=== PATIENT | female | born 1945 | race Native Hawaiian/Other Pacific Islander ===

== ENCOUNTER 2024-05-16 12:18 | Outpatient (OUT) | payer MEDICARE, BC, SELFPAY ==
--- NOTE | 2024-05-16 13:51 | P.CN_ITS ---
Consult Note: HPI Data of Consult Patient: new to practice Consult date: 05/16/24 Requesting Physician: Nikkie Romero MD Primary Care Provider: VICKIE STILES Consult Narrative Reason for consult: low back pain, left leg and knee pain Narrative: 79yof who presents for evaluation. longstanding low back and leg pain. 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 has been to outside pain clinics in the past, where she received some benefit with interventional modalities. she is engaged in physical therapy and continues in provider directed home exercises >6 weeks, without significant benefit. uses otc pain meds, as she is very sensitive to pain meds. cc:: CC: Nikkie Romero MD Review of Systems ROS Status of ROS 10 or more systems reviewed and unremark able except as noted in history and below Exam Narrative Exam Narrative: Psych-alert and oriented x 3. Attentive and appropriate, constitutionally normal, displays normal mood and affect per situation. There are no obvious deficits in memory, reasoning, or intellect.? Skin-no obvious rashes, bruising, erythema noted to the patient's area of pain.? Extremities- extremities are warm with minimal edema and palpable pulses. Lumbar-tenderness to palpation noted in the lumbar spine and paraspinal musculature. Pain is elicited with flexion, extension, and lateral rotation of the lumbar spine. Range of motion is diminished with these motions. Facet loading maneuvers are positive.? Strength-noted to be unremarkable with the exception of decreased strength rated at 4 out of 5 in bilateral quadriceps femoris, anterior tibialis Sensory-no notable sensory deficits in the bilateral lower extremities to touch or pinprick in all dermatomal distributions with the exception to decreased sensation to the bilateral L4, 5 dermatomal distribution Coordination remains intact.? Gait remains non-antalgic. Assessment and Plan Assessment and Plan (1) Lumbar stenosis with neurogenic claudication: (2) Lumbar spondylosis: Plan 79yof who presents for evaluation. she has failed physical and medical modalities, as noted. imaging consistent with multilevel degenerative changes, but no recent advanced imaging available for review. given symptoms and exam findings, prudent to obtain lumbar ct without contrast for further info. she has non-compatible pacemaker, so mri is not an option. she is in agreement. meds reviewed, no changes. follow up after imaging.
== END 2024-05-16 12:19 | disposition home or self-care (01) ==
LOC: PM 12:19
PROVIDERS: PCP Family Medicine; Visit Provider Anesthesiology
DX: M48.062 Spinal stenosis, lumbar region with neurogenic claudication (principal); M47.816 Spondylosis without myelopathy or radiculopathy, lumbar region
CPT/HCPCS: G0463

== ENCOUNTER 2024-05-18 14:09 | Outpatient (OUT) | payer MEDICARE, BC, SELFPAY ==
--- NOTE | 2024-05-18 14:11 | CT_ITS ---
The [address] [address] Patient Name: MAGI HOPPER MRN: [facility]:[id number] date: 1945 Sex: F Assigned Patient Location: CT Current Patient Location: CT Accession/Order Number: [id number] Exam Date: 05/18/2024 14:22 Report Date: 05/18/2024 17:15 At the request of: MELO BUTT Procedure: CT lumbar spine wo con EXAMINATION: CT lumbar spine wo con HISTORY: Lumbar stenosis with neuroclaudication chronic low back pain, pain getting worse. COMPARISON: 03/27/2016. TECHNIQUE: CT lumbar spine without intravenous contrast. FINDINGS: Levoconvex scoliosis with apex at L1-L2, unchanged. Exaggeration of the lumbar lordosis. No subluxation. Progression of severe disc space narrowing at the right side of the L1-L2 and L2-L3 levels with new endplate sclerosis. Mild to moderate disc space narrowing in the remaining lumbar spine. L5-S1: Disc bulge and moderate bilateral facet, arthropathy, similar to the prior exam. There remain no spinal canal stenosis. L4-L5: Disc bulge, moderate bilateral facet arthropathy. There is mild spinal canal stenosis. No foraminal stenosis. This is unchanged. L3-L4: Disc bulge and moderate bilateral facet arthropathy slightly progressed. There remain no spinal canal stenosis. Stable mild right foraminal stenosis. L2-L3: Disc bulge, moderate facet arthropathy and small foraminal osteophytes. There remain no spinal canal stenosis. Stable moderate right and mild left foraminal stenosis. L1-L2: Disc bulge and mild facet arthropathy. No spinal canal stenosis. Asymmetric severe right foraminal stenosis, unchanged. T12-L1: Disc bulge and mild facet arthropathy without spinal canal stenosis. Mild left foraminal stenosis, unchanged. CT/CT lumbar spine wo con IMPRESSION: 1. Stable moderate levoconvex scoliosis of the lumbar spine with apex at L1-L2. Slight progression of severe degenerative disc disease at L1-L2 and L2-L3 and similar moderate degenerative disc disease and facet arthropathy in the remaining lumbar spine. 2. There remain no levels of high-grade spinal canal stenosis. Similar foraminal stenosis as described. Electronically authenticated by: FLAKO BRAUN Date: 05/18/2024 17:15
== END 2024-05-18 14:10 | disposition home or self-care (01) ==
LOC: CT 14:09
PROVIDERS: PCP Family Medicine; Visit Provider Anesthesiology
DX: M48.062 Spinal stenosis, lumbar region with neurogenic claudication (principal); M51.36 Other intervertebral disc degeneration, lumbar region
CPT/HCPCS: 72131

== ENCOUNTER 2024-05-30 12:25 | Outpatient (OUT) | payer MEDICARE, BC, SELFPAY ==
--- NOTE | 2024-05-30 12:57 | P.CN_ITS ---
Consult Note: HPI Data of Consult Patient: known to practice within the last 3 years Consult date: 05/30/24 Requesting Physician: Nikkie Romero MD Primary Care Provider: VICKIE STILES Consult Narrative Reason for consult: low back pain Narrative: 79yof who presents for assessment. continues to have significant low back pain that is worsened with ambulation. completed 6w of PT in past 3 months, without lasting benefit. continues in a series of provider directed home exercises >6w, without benefit. uses tylenol as needed. lumbar imaging reviewed, significant for multilevel moderate facet arthropathy through lumbar spine. denies adverse med side effects. cc:: CC: Nikkie Romero MD Review of Systems ROS Status of ROS 10 or more systems reviewed and unremark able except as noted in history and below Exam Narrative Exam Narrative: Psych-alert and oriented x 3. Attentive and appropriate, constitutionally normal, displays normal mood and affect per situation.? There are no obvious deficits in memory, reasoning, or intellect.? Skin-no obvious rashes, bruising, erythema noted to the patient's area of pain. Extremities- extremities are warm with minimal edema and palpable pulses. Lumbar-no significant tenderness to palpation noted in the lumbar spine and paraspinal musculature.? Pain is elicited with extension, and lateral rotation of the lumbar spine. Range of motion is slightly diminished with these motions due to pain. Facet loading maneuvers are positive bilaterally and do appear to be concordant with the patient's normal complaints of pain.? Coordination remains intact.? Gait remains non-antalgic. Assessment and Plan Assessment and Plan (1) Lumbar spondylosis: (2) Lumbar stenosis with neurogenic claudication: Plan 79yof who presents for assessment. failed conservative measures, as noted. imaging reviewed, as noted. given symptoms and imaging, prudent to attempt diagnostic bilateral l4-5, l5-s1 medial branch block under fluoroscopic guidance with intention of proceeding to radiofrequency ablation. she is in agreement. meds reviewed, no changes. follow up after procedure.
== END 2024-05-30 12:26 | disposition home or self-care (01) ==
LOC: PM 12:26
PROVIDERS: PCP Family Medicine; Visit Provider Anesthesiology
DX: M47.816 Spondylosis without myelopathy or radiculopathy, lumbar region (principal); M48.062 Spinal stenosis, lumbar region with neurogenic claudication
CPT/HCPCS: G0463

== ENCOUNTER 2024-06-06 09:19 | Day surgery (SDC) | payer MEDICARE, BC, SELFPAY ==
--- OUTSIDE RECORDS SUMMARY | 2024-06-06 09:36 | XMS_ITS | CCD ---
Author Organization [facility] Care Team Providers Care Fabrication And [employer] Supervisor Name Role Phone Yajaira Gonzalez Primary Care Provider Ceferino Morales Attending Provider Yajaira Gonzalez MD Primary Care Provider Mackenzie Kurtz(Historical) Unavailable Un available Ramirez Jang Unavailable Vilma Sandoval MD Unavailable YAJAIRA POST Primary Care Physician Yajaira Gonzalez MD Primary Care Provider Ramirez Jang Unavailable Vilma Sandoval MD Unavailable Yajaira Gonzalez MD Primary Care Provider Yajaira Gonzalez MD Primary Care Provider Mackenzie Kurtz(Historical) Unavailable Un available Ramirez Jang Unavailable Vilma Sandoval MD Unavailable MARLEE SALAZAR Admitting Unavailable MARLEE SALAZAR Attending Unavailable YAJAIRA GONZALEZ Primary Care Unavailable FENG LEY Consulting Unavailable Ramirez Jang Unavailable Vilma Napoles MD Unavailable [phone] SuhailRamirez mondragon DO Unavailable LISAYAJAIRA Primary Care Unavailable MARLEE SALAZAR Referring Unavailable SELL II, REDDY W Referring Unavailable LISAYAJAIRA Primary Care Unavailable GABRIEL SUBRAMANIAN Attending Unavailable LISAYAJAIRA Primary Care Unavailable GABRIEL COPPOLA JR Referring Unavailable Lisa THOMAS Yajaira Pearce Primary Care Provider Lisa THOMAS, Yajaira F Unavailable Lisa THOMAS, Yajaira F Primary Care Provider [phone] Lisa THOMAS, Yajaira F Primary Care Provider VILMA NAPOLES Attending Unavailable LISA, YAJARIA F Referring Unavailable LISA, YAJAIRA F Primary Care Unavailable VILMA NAPOLES Attending Unavailable LISA, YAJAIRA F Referring Unavailable LISA, YAJAIRA F Primary Care Unavailable MARLEE SALAZAR Attending Unavailable DEREN, MARLEE Referring Unavailable LISA, YAJAIRA F Primary Care Unavailable LISA, YAJAIRA F Primary Care Unavailable ABHYANKAR, VAIBHAV Referring Unavailable LISA, YAJAIRA F Primary Care Unavailable ABHYANKAR, VAIBHAV Attending Unavailable LISA, YAJAIRA F Primary Care Unavailable GABRIEL COPPOLA JR Attending Unavailable MARLEE SALAZAR Referring Unavailable LISA, YAJAIRA F Primary Care Unavailable DAISYNMARLEE Attending Unavailable LISA, YAJAIRA F Primary Care Unavailable LISA, YAJAIRA F Primary Care Unavailable GABRIEL COPPOLA JR Attending Unavailable GABRIEL COPPOLA JR Referring Unavailable LISA, YAJAIRA F Primary Care Unavailable ABHYANKAR, VAIBHAV Referring Unavailable LISA, YAJAIRA Ramses Primary Care Unavailable ABHYANKAR, VAIBHAV Attending Unavailable ABHYANKAR, VAIBHAV Referring Unavailable LISA, YAJAIRA F Primary Care Unavailable GABRIEL COPPOLA JR Attending Unavailable LISA, YAJAIRA F Primary Care Unavailable ABHYANKAR, VAIBHAV Attending Unavailable ABHYANKAR, VAIBHAV Referring Unavailable ABHYANKAR, VAIBHAV Attending Unavailable LISA, YAJAIRA F Primary Care Unavailable LISA, YAJAIRA F Primary Care Unavailable PROMISE SOLIMAN Attending Unavailable GABRIEL COPPOLA JR Referring Unavailable MARLEE SALAZAR Referring Unavailable LISA, YAJAIRA Pearce Primary Care Unavailable POST, YAJAIRA Primary Care Unavailable Yee Rivero Attending Unavailable Vilma Napoles MD Unavailable [phone] TIA MARIE Attending Unavailable LISA, YAJAIRA F Referring Unavailable LISA, YAJAIRA F Primary Care Unavailable TIA MARIE Attending Unavailable LISA, YAJAIRA F Referring Unavailable LISA, YAJAIRA F Primary Care Unavailable WINSTON GARCIA Attending Unavailable LISA, YAJAIRA F Referring Unavailable LISA, YAJAIRA F Primary Care Unavailable TIA MARIE Attending Unavailable LISA, YAJAIRA F Referring Unavailable LISA, YAJAIRA F Primary Care Unavailable LISA, YAJAIRA F Referring Unavailable LISA, YAJAIRA F Primary Care Unavailable LEATHA REDDY Attending Unavailable LISA, YAJAIRA F Referring Unavailable LISA, YAJAIRA F Primary Care Unavailable TIA MARIE Attending Unavailable LISA, YAJAIRA F Referring Unavailable LISA, YAJAIRA F Primary Care Unavailable JEZAWINSTON Gonzalez Attending Unavailable LISA, YAJAIRA F Referring Unavailable LISA, YAJAIRA F Primary Care Unavailable WINSTON GARCIA Referring Unavailable LISA, YAJAIRA F Primary Care Unavailable MARIE, TIA Attending Unavailable LISA, YAJAIRA F Referring Unavailable LISA, YAJAIRA F Primary Care Unavailable VAIBHAV OVALLE Referring Unavailable LISA, YAJAIRA F Primary Care Unavailable MARIE, TIA Attending Unavailable LISA, YAJAIRA F Referring Unavailable LISA, YAJAIRA F Primary Care Unavailable WINSTON GARCIA Attending Unavailable LISA, YAJAIRA F Referring Unavailable LISA, YAJAIRA F Primary Care Unavailable MARIE, TIA Attending Unavailable LISA, YAJAIRA F Referring Unavailable LISA, YAJAIRA F Primary Care Unavailable TIA MARIE Attending Unavailable LISA, YAJAIRA F Referring Unavailable LISA, YAJAIRA F Primary Care Unavailable WINSTON GARCIA Attending Unavailable LISA, YAJAIRA F Referring Unavailable LISA, YAJAIRA F Primary Care Unavailable TIA MARIE Attending Unavailable LISA, YAJAIRA F Referring Unavailable LISA, YAJAIRA F Primary Care Unavailable FRANK, TIA Attending Unavailable LISA, YAJAIRA F Referring Unavailable LISA, YAJAIRA F Primary Care Unavailable TIA MARIE Attending Unavailable LSIA, YAJAIRA F Referring Unavailable LISA, YAJAIRA F Primary Care Unavailable WINSTON GARCIA Attending Unavailable LISA, YAJAIRA F Referring Unavailable LISA, YAJAIRA F Primary Care Unavailable LISA, YAJAIRA F Attending Unavailable AMADA BRUCE Attending Unavailable GILLMORESME Referring Unavailable ROSEANNEMYRANDA Attending Unavailable LISA, YAJAIRA F Referring Unavailable BRETT CANTU Attending Unavailable AMADA BRUCE Attending Unavailable AMADA BRUCE Attending Unavailable GILLMOR, ESME Referring Unavailable JANISAMADA Attending Unavailable GILLMOR, ESME Referring Unavailable LISA, YAJAIRA F Attending Unavailable FELTERYELENA Attending Unavailable LISA, YAJAIRA F Referring Unavailable JANISAMADA Attending Unavailable GILLMORESME Referring Unavailable LISA, YAJAIRA F Attending Unavailable BEATRICE MARTELL Attending Unavailable GILLMOR, ESME Referring Unavailable FELTERYELENA Attending Unavailable AMADA BRUCE Attending Unavailable GILLMOR, ESME Referring Unavailable JANIS, AMADA Claire Attending Unavailable GILLMOR, ESME Referring Unavailable GUZIK, BEATRICE Attending Unavailable GILLMOR, ESME Referring Unavailable PETITTI, MIGUEL ANGEL Mondragon Attending Unavailable KAITLYNN, JARON Attending Unavailable PETITTI, MIGUEL ANGEL Mondragon Attending Unavailable GUZIK, BEATRICE Attending Unavailable GILLMOR, ESME Referring Unavailable KAITLYNN, JARON Attending Unavailable FELTER, YELENA Mondragon Attending Unavailable GUZIK, BEATRICE Attending Unavailable GILLMOR, ESME Referring Unavailable KAITLYNN, JARON Attending Unavailable KAMPFER, DAO Attending Unavailable LISA, YAJAIRA F Attending Unavailable JANIS, AMADA Claire Attending Unavailable LISA, YAJAIRA F Referring Unavailable JANIS, AMADA Claire Attending Unavailable GILLMOR, ESME Referring Unavailable LISA, YAJAIRA F Attending Unavailable GOLD, CRISTIAN Claire Attending Unavailable LISA, YAJAIRA F Referring Unavailable GOLD, CRISTIAN Claire Attending Unavailable LISA, YAJAIRA F Referring Unavailable GOLD, CRISTIAN Claire Attending Unavailable LISA, YAJAIRA F Referring Unavailable GOLD, CRISTIAN Claire Attending Unavailable LISA, YAJAIRA F Referring Unavailable Heather THOMAS, Nikkie Arriaga Attending Unavailable Heather THOMAS, Nikkie Arriaga Attending Unavailable Allergies Allergy Classification Reported Allergen(s) Allergy Type Date of Onset Reaction(s) Facility Acetaminophen / HYDROcodone (1 source) Acetaminophen / HYDROcodone Drug Allergy 01-27-20 23 Mental Status Change, Shortness of Breath [facility] Anti-Epileptic Agents (4 sources) gabapentin Drug Allergy 10-16-19 [address] [facility] Aspirin (1 source) Aspirin Drug Allergy 10-17-19 23 Anaphylaxis [facility] cloNIDine (4 sources) cloNIDine Drug Allergy 04-13-20 12 Mental Status Change, Rash [facility] Doxycycline (4 sources) Doxycycline Drug Allergy 01-25-20 14 Intolerance, GI Upset, Unknown [facility] DULoxetine (4 sources) DULoxetine Drug Allergy 02-18-20 11 Other: See Comments, Rash, Swelling, Unknown [facility] Opioid Agonists (9 sources) Codeine Drug Allergy 01-27-20 08 Unknown, Mental Status Change, Shortness of Breath, Other: See Comments [facility] pregabalin (1 source) pregabalin Drug Allergy 01-28-20 23 Other: See Comments [facility] Quinolones (antibiotic) (13 sources) Ciprofloxacin Drug Allergy 02-18-20 11 Other: See Comments, Rash, Unknown [facility] Theophylline (4 sources) Theophylline Drug Allergy 02-23-20 12 Other: See Comments [facility] (20 sources) Ciprofloxacin; Translations: [ciprofloxacin] Drug Allergy 02-18-20 11 Other: See Comments, Unknown (qualifier value), Rash, Unknown [facility] (20 sources) cloNIDine; Translations: [clonidine] Drug Allergy 04-13-20 12 Mental Status Change, Headache (finding), Rash, Hallucinations [facility] Work Phone: (20 sources) Codeine; Translations: [codeine] Drug Allergy 01-27-20 08 Dizziness (finding), Unknown [facility] (20 sources) Doxycycline; Translations: [doxycycline] Drug Allergy 01-25-20 14 Intolerance, GI Upset, Unknown, GI intolerance [facility] (20 sources) DULoxetine; Translations: [duloxetine] Drug Allergy 02-18-20 11 Other: See Comments, Unknown (qualifier value), Rash, Swelling, Unknown [facility] (20 sources) gabapentin; Translations: [gabapentin] Drug Allergy 10-16-19 15 Intolerance, Oral lesion (finding), Headache (finding) [facility] (20 sources) levoFLOXacin; Translations: [levofloxacin] Drug Allergy 02-18-20 11 Other: See Comments, Unknown (qualifier value), Rash, Other [facility] (20 sources) moxifloxacin; Translations: [MOXIFLOXACIN HCL] Drug Allergy 02-18-20 11 Other: See Comments [facility] (20 sources) oxyCODONE; Translations: [OXYCODONE] Drug Allergy 03-19-20 21 Mental Status Change, Shortness of Breath [facility] Work Phone: (20 sources) Theophylline; Translations: [theophylline] Drug Allergy 02-23-20 12 Other: See Comments, Headache (finding), hypertension [facility] (20 sources) moxifloxacin; Translations: [moxifloxacin] Drug Allergy 02-18-20 11 Unknown (qualifier value), Rash, Unknown [facility] (20 sources) traMADol; Translations: [tramadol] Drug Allergy 10-14-19 17 Unknown (qualifier value), Other: See Comments [facility] (20 sources) Aspirin; Translations: [ASPIRIN] Drug Allergy 10-17-19 23 Anaphylaxis, Shortness Of Breath [facility] (20 sources) Acetaminophen / HYDROcodone; Translations: [HYDROCODONE-EMMY TAMINOPHEN] Drug Allergy 01-27-20 23 Mental Status Change, Shortness of Breath, Unknown [facility] (19 sources) pregabalin; Translations: [PREGABALIN] Drug Allergy 01-28-20 Other: See Comments [facility] (4 sources) Simvastatin; Translations: [SIMVASTATIN] Drug Allergy 10-14-19 17 [facility] (4 sources) Thiuram Analogues; Translations: [THIURAM ANALOGUES] Propensity to adverse reactions to drug 12-29-19 21 [facility] (2 sources) Aluminum aspirin Drug Allergy 10-17-19 23 Anaphylaxis [facility] (2 sources) Ciprofloxacin Drug Allergy 09-25-19 22 Rash [facility] (2 sources) DULoxetine Drug Allergy 09-25-19 Swelling, Rash, Other [facility] (2 sources) Pregabalin Allergy to substance 01-28-20 23 [facility] (2 sources) Simvastatin Propensity to adverse reactions 10-14-19 [facility] Medications Current Medications Medication Drug Class(es) Dates Sig (Normalized) Sig (Original) acetaminophen 500 mg oral tablet (20 sources) Start: 04-24-2021 take 2 tablets by mouth every eight hours acetaminophen (TYLENOL EXTRA STRENGTH) 500 mg tablet Take 2 tablets by mouth every 8 hours. 04/24/2021 Active Start: 11-15-2019 take 2 tablets by mo uth three times daily Acetaminophen (Tylenol Extra Strength) 500 mg Tablet Active 1000 MG PO Three times daily November 15, 2019 8:24am Start: 11-15-2019 take 2 tablets by mo uth every six hours Acetaminophen (Tylenol Extra Strength) 500 mg Tablet Active 1000 MG PO Every 6 hours November 15, 2019 8:24am Comment on above: Take 2 tablets by mo uth every 8 hours. [id number] 200 actuat albuterol 0.09 mg/actuat metered dose inhaler (20 sources) beta2-Adrenergic Agonist Start: 06-10-2022 take 2 puff(s) by mouth every six hours as needed for wheezing albuterol (PROVENTIL HFA;VENTOLIN HFA) 90 mcg/actuation inhaler Indications: Asthma, unspecified asthma severity, unspecified whether complicated, unspecified whether persistent INHALE TWO PUFFS BY MOUTH EVERY 6 HOURS NEEDED FOR WHEEZING OR FOR SHORTNESS OF BREATH 18 g 10 06/10/2022 Active Start: 11-15-2019 take 1 puff(s) by in halation every four to six hours Albuterol Sulfate (Ventolin Hfa) 90 mcg/actuation Hfa Aerosol Inhaler Active 2 PUFF INHALATION EVERY 4-6 HOURS November 15, 2019 8:24am albuterol sulfat e (VENTOLIN HFA INHALATION) Inhale as instructed. Active albuterol sulfat e (VENTOLIN HFA INHALATION) Inhale as instructed. 0 Active Comment on above: Inhale as instructed . ALPRAZolam 0.5 mg oral tablet (20 sources) Benzodiazepine Start: 12-06-2021 End: 01-03-2024 ALPRAZolam (XANAX) 0.5 mg tablet 03/13/2023 Active Start: 11-15-2019 take 2 tablets by mo [facility] twice daily Alprazolam (Xanax) 0.25 mg Tablet Active 0.5 MG PO Twice daily November 15, 2019 8:24am Start: 11-15-2019 [facility] Alprazolam (Xanax) 0.25 mg Tablet Active 0.25 MG PO Twice daily November 15, 2019 8:24am End: 03-27-2023 take 2 tablets by mouth every eight hours as needed ALPRAZolam (XANAX) 0.25 mg tablet Take 0.5 mg by mouth three times daily as needed. 03/27/2023 Discontinued (Course of therapy completed) Comment on above: Take 0.5 mg by mouth three times daily as needed. atogepant (QULIPTA) 30 mg tablet (8 sources) take 1 tablet by mouth once daily atogepant (QULIPTA) 30 mg tablet Take 30 mg by mouth once daily. 0 Active Atogepant (Qulipta) 60 MG tablet (2 sources) Atogepant (Qulip ta) 60 MG tablet Take by mouth 0 Active azelastine (20 sources) Histamine-1 Receptor Antagonist Start: 2 azelastine hydrochloride 137 mcg spray = 2 spray(s), Nasal, BID Start Date: 12/06/21 Status: Ordered Start: 11-15-2019 Azelastine Act luis 2 SPRAY INTRANASAL Twice daily November 15, 2019 8:24am Start: 01-10-2019 End: 01-06-2023 azelastine (ASTELIN,ASTEPRO) 0.1% nasal spray Use 2 Sprays in the nose as needed. 0 01/10/2019 01/06/2023 Discontinued (Course of therapy completed) Comment on above: Use 2 Sprays in the nose as needed. bisacodyl 5 mg delayed release oral tablet (2 sources) Stimulant Laxative Start: 2022 End: 2022 take 2 tablets by mouth once daily for constipation bisacodyl EC (DULCOLAX) 5 mg EC tablet Take 2 tablets by mouth once daily for 14 days. Take regularly when on narcotics, Take as needed for constipation when narcotics completed 28 tablet 0 01/28/2023 02/11/2023 Active Comment on above: Take 2 tablets by mo ut once daily for 14 days. Take regularly when on narcotics, Take as needed for constipation when narcotics completed botox injections every 3 months (1 source) Start: 2021 botox injections every 3 months botox injections every 3 months Start Date: 12/06/21 Status: Ordered Botulinum Toxin Type A (20 sources) Acetylcholine Release Inhibitor ONABOTULINUMTOXINA (BOTOX INJECTION) by INJECTION(UNSPECIFIED PARENTERAL ROUTES) route. every 9 weeks for migraines Active onabotulinumtoxi nA (BOTOX) 100 unit recon soln every 3 (three) months. For migraines 0 Active ONABOTULINUMTOXI NA (BOTOX INJECTION) by INJECTION(UNSPECIFIED PARENTERAL ROUTES) route. every 9 weeks for migraines 0 Active Comment on above: by INJECTION(UNSPECI FIED PARENTERAL ROUTES) route. every 9 weeks for migraines camphor 40 mg/ml / menthol 100 mg/ml / methyl salicylate 300 mg/ml topical cream (1 source) Start: 2020 Camphor-Methyl Salicyl-Menthol (Pain Relief Cream) 4-30-10 % Cream Active 1 APPLIC TOPICAL Twice daily February 01, 2021 7:37am clobetasol propionate 0.5 mg/ml medicated shampoo (5 sources) Corticosteroid Start: 2023 Clobetasol Propionate 0.05 % sham Apply to scalp, leave on 5 min, rinse. 2-3 x week, 30 day supply 0 02/15/2024 Active 24 hr desvenlafaxine succinate 50 mg extended release oral tablet (20 sources) Serotonin and Norepinephrine Reuptake Inhibitor Start: 2023 take 1 tablet by mouth once daily, then take 1 tablet by mouth every twenty-four hours desvenlafaxine ER (PRISTIQ) 50 mg 24 hr tablet Take 50 mg by mouth once daily. 0 12/01/2023 Active Start: 12-01-2023 take 1 tablet by nila th once daily, then take 1 tablet by mouth every twenty-four hours desvenlafaxine ER (PRISTIQ) 25 mg 24 hr tablet Take 25 mg by mouth once daily. 0 12/01/2023 Active Start: 11-02-2023 take 1 tablet by nila th every twenty-four hours in the morning desvenlafaxine (PRISTIQ) 25 mg 24 hr tablet Indications: Major depressive disorder, recurrent episode, mild (CMS-HCC) , Generalized anxiety disorder Take 1 tablet (25 mg total) by mouth in the morning. 30 tablet 3 11/02/2023 Active Start: 07-03-2022 End: 01-06-2023 desvenlafaxine ER (PRISTIQ) 25 mg 24 hr tablet Take 25 mg by mouth. 0 07/03/2022 01/06/2023 Discontinued (Course of therapy completed) Start: 07-03-2022 desvenlafaxine ER (PRISTIQ) 25 mg 24 hr tablet Take 50 mg by mouth. 0 07/03/2022 Active Comment on above: Take 25 mg by mouth. Take 50 mg by mouth. dicyclomine hydrochloride 20 mg oral tablet (8 sources) Anticholinergic Start: 08-15-20 End: 11-14-19 23 take 1 tablet by mouth twice daily dicyclomine (BENTYL) 20 mg tablet Indications: Diarrhea, unspecified type Take 1 tablet by mouth twice daily. 60 tablet 2 08/15/2022 11/13/2022 Active Comment on above: Take 1 tablet by nila th twice daily. docusate sodium 50 mg / sennosides, longterm 8.6 mg oral tablet (11 sources) Start: 02-29-20 take 2 tablets by mouth once daily at bedtime SENEXON-S 8.6-50 mg per tablet TAKE TWO TABLETS BY MOUTH EVERY NIGHT AT BEDTIME 60 tablet 2 02/29/2024 Active Start: 09-17-2023 End: 12-16-2023 take 2 tablets by mouth in the morning sennosides-docusate sodium (SENOKOT-S) 8.6-50 mg Take 2 tablets by mouth in the morning. 0 09/17/2023 12/16/2023 Active Start: 09-17-2023 End: 12-16-2023 take 2 tablets by mouth once daily at bedtime senna-docusate (SENOKOT-S) 8.6-50 mg per tablet Take 2 tablets by mouth daily at bedtime. 60 tablet 2 09/17/2023 12/16/2023 Active Comment on above: Take 2 tablets by mo [facility] daily at bedtime. famotidine 20 mg oral tablet (5 sources) Histamine-2 Receptor Antagonist Start: 4 End: 4 take 1 tablet by mouth twice daily famotidine (PEPCID) 20 mg tablet Take 1 tablet by mouth two times a day. 60 tablet 2 10/27/2023 01/25/2024 Active Comment on above: Take 1 tablet by nila two times a day. fexofenadine (20 sources) Histamine-1 Receptor Antagonist Start: 2 Usha Oral Start Date: 12/06/21 Status: Ordered Start: 11-15-2019 End: 02-09-2024 take 1 tablet by mouth once daily Fexofenadine (Usha Allergy) 180 mg Tablet Active 180 MG PO Daily November 15, 2019 8:24am Start: 11-15-2019 Fexofenadine ( Usha Allergy) 180 mg Tablet Active 100 MG PO Daily November 15, 2019 8:24am take 100 mg by mouth once daily as needed fexofenadine HCl (FEXOFENADINE ORAL) Take 100 mg by mouth daily as needed. 0 Active Comment on above: Take 180 mg by mouth once daily. fluocinonide 0.5 mg/ml topical solution (5 sources) Corticosteroid Start: 2023 fluocinonide (LIDEX) 0.05 % external solution Apply to affected area once daily. 0 02/15/2024 Active folic acid 1 mg oral tablet (2 sources) folic acid (Folv ite) 1 MG tablet Take by mouth Daily. 0 Active ipratropium bromide 0.2 mg/ml inhalation solution (3 sources) Anticholinergic Start: 2019 Ipratropium [place] Active 1.25 ML INHALATION every 6 to 8 hours November 15, 2019 8:24am iv contrast (will be provided with radiology test) (1 source) Start: 2022 End: 2022 inject 1 dose intravenously once iv contrast (will be provided with radiology test) MRI Brain Inject, intravenously, once for 1 dose.No IV access, insert saline lock prior to beginning of sedation, infusion, injection of imaging exam.Discontinue saline lock post exam. If Pt. has a central line or IVAD, may access for administration according to line specific nursing protocol.Once exam is complete flush line and de-access according to line specific nursing protocol in the MR contrast administration guidelines link 1 Each 0 05/29/2023 05/30/2023 Active Comment on above: MRI Brain Inject, in travenously, once for 1 dose.No IV access, insert saline lock prior to beginning of sedation, infusion, injection of imaging exam.Discontinue saline lock post exam. If Pt. has a central line or IVAD, may access for administration according to line specific nursing protocol.Once exam is complete flush line and de-access according to line specific nursing protocol in the MR contrast administration guidelines link lansoprazole 30 mg delayed release oral capsule (8 sources) Proton Pump Inhibitor Start: 2023 take 1 capsule by mouth once daily lansoprazole (PREVACID) 30 mg capsule Take 1 capsule by mouth once daily. 30 capsule 3 01/29/2024 Active levothyroxine sodium 0.088 mg oral tablet (20 sources) l-Thyroxine Start: 2009 End: 2023 take 1 tablet by mouth once daily LEVOTHYROXINE 88 MCG TAB Take one(1) tablet daily BY MOUTH 0 12/04/2009 Active Comment on above: Take one(1) tablet d aily BY MOUTH Lidocaine Hcl-Benzyl Alcohol (Salonpas Lidocaine Plus) 4-10 % Cream (1 source) Start: 2020 Lidocaine Hcl-Benzyl Alcohol (Salonpas Lidocaine Plus) 4-10 % Cream Active 1 APPLIC TOPICAL Twice daily February 01, 2021 7:37am lisinopril 5 mg oral tablet (20 sources) Angiotensin Converting Enzyme Inhibitor Start: 2020 lisinopriL (PRINIVIL,ZESTRIL) 5 mg tablet Indications: Benign essential hypertension Take 1 tablet (5 mg total) by mouth as needed (As needed for high bp readings. SBP > [address] (pt states she takes only if >150)). As needed for high bp readings. SBP > [address] (pt states she takes only if >150) 90 tablet 3 12/31/2022 Active Start: 01-30-2021 Lisinopril Act luis 5 MG PO Daily January 30, 2021 10:26am take when BP is >130/140 Comment on above: Take 5 mg by mouth a s needed. as needed for BP above 140 marijuana (1 source) Start: 12-07-19 marijuana marijuana Start Date: 12/06/21 Status: Ordered metroNIDAZOLE 500 mg oral tablet (2 sources) Nitroimidazole Antimicrobial Start: 08-15-20 End: 08-22-20 take 1 tablet by mouth twice daily metroNIDAZOLE (FLAGYL) 500 mg tablet Indications: Diarrhea, unspecified type Take 1 tablet by mouth twice daily for 7 days. 14 tablet 0 08/15/2022 08/22/2022 Active Comment on above: Take 1 tablet by nila twice daily for 7 days. miconazole nitrate 20 mg/ml topical cream (20 sources) Azole Antifungal Start: 02-07-20 miconazole 2 % cream Apply to affected area. 02/06/2023 Active Comment on above: Apply to affected ar ea. montelukast 5 mg chewable tablet (20 sources) Leukotriene Receptor Antagonist Start: 12-07-19 Singulair 5 mg Tab-Chew 5 mg = 1 tab(s), Chewed, Daily Start Date: 12/06/21 Status: Ordered Start: 09-17-2017 End: 01-06-2023 take 1 tablet by mouth every twelve hours as needed montelukast chewable (SINGULAIR) 5 mg chewable tablet Take 5 mg by mouth twice daily as needed. 0 09/17/2017 01/06/2023 Discontinued (Course of therapy completed) Comment on above: Take 5 mg by mouth t wice daily as needed. Multivitamin preparation (3 sources) Start: 0 take 2 tablets by mouth once daily Multivitamin Active 2 TAB PO Daily June 15, 2020 8:39am Start: 06-15-2020 take 1 tablet by nila once daily Multivitamin Active 1 TAB PO Daily June 15, 2020 8:39am omeprazole 40 mg delayed release oral capsule (20 sources) Proton Pump Inhibitor Start: 12-06-2021 take 40 mg by mouth once daily Prilosec 40 mg, Oral, Daily Start Date: 12/06/21 Status: Ordered Start: 11-15-2019 Omeprazole Mag nesium (Prilosec Otc) 20 mg Tablet,Delayed Release (Dr/Ec) Active 40 MG PO Daily November 15, 2019 8:24am Start: 09-14-2016 take 1 capsule by mo [facility] once daily before breakfast omeprazole (PriLOSEC) 40 mg capsule Take 1 capsule (40 mg total) by mouth every morning before breakfast. 0 09/14/2016 Active Start: 11-12-2013 End: 10-27-2023 take 1 capsule by mouth twice daily OMEPRAZOLE 40 mg capsule Take 40 mg by mouth twice daily. 11/12/2013 10/27/2023 Discontinued Comment on above: Take 40 mg by mouth twice daily. Omeprazole Magnesium (Prilosec Otc) 20 mg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 [Scoliosis, unspecified] Onset: 3 Resolved: 3 09-05-2023 Chronic Other aftercare (20 sources) Radiotherapy follow-up; Translations: [Encounter for follow-up examination after completed treatment for conditions other than malignant neoplasm] Onset: 5 Resolved: 3 11-20-2014 Episodic Other circulatory disease (20 sources) Orthostatic hypotension; Translations: [Orthostatic hypotension] Onset: 1 04-24-2021 Episodic Other connective tissue disease (2 sources) History of left total knee replacement; Translations: [Presence of left artificial knee joint] Onset: 3 Resolved: 3 09-05-2023 Chronic Other connective tissue disease (20 sources) Tear of right rotator cuff; Translations: [Unspecified rotator cuff tear or rupture of right shoulder, not specified as traumatic] Onset: 5 Resolved: 3 12-28-2014 Episodic Other connective tissue disease (4 sources) Bilateral cramp of muscle of lower limbs; Translations: [Cramp and spasm] Onset: 7 02-23-2017 Episodic Other connective tissue disease (4 sources) Bilateral trochanteric bursitis; Translations: [Trochanteric bursitis, right hip] Onset: 7 07-08-2017 Episodic Other connective tissue disease (2 sources) Pain of right lower leg; Translations: [Pain in right lower leg] Onset: 7 Resolved: 7 08-17-2017 Episodic Other connective tissue disease (2 sources) Muscle pain; Translations: [Myalgia, unspecified site] Onset: 6 02-06-2023 Episodic Other diseases of veins and lymphatics (2 sources) Venous hypertension of lower limb; Translations: [Chronic venous hypertension (idiopathic) without complications of right lower extremity] Onset: 7 Resolved: 7 06-11-2017 Chronic Other ear and sense organ disorders (2 sources) Bilateral tinnitus; Translations: [Tinnitus, bilateral] Onset: 0 02-06-2023 Episodic Other ear and sense organ disorders (2 sources) Otalgia, right ear; Translations: [Otalgia, unspecified] Onset: 3 Resolved: 3 09-05-2023 Episodic Other gastrointestinal disorders (2 sources) Slow transit constipation; Translations: [Slow transit constipation] Onset: 9 02-06-2023 Episodic Other gastrointestinal disorders (2 sources) Esophageal dysphagia; Translations: [Other dysphagia] Onset: 0 Resolved: 3 09-05-2023 Episodic Other infections; including parasitic (20 sources) H/O: infectious disease; Translations: [Personal history of other infectious and parasitic diseases] Onset: 1 Resolved: 3 04-19-2021 Episodic Other nervous system disorders (2 sources) Impairment of balance; Translations: [Other abnormalities of gait and mobility] Onset: 3 Resolved: 3 09-05-2023 Episodic Other non-traumatic joint disorders (20 sources) Shoulder pain; Translations: [Pain in right shoulder] Onset: 5 11-20-2014 Episodic Other non-traumatic joint disorders (20 sources) Pain in right shoulder; Translations: [Pain in joint, shoulder region] Onset: 5 11-20-2014 Episodic Other non-traumatic joint disorders (1 source) Pain in right knee; Translations: [Chronic pain of right knee] Onset: 4 Episodic Other nutritional; endocrine; and metabolic disorders (2 sources) Obesity caused by energy imbalance; Translations: [Other obesity due to excess calories] Onset: 3 Resolved: 3 09-05-2023 Chronic Other nutritional; endocrine; and metabolic disorders (2 sources) Loss of appetite; Translations: [Anorexia] Onset: 0 02-06-2023 Episodic Other screening for suspected conditions (not mental disorders or infectious disease) (5 sources) Patient encounter status; Translations: [Encounter for screening for malignant neoplasm of colon] Onset: 4 01-29-2024 Episodic Other skin disorders (4 sources) Bilateral localized swelling of lower legs; Translations: [Localized swelling, mass and lump, lower limb, bilateral] Onset: 7 Resolved: 3 02-23-2017 Episodic Other skin disorders (2 sources) Seborrheic keratosis; Translations: [Other seborrheic keratosis] Onset: 6 Resolved: 3 09-05-2023 Episodic Other skin disorders (1 source) Localized swelling, mass and lump, trunk; Translations: [Localized swelling, mass and lump, trunk] Onset: 4 Episodic Phlebitis; thrombophlebitis and thromboembolism (2 sources) Phlebitis; Translations: [Phlebitis and thrombophlebitis of unspecified site] Onset: 7 Resolved: 7 06-11-2017 Episodic Residual codes; unclassified (1 source) Other specified postprocedural states; Translations: [History of lung surgery] Onset: 3 Episodic Residual codes; unclassified (2 sources) Family history of breast cancer; Translations: [Family history of malignant neoplasm of breast] Onset: 1 Resolved: 3 09-05-2023 Episodic Residual codes; unclassified (1 source) Acquired absence of left breast and nipple; Translations: [Acquired absence of left breast and nipple] Onset: 4 Episodic Screening and history of mental health and substance abuse codes (20 sources) Ex-smoker; Translations: [Personal history of nicotine dependence] Onset: 3 Episodic Spondylosis; intervertebral disc disorders; other back problems (20 sources) Stenosis of intervertebral foramina; Translations: [Spinal stenosis, cervical region] Onset: 5 Resolved: 3 12-28-2014 Episodic Syncope (6 sources) Syncope and collapse; Translations: [Syncope and collapse] Onset: 6 01-11-2018 Episodic Varicose veins of lower extremity (4 sources) Bilateral spider veins of lower limbs; Translations: [Asymptomatic varicose veins of bilateral lower extremities] Onset: 7 Resolved: 3 02-23-2017 Episodic Results Test Name Value Interpretation Reference Range Facility Ambulatory Visit Summaryon 0 05-24-2024 Ambulatory Visit Summary Ambulatory Visit Summary MAGI DAO :1945 Visit Date:05/24/2024 Ambulatory Visit Instructions Your Diagnosis Dysuria Unspecified urethral stricture, female OAB (overactive bladder) Mixed incontinence Your Care Team Attending Physician - EZEQUIEL Rivero APRN, Yee Flores Primary Care Physician - YAJAIRA BISHOP This Is Your Medications List Contact prescribing physician if questions or concerns Non-Formulary Medication (botox injections every 3 months) Non-Formulary Medication (marijuana) albuterol (Ventolin HFA 90 mcg/inh Aerosol) alprazolam (Xanax 0.5 mg Tab) azelastine nasal (azelastine hydrochloride 137 mcg spray) fexofenadine (Usha) levothyroxine (Synthroid 88 mcg (0.088 mg) Tab) lisinopril (lisinopril 5 mg Tab) montelukast (Singulair 5 mg Tab-Chew) omeprazole (Prilosec) verapamil (verapamil 180 mg Cap-ER) Procedures Performed Mastectomy (04/12/2021), Arthroscopy (08/10/2015), Anterior cervical (01/24/2015), section (1979), Cardiac pacemaker, Cataract, Cholecystectomy, Colonoscopy, Hernia repair, Hysterectomy, Knee replacement, Procedure on hand, Procedure on hand, Tonsillectomy. Discharge Vitals Heart Rate (Peripheral) 70 Blood Pressure 122/80 Height 162 cm Height 64 in Weight 69.8 kg Weight 153.56 lb BMI 26.6 What to do next You Need to Schedule the Following Appointments Follow Up with WILBERT THOMAS, León Rosenthal, URL When: Comments: cysto/poss UD Where: [facility] [place] [address]- Medications What How Much When Instructions Unchanged albuterol (Ventolin HFA 90 mcg/ inh Aerosol) 2 Puffs Inhalation Every 6 hours Contact prescribing physician if questions or concerns Unchanged alprazolam (Xanax 0.5 mg Tab) 1 Tablets By Mouth 3 times a day as needed for for anxiety Contact prescribing physician if questions or concerns Unchanged azelastine nasal (azelastine hydrochloride 137 mcg spray) 2 Sprays Nasal Inhalation 2 times a day Contact prescribing physician if questions or concerns Unchanged fexofenadine (Usha) By Mouth Contact prescribing physician if questions or concerns Unchanged levothyroxine (Synthroid 88 mcg (0.088 mg) Tab) 1 Tablets By Mouth Every day Contact prescribing physician if questions or concerns Unchanged lisinopril (lisinopril 5 mg Tab) 1 Tablets By Mouth Every day Contact prescribing physician if questions or concerns Unchanged montelukast (Singulair 5 mg Tab-Chew) 1 Tablets Chewed Every day Contact prescribing physician if questions or concerns Unchanged Non-Formulary Medication (botox injections every 3 months) Contact prescribing physician if questions or concerns Unchanged Non-Formulary Medication (marijuana) Contact prescribing physician if questions or concerns Unchanged omeprazole (Prilosec) 40 Milligram By Mouth Every day Contact prescribing physician if questions or concerns Unchanged verapamil (verapamil 180 mg Cap-ER) 1 Capsules By Mouth 2 times a day Contact prescribing physician if questions or concerns Allergies Avelox (Unknown) DULoxetine (Unknown) ciprofloxacin (Unknown) cloNIDine (Severe headache) codeine (Dizziness) doxycycline (Nausea) gabapentin (Mouth sores, Severe headache) levoFLOXacin (Unknown) theophylline (Severe headache) traMADol (Unknown) Problems Ongoing - Any problem that you are currently receiving treatment for. Anemia Arthritis Asthma At risk for falls Breast cancer Depression Dysuria Gall stone Headache Heart disease Heart murmur Hyperlipidemia Hypertension Mixed incontinence OAB (overactive bladder) Unspecified urethral stricture, female Vitamin D deficiency Patient Survey You may receive a survey via text or e-mail asking about your office visit. Please share your experience with us by completing your survey. We appreciate your feedback and thank you for choosing us for your care. Education Materials Dysuria Dysuria is pain or discomfort during urination. The pain or discomfort may be felt in the part of the body that drains urine from the bladder (urethra) or in the surrounding tissue of the genitals. The pain may also be felt in the groin area, lower abdomen, or lower back. You may have to urinate frequently or have the sudden feeling that you have to urinate (urgency). Dysuria can affect anyone, but it is more common in females. Dysuria can be caused by many different things, including: ? Urinary tract infection. ? Kidney stones or bladder stones. ? Certain STIs (sexually transmitted infections), such as chlamydia. ? Dehydration. ? Inflammation of the tissues of the vagina. ? Use of certain medicines. ? Use of certain soaps or scented products that cause irritation. Follow these instructions at home: Medicines ? Take [id number] and prescription medicines only as told by your health care provider. ? If you were prescribed an antibiotic (more content not included)... Normal [facility] Urology Office/Clinic Noteon 05-24-2024 Urology Office/Clinic Note Urology Office/Clinic Note Chief Complaint recurrent UTI HPI Staff 79 year old female patient presents today for recurrent UTI, frequent urination. Last saw PRW 12/06/2021. Previous Dx: urethral stricture, stress incontinence, frequency of urination, urgency incontinence, proteinuria. S/P cysto/UD 01/07/2022. No current urine cx, UAs using clinic sync. last UTI sxs were 05/04/24. she was on Abx for 3 days, then results showed no UTI so she stopped taking abx. pt does urinate very often, she did have UD and was doing it every 6 mths, last time this was done was 2021. pt would like to discuss. Dysuria: no Incomplete bladder emptying: no Hematuria: no Frequency: 1x per hour Urgency: often Nocturia: 2x Stream: normal Leaking: yes Post void dripping: yes Wearing pads/ Depends: yes Urge incontinence: at times Stress incontinence: yes Incontinence without Sensory Awareness: no Abdominal pain: no Flank pain: no Sexual complaints: _ History of Present Illness I have reviewed and verified the staff HPI to be accurate for this encounter. Portions of this record may have been created with voice recognition artificial intelligence software, specifically [employer], [employer] and or [employer]. Substitutions may have occurred due to the inherent limitations of voice recognition and artificial intelligence software. Review of Systems PHQ Score Initial Depression Screen Score: 0 SCORE Physical Exam Vitals & Measurements HR: 70(Peripheral) BP: 122/80 HT: 64 in HT: 162 cm WT: 69.8 kg WT: 153.56 lb BMI: 26.6 General: Well developed, well nourished, in no acute distress. Genitourinary: Flank Pain: none. Bladder: nonpalpable. mild discomfort Assessment/Plan PRW pt PVR today 0 1. Dysuria (R30.0: Dysuria) Patient had an episode of dysuria on 05/04/2024, associated with urgency. Patient was started on Keflex at that time, but urine culture was negative through PCP. Continues to have mild dysuria. Not a candidate for estrogen cream due to history of breast cancer UA today without signs of blood or infection Increase fluid intake, avoid bladder irritants. See #2 2. Unspecified urethral stricture, female (N35.92: Unspecified urethral stricture, female) s/p cysto/UD 01/07/22, 08/05/2016 Patient reports that prior to previous urethral dilations, she was experiencing frequency, mild urgency, frequent UTIs which improved with dilation. Patient denies any weak stream or difficulty emptying at this time. PVR today is 0. Will schedule Cysto with UD. The procedure risks, benefits, details, and treatment alternatives have been discussed with the patient. These include bleeding, infection, recurrent scar in over 50%, need for repeat dilation or other procedures, no symptom relief with dilation, among others. Will order Local anesthesia. -Schedule cystoscopy with possible dilation Ordered: [id number] Measure Post Void residual urine and/or bladder capacity by US- non-imaging Urnls Dip Stick Auto w/o Microscopy POC 03991 3. OAB (overactive bladder) (N32.81: Overactive bladder) BBS 20 Frequency every hour, mild urgency. Nocturia 1-2 times per night. Patient feels that the symptoms have worsened in the last year to 1.5 years. We discussed overactivity of bladder, briefly discussed OAB treatment. Patient states that she would prefer not to start OAB med at this time if she does not have to. Will proceed with cystoscopy/dilation, reevaluate OAB symptoms at follow-up and we discussed treatment at that time. 4. Mixed incontinence (N39.46: Mixed incontinence) Mild stress and urge incontinence. Going through 1-2 pads daily. Not particularly bothersome to patient. See #3 Ordered: [id number] Measure Post Void residual urine and/or bladder capacity by US- non-imaging Urnls Dip Stick Auto w/o Microscopy POC [id number] Follow-up With When Contact Information WILBERT THOMAS, León Rosenthal, URL [address] [place] [address]- Additional Instructions: cysto/poss UD Patient Education Dysuria Urinary Incontinence Overactive Bladder, Adult Kegel Exercises Problem List/Past Medical History Ongoing Anemia Arthritis Asthma At risk for falls Breast cancer Depression Dysuria Gall stone Headache Heart disease Heart murmur Hyperlipidemia Hypertension Mixed incontinence OAB (overactive bladder) Unspecified urethral stricture, female Vitamin D deficiency Historical No qualifying data Procedure/Surgical History Mastectomy (04/12/2021), Arthroscopy (08/10/2015), Anterior cervical (01/24/2015), section (1979), Cardiac pacemaker, Cataract, Cholecystectomy, Colonoscopy, Hernia repair, Hysterectomy, Knee replacement, Procedure on hand, Procedure on hand, Tonsillectomy. Medications Usha, Oral azelastine hydrochloride 137 mcg spray, 2 spray(s), Nasal, BID botox injections every 3 months lisinopril 5 mg Tab, 5 mg= 1 tab(s), Oral, Daily mariju (more content not included)... Normal [facility] Comment on above: Result Comment: Elec tronically Signed By: EZEQUIEL Rivero APRN, [facility]br\Date and Time Signed: 05/24/24 11:03 EDT Gabe 04-14-2024 CNOV Office Visit (ORTHMN ) -- MAGI DAO ([id number]) 1945 F Date Time Provider Department 04/14/24 1:00 PM MARLEE SALAZAR During your visit today, we recorded the following information about you: Marlee Salazar MD 04/14/2024 1:25 PM Signed Ortho Knee Follow Up Note Narrative Referring Provider: MARLEE SALAZAR [id number] [facility] [address] PCP: Yajaira Gonzalez MD == IMPRESSION/PLAN: == 79 year old s/p revision Left Total Knee Replacement completed on 01/26/2023. Recent Surgeries this specialty 01/26/2023 (1yr, 2mo) REVISION JOINT TOTAL KNEE ONE COMPONENT (Left) Marlee Salazar MD; Michel Jansen MD - Posted PAIN EVALUATION 04/07/2024 1030 Pain Level: 7 Pain Location: Leg-Left Description: Aching;Burning;Cramping;[place];Sore;Spasm;Stiffness;T ightness Duration Amount of Time: 7 Duration Units: Weeks Frequency: Continuous Intervention/Comfort measure: Reposition;Relaxation;Exer cise;Massage IMPRESSION: At normal post-operative stage of recovery. PLAN: Continue current conservative treatment. Patient Reassurance: Normal post-operative course discussed with patient. Progress appears to be with the normal speed of recovery. Patient reassured and supported. All questions answered. Follow up 6 months X-Rays Needed Magi Dao presents today for a an intermediate post-op visit ACTIVE PROBLEM LIST Malignant Neoplasm of Right Breast in Female, Estrogen Receptor Positive ([facility]) Breast Ca ([facility]) Paroxysmal Svt (Supraventricular Tachycardia) ([facility]) Cardiac Pacemaker in Situ Headache(784.0) Obstructive Sleep Apnea Pulmonary Aspergillosis ([facility]) Migraine Without Aura 4.8 New daily-persistent headache ([facility]) [339.42] Anxiety History of Breast Cancer Shoulder Pain, Right Radiotherapy Follow-Up Examination Mixed Hyperlipidemia Unspecified Hypothyroidism Polyneuropathy in Other Diseases Classified Elsewhere ([facility]) Osteoarthrosis, Unspecified Whether Generalized Or Localized, Other Specified Sites Esophageal Reflux Tear of Medial Cartilage Or Meniscus of Knee, Current Predominant Disturbance of Emotions Coronary Artery Disease Chronic Obstructive Pulmonary Disease (Copd) ([facility]) Breast Cancer ([facility]) Sick Sinus Syndrome ([facility]) Asthma Pneumonia Primary Hypertension Thyroid Disease Foraminal Stenosis of Cervical Region Right Rotator Cuff Tear Personal History of Infectious Disease Postoperative Hypotension Orthostatic Hypotension Former Smoker History of Lung Surgery Failed Total Knee Arthroplasty, Initial Encounter ([facility]) ([facility]) Status Post Total Left Knee Replacement Cancer of Breast, Intraductal, Left Iron Deficiency Anemia Due to Chronic Blood Loss Major Depressive Disorder, Recurrent Episode, Mild ([facility]) Iron Deficiency Anemia Sacroiliitis, Not Elsewhere Classified ([facility]) Status post op: BMI: There is no height or weight on file to calculate BMI. Post-operative recovery was complicated by uneventful/none. Readmission(s) since surgery (90 days post)? No ED Visits AND Hospitalizations - Last 180 days None Patient rates their condition as unchanged. Does the patient still experience pain? No Post Op discharge patient location: in home. Functional Assessment is as follows: completed home PT. Functional difficulties: Prolonged standing, Stair climbing, and Walking. Pain Medication: Non-narcotic Currently Ambulating with: no ambulation aides ======= EXAM: POST OP KNEE ======= Left Post-Operative Knee Ambulates with a: limp favoring the left. SKIN: Incision well healed. Range of motion is 0 degrees in extension and 130 degrees of flexion. Extension La degrees Pain with ROM:Yes There is None effusion. Mal-alignment: No Tender to the palpation of Pes anserine bursa, Patellar tendon, Posterior Knee, Medial femoral condyle, Lateral femoral condyle, Medial joint line, and Lateral joint line Neurovascular Status: Sensation Intact, Moves foot and ankle up AND down, and 2+ dorsalis pedis Stability:Anterior/Posteri or- Yes, stable and Varus/Valgus- Yes, stable Quad strength: normal Imagin. Implants are well aligned. Implants are well fixed. There is no evidence of loosening. Patella is well positioned. Provider: MARLEE SALAZAR MD Completed by: Stephanie Blank RN Referring Provider: MARLEE SALAZAR [[id number]] Allergies As of Date: 04/14/2024 Noted Allergy Reaction ASPIRIN 10/17/2022 10 - Anaphylaxis MOXIFLOXACIN 02/17/2011 2 - Rash 16 - Unknown Comments: Other reaction(s): Intolerance-unknown Other reaction(s): Other: See Comments increases neuropathy, light headed, chest tightness increases neuropathy, light headed, chest tightness AVELOX (MOXIFLOXACIN HCL) 02/17/2011 14 - Other: See Comme (more content not included)... Normal [facility] XR KNEE 4V AP/PA BOTH+LAT/ME R LTon 04-14-2024 XR KNEE 4V AP/PA BOTH+LAT/ALEXA LT * * *Final Report* * * DATE OF EXAM: Apr 14 2024 12:49PM AOX 5202 - XR KNEE 4V AP/PA BOTH+LAT/ALEXA LT / PROCEDURE REASON: Pain * * * * Physician Interpretation * * * * EXAMINATION / TECHNIQUE: XR KNEE 4V AP/PA BOTH+LAT/ALEXA LT PATIENT/TECHNOLOGIST PROVIDED HISTORY: CLINICAL INFORMATION ( PROVIDED BY ORDERING CLINICIAN) : Pain COMPARISON: 09/17/2023 RESULT: Status post left total knee arthroplasty. Prosthetic alignment is unchanged. No periprosthetic lucency or fracture. Small knee joint effusion. Comparison images of the right knee demonstrate osteoarthritis, severe in the patellofemoral compartment and mildly progressed compared to prior. IMPRESSION: Left total knee arthroplasty without complication. Sleeve Tailor: Wundrbar Transcribe Date/Time: Apr 14 2024 1:43P Dictated by : REDDY HANEY MD This examination was interpreted and the report reviewed and electronically signed by: REDDY HANEY MD on Apr 14 2024 1:44PM EST [id number] Normal [facility] XR Knee - left 4 Viewson IMPRESSION: Left total knee arthroplasty without complication. Sleeve Tailor: Wundrbar Transcribe Date/Time: Apr 14 2024 1:43P Dictated by : REDDY HANEY MD This examination was interpreted and the report reviewed and electronically signed by: REDDY HANEY MD on Apr 14 2024 1:44PM EST DIVISION OF RADIOLOGY * * *Final Report* * * DATE OF EXAM: Apr 14 2024 12:49PM AOX 5202 - XR KNEE 4V AP/PA BOTH+LAT/ALEXA LT / PROCEDURE REASON: Pain * * * * Physician Interpretation * * * * EXAMINATION / TECHNIQUE: XR KNEE 4V AP/PA BOTH+LAT/ALEXA LT PATIENT/TECHNOLOGIST PROVIDED HISTORY: CLINICAL INFORMATION ( PROVIDED BY ORDERING CLINICIAN) : Pain COMPARISON: 09/17/2023 RESULT: Status post left total knee arthroplasty. Prosthetic alignment is unchanged. No periprosthetic lucency or fracture. Small knee joint effusion. Comparison images of the right knee demonstrate osteoarthritis, severe in the patellofemoral compartment and mildly progressed compared to prior. DIVISION OF RADIOLOGY Provider, [facility] - 04/14/2024 * * *Final Report* * * DATE OF EXAM: Apr 14 2024 12:49PM AOX 5202 - XR KNEE 4V AP/PA BOTH+LAT/ALEXA LT / PROCEDURE REASON: Pain * * * * Physician Interpretation * * * * EXAMINATION / TECHNIQUE: XR KNEE 4V AP/PA BOTH+LAT/ALEXA LT PATIENT/TECHNOLOGIST PROVIDED HISTORY: CLINICAL INFORMATION ( PROVIDED BY ORDERING CLINICIAN) : Pain COMPARISON: 09/17/2023 RESULT: Status post left total knee arthroplasty. Prosthetic alignment is unchanged. No periprosthetic lucency or fracture. Small knee joint effusion. Comparison images of the right knee demonstrate osteoarthritis, severe in the patellofemoral compartment and mildly progressed compared to prior. IMPRESSION IMPRESSION: Left total knee arthroplasty without complication. Sleeve Tailor: PSCB Transcribe Date/Time: Apr 14 2024 1:43P Dictated by : REDDY HANEY MD This examination was interpreted and the report reviewed and electronically signed by: REDDY HANEY MD on Apr 14 2024 1:44PM EST [facility] Radiology Study observation (narrative) [facility] XR Knee - left 4 ViewsOrdere d By: Ccf Provider on 04-14-2024 [facility] [id number] 03-31-2024 [id number] HNO ID: [id number] Author: CORRY DE LOS SANTOS RN Service: ? Author Type: Registered Nurse Type: [id number] Filed: 03/31/2024 12:50 Note Text: The patient received a copy of Colonoscopy discharge instructions that contain information for how to contact the physician who performed the procedure and when to seek medical care. [facility] ANES POSTPROC EVALon 024 ANES POSTPROC EVAL HNO ID: [id number] Author: NATALIE MEJIAS MD Service: Anesthesiology Author Type: Anesthesiologist Type: Anesthesia Postprocedure Evaluation Filed: 03/31/2024 15:13 Note Text: POST ANESTHESIA EVALUATION NOTE : 1945 Procedure Summary Date: 03/31/24 Room / Location: Ambulatory Surgery Anesthesia Start: 1216 Anesthesia Stop: 1244 Procedure: COLONOSCOPY SCREENING Diagnosis: Screening for colorectal cancer (Screening for colorectal malignant neoplasm) Scheduled Providers: Gabriel Coppola Jr., DO; Osiris Hendricks RN; Promise Soliman APRN.SUPERINTENDENT TRACK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 Signed NAME: Magi Dao NO.: [id number] DATE OF SERVICE: March 07, 2024 (Carlene) Some elements in this clinic note that are critical to medical decision making have been carefully reviewed and included from a prior clinic note dated: February 09, 2024 (Carlene) Referring Provider: Additional Clinicians involved in Magi Dao's care: Dr. Marina Retana,Dr. Yajaira Gonzalez DIAGNOSIS: Breast cancer. ASSESSMENT: 1. 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 LUIS. Initial diagnosis 2006 and subsequent recurrence in the scar in 2012. 2. 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 04/22/2021 status post right mastectomy for multifocal lobular carcinoma of 2 small lesions 6 and 2 mm respectively approximately 10 mm apart. Previously poor tolerance to endocrine therapy and patient is reluctant to consider. She is also reluctant to consider adjuvant therapy and therefore we will forego risk evaluation with Oncotype DX. Cancer Staging Malignant neoplasm of female breast (HCC) Staging form: BREAST CANCER - Clinical stage from 05/06/2021: Stage I (T1b(m), N0, M0) - Signed by Vaibhav Ovalle MD on 05/07/2021 Right breast US noted to have nodules consistent with fat necrosis. 3. 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 4. Mild anemia - iron deficient, will replace oral iron. 5. Diarrhea - resolved but now having issues with constipation and is following with Dr. Coppola PLAN: RTC in 6 months Labs and exam same day. _- HPI: CASE HISTORY: Reverse Chronological Order 02/23/2024 - US Breast LT: Unremarkable exam. No suspicious findings. BIRADS 2: Benign 11/10/2023 - Diagnosed with BCC on back 09/16/2023 - EGD: Mild esophageal spasm. Dilated. Z-line, 39 cm from the incisors. A partially slipped Yulia fundoplication was found. Normal examined duodenum. No specimens collected. 06/24/2024 - CTA: Head: No large vessel arterial occlusion, significant stenosis, sizable aneursym, or malformation. CTA carotid findings dictated separately. Neck: Atherosclerotic changes with mild to moderate narrowing of the internal carotids proximally as described above. 06/24/2024 - CXR: COPD 06/24/2023 - CT Brain: No acute intracranial abnormality. Senescent changes including cerebral volume loss and sequelae of chronic microangiopathy. If there is sufficient clinical concern for acute ischemia or an occult abnormality, further evaluation with brain MRI is recommended. 06/24/2023 - ER for dizziness 02/22/2023 - Monoferric - couldn't tolerate oral iron 03/27/2022 - Rt Breast US - Oil cyst 04/22/2021 - Right mastectomy, multifocal lobular carcinoma -6 AND 2 mm -10mm apart. declined endocrine therapy 02/28/2021 - Rt breast bx. - inv. Lobular, ER/SC+, HER@ FISH (-) 01/17/2021 - Mammogram right upper breast 4mm new 02/2018 - stops tamoxifen as she feels it is aggravating dyspnea 02/2016 - switches to tamoxifen starts adjuvant anastrazole, then switches to letrozole 11/2013 - completes adjuvant radiation 08/2013 - She had repeat excision by Dr. Whitmore and this was negative for residual disease. 06/10/13 - Completes excisional biopsy which noted metastatic ducta carcinoma. Tumor was ER/SC positive, HER2 was negative. 05/2013 - she noticed a lump in her left chest along her incision. A 1 x 1 X 0.8 cn lesion was noted in the subcutaneous soft tissue. 09/2012 - she had a right upper and middle lobe resection for what would be discovered to be aspergillosis. 12/2011 - She completed 5 years of adjuvant anastrazole 06/2011 - She had an exam by her credit and collections analyst which noted a tender lump on examination of her right breast. Ultrasound evaluation was negative and she continued in surveillance. she was seen by Dr. Ness and recommendation was to pursue adjuvant therapy with anastrazole for a stage 1, ER/SC (+), breast cancer. 12/2006 - Completes left mastectomy,sentinel node biopsy, axillary lymph node dissection. Path notes DCIS, intermediate grade and no evidence of axillary lymph node involvement 11/26/2006 - Stereotactic biopsy noted DCIS, path report notes that early microinvasion could not be excluded. 11/17/2006 - Core biopsy which noted (more content not included)... Normal [facility] US BREAST LT LIMITEDon 02-22 US BREAST LT LIMITED US BREAST LT LIMITE D EXAM: US BREAST LT LIMITED, 02/23/2024 10:07 AM CLINICAL INDICATIONS: History of left-sided breast cancer status post mastectomy, left axillary lump, chest wall lump COMPARISON: Ultrasound 07/30/2021 FINDINGS: Scanning performed left chest wall and left axillary region at site of patient's lumps. There is a normal axillary lymph node measuring 5 mm in short axis. No abnormality seen along the chest wall. IMPRESSION: Unremarkable exam. No suspicious findings. BI-RADS: BI-RADS 2 - Benign Recommendation: Follow up with referring physician Patient was given the results before leaving the department. Finalized by Kristofer Martinez MD on 02/23/2024 11:10 AM 2 F/U REFER DR Gama Nam [facility] 02-11-2024 [facility] Telephone ([facility]) -- MAGI DAO ([id number]) 1945 F Date Time Provider Department 02/11/24 VAIBHAV OVALLE [facility] During your visit today, we recorded the following information about you: Halie Sanchez 02/11/2024 11:45 AM Signed Faxed order to [facility]. Will call and check up on order received and get a date and time. Halie Caballero 02/11/2024 4:05 PM Signed Patient has been scheduled for US at [place] on 02/22 and follow up with [facility] on 03/07. Patient notified of all appts. Halie Sanchez Allergies As of Date: 02/11/2024 Noted Allergy Reaction ASPIRIN 10/17/2022 10 - Anaphylaxis MOXIFLOXACIN 02/17/2011 2 - Rash 16 - Unknown Comments: Other reaction(s): Intolerance-unknown Other reaction(s): Other: See Comments increases neuropathy, light headed, chest tightness increases neuropathy, light headed, chest tightness AVELOX (MOXIFLOXACIN HCL) 02/17/2011 14 - Other: See Comments Comments: increases neuropathy, light headed, chest tightness DOXYCYCLINE 01/24/2014 5 - Intolerance 8 - GI Upset 16 - Unknown Comments: Dizziness Became very ill. Other Reaction(s): Swelling, GI Upset Other reaction(s): Intolerance Dizziness Became very ill. Dizziness Became very ill. GABAPENTIN 10/16/2014 5 - Intolerance Comments: heartburn Other Reaction(s): Unknown HYDROCODONE-ACETAMINOPHEN 01/26/2023 1 - Mental Status Change 12 - Shortness of Breath OXYCODONE 03/19/2021 1 - Mental Status Change 12 - Shortness of Breath Comments: Pt. reports she was very out of it and SOB . Requesting no oxycodone preparations. Reports was a reaction with Verapamil Other Reaction(s): heart rate bottomed out PREGABALIN 01/27/2023 14 - Other: See Comments Comments: Other Reaction(s): stumble, difficulty thinking THEOPHYLLINE 02/23/2012 14 - Other: See Comments Comments: Theophyllin caused HTN, rpaid heartbeat and headache. Other Reaction(s): Headache, Flushing TRAMADOL 01/27/2023 14 - Other: See Comments Comments: Other Reaction(s): Almost passed out CIPROFLOXACIN 02/17/2011 14 - Other: See Comments 2 - Rash 16 - Unknown Comments: increases neuropathy, lightheadedness, chest tightness Other reaction(s): Unknown Reaction Other Reaction(s): Swelling / Rash Other reaction(s): Intolerance-unknown increases neuropathy, lightheadedness, chest tightness Other reaction(s): Unknown Reaction CLONIDINE 04/13/2012 1 - Mental Status Change 2 - Rash Comments: Nervous Other Reaction(s): Headache, Flushing Other reaction(s): Clonidine ?- anxious/shakey Nervous CODEINE 01/27/2008 16 - Unknown Comments: Light-headedness, cold sweat Other Reaction(s): Adams in her head Other reaction(s): Intolerance-unknown Light-headedness, cold sweat DULOXETINE 02/17/2011 14 - Other: See Comments 2 - Rash 7 - Swelling 16 - Unknown Comments: increases neuropathy, lightheadedness, chest tightness Other Reaction(s): Unknown Other reaction(s): Intolerance-unknown increases neuropathy, lightheadedness, chest tightness LEVOFLOXACIN 02/17/2011 14 - Other: See Comments 2 - Rash Comments: increases neuropathy, lightheadedness, chest tightness Other reaction(s): Intolerance-unknown increases neuropathy, lightheadedness, chest tightness Date Reviewed: 01/29/2024 Reviewed by: George Mcdonald MA - Fully Assessed Reason for Visit: Appointment [186] Prescriptions as of 02/11/2024 - desvenlafaxine ER (PRISTIQ) 25 mg 24 hr tablet Take 25 mg by mouth once daily. - lansoprazole (PREVACID) 30 mg capsule Take 1 capsule by mouth once daily. - atogepant (QULIPTA) 30 mg tablet Take 30 mg by mouth once daily. - miconazole 2 % cream Apply to affected area. - ALPRAZolam (XANAX) 0.5 mg tablet - acetaminophen (TYLENOL EXTRA STRENGTH) 500 mg tablet Take 2 tablets by mouth every 8 hours. - lisinopril (ZESTRIL, PRINIVIL) 5 mg tablet Take 5 mg by mouth as needed. as needed for BP above 140 - verapamil ER 180 mg 24 hr capsule Take 180 mg by mouth twice daily. - albuterol sulfate (VENTOLIN HFA INHALATION) Inhale as instructed. - ONABOTULINUMTOXINA (BOTOX INJECTION) by INJECTION(UNSPECIFIED PARENTERAL ROUTES) route. every 9 weeks for migraines - LEVOTHYROXINE 88 MCG TAB Take one(1) tablet daily BY MOUTH Problem List As Of Date 02/11/2024 Noted Resolved Malignant 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, e*12/08/2006 Breast CA (HCC) [C50.919] 09/10/2009 Paroxysmal SVT (supraventricular tachycardia) [* Cardiac pacemaker in situ [Z95.0] 11/28/2013 Headache(784.0) [R51] 04/24/2014 Obstructive sleep apnea [G47.33] 04/24/2014 Pulmonary aspergillosis (HCC) [B44.1] 04/24/2014 Migraine without aura [G43.009] 04/25/2014 4.8 New daily-persistent headache (NDPH) [339.4*04/25/2014 Anxiety [F41.9] 04/25/2014 History of breast cancer [Z85.3] 11/14/2014 Shoulder pain, right [M25.511] 11/20/2014 Radioth (more content not included)... Normal [facility] CNOVon 01-29-2024 CNOV Office Visit ([facility] ) -- MAGI DAO ([id number]) 1945 F Date Time Provider Department 01/29/24 10:40 AM GABRIEL COPPOLA JR [facility] During your visit today, we recorded the following information about you: Temperature Pulse Blood pressure Weight 97.6 degrees 65/minute 126/71 68.1 kg Height 1.6 m Gabriel Coppola Jr., DO 01/29/2024 10:55 AM Signed CC: followup HPI: Magi Dao, 79 year old female, followup for IBS-C and GERD. Senokot S helps her constipation but she has only been taking it intermittently. Still has feeling of incomplete emptying. Last colonoscopy was 7 yrs ago. GERD is poorly controlled. Side effects with omeprazole and famotidine (headaches). Previously tolerated ranitidine well before removed from market. Dysphagia improved after dilatation for esophageal spasm. History of hiatal hernia repair in 1985. Negative family history. History of breast cancer with resection and radiation, did not require chemotherapy. Cholecystectomy and hiatal hernia repair done years ago. Labs unremarkable. Some issues with dizziness which is in workup with neurology. History of depression, stable at this time. Past GI workup 09/16/23 Upper GI endoscopy was done for Dysphagia, Esophageal reflux, per Gabriel Coppola Jr, Mild esophageal spasm. Dilated. Z-line, 39 cm from the incisors. A partially slipped Yulia fundoplication was found. Normal examined duodenum. No specimens collected 07/17/23 Last OV notes per Dr. Coppola as follows: Magi Dao, 78 year old female, with dysphagia and alternating constipation and diarrhea, currently having more constipation. The constipation seems to be improving with weaning Cymbalta. Dysphagia persists with history of esophageal spasm which responded to dilatation previously. Last EGD and colonoscopy were September 2021. Negative family history. History of breast cancer with resection and radiation, did not require chemotherapy. Cholecystectomy done years ago. Labs unremarkable. Some issues with dizziness which is in workup with neurology. History of depression, stable at this time. setup for EGD with dilatation, maintain pantoprazole. IBS overall stable, continue to monitor after Cymbalta is weaned. Maintain followup with neurology for dizziness. 05/13/22 CT of the abdomen and pelvis without contrast was done for diarrhea 1. Moderate sigmoid diverticulosis, no significant inflammation. 05-05-2022 XR Abdomen Single View (KUB) Distal transverse colon stool, no mass effect or obstruction. If detection of small calcifications would affect clinical management, CT scanning may be of assistance 03/13/17 colonoscopy was done per Dr. Retana for personal h/o colon polyps and family h/o colon CA (The patient is a 72-year-old female with a family history of colon cancer in to cousins. She had a colonoscopy performed in 2013 and a tubular adenoma was removed at that time. She denies any change in her bowel habits or any rectal bleeding) Diverticulosis and normal colon otherwise No biopsies were taken Past GI workup 10/27/23 Last OV notes per Dr. Coppola as follows: 78 y/o female with IBS-C, GERD, history of hiatal hernia repair. IBS-C improving with Senokot S, would have her take it daily or every other day rather than as needed. Omeprazole causes headaches, change to famotidine for GERD and monitor. May consider Prevacid or Aciphex if PPI therapy is necessary. Previous hiatal hernia repair in 1985 with some slippage noted on EGD. 09/16/23 Upper GI endoscopy was done for Dysphagia, Esophageal reflux, per Gabriel Coppola Jr, DO Mild esophageal spasm. Dilated. Z-line, 39 cm from the incisors. A partially slipped Yulia fundoplication was found. Normal examined duodenum. No specimens collected 05/13/22 CT of the abdomen and pelvis without contrast was done for diarrhea 1. Moderate sigmoid diverticulosis, no significant inflammation. 05-05-2022 XR Abdomen Single View (KUB) Distal transverse colon stool, no mass effect or obstruction. If detection of small calcifications would affect clinical management, CT scanning may be of assistance 03/13/17 colonoscopy was done per Dr. Retana for personal h/o colon polyps and family h/o colon CA (The patient is a 72-year-old female with a family history of colon cancer in to cousins. She had a colonoscopy performed in 2013 and a tubular adenoma was removed at that time. She denies any change in her bowel habits or any rectal bleeding) Diverticulosis and normal colon otherwise No biopsies were taken Latest Ref Rng 12/21/2023 Breast CA 15-3 <26.0 U/mL 24.4 CA27.29 <38.6 U/mL 23.1 Latest Ref Rng 05/29/2023 12/21/2023 WBC 3.70 - 11.00 k/uL 6.51 6.31 RBC 3.90 - 5.20 m/uL 3.88 (L) 4.41 Hemoglobin 11.5 - 15.5 g/dL 12.9 13.9 Hematocrit 36.0 - 46.0 % 39.8 42.5 MCV 80.0 - 100.0 fL 102.6 (H) 96.4 MCH 26.0 - 34.0 pg 33. (more content not included)... Normal [facility] MAGNESIUMon 01-14-2024 Magnesium [Mass/Vol] 1.8 mg/dL Normal 1.8-2.6 [facility] Comment on above: Performed By: #### 1 9123-9 #### [facility] ([id number]) [address] [place] [address] CBC W Auto Differential pane l (Bld)on 12-21-2023 Basophils (Bld) [#/Vol] 0.04 10*3/uL Normal <0.11 [facility] Comment on above: Order Comment: Speci men Type: BLOOD SPECIMEN Ordering Facility: [facility] Address: [address] [place] [address] Performed By: #### 5 0190-8, 6875-9, 2276-4 #### [facility] CLIA [id number] [address] [place] [address] [place] Basophils/100 WBC (Bld) 0.6 % Normal [facility] Comment on above: Order Comment: Speci men Type: BLOOD SPECIMEN Ordering Facility: [facility] Address: [address] [place] [address] Performed By: #### 5 0190-8, 6875-9, 6-4 #### [facility] CLIA [id number] [address] [place] [address] [place] Differential cell count method Nom (Bld) Auto Normal [facility] Comment on above: Order Comment: Speci men Type: BLOOD SPECIMEN Ordering Facility: [facility] Address: [address] [place] [address] Performed By: #### 5 0190-8, 6875-9, 6-4 #### [facility] CLIA [id number] [address] [place] [address] [place] Eosinophils (Bld) [#/Vol] 0.10 10*3/uL Normal <0.46 [facility] Comment on above: Order Comment: Speci men Type: BLOOD SPECIMEN Ordering Facility: [facility] Address: [address] [place] [address] Performed By: #### 5 0190-8, 6875-9, 6-4 #### [facility] CLIA [id number] [address] [place] [address] [place] Eosinophils/100 WBC (Bld) 1.6 % Normal [facility] Comment on above: Order Comment: Speci men Type: BLOOD SPECIMEN Ordering Facility: [facility] Address: [address] [place] [address] Performed By: #### 5 0190-8, 6875-9, 6-4 #### [facility] CLIA [id number] [address] [place] [address] [place] Erythrocyte distribution width (RBC) [Ratio] 12.3 % Normal 11.5-15.0 [facility] Comment on above: Order Comment: Speci men Type: BLOOD SPECIMEN Ordering Facility: [facility] Address: [address] [place] [address] Performed By: #### 5 0190-8, 6875-9, 2275-4 #### [facility] CLIA [id number] [address] [place] [address] [place] Hematocrit (Bld) [Volume fraction] 42.5 % Normal 36.0-46.0 [facility] Comment on above: Order Comment: Speci men Type: BLOOD SPECIMEN Ordering Facility: [facility] Address: [address] [place] [address] Performed By: #### 5 0190-8, 6875-9, 4 #### [facility] CLIA [id number] [address] [place] [address] [place] Hemoglobin (Bld) [Mass/Vol] 13.9 g/dL Normal 11.5-15.5 [facility] Comment on above: Order Comment: Speci men Type: BLOOD SPECIMEN Ordering Facility: [facility] Address: [address] [place] [address] Performed By: #### 5 0190-8, 6875-9, 4 #### [facility] CLIA [id number] [address] [place] [address] [place] Immature granulocytes (Bld) [#/Vol] 10*3/uL Normal <0.10 [facility] Comment on above: Order Comment: Speci men Type: BLOOD SPECIMEN Ordering Facility: [facility] Address: [address] [place] [address] Performed By: #### 5 0190-8, 6875-9, 4 #### [facility] CLIA [id number] [address] [place] [address] [place] Immature granulocytes/100 WBC (Bld) 0.2 % Normal [facility] Comment on above: Order Comment: Speci men Type: BLOOD SPECIMEN Ordering Facility: [facility] Address: [address] [place] [address] Performed By: #### 5 0190-8, 6875-9, 6-4 #### [facility] CLIA [id number] [address] [place] [address] [place] Lymphocytes (Bld) [#/Vol] 1.63 10*3/uL Normal 1.00-4.00 [facility] Comment on above: Order Comment: Speci men Type: BLOOD SPECIMEN Ordering Facility: [facility] Address: [address] [place] [address] Performed By: #### 5 0190-8, 6875-9, 4 #### [facility] CLIA [id number] [address] [place] [address] [place] Lymphocytes/100 WBC (Bld) 25.8 % Normal [facility] Comment on above: Order Comment: Speci men Type: BLOOD SPECIMEN Ordering Facility: [facility] Address: [address] [place] [address] Performed By: #### 5 0190-8, 6875-9, 2275-12 #### [facility] CLIA [id number] [address] [place] [address] [place] MCH (RBC) [Entitic mass] 31.5 pg Normal 26.0-34.0 [facility] Comment on above: Order Comment: Speci men Type: BLOOD SPECIMEN Ordering Facility: [facility] Address: [address] [place] [address] Performed By: #### 5 0190-8, 6875-9, 2275-4 #### [facility] CLIA [id number] [address] [place] [address] [place] MCHC (RBC) [Mass/Vol] 32.7 g/dL Normal 30.5-36.0 [facility] Comment on above: Order Comment: Speci men Type: BLOOD SPECIMEN Ordering Facility: [facility] Address: [address] [place] [address] Performed By: #### 5 0190-8, 6875-9, 6-4 #### [facility] CLIA [id number] [address] [place] [address] [place] MCV (RBC) [Entitic vol] 96.4 fL Normal 80.0-100.0 [facility] Comment on above: Order Comment: Speci men Type: BLOOD SPECIMEN Ordering Facility: [facility] Address: [address] [place] [address] Performed By: #### 5 0190-8, 6875-9, 2275-4 #### [facility] CLIA [id number] [address] [place] [address] [place] Monocytes (Bld) [#/Vol] 0.49 10*3/uL Normal <0.87 [facility] Comment on above: Order Comment: Speci men Type: BLOOD SPECIMEN Ordering Facility: [facility] Address: [address] [place] [address] Performed By: #### 5 0190-8, 6875-9, 2275-4 #### [facility] CLIA [id number] [address] [place] [address] [place] Monocytes/100 WBC (Bld) 7.8 % Normal [facility] Comment on above: Order Comment: Speci men Type: BLOOD SPECIMEN Ordering Facility: [facility] Address: [address] [place] [address] Performed By: #### 5 0190-8, 6875-9, 2275-4 #### [facility] CLIA [id number] [address] [place] [address] [place] Neutrophils (Bld) [#/Vol] 4.04 10*3/uL Normal 1.45-7.50 [facility] Comment on above: Order Comment: Speci men Type: BLOOD SPECIMEN Ordering Facility: [facility] Address: [address] [place] [address] Performed By: #### 5 0190-8, 6875-9, 6-4 #### [facility] CLIA [id number] [address] [place] [address] [place] Neutrophils/100 WBC (Bld) 64.0 % Normal [facility] Comment on above: Order Comment: Speci men Type: BLOOD SPECIMEN Ordering Facility: [facility] Address: [address] [place] [address] Performed By: #### 5 0190-8, 6875-9, 6-4 #### [facility] CLIA [id number] [address] [place] [address] [place] Nucleated RBC (Bld) [#/Vol] 10*3/uL Normal <0.01 [facility] Comment on above: Order Comment: Speci men Type: BLOOD SPECIMEN Ordering Facility: [facility] Address: [address] [place] [address] Performed By: #### 5 0190-8, 6875-9, 6-4 #### [facility] CLIA [id number] [address] [place] [address] [place] Nucleated RBC/100 WBC (Bld) [Ratio] 0.0 /100 WBC Normal [facility] Comment on above: Order Comment: Speci men Type: BLOOD SPECIMEN Ordering Facility: [facility] Address: [address] [place] [address] Performed By: #### 5 0190-8, 6875-9, 6-4 #### [facility] CLIA [id number] [address] [place] [address] [place] Platelet mean volume (Bld) [Entitic vol] 8.5 fL Low 9.0-12.7 [facility] Comment on above: Order Comment: Speci men Type: BLOOD SPECIMEN Ordering Facility: [facility] Address: [address] [place] [address] Performed By: #### 5 0190-8, 6875-9, 2276-4 #### [facility] CLIA [id number] [address] [place] [address] [place] Platelets (Bld) [#/Vol] 235 10*3/uL Normal 150-400 [facility] Comment on above: Order Comment: Speci men Type: BLOOD SPECIMEN Ordering Facility: [facility] Address: [address] [place] [address] Performed By: #### 5 0190-8, 6875-9, 2276-4 #### [facility] CLIA [id number] [address] [place] [address] [place] RBC (Bld) [#/Vol] 4.41 10*6/uL Normal 3.90-5.20 [facility] Comment on above: Order Comment: Speci men Type: BLOOD SPECIMEN Ordering Facility: [facility] Address: [address] [place] [address] Performed By: #### 5 0190-8, 6875-9, 2276-4 #### [facility] CLIA [id number] [address] [place] [address] [place] WBC (Bld) [#/Vol] 6.31 10*3/uL Normal 3.70-11.00 [facility] Comment on above: Order Comment: Speci men Type: BLOOD SPECIMEN Ordering Facility: [facility] Address: [address] [place] [address] Performed By: #### 5 0190-8, 6875-9, 2276-4 #### [facility] CLIA [id number] [address] [place] [address] [place] CNOVSPon 12-21-2023 CNOVSP Visit (SP) Office ( [facility]) -- MAGI DAO ([id number]) 1945 F Date Time Provider Department 12/21/23 10:45 AM VAIBHAV OVALLE During your visit today, we recorded the following information about you: Temperature Pulse Respiration Blood pressure 97.9 degrees 79/minute 16/minute 143/72 Weight Height 67.3 kg 1.6 m Vaibhav Ovalle MD 12/22/2023 1:51 PM Signed NAME: Magi Dao CLINIC NO.: [id number] DATE OF SERVICE: December 21, 2023 (Carlene) Some elements in this clinic note that are critical to medical decision making have been carefully reviewed and included from a prior clinic note dated: May 29, 2023 (Carlene) Referring Provider: Additional Clinicians involved in Magi Dao's care: Dr. Marina Retana,Dr. Yajaira Gonzalez DIAGNOSIS: ASSESSMENT: 1. 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 LUIS. Initial diagnosis 2006 and subsequent recurrence in the scar in 2012. 2. 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 04/22/2021 status post right mastectomy for multifocal lobular carcinoma of 2 small lesions 6 and 2 mm respectively approximately 10 mm apart. Previously poor tolerance to endocrine therapy and patient is reluctant to consider. She is also reluctant to consider adjuvant therapy and therefore we will forego risk evaluation with Oncotype DX. Cancer Staging Malignant neoplasm of female breast (HCC) Staging form: BREAST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 following information about you: Analisa An RN 06/25/2023 11:15 AM Signed Magi was seen at the [facility] ED yesterday and discharged with instruction to follow up with her PCP and Neurologist. She would like to know if she still needs to keep the appt with you 07/02? EDMUNDO Le Vivek, MD 06/25/2023 4:18 PM Signed Need results and notes from [facility] - I don't see anything in care everywhere. She can reschedule her appointment with me 6 months Repeat labs prior to visit Analisa An RN 06/25/2023 4:44 PM Signed Please call patient and schedule per prior note Mary can you get her records from [facility] EDMUNDO Le Jennifer L 06/26/2023 8:27 AM Signed Records scanned. Carlee Gonzalez 06/26/2023 8:49 AM Signed Spoke to patient AND rescheduled her appointment on 12/21/2023@10:30 am for labs, VANDANA@10:45 am. Carlee Paige Rumer Allergies As of Date: 06/25/2023 Noted Allergy Reaction ASPIRIN 10/17/2022 10 - Anaphylaxis MOXIFLOXACIN 02/17/2011 2 - Rash 16 - Unknown Comments: Other reaction(s): Intolerance-unknown Other reaction(s): Other: See Comments increases neuropathy, light headed, chest tightness increases neuropathy, light headed, chest tightness AVELOX (MOXIFLOXACIN HCL) 02/17/2011 14 - Other: See Comments Comments: increases neuropathy, light headed, chest tightness DOXYCYCLINE 01/24/2014 5 - Intolerance 8 - GI Upset 16 - Unknown Comments: Dizziness Became very ill. Other Reaction(s): Swelling, GI Upset Other reaction(s): Intolerance Dizziness Became very ill. Dizziness Became very ill. GABAPENTIN 10/16/2014 5 - Intolerance Comments: heartburn Other Reaction(s): Unknown HYDROCODONE-ACETAMINOPHEN 01/26/2023 1 - Mental Status Change 12 - Shortness of Breath OXYCODONE 03/19/2021 1 - Mental Status Change 12 - Shortness of Breath Comments: Pt. reports she was very out of it and SOB . Requesting no oxycodone preparations. Reports was a reaction with Verapamil Other Reaction(s): heart rate bottomed out PREGABALIN 01/27/2023 14 - Other: See Comments Comments: Other Reaction(s): stumble, difficulty thinking THEOPHYLLINE 02/23/2012 14 - Other: See Comments Comments: Theophyllin caused HTN, rpaid heartbeat and headache. Other Reaction(s): Headache, Flushing TRAMADOL 01/27/2023 14 - Other: See Comments Comments: Other Reaction(s): Almost passed out CIPROFLOXACIN 02/17/2011 14 - Other: See Comments 2 - Rash 16 - Unknown Comments: increases neuropathy, lightheadedness, chest tightness Other reaction(s): Unknown Reaction Other Reaction(s): Swelling / Rash Other reaction(s): Intolerance-unknown increases neuropathy, lightheadedness, chest tightness Other reaction(s): Unknown Reaction CLONIDINE 04/13/2012 1 - Mental Status Change 2 - Rash Comments: Nervous Other Reaction(s): Headache, Flushing Other reaction(s): Clonidine ?- anxious/shakey Nervous CODEINE 01/27/2008 16 - Unknown Comments: Light-headedness, cold sweat Other Reaction(s): Adams in her head Other reaction(s): Intolerance-unknown Light-headedness, cold sweat DULOXETINE 02/17/2011 14 - Other: See Comments 2 - Rash 7 - Swelling 16 - Unknown Comments: increases neuropathy, lightheadedness, chest tightness Other Reaction(s): Unknown Other reaction(s): Intolerance-unknown increases neuropathy, lightheadedness, chest tightness LEVOFLOXACIN 02/17/2011 14 - Other: See Comments 2 - Rash Comments: increases neuropathy, lightheadedness, chest tightness Other reaction(s): Intolerance-unknown increases neuropathy, lightheadedness, chest tightness Date Reviewed: 05/29/2023 Reviewed by: Mackenzie Kapoor Ma - Fully Assessed Reason for Visit: Patient Question [1477] Primary Visit Diagnosis:Iron deficiency anemia secondary to inadequate dietary iron intake [D50.8] Other Visit Diagnosis:History of breast cancer [Z85.3] Order(s):CBC + DIFF [SQCBCDIF] Order #: [id number] FUTURE COMP METABOLIC PANEL [SQCMP] Order #: [id number] FUTURE IRON + TIBC [SQIRON] Order #: [id number] FUTURE FERRITIN BLD [SQFERR] Order #: [id number] FUTURE VITAMIN B12 BLOOD [SQB12] Order #: [id number] FUTURE FOLATE SERUM [SQSERFOL] Order #: [id number] FUTURE CA 15-3 BLD [EEMA506] Order #: [id number] FUTURE CA 27.29 BLOOD [AZDM2452] Order #: [id number] FUTURE Prescriptions as of 06/26/2023 - DULoxetine (CYMBALTA) 20 mg capsule - miconazole 2 % cream Apply to affected area. - ALPRAZolam (XANAX) 0.5 mg tablet - DULCOLAX, BISACODYL, ORAL Take by mouth. - acetaminophen (TYLENOL EXTRA STRENGTH) 500 mg tablet Take 2 tablets by mouth every 8 hours. - CPAP daily at bedtime. - lisinopril (ZESTR (more content not included)... Normal [facility] Rand 06-24-2023 CNPN Telephone ([facility]) -- MAGI DAO ([id number]) 1945 F Date Time Provider Department 06/24/23 ANALISA AN During your visit today, we recorded the following information about you: Analisa An RN 06/24/2023 1:30 PM Signed Patient calls to report her dizziness and vertigo are not getting any better the MRI she had scheduled tomorrow was cancelled due to her having a pace maker. PT is not helping, she would like an urgent CT done edgardo. Discussed with Dr Ovalle and recommendations were for patient to go to ED. She has verbalized understanding and will go to [place] ED Analisa An RN Allergies As of Date: 06/24/2023 Noted Allergy Reaction ASPIRIN 10/17/2022 10 - Anaphylaxis MOXIFLOXACIN 02/17/2011 2 - Rash 16 - Unknown Comments: Other reaction(s): Intolerance-unknown Other reaction(s): Other: See Comments increases neuropathy, light headed, chest tightness increases neuropathy, light headed, chest tightness AVELOX (MOXIFLOXACIN HCL) 02/17/2011 14 - Other: See Comments Comments: increases neuropathy, light headed, chest tightness DOXYCYCLINE 01/24/2014 5 - Intolerance 8 - GI Upset 16 - Unknown Comments: Dizziness Became very ill. Other Reaction(s): Swelling, GI Upset Other reaction(s): Intolerance Dizziness Became very ill. Dizziness Became very ill. GABAPENTIN 10/16/2014 5 - Intolerance Comments: heartburn Other Reaction(s): Unknown HYDROCODONE-ACETAMINOPHEN 01/26/2023 1 - Mental Status Change 12 - Shortness of Breath OXYCODONE 03/19/2021 1 - Mental Status Change 12 - Shortness of Breath Comments: Pt. reports she was very out of it and SOB . Requesting no oxycodone preparations. Reports was a reaction with Verapamil Other Reaction(s): heart rate bottomed out PREGABALIN 01/27/2023 14 - Other: See Comments Comments: Other Reaction(s): stumble, difficulty thinking THEOPHYLLINE 02/23/2012 14 - Other: See Comments Comments: Theophyllin caused HTN, rpaid heartbeat and headache. Other Reaction(s): Headache, Flushing TRAMADOL 01/27/2023 14 - Other: See Comments Comments: Other Reaction(s): Almost passed out CIPROFLOXACIN 02/17/2011 14 - Other: See Comments 2 - Rash 16 - Unknown Comments: increases neuropathy, lightheadedness, chest tightness Other reaction(s): Unknown Reaction Other Reaction(s): Swelling / Rash Other reaction(s): Intolerance-unknown increases neuropathy, lightheadedness, chest tightness Other reaction(s): Unknown Reaction CLONIDINE 04/13/2012 1 - Mental Status Change 2 - Rash Comments: Nervous Other Reaction(s): Headache, Flushing Other reaction(s): Clonidine ?- anxious/shakey Nervous CODEINE 01/27/2008 16 - Unknown Comments: Light-headedness, cold sweat Other Reaction(s): Adams in her head Other reaction(s): Intolerance-unknown Light-headedness, cold sweat DULOXETINE 02/17/2011 14 - Other: See Comments 2 - Rash 7 - Swelling 16 - Unknown Comments: increases neuropathy, lightheadedness, chest tightness Other Reaction(s): Unknown Other reaction(s): Intolerance-unknown increases neuropathy, lightheadedness, chest tightness LEVOFLOXACIN 02/17/2011 14 - Other: See Comments 2 - Rash Comments: increases neuropathy, lightheadedness, chest tightness Other reaction(s): Intolerance-unknown increases neuropathy, lightheadedness, chest tightness Date Reviewed: 05/29/2023 Reviewed by: Mackenzie Kapoor Ma - Fully Assessed Prescriptions as of 06/24/2023 - DULoxetine (CYMBALTA) 20 mg capsule - miconazole 2 % cream Apply to affected area. - ALPRAZolam (XANAX) 0.5 mg tablet - DULCOLAX, BISACODYL, ORAL Take by mouth. - acetaminophen (TYLENOL EXTRA STRENGTH) 500 mg tablet Take 2 tablets by mouth every 8 hours. - CPAP daily at bedtime. - lisinopril (ZESTRIL, PRINIVIL) 5 mg tablet Take 5 mg by mouth as needed. as needed for BP above 140 - verapamil ER 180 mg 24 hr capsule Take 180 mg by mouth twice daily. - fexofenadine (USHA) 180 mg tablet Take 180 mg by mouth once daily. - albuterol sulfate (VENTOLIN HFA INHALATION) Inhale as instructed. - OMEPRAZOLE 40 mg capsule Take 40 mg by mouth twice daily. - ONABOTULINUMTOXINA (BOTOX INJECTION) by INJECTION(UNSPECIFIED PARENTERAL ROUTES) route. every 9 weeks for migraines - LEVOTHYROXINE 88 MCG TAB Take one(1) tablet daily BY MOUTH Problem List As Of Date 06/24/2023 Noted Resolved Malignant 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, e*12/08/2006 Breast CA (HCC) [C50.919] 09/10/2009 Paroxysmal SVT (supraventricular tachycardia) [* Cardiac pacemaker in situ [Z95.0] 11/28/2013 Headache(784.0) [R51] 04/24/2014 Obstructive sleep apnea [G47.33] 04/24/2014 Pulmonary aspergillosis (HCC) [B44.1] 04/24/2014 Migraine without aura [G43.009] 04/25/2014 4.8 New daily-persistent headache (NDPH) [339.4*04/25/2014 Anxiety [F41.9] 04/25/2014 History of valentine (more content not included)... Normal [facility] CBC W Auto Differential pane l (Bld)on 05-29-2023 Basophils (Bld) [#/Vol] 0.06 10*3/uL Normal <0.11 [facility] Comment on above: Order Comment: Speci jamie Type: BLOOD SPECIMEN Ordering Facility: [facility] Address: [address] [place] [address] Performed By: #### 5 0190-8, 6875-9, 2276-4 #### [facility] CLIA [id number] [address] [place], [place] [address] [place] [address] [place] Basophils/100 WBC (Bld) 0.9 % Normal [facility] Comment on above: Order Comment: Speci men Type: BLOOD SPECIMEN Ordering Facility: [facility] Address: [address] [place] [address] Performed By: #### 5 0190-8, 6875-9, 2275-12 #### [facility] CLIA [id number] [address] [place] [address] [place] Differential cell count method Nom (Bld) Auto Normal [facility] Comment on above: Order Comment: Speci men Type: BLOOD SPECIMEN Ordering Facility: [facility] Address: [address] [place] [address] Performed By: #### 5 0190-8, 6875-9, 2275-12 #### [facility] CLIA [id number] [address] [place] [address] [place] Eosinophils (Bld) [#/Vol] 0.14 10*3/uL Normal <0.46 [facility] Comment on above: Order Comment: Speci men Type: BLOOD SPECIMEN Ordering Facility: [facility] Address: [address] [place] [address] Performed By: #### 5 0190-8, 6875-9, 2275-12 #### [facility] CLIA [id number] [address] [place] [address] [place] Eosinophils/100 WBC (Bld) 2.2 % Normal [facility] Comment on above: Order Comment: Speci men Type: BLOOD SPECIMEN Ordering Facility: [facility] Address: [address] [place] [address] Performed By: #### 5 0190-8, 6875-9, 2275-12 #### [facility] CLIA [id number] [address] [place] [address] [place] Erythrocyte distribution width (RBC) [Ratio] 12.9 % Normal 11.5-15.0 [facility] Comment on above: Order Comment: Speci men Type: BLOOD SPECIMEN Ordering Facility: [facility] Address: [address] [place] [address] Performed By: #### 5 0190-8, 6875-9, 2275-12 #### [facility] CLIA [id number] [address] [place] [address] [place] Hematocrit (Bld) [Volume fraction] 39.8 % Normal 36.0-46.0 [facility] Comment on above: Order Comment: Speci men Type: BLOOD SPECIMEN Ordering Facility: [facility] Address: [address] [place] [address] Performed By: #### 5 0190-8, 6875-9, 6-4 #### [facility] CLIA [id number] [address] [place] [address] [place] Hemoglobin (Bld) [Mass/Vol] 12.9 g/dL Normal 11.5-15.5 [facility] Comment on above: Order Comment: Speci men Type: BLOOD SPECIMEN Ordering Facility: [facility] Address: [address] [place] [address] Performed By: #### 5 0190-8, 6875-9, 2275-12 #### [facility] CLIA [id number] [address] [place] [address] [place] Immature granulocytes (Bld) [#/Vol] 10*3/uL Normal <0.10 [facility] Comment on above: Order Comment: Speci men Type: BLOOD SPECIMEN Ordering Facility: [facility] Address: [address] [place] [address] Performed By: #### 5 0190-8, 6875-9, 2275-12 #### [facility] CLIA [id number] [address] [place] [address] [place] Immature granulocytes/100 WBC (Bld) 0.2 % Normal [facility] Comment on above: Order Comment: Speci men Type: BLOOD SPECIMEN Ordering Facility: [facility] Address: [address] [place] [address] Performed By: #### 5 0190-8, 6875-9, 2275-4 #### [facility] CLIA [id number] [address] [place] [address] [place] Lymphocytes (Bld) [#/Vol] 2.46 10*3/uL Normal 1.00-4.00 [facility] Comment on above: Order Comment: Speci men Type: BLOOD SPECIMEN Ordering Facility: [facility] Address: [address] [place] [address] Performed By: #### 5 0190-8, 6875-9, 6-4 #### [facility] CLIA [id number] [address] [place] [address] [place] Lymphocytes/100 WBC (Bld) 37.8 % Normal [facility] Comment on above: Order Comment: Speci men Type: BLOOD SPECIMEN Ordering Facility: [facility] Address: [address] [place] [address] Performed By: #### 5 0190-8, 6875-9, 6-4 #### [facility] CLIA [id number] [address] [place] [address] [place] MCH (RBC) [Entitic mass] 33.2 pg Normal 26.0-34.0 [facility] Comment on above: Order Comment: Speci men Type: BLOOD SPECIMEN Ordering Facility: [facility] Address: [address] [place] [address] Performed By: #### 5 0190-8, 6875-9, 6-4 #### [facility] CLIA [id number] [address] [place] [address] [place] MCHC (RBC) [Mass/Vol] 32.4 g/dL Normal 30.5-36.0 [facility] Comment on above: Order Comment: Speci men Type: BLOOD SPECIMEN Ordering Facility: [facility] Address: [address] [place] [address] Performed By: #### 5 0190-8, 6875-9, 6-4 #### [facility] CLIA [id number] [address] [place] [address] [place] MCV (RBC) [Entitic vol] 102.6 fL High 80.0-100.0 [facility] Comment on above: Order Comment: Speci men Type: BLOOD SPECIMEN Ordering Facility: [facility] Address: [address] [place] [address] Performed By: #### 5 0190-8, 6875-9, 6-4 #### [facility] CLIA [id number] [address] [place] [address] [place] Monocytes (Bld) [#/Vol] 0.62 10*3/uL Normal <0.87 [facility] Comment on above: Order Comment: Speci men Type: BLOOD SPECIMEN Ordering Facility: [facility] Address: [address] [place] [address] Performed By: #### 5 0190-8, 6875-9, 2275-4 #### [facility] CLIA [id number] [address] [place] [address] [place] Monocytes/100 WBC (Bld) 9.5 % Normal [facility] Comment on above: Order Comment: Speci men Type: BLOOD SPECIMEN Ordering Facility: [facility] Address: [address] [place] [address] Performed By: #### 5 0190-8, 6875-9, 2275-4 #### [facility] CLIA [id number] [address] [place] [address] [place] Neutrophils (Bld) [#/Vol] 3.22 10*3/uL Normal 1.45-7.50 [facility] Comment on above: Order Comment: Speci men Type: BLOOD SPECIMEN Ordering Facility: [facility] Address: [address] [place] [address] Performed By: #### 5 0190-8, 6875-9, 2275-4 #### [facility] CLIA [id number] [address] [place] [address] [place] Neutrophils/100 WBC (Bld) 49.4 % Normal [facility] Comment on above: Order Comment: Speci men Type: BLOOD SPECIMEN Ordering Facility: [facility] Address: [address] [place] [address] Performed By: #### 5 0190-8, 6875-9, 2275-4 #### [facility] CLIA [id number] [address] [place] [address] [place] Nucleated RBC (Bld) [#/Vol] 10*3/uL Normal <0.01 [facility] Comment on above: Order Comment: Speci men Type: BLOOD SPECIMEN Ordering Facility: [facility] Address: [address] [place] [address] Performed By: #### 5 0190-8, 6875-9, 2275-12 #### [facility] CLIA [id number] [address] [place] [address] [place] Nucleated RBC/100 WBC (Bld) [Ratio] 0.0 /100 WBC Normal [facility] Comment on above: Order Comment: Speci men Type: BLOOD SPECIMEN Ordering Facility: [facility] Address: [address] [place] [address] Performed By: #### 5 0190-8, 6875-9, 2275-12 #### [facility] CLIA [id number] [address] [place] [address] [place] Platelet mean volume (Bld) [Entitic vol] 8.4 fL Low 9.0-12.7 [facility] Comment on above: Order Comment: Speci men Type: BLOOD SPECIMEN Ordering Facility: [facility] Address: [address] [place] [address] Performed By: #### 5 0190-8, 6875-9, 4 #### [facility] CLIA [id number] [address] [place] [address] [place] Platelets (Bld) [#/Vol] 243 10*3/uL Normal 150-400 [facility] Comment on above: Order Comment: Speci men Type: BLOOD SPECIMEN Ordering Facility: [facility] Address: [address] [place] [address] Performed By: #### 5 0190-8, 6875-9, 2276-4 #### [facility] CLIA [id number] [address] [place] [address] [place] RBC (Bld) [#/Vol] 3.88 10*6/uL Low 3.90-5.20 [facility] Comment on above: Order Comment: Speci men Type: BLOOD SPECIMEN Ordering Facility: [facility] Address: [address] [place] [address] Performed By: #### 5 0190-8, 6875-9, 2276-4 #### [facility] CLIA [id number] [address] [place] [address] [place] WBC (Bld) [#/Vol] 6.51 10*3/uL Normal 3.70-11.00 [facility] Comment on above: Order Comment: Speci men Type: BLOOD SPECIMEN Ordering Facility: [facility] Address: [address] [place] [address] Performed By: #### 5 0190-8, 6875-9, 2276-4 #### [facility] CLIA [id number] [address] [place] [address] [place] CNOVSPon 05-29-2023 CNOVSP Visit (SP) Office ( [facility]) -- MAGI DAO ([id number]) 1945 F Date Time Provider Department 9/22/23 2:15 PM VAIBHAV OVALLE During your visit today, we recorded the following information about you: Temperature Pulse Respiration Blood pressure 97.6 degrees 77/minute 16/minute 161/68 Weight Height 66 kg 1.6 m Vaibhav Ovalle MD 05/30/2023 9:53 AM Signed NAME: Magi Dao CLINIC NO.: [id number] DATE OF SERVICE: May 29, 2023 ([email or web address]) Some elements in this clinic note that are critical to medical decision making have been carefully reviewed and included from a prior clinic note dated: February 19, 2023 (Carlene) Referring Provider: Additional Clinicians involved in Magi Dao's care: Dr. Marina Retana,Dr. Yajaira Gonzalez DIAGNOSIS: ASSESSMENT: 1. 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 LUIS. Initial diagnosis 2006 and subsequent recurrence in the scar in 2012. 2. 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 04/22/2021 status post right mastectomy for multifocal lobular carcinoma of 2 small lesions 6 and 2 mm respectively approximately 10 mm apart. Previously poor tolerance to endocrine therapy and patient is reluctant to consider. She is also reluctant to consider adjuvant therapy and therefore we will forego risk evaluation with Oncotype DX. Cancer Staging Malignant neoplasm of female breast (HCC) Staging form: BREAST CANCER - Clinical stage from 05/06/2021: Stage I (T1b(m), N0, M0) - Signed by Vaibhav Ovalle MD on 05/07/2021 Right breast US noted to have nodules consistent with fat necrosis. 3. 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 4. Mild anemia - iron deficient, will replace oral iron. 5. Diarrhea - referral to GI, trial of Lomotil PLAN: MRI Brain - needs cardiology to coordinate her pacer. Triage please call results of today's labs. RTC after MRI to review. _- HPI: CASE HISTORY: 11/2006 :diagnosed with left breast cancer in November of 2006 after discovering a lump on self examination. :on November 17, 2006 she had core biopsy which noted a small focus of infiltrating carcinoma, favor ductal type, nuclear grade 2. :Stereotactic biopsy dated 11/26/06 noted DCIS, path report notes that early microinvasion could not be excluded. 12/2006 :Completes left mastectomy,sentinel node biopsy, axillary lymph node dissection. Path notes DCIS, intermediate grade and no evidence of axillary lymph node involvement :she was seen by Dr. Ness and recommendation was to pursue adjuvant therapy with anastrazole for a stage 1, ER/SC (+), breast cancer. 06/2011 :she had an exam by her credit and collections analyst which noted a tender lump on examination of her right breast. Ultrasound evaluation was negative and she continued in surveillance. 12/2011 :She completed 5 years of adjuvant anastrazole 09/2012 :she had a right upper and middle lobe resection for what would be discovered to be aspergillosis. 05/2013 :she noticed a lump in her left chest along her incision. A 1 x 1 X 0.8 cn lesion was noted in the subcutaneous soft tissue. 06/10/13 :Completes excisional biopsy which noted metastatic ducta carcinoma. Tumor was ER/SC positive, HER2 was negative. 08/2013 :She had repeat excision by Dr. Whitmore and this was negative for residual disease. 11/2013 :completes adjuvant radiation :starts adjuvant anastrazole, then switches to leterozole 02/2016 :switches to tamoxifen 02/2018 : stops tamoxifen as she feels it is aggravating dyspnea 01/17/2021 :Mammogram right upper breast 4mm new 02/28/2021 :Rt breast bx. - inv. Lobular, ER/SC+, HER@ FISH (-) 04/22/2021 :Right mastectomy, multifocal lobular carcinoma -6 AND 2 mm -10mm apart. declined endocrine therapy 03/27/2022 :Rt Breast US - Oil cyst 02/22/2023 : Monoferric - couldn't tolerate oral iron Updated Visit, May 29, 2023: Vertigo started 2-3 weeks ago after a shopping trip. Also has a lot of pressure in her head. Amoxicillin didn't help Now on Ceftin Having double vision noted as well. Updated Visit, February 19, 2023: Left knee revision but right knee is causing pain Iron studies from January 2023 indicate iron deficiency. Very nervous of pain in right hip being caused by cancer. Reviewed imaging and there is no finding of osseous mets. Updated Visit, October 17, 2022: Saw Dr. Coppola and was diagnosed with endocrine pancreatic insufficiency. Diarrhea is resolved with Creon. CBC reflects mild anemia that is macrocytic and may be associated with malabsorption that I suspect she has given her recent dx of EPI. Knee is still troubling her b (more content not included)... Normal [facility] CNPNon 05-29-2023 CNPN Telephone (NCCAP) -- MAGI DAO ([id number]) 1945 F Date Time Provider Department 05/29/23 VAIBHAV OVALLE NCCDENA During your visit today, we recorded the following information about you: Allen Sanchezy 05/29/2023 3:07 PM Signed Yelena Britt RN 06/01/2023 8:36 AM Signed Vandana: Please review labs and verify, no need for IV iron at this time. EDMUNDO Zamora Vivek, MD 06/01/2023 12:41 PM Signed Agree - no need for iron - although I think she should take OTC folic acid and B12. B12 should be SL please - both OTC. Yelena Britt RN 06/01/2023 1:24 PM Signed Pt aware of Vandana's message and recommendations. She will obtain and begin Folic Acid/B12 SL as discussed. She denies any additional questions or concerns at this time. Yelena Britt RN Allergies As of Date: 05/29/2023 Noted Allergy Reaction ASPIRIN 10/17/2022 10 - Anaphylaxis MOXIFLOXACIN 02/17/2011 2 - Rash 16 - Unknown Comments: Other reaction(s): Intolerance-unknown Other reaction(s): Other: See Comments increases neuropathy, light headed, chest tightness increases neuropathy, light headed, chest tightness AVELOX (MOXIFLOXACIN HCL) 02/17/2011 14 - Other: See Comments Comments: increases neuropathy, light headed, chest tightness DOXYCYCLINE 01/24/2014 5 - Intolerance 8 - GI Upset 16 - Unknown Comments: Dizziness Became very ill. Other Reaction(s): Swelling, GI Upset Other reaction(s): Intolerance Dizziness Became very ill. Dizziness Became very ill. GABAPENTIN 10/16/2014 5 - Intolerance Comments: heartburn Other Reaction(s): Unknown HYDROCODONE-ACETAMINOPHEN 01/26/2023 1 - Mental Status Change 12 - Shortness of Breath OXYCODONE 03/19/2021 1 - Mental Status Change 12 - Shortness of Breath Comments: Pt. reports she was very out of it and SOB . Requesting no oxycodone preparations. Reports was a reaction with Verapamil Other Reaction(s): heart rate bottomed out PREGABALIN 01/27/2023 14 - Other: See Comments Comments: Other Reaction(s): stumble, difficulty thinking THEOPHYLLINE 02/23/2012 14 - Other: See Comments Comments: Theophyllin caused HTN, rpaid heartbeat and headache. Other Reaction(s): Headache, Flushing TRAMADOL 01/27/2023 14 - Other: See Comments Comments: Other Reaction(s): Almost passed out CIPROFLOXACIN 02/17/2011 14 - Other: See Comments 2 - Rash 16 - Unknown Comments: increases neuropathy, lightheadedness, chest tightness Other reaction(s): Unknown Reaction Other Reaction(s): Swelling / Rash Other reaction(s): Intolerance-unknown increases neuropathy, lightheadedness, chest tightness Other reaction(s): Unknown Reaction CLONIDINE 04/13/2012 1 - Mental Status Change 2 - Rash Comments: Nervous Other Reaction(s): Headache, Flushing Other reaction(s): Clonidine ?- anxious/shakey Nervous CODEINE 01/27/2008 16 - Unknown Comments: Light-headedness, cold sweat Other Reaction(s): Adams in her head Other reaction(s): Intolerance-unknown Light-headedness, cold sweat DULOXETINE 02/17/2011 14 - Other: See Comments 2 - Rash 7 - Swelling 16 - Unknown Comments: increases neuropathy, lightheadedness, chest tightness Other Reaction(s): Unknown Other reaction(s): Intolerance-unknown increases neuropathy, lightheadedness, chest tightness LEVOFLOXACIN 02/17/2011 14 - Other: See Comments 2 - Rash Comments: increases neuropathy, lightheadedness, chest tightness Other reaction(s): Intolerance-unknown increases neuropathy, lightheadedness, chest tightness Date Reviewed: 05/29/2023 Reviewed by: Mackenzie Kapoor Ma - Fully Assessed Reason for Visit: Results [95] Prescriptions as of 06/01/2023 - DULoxetine (CYMBALTA) 20 mg capsule - miconazole 2 % cream Apply to affected area. - ALPRAZolam (XANAX) 0.5 mg tablet - DULCOLAX, BISACODYL, ORAL Take by mouth. - acetaminophen (TYLENOL EXTRA STRENGTH) 500 mg tablet Take 2 tablets by mouth every 8 hours. - CPAP daily at bedtime. - lisinopril (ZESTRIL, PRINIVIL) 5 mg tablet Take 5 mg by mouth as needed. as needed for BP above 140 - verapamil ER 180 mg 24 hr capsule Take 180 mg by mouth twice daily. - fexofenadine (USHA) 180 mg tablet Take 180 mg by mouth once daily. - albuterol sulfate (VENTOLIN HFA INHALATION) Inhale as instructed. - OMEPRAZOLE 40 mg capsule Take 40 mg by mouth twice daily. - ONABOTULINUMTOXINA (BOTOX INJECTION) by INJECTION(UNSPECIFIED PARENTERAL ROUTES) route. every 9 weeks for migraines - LEVOTHYROXINE 88 MCG TAB Take one(1) tablet daily BY MOUTH Problem List As Of Date 05/29/2023 Noted Resolved Malignant 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, e*12/08/2006 Breast CA (HCC) [C50.919] 09/10/2009 Paroxysmal SVT (supraventricular tachycardia) [* Cardiac pacemaker in situ [Z95.0] 11/28/2013 Headache(784.0) [R51] 04/24/2014 Obstructive sleep apnea [G47.33] 04/24/2014 Pulmonary (more content not included)... Normal [facility] metabolic 2000 panelon 05-29-2023 Albumin [Mass/Vol] 4.4 g/dL Normal 3.9-4.9 [facility] Comment on above: Order Comment: Speci men Type: BLOOD SPECIMEN Ordering Facility: [facility] Address: [address] [place] [address] Performed By: #### 2 132-9, 2283-8 #### [facility] CLIA [id number] [address] [place] [address] [place] ALP [Catalytic activity/Vol] 84 U/L Normal 34-123 [facility] Comment on above: Order Comment: Speci men Type: BLOOD SPECIMEN Ordering Facility: [facility] Address: [address] [place] [address] Performed By: #### 2 132-9, 2283-8 #### [facility] CLIA [id number] [address] [place] [address] [place] ALT [Catalytic activity/Vol] 17 U/L Normal 7-38 [facility] Comment on above: Order Comment: Speci men Type: BLOOD SPECIMEN Ordering Facility: [facility] Address: [address] [place] [address] Performed By: #### 2 132-9, 2283-8 #### [facility] CLIA [id number] [address] [place] [address] [place] Anion gap [Moles/Vol] 7 mmol/L Low 9-18 [facility] Comment on above: Order Comment: Speci men Type: BLOOD SPECIMEN Ordering Facility: [facility] Address: [address] [place] [address] Performed By: #### 2 132-9, 2283-8 #### [facility] CLIA [id number] [address] [place] [address] [place] AST [Catalytic activity/Vol] 19 U/L Normal 13-35 [facility] Comment on above: Order Comment: Speci men Type: BLOOD SPECIMEN Ordering Facility: [facility] Address: [address] [place], [place] [address] Performed By: #### 2 132-9, 8 #### [facility] CLIA [id number] [address] [place] [address] [place] Bilirubin [Mass/Vol] 0.3 mg/dL Normal 0.2-1.3 [facility] Comment on above: Order Comment: Speci men Type: BLOOD SPECIMEN Ordering Facility: [facility] Address: [address] [place] [address] Performed By: #### 2 132-9, 8 #### [facility] CLIA [id number] [address] [place] [address] [place] Calcium [Mass/Vol] 9.7 mg/dL Normal 8.5-10.2 [facility] Comment on above: Order Comment: Speci men Type: BLOOD SPECIMEN Ordering Facility: [facility] Address: [address] [place] [address] Performed By: #### 2 132-9, 8 #### [facility] CLIA [id number] [address] [place] [address] [place] Chloride [Moles/Vol] 105 mmol/L Normal 97-105 [facility] Comment on above: Order Comment: Speci men Type: BLOOD SPECIMEN Ordering Facility: [facility] Address: [address] [place] [address] Performed By: #### 2 132-9, 8 #### [facility] CLIA [id number] [address] [place] [address] [place] CO2 [Moles/Vol] 29 mmol/L Normal 22-30 [facility] Comment on above: Order Comment: Speci men Type: BLOOD SPECIMEN Ordering Facility: [facility] Address: [address] [place], [place] [id number] Performed By: #### 2 132-9, 2283-8 #### [facility] CLIA [id number] [facility] [place] [id number] [place] Creatinine [Mass/Vol] 0.92 mg/dL Normal 0.58-0.96 [facility] Comment on above: Order Comment: Donny ayala Type: BLOOD SPECIMEN Ordering Facility: [facility] Address: [address] [place] [address] Performed By: #### 2 132-9, 2283-8 #### [facility] CLIA [id number] [address] [place] [address] [place] Creatinine and Glomerular filtration rate.predicted panel (S/P/Bld) 65 mL/min/1.73m??? Normal >=60 [facility] Comment on above: Order Comment: Donny ayala Type: BLOOD SPECIMEN Ordering Facility: [facility] Address: [address] [place] [address] Result Comment: Sabiha mated Glomerular Filtration Rate (eGFR) is calculated using the 2020 CKD-EPI creatinine equation. This equation utilizes serum creatinine, sex, and age as parameters. The creatinine assay has traceable calibration to isotope dilution-mass spectrometry. Refer to KDIGO guidelines for clinical interpretation. In patients with unstable renal function, e.g. those with acute kidney injury, the eGFR may not accurately reflect actual GFR. Performed By: #### 2 132-9, 4-8 #### [facility] CLIA [id number] [address] [place] [address] [place] Glucose [Mass/Vol] 75 mg/dL Normal 74-99 [facility] Comment on above: Order Comment: Donny ayala Type: BLOOD SPECIMEN Ordering Facility: [facility] Address: [address] [place] [address] Result Comment: The [place] Diabetes [employer] (ADA) provides guidance for cutoff values for fasting glucose and random glucose. The ADA defines fasting as no caloric intake for at least 8 hours. Fasting plasma glucose results between 100 to 125 mg/dL indicate increased risk for diabetes (prediabetes). Fasting plasma glucose results greater than or equal to 126 mg/dL meet the criteria for diagnosis of diabetes. In the absence of unequivocal hyperglycemia, results should be confirmed by repeat testing. In a patient with classic symptoms of hyperglycemia or hyperglycemic crisis, random plasma glucose results greater than or equal to 200 mg/dL meet the criteria for diagnosis of diabetes. Reference: Standards of Medical Care in Diabetes 2016, [place] [employer] Association. Diabetes Care. 2016.39(Suppl 1). Performed By: #### 2 132-9, 2283-8 #### [facility] CLIA [id number] [address] [place] [address] [place] Potassium [Moles/Vol] 4.5 mmol/L Normal 3.7-5.1 [facility] Comment on above: Order Comment: Donny ayala Type: BLOOD SPECIMEN Ordering Facility: [facility] Address: [address] [place] [address] Performed By: #### 2 132-9, 8 #### [facility] CLIA [id number] [address] [place] [address] [place] Protein [Mass/Vol] 6.4 g/dL Normal 6.3-8.0 [facility] Comment on above: Order Comment: Donny ayala Type: BLOOD SPECIMEN Ordering Facility: [facility] Address: [address] [place] [address] Performed By: #### 2 132-9, 8 #### [facility] CLIA [id number] [address] [place] [address] [place] Sodium [Moles/Vol] 141 mmol/L Normal 136-144 [facility] Comment on above: Order Comment: Thomasi jamie Type: BLOOD SPECIMEN Ordering Facility: [facility] Address: [address] [place] [address] Performed By: #### 2 132-9, 8 #### [facility] CLIA [id number] [address] [place] [address] [place] Urea nitrogen [Mass/Vol] 13 mg/dL Normal 7-21 [facility] Comment on above: Order Comment: Speci men Type: BLOOD SPECIMEN Ordering Facility: [facility] Address: [address] [place] [address] Performed By: #### 2 132-9, 4-8 #### [facility] CLIA [id number] [address] [place] [address] [place] Ferritin SerPl-ncon 2022 Ferritin [Mass/Vol] 181.0 ng/mL Normal 14.7-205.1 [facility] Comment on above: Order Comment: Speci men Type: BLOOD SPECIMEN Ordering Facility: [facility] Address: [address] [place] [address] Performed By: #### 2 132-9, 2283-8 #### [facility] CLIA [id number] [address] [place] [address] [place] Folate SerPl-mCncon 05-29-20 Folate [Mass/Vol] 8.8 ng/mL Normal >4.7 [facility] Comment on above: Order Comment: Speci men Type: BLOOD SPECIMEN Ordering Facility: [facility] Address: [address] [place] [address] Performed By: #### 2 132-9, 2283-8 #### [facility] CLIA [id number] [address] [place] [address] [place] Iron and Iron binding capaci ty panelon 05-29-2023 Iron [Mass/Vol] 81 ug/dL Normal 41-186 [facility] Comment on above: Order Comment: Speci men Type: BLOOD SPECIMEN Ordering Facility: [facility] Address: [address] [place] [address] Performed By: #### 2 132-9, 2283-8 #### [facility] CLIA [id number] [address] [place] [address] [place] Iron binding capacity [Mass/Vol] 257 ug/dL Normal 232-386 [facility] Comment on above: Order Comment: Speci men Type: BLOOD SPECIMEN Ordering Facility: [facility] Address: [address] [place] [address] Performed By: #### 2 132-9, 2284-8 #### [facility] CLIA [id number] [address] [place] [address] [place] Iron/TIBC [Molar ratio] 31.5 % Normal 15.0-57.0 [facility] Comment on above: Order Comment: Speci men Type: BLOOD SPECIMEN Ordering Facility: [facility] Address: [address] [place] [address] Performed By: #### 2 132-9, 2284-8 #### [facility] CLIA [id number] [address] [place] [address] [place] Vit B12 [facility] 22-2 023 Cobalamin (Vitamin B12) [Mass/Vol] 486 pg/mL Normal 232-1245 [facility] Comment on above: Order Comment: Speci men Type: BLOOD SPECIMEN Ordering Facility: [facility] Address: [address] [place] [address] Performed By: #### 2 132-9, 2284-8 #### [facility] CLIA [id number] [address] [place] [address] [place] XR Knee AP and Lateral and M erchantson 04-02-2023 IMPRESSION: Status post left total knee arthroplasty without evidence of complication. Sleeve Tailor: PSCB Transcribe Date/Time: Apr 02 2023 2:40P Dictated by : CHARO DONOHUE MD This examination was interpreted and the report reviewed and electronically signed by: CHARO DONOHUE MD on Apr 02 2023 2:40PM [facility] DIVISION OF RADIOLOGY * * *Final Report* * * DATE OF EXAM: Apr 02 2023 1:00PM EOX 5208 - XR KNEE 3V AP/LAT/MERCHANT LT / PROCEDURE REASON: multiple diagnoses * * * * Physician Interpretation * * * * EXAMINATION / TECHNIQUE: XR KNEE 3V AP/LAT/MERCHANT LT HISTORY: FOLLOW UP IMAGING FOR LEFT TKR ON 01/26/2023 Status post total left knee replacement Chronic pain of left knee Chronic pain of left knee Anemia, unspecified type COMPARISON: 02/16/2023. FINDINGS: Status post left total knee arthroplasty with orthopedic hardware in standard position and alignment. There is no periprosthetic lucency or fracture. DIVISION OF RADIOLOGY Provider, Neo diallo [place] - 04/02/2023 * * *Final Report* * * DATE OF EXAM: Apr 02 2023 1:00PM EOX 5208 - XR KNEE 3V AP/LAT/MERCHANT LT / PROCEDURE REASON: multiple diagnoses * * * * Physician Interpretation * * * * EXAMINATION / TECHNIQUE: XR KNEE 3V AP/LAT/MERCHANT LT HISTORY: FOLLOW UP IMAGING FOR LEFT TKR ON 01/26/2023 Status post total left knee replacement Chronic pain of left knee Chronic pain of left knee Anemia, unspecified type COMPARISON: 02/16/2023. FINDINGS: Status post left total knee arthroplasty with orthopedic hardware in standard position and alignment. There is no periprosthetic lucency or fracture. IMPRESSION IMPRESSION: Status post left total knee arthroplasty without evidence of complication. Sleeve Tailor: JENELLEB Transcribe Date/Time: Apr 02 2023 2:40P Dictated by : CHARO DONOHUE MD This examination was interpreted and the report reviewed and electronically signed by: CHARO DONOHUE MD on Apr 02 2023 2:40PM EST [facility] Radiology Study observation (narrative) [facility] XR Knee AP and Lateral and M erchantsOrdered By: [facility] No Panel InformationOrdered By: f Provider on 02-16-2023 [facility] No Panel Informationon 02-16 Radiology Study observation (narrative) [facility] XR Knee AP and Lateral and M erchantson 02-16-2023 IMPRESSION: EXPECTED POSTOPERATIVE APPEARANCE Sleeve Tailor: PSCB Transcribe Date/Time: Feb 16 2023 1:54P Dictated by : DARNELL DEL VALLE MD This examination was interpreted and the report reviewed and electronically signed by: DARNELL DEL VALLE MD on Feb 16 2023 1:54PM EST DIVISION OF RADIOLOGY * * *Final Report* * * DATE OF EXAM: Feb 16 2023 1:08PM EOX 5208 - XR KNEE 3V AP/LAT/MERCHANT LT / PROCEDURE REASON: multiple diagnoses * * * * Physician Interpretation * * * * HISTORY (as given from clinical provider): Status post total left knee replacement Chronic pain of left knee Chronic pain of left knee Anemia, unspecified type. Additional history provided by the performing technologist (if any): left knee post op follow up TECHNIQUE: XR KNEE 3V AP/LAT/MERCHANT LT COMPARISON: 03/26/2022 RESULT: Status post total knee arthroplasty. No evidence of implant failure. No other significant abnormality. DIVISION OF RADIOLOGY Provider, [facility] - 02/16/2023 * * *Final Report* * * DATE OF EXAM: Feb 16 2023 1:08PM EOX 5208 - XR KNEE 3V AP/LAT/MERCHANT LT / PROCEDURE REASON: multiple diagnoses * * * * Physician Interpretation * * * * HISTORY (as given from clinical provider): Status post total left knee replacement Chronic pain of left knee Chronic pain of left knee Anemia, unspecified type. Additional history provided by the performing technologist (if any): left knee post op follow up TECHNIQUE: XR KNEE 3V AP/LAT/MERCHANT LT COMPARISON: 03/26/2022 RESULT: Status post total knee arthroplasty. No evidence of implant failure. No other significant abnormality. IMPRESSION IMPRESSION: EXPECTED POSTOPERATIVE APPEARANCE Sleeve Tailor: KAY Transcribe Date/Time: Feb 16 2023 1:54P Dictated by : DARNELL DEL VALLE MD This examination was interpreted and the report reviewed and electronically signed by: DARNELL DEL VALLE MD on Feb 16 2023 1:54PM [facility] XR Pelvis and Hip - right AP and Lateral frogon 02-16-2023 IMPRESSION: NO ACUTE OSSEOUS ABNORMALITY OTHER FINDINGS DESCRIBED Sleeve Tailor: KAY Transcribe Date/Time: Feb 16 2023 1:53P Dictated by : DARNELL DEL VALLE MD This examination was interpreted and the report reviewed and electronically signed by: DARNELL DEL VALLE MD on Feb 16 2023 1:54PM [facility] DIVISION OF RADIOLOGY * * *Final Report* * * DATE OF EXAM: Feb 16 2023 1:09PM EOX 5352 - XR HIP 3V PELV+ AP/LAT RT / PROCEDURE REASON: Right hip pain * * * * Physician Interpretation * * * * HISTORY (as given from clinical provider): Right hip pain . Additional history provided by the performing technologist (if any): right hip pain goes down leg into knee TECHNIQUE: XR HIP 3V PELV+ AP/LAT RT COMPARISON: None RESULT: The hip joints and the SI joints are normal. Mature enthesophyte on the tip of the right greater trochanter. Incidental noted degenerative disc disease in the lumbar spine. No other significant abnormality. DIVISION OF RADIOLOGY Provider, [facility] - 02/16/2023 * * *Final Report* * * DATE OF EXAM: Feb 16 2023 1:09PM EOX 5352 - XR HIP 3V PELV+ AP/LAT RT / PROCEDURE REASON: Right hip pain * * * * Physician Interpretation * * * * HISTORY (as given from clinical provider): Right hip pain . Additional history provided by the performing technologist (if any): right hip pain goes down leg into knee TECHNIQUE: XR HIP 3V PELV+ AP/LAT RT COMPARISON: None RESULT: The hip joints and the SI joints are normal. Mature enthesophyte on the tip of the right greater trochanter. Incidental noted degenerative disc disease in the lumbar spine. No other significant abnormality. IMPRESSION IMPRESSION: NO ACUTE OSSEOUS ABNORMALITY OTHER FINDINGS DESCRIBED Sleeve Tailor: KAY Transcribe Date/Time: Feb 16 2023 1:53P Dictated by : DARNELL DEL VALLE MD This examination was interpreted and the report reviewed and electronically signed by: DARNELL DEL VALLE MD on Feb 16 2023 1:54PM EST [facility] Basic metabolic 2000 panelon 01-27-2023 Anion gap [Moles/Vol] 10 mmol/L Normal 9-18 [facility] Comment on above: Order Comment: Speci men Type: BLOOD SPECIMEN Ordering Facility: [facility] Address: [address] [address] Performed By: #### 2 4321-2 #### [facility] CLIA [id number] [place] [address] [place] Calcium [Mass/Vol] 8.9 mg/dL Normal 8.5-10.2 [facility] Comment on above: Order Comment: Speci men Type: BLOOD SPECIMEN Ordering Facility: [facility] Address: [address] [address] Performed By: #### 2 4321-2 #### [facility] CLIA [id number] [place] [address] [place] Chloride [Moles/Vol] 104 mmol/L Normal 97-105 [facility] Comment on above: Order Comment: Speci men Type: BLOOD SPECIMEN Ordering Facility: [facility] Address: [address] [address] Performed By: #### 2 4321-2 #### [facility] CLIA [id number] [place] [address] [place] CO2 [Moles/Vol] 23 mmol/L Normal 22-30 [facility] Comment on above: Order Comment: Speci men Type: BLOOD SPECIMEN Ordering Facility: [facility] Address: [address] [address] Performed By: #### 2 4321-2 #### [facility] CLIA [id number] [place] [address] [place] Creatinine [Mass/Vol] 0.74 mg/dL Normal 0.58-0.96 [facility] Comment on above: Order Comment: Donny ayala Type: BLOOD SPECIMEN Ordering Facility: [facility] Address: [address] [address] Performed By: #### 2 4321-2 #### [facility] CLIA [id number] [place] [address] [place] ESTIMATED GLOMERULAR FILTRATION RATE 84 mL/min/1.73m??? Normal >=60 [facility] Comment on above: Order Comment: Donny ayala Type: BLOOD SPECIMEN Ordering Facility: [facility] Address: [address] [address] Result Comment: Sabiha mated Glomerular Filtration Rate (eGFR) is calculated using the 2020 CKD-EPI creatinine equation. This equation utilizes serum creatinine, sex, and age as parameters. The creatinine assay has traceable calibration to isotope dilution-mass spectrometry. Refer to KDIGO guidelines for clinical interpretation. In patients with unstable renal function, e.g. those with acute kidney injury, the eGFR may not accurately reflect actual GFR. Performed By: #### 2 4321-2 #### [facility] CLIA [id number] [place] [address] [place] Glucose [Mass/Vol] 108 mg/dL High 74-99 [facility] Comment on above: Order Comment: Donny ayala Type: BLOOD SPECIMEN Ordering Facility: [facility] Address: [address] [address] Result Comment: The [place] Diabetes Association (ADA) provides guidance for cutoff values for fasting glucose and random glucose. The ADA defines fasting as no caloric intake for at least 8 hours. Fasting plasma glucose results between 100 to 125 mg/dL indicate increased risk for diabetes (prediabetes). Fasting plasma glucose results greater than or equal to 126 mg/dL meet the criteria for diagnosis of diabetes. In the absence of unequivocal hyperglycemia, results should be confirmed by repeat testing. In a patient with classic symptoms of hyperglycemia or hyperglycemic crisis, random plasma glucose results greater than or equal to 200 mg/dL meet the criteria for diagnosis of diabetes. Reference: Standards of Medical Care in Diabetes 2016, [place] Diabetes Association. Diabetes Care. 2016.39(Suppl 1). Performed By: #### 2 4321-2 #### [facility] CLIA [id number] [place] Potassium [Moles/Vol] 4.1 mmol/L Normal 3.7-5.1 [facility] Comment on above: Order Comment: Speci men Type: BLOOD SPECIMEN Ordering Facility: [facility] Address: [address] [place] [address] Performed By: #### 2 4321-2 #### [facility] CLIA [id number] [place] [address] [place] Sodium [Moles/Vol] 137 mmol/L Normal 136-144 [facility] Comment on above: Order Comment: Speci men Type: BLOOD SPECIMEN Ordering Facility: [facility] Address: [address] [place] [address] Performed By: #### 2 4321-2 #### [facility] CLIA [id number] [place] Urea nitrogen [Mass/Vol] 12 mg/dL Normal 7-21 [facility] Comment on above: Order Comment: Speci men Type: BLOOD SPECIMEN Ordering Facility: [facility] Address: [address] [place] [address] Performed By: #### 2 4321-2 #### [facility] CLIA [id number] [place] CASE MANAGEMon 01-27-2023 CASE MANAGEM HNO ID: [id number] Author: Dalia Laguna RN Service: ? Author Type: Registered Nurse Type: Care Mgt Progress Note Filed: 01/27/2023 11:54 AM Note Text: CARE MANAGEMENT DISCHARGE NOTE SERVICE DATE: January 27, 2023 SERVICE TIME: 1152 Admission Date: 01/26/2023 LOS: 1 day Discharge Arrangement Discharge Arrangement: Home with Home Health Services Arranged Medical Services: Skilled Home Health Care Type: Physical Therapy Provider Name: [facility] Caregiver Assessment Caregiver is ready, willing and able to meet the patient's needs as recommended by the inter-professional team: No Caregiver needed Transportation Arrangements Transportation Arrangements: Car Date of Trip: 01/27/23 Destination: home Handoff Communication: Additional Information: Discharge Information Row Name Admission (Current) from 01/26/2023 in [facility] Initial assessment completed by care management during preop telephone encounter on 01/26/23. FOC documented in assessment. Pt to d/c home with [facility]. SIGNATURE: Dalia Laguna RN PATIENT NAME: Magi Dao DATE: January 27, 2023 TIME: 11:52 AM CONTACT #: Normal [facility] CBC panel Auto (Bld)on 01-27 Erythrocyte distribution width (RBC) [Ratio] 12.9 % Normal 11.5-15.0 [facility] Comment on above: Order Comment: Speci men Type: BLOOD SPECIMEN Ordering Facility: [facility] Address: [address] [place] [address] Performed By: #### 5 8410-2 #### [facility] CLIA [id number] [place] [address] [place] Hematocrit (Bld) [Volume fraction] 34.9 % Low 36.0-46.0 [facility] Comment on above: Order Comment: Speci men Type: BLOOD SPECIMEN Ordering Facility: [facility] Address: [address] [place] [address] Performed By: #### 5 8410-2 #### [facility] CLIA [id number] [place] [address] [place] Hemoglobin (Bld) [Mass/Vol] 11.0 g/dL Low 11.5-15.5 [facility] Comment on above: Order Comment: Speci men Type: BLOOD SPECIMEN Ordering Facility: [facility] Address: [address] [place] [address] Performed By: #### 5 8410-2 #### [facility] CLIA [id number] [place] [address] [place] MCH (RBC) [Entitic mass] 31.7 pg Normal 26.0-34.0 [facility] Comment on above: Order Comment: Speci men Type: BLOOD SPECIMEN Ordering Facility: [facility] Address: [address] [address] Performed By: #### 5 8410-2 #### [facility] CLIA [id number] [place] [address] [place] MCHC (RBC) [Mass/Vol] 31.5 g/dL Normal 30.5-36.0 [facility] Comment on above: Order Comment: Speci men Type: BLOOD SPECIMEN Ordering Facility: [facility] Address: [address] [address] Performed By: #### 5 8410-2 #### [facility] CLIA [id number] [place] [address] [place] MCV (RBC) [Entitic vol] 100.6 fL High 80.0-100.0 [facility] Comment on above: Order Comment: Speci men Type: BLOOD SPECIMEN Ordering Facility: [facility] Address: [address] [address] Performed By: #### 5 8410-2 #### [facility] CLIA [id number] [address] [place] [address] [place] Nucleated RBC (Bld) [#/Vol] 10*3/uL Normal <0.01 [facility] Comment on above: Order Comment: Speci men Type: BLOOD SPECIMEN Ordering Facility: [facility] Address: [address] [address] Performed By: #### 5 8410-2 #### [facility] CLIA [id number] [place] [address] [place] Platelet mean volume (Bld) [Entitic vol] 8.8 fL Low 9.0-12.7 [facility] Comment on above: Order Comment: Speci men Type: BLOOD SPECIMEN Ordering Facility: [facility] Address: [address] [address] Performed By: #### 5 8410-2 #### [facility] CLIA [id number] [place] [address] [facility] [place] Platelets (Bld) [#/Vol] 277 10*3/uL Normal 150-400 [facility] Comment on above: Order Comment: Speci men Type: BLOOD SPECIMEN Ordering Facility: [facility] Address: [address] [place] [address] Performed By: #### 5 8410-2 #### [facility] CLIA [id number] [place] [address] [facility] [place] RBC (Bld) [#/Vol] 3.47 10*6/uL Low 3.90-5.20 [facility] Comment on above: Order Comment: Speci men Type: BLOOD SPECIMEN Ordering Facility: [facility] Address: [address] [place] [address] Performed By: #### 5 8410-2 #### [facility] CLIA [id number] [place] [address] [place] WBC (Bld) [#/Vol] 14.04 10*3/uL High 3.70-11.00 [facility] Comment on above: Order Comment: Speci men Type: BLOOD SPECIMEN Ordering Facility: [facility] Address: [address] [place] [address] Performed By: #### 5 8410-2 #### [facility] CLIA [id number] [place] NURSING PROGon 01-27-2023 NURSING PROG HNO ID: [id number] Author: Iraida Anglin RN Service: ? Author Type: Registered Nurse Type: Nursing Progress Note Filed: 01/27/2023 4:21 PM Note Text: 0730 Assumed care of patient after receiving report. 0836 AM Lisinopril held @ this time. 0900 PT @ bedside. 1040 Brittany CHEF SAUCIER updated. 1042 New orders obtained. 1054 Medicated with Xanax as ordered per patient request. 1110 OT @ bedside. 1217 Medicated with Routine XS Tylenol as ordered. 1231 Discharge orders obtained once cleared by therapies. 1310 Attending PT. 1600 Home-going instructions reviewed with Patient and Family. 1619 Patient discharged as ordered in stable condition. Transportation provided by Family. [facility] THERAPY NTon 01-27-2023 THERAPY NT HNO ID: [id number] Author: Neda Harry, PT Service: ? Author Type: Physical Therapist Type: Therapy (PT/OT/Speech/Resp) Filed: 01/27/2023 2:08 PM Note Text: Physical Therapy Treatment SERVICE DATE: 01/27/2023 SERVICE TIME: 1310 to 1351 ROOM: [address] [address] Recommended Discharge Disposition: Home PT Recommended Discharge Disposition Comments: for follow up and progression of TKA rehab program. Anticipated Discharge Needs: Physical Assist at Home Physical Assist at Home for: Cleaning, Laundry, Meals, Shopping, Transportation Recommended Discharge Equipment: No equipment needs anticipated PT 6 Clicks Score: 24 Precautions/Activity Restrictions: Fall Risk, Lines/Tubes/Drains, Total Knee Replacement, Weight Bearing Restrictions Extremity With Weight Bearing Restricted: Left Lower Extremity Left Lower Extremity Weight Bearing Status: WBAT Current Hospital Course: Pt is a 78 year old female admitted on 01/26/23 for revision of LTKA, polyethylene insert. Surgery done by Dr Salazar. 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 Continued Skilled Needs Due to: Functional Mobility/Skill Impairments Physical Therapy Problem List: Education Deficit, Pain, Safety Deficits, Decreased Activity Tolerance, Decreased Range Of Motion, Decreased Strength, Functional Mobility Impairment, Balance Impaired Treatment Interventions: Education, Joint Mobility, Strengthening, Functional Mobility Training, Balance Training, Neuromuscular Re-education Plan for Next Visit: Bed Mobility, Chair Transfer Training, Gait Training, Exercise Instruction/Handout, Sit to Stand Transfers, Walker Training, Curb Step Training, Stair Training Home Environment Patient Lives With: Spouse (in a 1 story house) Assistance Available: 24-Hour Entry To Home: Stairs, With Rail Number Of Stairs Into Home: 2 (landing type steps) Number Of Stairs To Bed/Bath: 0 Tub/Shower Type: walk in shower with corner seat, HHS,4 inch threshold, chair height toilet Laundry: on main floor-- can complete Equipment Owned: Cane, Hand Held Shower, Walker- Wheeled Prior Functional Level: Within Functional Limits Prior Functional Level Comments: Pt reports indep with ADLs, ambualting w/o AD, drives. Baseline Cognition: Oriented to self, Oriented to place, Oriented to situation, Oriented to time Patient Report: I feel pretty good. I've been up in the chair since OT finished up with me this morning. CURRENT FUNCTIONAL STATUS: Most recent performance Current Functional Mobility Assist Level Additional Information Rolling Supine to Sit Verbal Cues Only Sit to Supine Verbal Cues Only verbal and tactile cues for hand placements, safe technique. Pt did not need to use leg broomcorn seeder. Scooting Verbal Cues Only, Additional Information Sit to Stand Verbal Cues Only prn cues for hand placemetns, safe technique Stand to Sit Verbal Cues Only prn verbal cues for hand placements, controlled descent Bed to Chair Verbal Cues Only Bed To Chair Transfer Type: Stepping Bed To Chair Transfer Equipment: Wheeled Walker prn verbal cues for safe walker mgmt, clearing feet during turn, backing up against seat Toilet/Commode Independent, Additional Information pt supervised into bathroom using NSRW. She was able to manage clothing, hygiene indep. Gait Supervision Gait Device: Wheeled Walker Gait Distance (feet): 250 ft verbal cues for safe walker navigation, progression to step through gait pattern with heel-toe form with normal step length and increased foot clearance Stairs Stand By Assistance, Additional Information Stairs Device: Rail (bilat) Number of Stairs: 4 cues for correct LE sequencing when ascending and descending Curb Step Contact Guard Assistance Device: Wheeled Walker up/down 8 inch curb step with verbal and tactile cues for safe walker mgmt, cues for correct walker/LE sequencing. Car Transfer Verbal Cues Only, Additional Information Blank graves indicate activity not attempted Gait Deviations Left Lower Extremity: Foot clearance decreased, Heel strike during initial stance decreased, Push off during terminal stance decreased, Step length decreased, Stance time decreased General Deviations/Observations: Leonarda decreased, Step length decreased, Visual scanning/environmental awareness decreased Balance: Static Sitting, Static Standing Static Sitting Balance: Fair Patient able to maintain balance with handhold support, may require occasional minimal (more content not included)... Normal [facility] THERAPY NT HNO ID: [id number] Author: Zee Wolff, OT/L Service: Occupational Therapy Author Type: Occupational Therapist Type: Therapy (PT/OT/Speech/Resp) Filed: 01/27/2023 1:29 PM Note Text: Occupational Therapy Evaluation SERVICE DATE: 01/27/2023 SERVICE TIME: 1110 to 1205 ROOM: [address] [address] Recommended Discharge Disposition: Home Recommended Discharge Disposition Comments: Anticipate no further skilled OT needs at d/c. Anticipated Discharge Needs: Physical Assist at Home Physical Assist at Home for: Cleaning, Laundry, Meals, Shopping, Transportation Recommended Discharge Equipment: No equipment needs anticipated OT 6 Clicks Score: 19 Precautions/Activity Restrictions: Fall Risk, Lines/Tubes/Drains, Total Knee Replacement, Weight Bearing Restrictions Extremity With Weight Bearing Restricted: Left Lower Extremity Left Lower Extremity Weight Bearing Status: WBAT Current Hospital Course: Pt is a 78 year old female admitted on 01/26/23 for revision of LTKA, polyethylene insert. Surgery done by Dr Salazar. Reason for Hospital Admission: left TKA revision--poly insert Relevant Past Medical History: CAD, sick sinus syndrome, pacemaker, HTN, h/o recurrent breast ca with bilat mastectomy, asthma, COPD, GERD, right upper and middle lobe resection due to aspergillus infection, idiopathic neuropathy bilat feet and lower legs Response to Therapy Interventions: Good Participation in Activities Continued Skilled Needs Due to: (n/a) Occupational Therapy Problem List: Pain, Impaired Self Care, Decreased Activity Tolerance, Functional Mobility Impairment Cognition/Communication Deficits Orientation Deficits: (AANDOx4) Responsiveness: Alert Treatment Interventions: Education, Self Care/Home Management, Functional Mobility Training Plan for Next Visit: (n/a - ready for d/c home) Home Environment Patient Lives With: Spouse (in a 1 story house) Assistance Available: 24-Hour Entry To Home: Stairs, With Rail Number Of Stairs Into Home: 2 (landing type steps) Number Of Stairs To Bed/Bath: 0 Tub/Shower Type: walk in shower with corner seat, HHS,4 inch threshold, chair height toilet Laundry: on main floor-- can complete Equipment Owned: Cane, Hand Held Shower, Walker- Wheeled Prior Functional Level: Within Functional Limits Prior Functional Level Comments: Pt reports indep with ADLs, ambualting w/o AD, drives. 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 CURRENT FUNCTIONAL STATUS: Most recent performance Current Activities of Daily Living Assist Level Additional Information Feeding Independent Grooming Supervision, Additional Information no cues or assist seated in chair for oral care. VCs for safety with body position and walker placement on approach to sink to complete hand hygiene. Bathing Upper Body Set Up, Additional Information no cues or assist required Bathing Lower Body Minimal Assistance, Additional Information VCs for safe technique to reach distal B LEs, assist for B feet only Dressing Upper Body Set Up, Additional Information no cues or assist required Dressing Lower Body Minimal Assistance, Additional Information VCs for technique to thread surgical LE first in clothing and dress seated vs standing for safety with balance. Assist required for socks only. Toileting Supervision, Additional Information for safety Instrumental Activities of Daily Living Assist Level Additional Information Meal/Beverage Prep Cleaning Laundry Medication Management with Strategies Functional Mobility Assist Level Additional Information Rolling Supine to Sit Supervision, Additional Information VCs for safe technique Sit to Supine Scooting Sit to Stand Stand By Assistance, Additional Information VCs for safety with hand placement Stand to Sit Stand By Assistance, Additional Information VCs for safety with body position and hand placement for slow controlled descent Bed to Chair Toilet/Commode Stand By Assistance, Additional Information VCs for safety to align to toilet and use of B grab bars Shower Functional Mobility Stand By Assistance, Additional Information Wheeled Walker VCs for step sequence and safety with walker management Blank graves shaun (more content not included)... [facility] [place] HNO ID: [id number] Author: Neda Harry, PT Service: ? Author Type: Physical Therapist Type: Therapy (PT/OT/Speech/Resp) Filed: 01/27/2023 11:10 AM Note Text: Physical Therapy Treatment SERVICE DATE: 01/27/2023 SERVICE TIME: 09 to 09 ROOM: [place] [address] Recommended Discharge Disposition: Home PT Recommended Discharge Disposition Comments: for follow up and progression of TKA rehab program. Anticipated Discharge Needs: Physical Assist at Home Physical Assist at Home for: Cleaning, Laundry, Meals, Shopping, Transportation Recommended Discharge Equipment: No equipment needs anticipated PT 6 Clicks Score: 23 Precautions/Activity Restrictions: Fall Risk, Lines/Tubes/Drains, Total Knee Replacement, Weight Bearing Restrictions Extremity With Weight Bearing Restricted: Left Lower Extremity Left Lower Extremity Weight Bearing Status: WBAT Current Hospital Course: Pt is a 78 year old female admitted on 01/26/23 for revision of LTKA, polyethylene insert. Surgery done by Dr Salazar. 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 Nursing notified. Continued Skilled Needs Due to: Functional Mobility/Skill Impairments Physical Therapy Problem List: Education Deficit, Pain, Safety Deficits, Decreased Activity Tolerance, Decreased Range Of Motion, Decreased Strength, Functional Mobility Impairment, Balance Impaired Treatment Interventions: Education, Joint Mobility, Strengthening, Functional Mobility Training, Balance Training, Neuromuscular Re-education Plan for Next Visit: Bed Mobility, Chair Transfer Training, Gait Training, Exercise Instruction/Handout, Sit to Stand Transfers, Walker Training, Curb Step Training Home Environment Patient Lives With: Spouse (in a 1 story house) Assistance Available: 24-Hour Entry To Home: Stairs, With Rail Number Of Stairs Into Home: 2 (landing type steps) Number Of Stairs To Bed/Bath: 0 Tub/Shower Type: walk in shower with corner seat, HHS,4 inch threshold, chair height toilet Laundry: on main floor-- can complete Equipment Owned: Cane, Hand Held Shower, Walker- Wheeled Prior Functional Level: Within Functional Limits Prior Functional Level Comments: Pt reports indep with ADLs, ambualting w/o AD, drives. Patient Report: I had a pretty rough night. I still have a headache, but it's better than yesterday. CURRENT FUNCTIONAL STATUS: Most recent performance Current Functional Mobility Assist Level Additional Information Rolling Supine to Sit Verbal Cues Only verbal cues for hand placements, sequencing, safe technique. Sit to Supine Verbal Cues Only verbal and tactile cues for hand placements, CGA to lift LEs onto bed. Pt feeling slightly light headed at end of PT session and requested to return to bed. Scooting Verbal Cues Only, Additional Information Sit to Stand Stand By Assistance cues for hand placements, anterior weight shift, establishing balance and self assessing for any syncopal symptoms. Stand to Sit Stand By Assistance verbal cues for hand placemetns, controlled descent Bed to Chair Stand By Assistance Bed To Chair Transfer Type: Stepping Bed To Chair Transfer Equipment: Wheeled Walker verbal and tactile cues for safe walker mgmt, clearing feet during turn, backing up against seat Toilet/Commode Gait Stand By Assistance, Additional Information Gait Device: Wheeled Walker Gait Distance (feet): 100 ft x 2 verbal cues for safe walker navigation, progression to step through gait pattern with heel-toe form with normal step length and increased foot clearance Stairs Curb Step Contact Guard Assistance, Additional Information Device: Wheeled Walker up/dpwn 8 inch curb step with verbal and tactile cues for safe walekr mgmt on/off step, cues for correct walekr/LE sequencing. Car Transfer Verbal Cues Only, Additional Information simulated SUV trasnfer completed with verbal cues for sequencing, hand placements, safe technique Blank graves indicate activity not attempted Gait Deviations Left Lower Extremity: Foot clearance decreased, Heel strike during initial stance decreased, Push off during terminal stance decreased, Step length decreased, Stance time decreased General Deviations/Observations: Leonarda decreased, Step length decreased, Visual scanning/environmental awareness decreased Balance: Static Sitting, Static Standing Static Sitting Balance: Fair Patient able to maintain balance with handhold suppo (more content not included)... [facility] ALLIED HEALTHon 01-26-2023 ALLIED HEALTH HNO ID: [id number] Author: Leatha Rice RT(R) Service: Radiology Author Type: Shift Supervisor Rn Type: Allied Health Filed: 01/26/2023 12:36 PM Note Text: Radiology Service Progress Note PATIENT NAME: Magi Dao DATE OF SERVICE: January 26, 2023 TIME: 12:35 PM PATIENT IDENTITY VERIFICATION COMPLETED USING TWO (2) IDENTIFIERS: Name and Date of confirmed by patient verbally and Name and Date of confirmed by identification band. FALL SCREENING: Has the patient had 2 falls in the last year or 1 fall with injury or currently using an Ambulatory Assistive Device (Walker, Cane, Wheelchair, Crutches, etc.)? No PATIENT GENDER DATA: Female. status: : No status: NO. PATIENT RELEVANT IMPLANT DATA REVIEWED: Not Applicable RADIOLOGY DEPARTMENT: General X-ray: Exam(s) Completed: Lower Extremity X-Ray(s): Knee, AP / LAT Left PERIPHERAL IV DATA: Not applicable SIGNED BY: RT Mely(R) January 26, 2023 12:35 PM [facility] ANES POSTPROC EVALon 023 ANES POSTPROC EVAL HNO ID: [id number] Author: Cuba Ortiz MD Service: Anesthesiology Author Type: Anesthesiologist Type: Anesthesia Postprocedure Evaluation Filed: 01/26/2023 1:57 PM Note Text: POST ANESTHESIA EVALUATION NOTE : 1945 Procedure Summary Date: 01/26/23 Room / Location: [place] [address] / OR Anesthesia Start: 1019 Anesthesia Stop: 1142 Procedure: REVISION JOINT TOTAL KNEE ONE COMPONENT (Left: Knee) Diagnosis: Status post total left knee replacement Chronic pain of left knee (Status post total left knee replacement [Z96.652]) (Chronic pain of left knee [M25.562, G89.29]) Surgeons: Marlee Salazar MD Responsible Provider: Cuba Ortiz MD Anesthesia Type: spinal ASA Status: 3 Anesthesia Type: spinal Last Vitals Vitals Value Taken Time BP 143/76 01/26/23 1350 Temp 36.4 ?C (97.5 ?F) 01/26/23 1350 Pulse 77 01/26/23 1350 Resp 16 01/26/23 1350 SpO2 97 % 01/26/23 1350 Post Anesthesia Patient Status Patient Evaluation: bedside. Anticipated Disposition: inpatient floor planned admission. Neurological Status: aware and responsive. Pulmonary Status: breathing comfortably on room air Airway Control: returned to baseline unsupported. Cardiovascular Status: stable. Pain Management: clinically adequate Postoperative Hydration: acceptable. Intraoperative Events: no significant anesthesia events Post Operative Nausea/Vomiting Status: no significant post operative nausea or vomiting Recommendation: continue current plan of care. Anesthesia Observations No Documentation SIGNATURE: Cuba Ortiz MD PATIENT NAME: Magi Dao DATE: January 26, 2023 TIME: 1:56 PM CSN: [id number] [facility] ANES PRE-OPon 01-26-2023 ANES PRE-OP HNO ID: [id number] Author: Cuba Ortiz MD Service: Anesthesiology Author Type: Anesthesiologist Type: Anesthesia Preprocedure Evaluation Filed: 01/26/2023 9:21 AM Note Text: ANESTHESIOLOGY DAY OF SURGERY NOTE : 1945 Procedure Information Date/Time: 01/26/23 1000 Procedure: REVISION JOINT TOTAL KNEE ONE COMPONENT (Left: Knee) - Poly exchange, possible TS/ cones/ augments Location: [facility] OR04 / [facility] Surgeons: Marlee Salazar MD Estimated body mass index is 25.51 kg/m? as calculated from the following: Height as of 01/06/23: 160 cm (5' 3 ). Weight as of 01/06/23: 65.3 kg (144 lb). Most recent hematocrit and potassium results: Hematocrit 41.4 01/06/2023 Potassium 4.6 01/06/2023 Relevant Problems ANESTHESIA (+) Obstructive sleep apnea CARDIO (+) Cardiac pacemaker in situ (+) Coronary artery disease (+) Migraine without aura (+) Paroxysmal SVT (supraventricular tachycardia) (HCC) (+) Primary hypertension (+) Sick sinus syndrome (HCC) ENDO (+) Unspecified hypothyroidism GI (+) Esophageal reflux NEURO-PSYCH (+) 4.8 New daily-persistent headache (NDPH) [339.42] (+) History of breast cancer (+) Migraine without aura (+) Personal history of infectious disease PULMONARY (+) Asthma (+) Chronic obstructive pulmonary disease (COPD) (HCC) (+) Obstructive sleep apnea (+) Personal history of infectious disease (+) Pneumonia I - PHYSICAL EVALUATION AIRWAY Patient intubated: No. Tracheostomy tube not present Mallampati: II. TM distance: >3 FB. Neck ROM: full ROM without neurological symptoms. Mouth opening: adequate. Short neck: no. Thick neck: no DENTAL Dental findings: teeth intact. Dentures, lower: partial. Additional exam findings: yes. CARDIOVASCULAR Rhythm: regular Rate: normal PULMONARY Decreased breath sound: decreased breath sounds present. Additional comments: right. ABDOMINAL Obese: obesity present. Other findings: COPD Right lung lobectomy from Aspergillus Sick sinus (Pacer) EF = 55%. II - ANESTHESIA PLAN ASA Score: 3 Anesthetic Plan: spinal The patient is not a current smoker. NPO Status: adequate Beta Yoan Administration of chronic beta yoan medication not planned. Monitoring Plan Monitoring plan: standard ASA. Post Procedure Analgesic Plan Postoperative analgesic plan: parenteral or oral opioids. Informed Consent Anesthetic risks, benefits, alternatives, personnel and consent discussed: yes. Patient / Responsible Democrat agrees to proceed: yes Patient / Surrogate agrees to blood products: Yes Potential Anesthesia issues that may suggest increased risk of complications or contraindication to planned procedure: none. Vitals Value Taken Time BP 162/71 01/26/23 0846 Pulse 72 01/26/23 0846 Resp 16 01/26/23 0846 Temp 36.2 ?C (97.2 ?F) 01/26/23 0745 SpO2 99 % 01/26/23 0846 Facility-Administered Medications as of 01/26/2023 Medication Dose Route Frequency - lidocaine (PF) 10 mg/mL (1 %) 1-2 mg injection (XYLOCAINE) 0.1-0.2 mL INTRADERMAL PRN - lactated ringers iv infusion 5-30 mL/hr INTRAVENOUS CONTINUOUS - NaCl 0.9% iv flush bag 20 mL INTRAVENOUS PRN - ceFAZolin iv piggyback 2 g in D5W (iso-osmotic) 100 mL (ANCEF) 2 g INTRAVENOUS Pre-Op Once Outpatient Medications as of 01/26/2023 Medication Sig - acetaminophen (TYLENOL EXTRA STRENGTH) 500 mg tablet Take 2 tablets by mouth every 8 hours. - lisinopril (ZESTRIL, PRINIVIL) 5 mg tablet Take 5 mg by mouth as needed. as needed for BP above 140 - ALPRAZolam (XANAX) 0.25 mg tablet Take 0.5 mg by mouth three times daily as needed. - OMEPRAZOLE 40 mg capsule Take 40 mg by mouth twice daily. - LEVOTHYROXINE 88 MCG TAB Take one(1) tablet daily BY MOUTH - triamcinolone acetonide (KENALOG) 0.1 % cream 1 application. - CPAP daily at bedtime. - verapamil ER 180 mg 24 hr capsule Take 180 mg by mouth twice daily. - fexofenadine (USHA) 180 mg tablet Take 180 mg by mouth once daily. - albuterol sulfate (VENTOLIN HFA INHALATION) Inhale as instructed. - ONABOTULINUMTOXINA (BOTOX INJECTION) by INJECTION(UNSPECIFIED PARENTERAL ROUTES) route. every 9 weeks for migraines I have interviewed and examined the patient. I have reviewed the medical record and/or the pre-anesthesia evaluation, pertinent labs, and test results. This contains updated information obtained within 48 hours of Surgery/Procedure. SIGNATURE: Cuba Ortiz MD PATIENT NAME: Magi Dao DATE: January 26, 2023 TIME: 9:20 AM CSN: [id number] [facility] Bacteria Fld Culton 01-27-20 23 Bacteria identified Cx Nom (Body fld) CULTURE, BODY FLD: No growth GRAM STAIN: No organisms seen No Polymorphonuclear Leukocytes Gram stain from primary specimen [facility] Comment on above: Performed By: #### 1 1475-1, 611-4, 415-3 ####[facility] [id number] [place] [address] [place] Bacteria Spec Anaerobe Culto n 01-26-2023 Bacteria identified Anaer cx Nom (Unsp spec) CULTURE, ANAEROBE: Negative for anaerobes. No Cutibacterium acnes isolated. [facility] Comment on above: Performed By: #### 1 1475-1, 611-4, 635-3 ####[facility] [id number] [place] [address] [place] Bacteria identified Anaer cx Nom (Unsp spec) CULTURE, ANAEROBE: Negative for anaerobes. No Cutibacterium acnes isolated. [facility] Comment on above: Performed By: #### 4 3408-4, 81638-1, 635-3 ####[facility] [id number] [address] [address] [place] Bacteria identified Anaer cx Nom (Unsp spec) CULTURE, ANAEROBE: Negative for anaerobes. No Cutibacterium acnes isolated.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 larger focus of carcinoma, is a smaller 2 mm focus of invasive lobular carcinoma. Immunohistochemical stains for AE1/3 are performed on blocks A1 and B1 (with lymph node tissue) showed no evidence of metastatic carcinoma. Laboratory Developed Test (LDT) Disclaimer: Positive and negative controls stain appropriately. Performance characteristics of immunohistochemical, immunofluorescent and chromogenic in-situ hybridization tests have been determined by [facility] Pathology and Laboratory Medicine [place] ([facility]) in a manner consistent with CLIA requirements. One or more of these tests have not been cleared or approved by the FDA. [facility] is regulated under CLIA as qualified to perform high-complexity testing. These tests are used for clinical purposes. They should not be regarded as investigational or for research. Fatou Nobles M.D. (Electronic Signature) SPECIMEN SUBMITTED A: SENTINEL LYMPH NODE #1 B: SENTINEL LYMPH NODE #2 C: RIGHT BREAST TISSUE ADDENDUM Date Ordered: 05/15/2021 Date Reported: 05/15/2021 Part A-B: Gross examination for both Parts A and B were performed at [facility], [address] [place] [address] /kw/05/15/2021 Addendum Pathologist: Fatou Nobles M.D. 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 Tati Nash). FSB1: Lymph node, negative for metastatic carcinoma (Dr. Tati Nash). Intraoperative diagnosis performed at [facility], [address] [facility], [place] [address] GROSS DESCRIPTION A. Received fresh for frozen section is a single segment of f (more content not included)... Normal [facility] Comment on above: Performed By: #### S #### See report for performing lab information. CT lumbar spine w conon 01-06 CT lumbar spine w con [facility] [place] [address] [place] [address] Fluoroscopy Report Signed Patient: Magi Dao MR#: [id number] 0 : 1945 Acct:[id number] Age/Sex: 76 / F ADM Date: 02/01/21 Loc: XD Room: Type: [facility] Attending Dr: Ceferino Morales MD Ordering Provider: Ceferino Morales MD Date of Service: 02/01/21 [place] myelogram spine lumbosacral: Chronic pain;Lumbar degenerative disc disease ([id number]) CT/CT lumbar spine w con: Chronic pain;Lumbar degenerative disc disease Copies to: Ceferino Morales MD Lumbar myelogram and CT lumbar myelogram 02/01/2021. CLINICAL DATA: Chronic low back pain with radiation to the lower extremities. Lumbar degenerative disc disease. TECHNIQUE: The procedure was discussed with the patient and informed consent was obtained. With the patient in the prone position and following surface preparation and local anesthesia, a 22-gauge spinal needle was inserted percutaneously into the thecal sac using an interlaminar approach at the level of L3 posteriorly on the left with fluoroscopic guidance. A return of clear, colorless CSF from the needle was noted at this time. Subsequently, 10 mL of Isovue M 200 contrast were administered into the subarachnoid space via the needle using sterile technique and with intermittent fluoroscopic observation. The needle was removed. A fluoroscopic spot image and multiple overhead radiographs of the lumbar spine were then obtained. The patient tolerated the procedure well. No immediate complication was evident. Fluoroscopy time was 48 seconds. A single fluoroscopic spot image was stored. A crosstable lateral radiograph of the lumbar spine was obtained. CT of the lumbar spine was subsequently performed and axial, sagittal, coronal, and 3- dimensional reconstructions were created and reviewed. This CT exam was performed using one or more of the following dose reduction techniques: Automated exposure control, adjustment of the mA and/or kV according to patient size, or use of iterative reconstruction technique. COMPARISON: 04/06/2017. LUMBAR MYELOGRAM FINDINGS: Osteopenia is noted. There is lumbar spinal curvature with the apex to the left. There is also mild posterior malalignment of T12 on L1 and of L1 on L2. Small anterior epidural defects related to mild posterior disc bulging are identified. CT LUMBAR MYELOGRAM FINDINGS: There is lumbar spinal curvature with the apex to the left at L1-L2. There is also mild posterior malalignment of T12 on L1 and of L1 on L2. Vertebral alignment is othe rwise normal. Disc space narrowing, discovertebral degenerative changes, and posterior disc bulging are identified. Hypertrophic ligamentous and facet joint changes are also seen. These findings result in mild to moderate central spinal canal stenosis at the thoracolumbar junction. There is mild canal stenosis at L1-L2 through L4-L5. No canal stenosis is visualized at the lumbosacral junction. There is significant neural foraminal narrowing at L1-L2 on the right. Relatively mild foraminal narrowing is noted at L2-L3 and L3-L4 on the right and at L4-L5 on the left. The paraspinal soft tissues appear unremarkable. FL/FL myelogram spine lumbosacral IMPRESSION: 1. Osteopenia. 2. Lumbar spinal curvature and mild vertebral malalignment. 3. Disc space narrowing, discovertebral degenerative changes, and posterior disc bulging along with hypertrophic ligamentous and facet joint changes resulting in mild to moderate central spinal canal stenosis at T12-L1 and mild canal stenosis at L1-L2 through L4-L5. 4. Multilevel neural foraminal narrowing as described. Impression dictated by: Natalie Rice Jr., M.D.02/01/2021 12:05 PM Dictation Location: [place] [address] Transcribed By: [facility] 02/01/21 [id number] Dictated By: Natalie Rice Jr, MD 02/01/21 1146 Signed By: 02/01/21 1204 [facility] XR knee LT 4V*on 01-16-2021 XR knee LT 4V* [facility] Main [place] [address] [place] [address] XRay Report Signed Patient: Magi Dao MR#: [id number] 0 : 1945 Acct:[id number] Age/Sex: 76 / F ADM Date: 01/16/21 Loc: XD Room: Type: [facility] Attending Dr: Ceferino Morales MD Ordering Provider: Ceferino Morales MD Date of Service: 01/16/21 XR/XR knee LT 4V*: Left knee pain Copies to: Ceferino Morales MD Left knee 01/16/2021. CLINICAL DATA: Left knee pain. Status post left knee replacement. FINDINGS: 4 views of the left knee were obtained. There are postsurgical changes related to total knee arthroplasty. The femoral and tibial implants appear to be intact and in satisfactory position. No acute fracture or dislocation is identified. No other bony abnormality is seen. No suprapatellar effusion is visualized. XR/XR knee LT 4V* IMPRESSION: Status post total left knee arthroplasty. No acute bony abnormality or effusion. Impression dictated by: Natalie Rice Jr., M.D.01/16/2021 9:25 PM Dictation Location: [place] [address] Transcribed By: [facility] 01/16/212124 Dictated By: Natalie Rice Jr, MD 01/16/212121 Signed By: 01/16/212124 Normal [facility] CBC NO DIFFon 10-01-2018 Erythrocyte distribution width Ratio (RBC) 11.7 % Normal 10.8-14.8 [facility] Comment on above: Performed By: #### 4 500, 9920, 4192, 8900, 99900 #### [facility] Unless Otherwise Noted [address] [facility] [address] [place] [address] / COLA #4724/CLIA # [id number] Hematocrit Volume Fraction (Bld) 38.9 % Normal 36.0-48.0 [facility] Comment on above: Performed By: #### 4 500, 4510, 4520, 5010, 58490 #### [facility] Unless Otherwise Noted [address] [address] / COLA #4724/CLIA # [id number] Hemoglobin mass conc (Bld) 13.3 g/dL Normal 12.0-16.0 [facility] Comment on above: Performed By: #### 4 500, 4510, 4520, 5010, 65673 #### [facility] Unless Otherwise Noted [address] [address] / COLA #0424/CLIA # [id number] MCH Entitic mass (RBC) 31.0 pg Normal 27.0-34.0 [facility] Comment on above: Performed By: #### 4 500, 4510, 4520, 5010, 32819 #### [facility] Unless Otherwise Noted [address] [address] / COLA #4724/CLIA # [id number] MCHC mass conc (RBC) 34.2 g/dL Normal 31.0-36.0 [facility] Comment on above: Performed By: #### 4 500, 4510, 4520, 5010, 35528 #### [facility] Unless Otherwise Noted [address] [address] / COLA #4724/CLIA # [id number] MCV Entitic volume (RBC) 90.7 fL Normal 80.-100. [facility] Comment on above: Performed By: #### 4 500, 4510, 4520, 5010, 76698 #### [facility] Unless Otherwise Noted [address] [address] / COLA #4724/CLIA # [id number] Platelets #/vol (Bld) 272 10*3/uL Normal 150.-450. En [facility] Comment on above: Performed By: #### 4 500, 4510, 4520, 5010, 87255 #### [facility] Unless Otherwise Noted [address] [place] [address] / COLA #4724/CLIA # [id number] RBC #/vol (Bld) 4.29 10*6/uL Normal 4.00-5.50 [facility] Comment on above: Performed By: #### 4 500, 4510, 4520, 5010, 58104 #### [facility] Unless Otherwise Noted [address] [place] [address] / COLA #4724/CLIA # [id number] WBC #/vol (Bld) 6.4 10*3/uL Normal 3.7-10.8 [facility] Comment on above: Performed By: #### 4 500, 4510, 4520, 5010, 13010 #### [facility] Unless Otherwise Noted [address] [place] [address] / COLA #4724/CLIA # [id number] IRON BINDING CAPACITY (IBC), IRON AND % SATURATIONon 10-01-2018 CALCULATED % IRON SAT 18 % Low 20-50 [facility] Comment on above: Result Comment: [facility] [address] [place] [address] CLIA No. [id number] CAP Accreditation No. [id number] [employer]pper: Justin Erickson M.D. Performed By: #### 4 500, 4510, 4520, 5010, 67384 #### [facility] Unless Otherwise Noted [address] [address] / COLA #4724/CLIA # [id number] CALCULATED TIBC 296 MCG/DL Normal 250-450 [facility] Comment on above: Performed By: #### 4 500, 4510, 4520, 5010, 06591 #### [facility] Unless Otherwise Noted [address] [address] / COLA #4724/CLIA # [id number] IRON, SERUM 52 ug/dL Normal 37-145 [facility] Comment on above: Performed By: #### 4 500, 4510, 4520, 5010, 01736 #### [facility] Unless Otherwise Noted [address] [address] / COLA #4724/CLIA # [id number] UNSATURATED IBC 243.5 ug/dL Normal 112-347 [facility] Comment on above: Performed By: #### 4 500, 4510, 4520, 5010, 52140 #### [facility] Unless Otherwise Noted [address] [address] / COLA #4724/CLIA # [id number] FT309-30-2018 FT3 2.91 pg/mL Normal 2.45-5.93 [facility] Comment on above: Performed By: #### 4 500, 4510, 4520, 5010, 08090 #### [facility] Unless Otherwise Noted [address] [address] / COLA #4724/CLIA # [id number] FT409-30-2018 T4 free mass conc 1.66 ng/dL Normal 0.78-2.44 [facility] Comment on above: Performed By: #### 4 500, 4510, 4520, 5010, 78583 #### [facility] Unless Otherwise Noted [address] [facility] [address] [place] [address] / COLA #4724/CLIA # [id number] TSHon 09-30-2018 Thyrotropin Qn 0.90 uIU/ml Normal 0.47-4.68 [facility] Comment on above: Performed By: #### 4 500, 4510, 4520, 5010, 88367 #### [facility] Unless Otherwise Noted [address] [facility] [address] [place] [address] / COLA #4724/CLIA # [id number] Vital Signs Date Time Vital Sign Value Performing Clinician Facility 03-31-2024 13:05-0400 Diastolic blood pressure 72 mm[Hg] Gabriel Coppola Jr., DO Work Phone: [facility] 03-31-2024 13:05-0400 Heart rate 72 /min Gabriel Coppola Jr., DO Work Phone: [facility] 03-31-2024 13:05-0400 Respiratory rate 16 /min Gabriel Coppola Jr., DO Work Phone: [facility] 03-31-2024 13:05-0400 SaO2% (BldA) [Mass fraction] 99 % Gabriel Coppola Jr., DO Work Phone: [facility] 03-31-2024 13:05-0400 Systolic blood pressure 147 mm[Hg] Gabriel Coppola Jr., DO Work Phone: [facility] 03-31-2024 12:45-0400 Body temperature 97.11 [degF] Gabriel Coppola Jr., DO Work Phone: [facility] 03-07-2024 15:34-0400 Body height 160 cm Vaibhav Ovalle MD Work Phone: [facility] 03-07-2024 15:34-0400 Body mass index (BMI) [Ratio] 26.95 kg/m2 Vaibhav Ovalle MD Work Phone: [facility] 03-07-2024 15:34-0400 Body temperature 97.39 [degF] Vaibhav Ovalle MD Work Phone: [facility] 03-07-2024 15:34-0400 Body weight 69 kg Vaibhav Ovalle MD Work Phone: [facility] 03-07-2024 15:34-0400 Diastolic blood pressure 87 mm[Hg] Vaibhav Ovalle MD Work Phone: [facility] 03-07-2024 15:34-0400 Heart rate 86 /min Vaibhav Ovalle MD Work Phone: [facility] 03-07-2024 15:34-0400 Respiratory rate 16 /min Vaibhav Ovalle MD Work Phone: [facility] 03-07-2024 15:34-0400 SaO2% (BldA) [Mass fraction] 98 % Vaibhav Ovalle MD Work Phone: [facility] 03-07-2024 15:34-0400 Systolic blood pressure 156 mm[Hg] Vaibhav Ovalle MD Work Phone: [facility] 01-29-2024 10:17-0400 Body height 160 cm Gabriel Coppola Jr., DO Work Phone: [facility] 01-29-2024 10:17-0400 Body mass index (BMI) [Ratio] 26.59 kg/m2 Gabriel Coppola Jr., DO Work Phone: [facility] 01-29-2024 10:17-0400 Body temperature 97.59 [degF] Gabriel Coppola Jr., DO Work Phone: [facility] 01-29-2024 10:17-0400 Body weight 68.1 kg Gabriel Coppola Jr., DO Work Phone: [facility] 01-29-2024 10:17-0400 Diastolic blood pressure 71 mm[Hg] Gabriel Dustindennys Villafana, DO Work Phone: [facility] 01-29-2024 10:17-0400 Heart rate 65 /min Gabriel Dustindennys Villafana, DO Work Phone: [facility] 01-29-2024 10:17-0400 SaO2% (BldA) [Mass fraction] 99 % Gabriel Dustindennys Villafana, DO Work Phone: [facility] 01-29-2024 10:17-0400 Systolic blood pressure 126 mm[Hg] Gabriel Coppola Jr., DO Work Phone: [facility] 12-21-2023 10:53-0400 Body height 160 cm Vaibhav Ovalle MD Work Phone: [facility] 12-21-2023 10:53-0400 Body temperature 97.9 [degF] Vaibhav Ovalle MD Work Phone: [facility] 12-21-2023 10:53-0400 Body weight 67.3 kg Vaibhav Ovalle MD Work Phone: [facility] 12-21-2023 10:53-0400 Diastolic blood pressure 72 mm[Hg] Vaibhav Ovalle MD Work Phone: [facility] 12-21-2023 10:53-0400 Heart rate 79 /min Vaibhav Ovalle MD Work Phone: [facility] 12-21-2023 10:53-0400 Respiratory rate 16 /min Vaibhav Ovalle MD Work Phone: [facility] 12-21-2023 10:53-0400 SaO2% (BldA) [Mass fraction] 98 % Vaibhav Ovalle MD Work Phone: [facility] 12-21-2023 10:53-0400 Systolic blood pressure 143 mm[Hg] Vaibhav Ovalle MD Work Phone: [facility] 10-27-2023 10:35-0500 Diastolic blood pressure 68 mm[Hg] Gabriel Coppola Jr., DO Work Phone: [facility] 10-27-2023 10:35-0500 Systolic blood pressure 161 mm[Hg] Gabriel Coppola Jr., DO Work Phone: [facility] 10-27-2023 10:21-0500 Body height 160 cm Gabriel Coppola Jr., DO Work Phone: [facility] 10-27-2023 10:21-0500 Body temperature 97.59 [degF] Gabriel Coppola Jr., DO Work Phone: [facility] 10-27-2023 10:21-0500 Body weight 68.1 kg Gabriel Coppola Jr., DO Work Phone: [facility] 10-27-2023 10:21-0500 Heart rate 88 /min Gabriel Coppola Jr., DO Work Phone: [facility] 10-27-2023 10:21-0500 SaO2% (BldA) [Mass fraction] 99 % Gabriel Coppola Jr., DO Work Phone: [facility] 10-05-2023 10:32-0500 Body height 160 cm Vilma Napoles MD Work Phone: [facility] 10-05-2023 10:32-0500 Body mass index (BMI) [Ratio] 26.89 kg/m2 Vilma Napoles MD Work Phone: [facility] 10-05-2023 10:32-0500 Body weight 68.86 kg Vilma Napoles MD Work Phone: [facility] 10-05-2023 10:32-0500 Diastolic blood pressure 67 mm[Hg] Vilma Napoles MD Work Phone: [facility] 10-05-2023 10:32-0500 Heart rate 63 /min Vilma Napoles MD Work Phone: [facility] 10-05-2023 10:32-0500 SaO2% (BldA) [Mass fraction] 100 % Vilma Napoles MD Work Phone: [facility] 10-05-2023 10:32-0500 Systolic blood pressure 145 mm[Hg] Vilma Napoles MD Work Phone: [facility] 05-29-2023 14:16-0400 Body height 160 cm Vaibhav Ovalle MD Work Phone: [facility] 05-29-2023 14:16-0400 Body temperature 97.59 [degF] Vaibhav Ovalle MD Work Phone: [facility] 05-29-2023 14:16-0400 Body weight 66.04 kg Vaibhav Ovalle MD Work Phone: [facility] 05-29-2023 14:16-0400 Diastolic blood pressure 68 mm[Hg] Vaibhav Ovalle MD Work Phone: [facility] 05-29-2023 14:16-0400 Heart rate 77 /min Vaibhav Ovalle MD Work Phone: [facility] 05-29-2023 14:16-0400 Respiratory rate 16 /min Vaibhav Ovalle MD Work Phone: [facility] 05-29-2023 14:16-0400 SaO2% (BldA) [Mass fraction] 98 % Vaibhav Ovalle MD Work Phone: [facility] 05-29-2023 14:16-0400 Systolic blood pressure 161 mm[Hg] Vaibhav Ovalle MD Work Phone: [facility] 03-04-2023 13:42-0400 Body temperature 97.5 [degF] Chair Ramírez Work Phone: [facility] 03-04-2023 13:42-0400 Diastolic blood pressure 81 mm[Hg] Chair Pocahontas Work Phone: [facility] 03-04-2023 13:42-0400 Heart rate 64 /min Chair Pocahontas Work Phone: [facility] 03-04-2023 13:42-0400 Respiratory rate 16 /min Chair Desiree Work Phone: [facility] 03-04-2023 13:42-0400 SaO2% (BldA) [Mass fraction] 100 % Chair Pocahontas Work Phone: [facility] 03-04-2023 13:42-0400 Systolic blood pressure 157 mm[Hg] Chair Pocahontas Work Phone: [facility] 02-19-2023 13:18-0400 Body height 160 cm Vaibhav Ovalle MD Work Phone: [facility] 02-19-2023 13:18-0400 Body temperature 97.3 [degF] Vaibhav Ovalle MD Work Phone: [facility] 02-19-2023 13:18-0400 Body weight 66.41 kg Vaibhav Ovalle MD Work Phone: [facility] 02-19-2023 13:18-0400 Diastolic blood pressure 49 mm[Hg] Vaibhav Ovalle MD Work Phone: [facility] 02-19-2023 13:18-0400 Heart rate 73 /min Vaibhav Ovalle MD Work Phone: [facility] 02-19-2023 13:18-0400 Respiratory rate 16 /min Vaibhav Ovalle MD Work Phone: [facility] 02-19-2023 13:18-0400 SaO2% (BldA) [Mass fraction] 100 % Vaibhav Ovalle MD Work Phone: [facility] 02-19-2023 13:18-0400 Systolic blood pressure 132 mm[Hg] Vaibhav Ovalle MD Work Phone: [facility] 01-06-2023 10:30-0400 Diastolic blood pressure 89 mm[Hg] Pacc 2 Work Phone: [facility] 01-06-2023 10:30-0400 Systolic blood pressure 166 mm[Hg] Pacc 2 Work Phone: [facility] 01-06-2023 10:21-0400 Body height 160 cm Pacc 2 Work Phone: [facility] 01-06-2023 10:21-0400 Body temperature 97.81 [degF] Pacc 2 Work Phone: [facility] 01-06-2023 10:21-0400 Body weight 65.32 kg Pacc 2 Work Phone: [facility] 01-06-2023 10:21-0400 Heart rate 73 /min Pacc 2 Work Phone: [facility] 01-06-2023 10:21-0400 Respiratory rate 16 /min Pacc 2 Work Phone: [facility] 01-06-2023 10:21-0400 SaO2% (BldA) [Mass fraction] 99 % Pacc 2 Work Phone: [facility] 10-17-2022 09:56-0500 Body height 157.5 cm Vaibhav Ovalle MD Work Phone: [facility] 10-17-2022 09:56-0500 Body temperature 97.3 [degF] Vaibhav Ovalle MD Work Phone: [facility] 10-17-2022 09:56-0500 Body weight 64.95 kg Vaibhav Ovalle MD Work Phone: [facility] 10-17-2022 09:56-0500 Diastolic blood pressure 69 mm[Hg] Vaibhav Ovalle MD Work Phone: [facility] 10-17-2022 09:56-0500 Heart rate 80 /min Vaibhav Ovalle MD Work Phone: [facility] 10-17-2022 09:56-0500 Respiratory rate 16 /min Vaibhav Ovalle MD Work Phone: [facility] 10-17-2022 09:56-0500 SaO2% (BldA) [Mass fraction] 99 % Vaibhav Ovalle MD Work Phone: [facility] 10-17-2022 09:56-0500 Systolic blood pressure 144 mm[Hg] Vaibhav Ovalle MD Work Phone: [facility] 10-03-2022 12:18-0500 Body height 157.5 cm Gabriel Coppola Jr., DO Work Phone: [facility] 10-03-2022 12:18-0500 Body weight 63.5 kg Gabriel Coppola Jr., DO Work Phone: [facility] 10-03-2022 12:18-0500 Diastolic blood pressure 66 mm[Hg] Gabriel Coppola Jr., DO Work Phone: [facility] 10-03-2022 12:18-0500 Heart rate 79 /min Gabriel Coppola Jr., DO Work Phone: [facility] 10-03-2022 12:18-0500 SaO2% (BldA) [Mass fraction] 99 % Gabriel Coppola Jr., DO Work Phone: [facility] 10-03-2022 12:18-0500 Systolic blood pressure 131 mm[Hg] Gabriel Coppola Jr., DO Work Phone: [facility] 10-02-2022 11:39-0500 Body height 157.5 cm Marlee Salazar MD Work Phone: [facility] 10-02-2022 11:39-0500 Body weight 62.6 kg Marlee Salazar MD Work Phone: [facility] 08-15-2022 10:43-0500 Body height 157.5 cm Gabriel Coppola Jr., DO Work Phone: [facility] 08-15-2022 10:43-0500 Body weight 64.86 kg Gabriel Coppola Jr., DO Work Phone: [facility] 08-15-2022 10:43-0500 Diastolic blood pressure 85 mm[Hg] Gabriel Coppola Jr., DO Work Phone: [facility] 08-15-2022 10:43-0500 Heart rate 80 /min Gabriel Coppola Jr., DO Work Phone: [facility] 08-15-2022 10:43-0500 SaO2% (BldA) [Mass fraction] 99 % Gabriel Coppola Jr., DO Work Phone: [facility] 08-15-2022 10:43-0500 Systolic blood pressure 139 mm[Hg] Gabriel Coppola Jr., DO Work Phone: [facility] 07-18-2022 10:29-0500 Body height 160 cm Vaibhav Ovalle MD Work Phone: [facility] 07-18-2022 10:29-0500 Body temperature 97.5 [degF] Vaibhav Ovalle MD Work Phone: [facility] 07-18-2022 10:29-0500 Body weight 65.95 kg Vaibhav Ovalle MD Work Phone: [facility] 07-18-2022 10:29-0500 Diastolic blood pressure 75 mm[Hg] Vaibhav Ovalle MD Work Phone: [facility] 07-18-2022 10:29-0500 Heart rate 95 /min Vaibhav Ovalle MD Work Phone: [facility] 07-18-2022 10:29-0500 Respiratory rate 16 /min Vaibhav Ovalle MD Work Phone: [facility] 07-18-2022 10:29-0500 SaO2% (BldA) [Mass fraction] 100 % Vaibhav Ovalle MD Work Phone: [facility] 07-18-2022 10:29-0500 Systolic blood pressure 147 mm[Hg] Vaibhav Ovalle MD Work Phone: [facility] 07-10-2022 11:58-0400 Body height 160 cm Amada Baltazar PA-C Work Phone: [facility] 07-10-2022 11:58-0400 Body weight 71.22 kg Amada Baltazar PA-C Work Phone: [facility] 03-27-2022 10:22-0400 Body height 160 cm Marina Retana MD Work Phone: [facility] 03-27-2022 10:22-0400 Body weight 69.4 kg Marina Retana MD Work Phone: [facility] 03-27-2022 10:22-0400 Diastolic blood pressure 70 mm[Hg] Marina Retana MD Work Phone: [facility] 03-27-2022 10:22-0400 Systolic blood pressure 122 mm[Hg] Marina Retana MD Work Phone: [facility] 12-13-2021 10:07-0400 Body height 158.5 cm Vaibhav Ovalle MD Work Phone: [facility] 12-13-2021 10:07-0400 Body temperature 97.3 [degF] Vaibhav Ovalle MD Work Phone: [facility] 12-13-2021 10:07-0400 Body weight 69.76 kg Vaibhav Ovalle MD Work Phone: [facility] 12-13-2021 10:07-0400 Diastolic blood pressure 72 mm[Hg] Vaibhav Ovalle MD Work Phone: [facility] 12-13-2021 10:07-0400 Heart rate 75 /min Vaibhav Ovalle MD Work Phone: [facility] 12-13-2021 10:07-0400 Respiratory rate 16 /min Vaibhav Ovalle MD Work Phone: [facility] 12-13-2021 10:07-0400 SaO2% (BldA) [Mass fraction] 99 % Vaibhav Ovalle MD Work Phone: [facility] 12-13-2021 10:07-0400 Systolic blood pressure 125 mm[Hg] Vaibhav Ovalle MD Work Phone: [facility] 02-01-2021 09:15-0400 Diastolic blood pressure 66 mm[Hg] Yajaira Knoxer Work Phone: [facility] 02-01-2021 09:15-0400 Heart rate 60 /min Yajaira Knoxer Work Phone: [facility] 02-01-2021 09:15-0400 Respiratory rate 18 /min Yajaira Knoxer Work Phone: [facility] 02-01-2021 09:15-0400 SaO2% (BldA) [Mass fraction] 97 % Yajaira Knoxer Work Phone: [facility] 02-01-2021 09:15-0400 Systolic blood pressure 150 mm[Hg] Yajaira Knoxer Work Phone: [facility] 02-01-2021 07:35-0400 Body height 162.56 cm Yajaira Knoxer Work Phone: [facility] 02-01-2021 07:35-0400 Body mass index (BMI) [Ratio] 25.2 kg/m2 Yajaira Lisa Work Phone: [facility] 02-01-2021 07:35-0400 Body weight 66.67 kg Yajaira Knoxer Work Phone: [facility] 01-30-2021 12:15-0400 Diastolic blood pressure 73 mm[Hg] Yajaira Lisa Work Phone: [facility] 01-30-2021 12:15-0400 Heart rate 63 /min Yajaira Knoxer Work Phone: [facility] 01-30-2021 12:15-0400 Respiratory rate 20 /min Yajaira Gonzalez Work Phone: [facility] 01-30-2021 12:15-0400 SaO2% (BldA) [Mass fraction] 99 % Yajaira Gonzalez Work Phone: [facility] 01-30-2021 12:15-0400 Systolic blood pressure 127 mm[Hg] Yajaira Gonzalez Work Phone: [facility] 01-30-2021 10:32-0400 Body height 162.56 cm Yajaira Gonzalez Work Phone: [facility] 01-30-2021 10:32-0400 Body mass index (BMI) [Ratio] 26.2 kg/m2 Yajaira Gonzalez Work Phone: [facility] 01-30-2021 10:32-0400 Body weight 69.4 kg Yajaira Gonzalez Work Phone: [facility] Encounters Encounter Date Encounter Type Care Provider Facility Start: 06-03-2024 End: 06-03-2024 ambulatory CRISTIAN MALCOLM Not Available Start: 05-30-2024 End: 05-30-2024 ambulatory Nikkie Romero MD Facility:[facility] Start: 05-26-2024 End: 05-26-2024 ambulatory [facility] Start: 05-26-2024 End: 05-26-2024 ambulatory WINSTON OLIVIA [facility] Start: 05-25-2024 End: 05-25-2024 ambulatory CRISTIAN MALCOLM Not Available Start: 05-24-2024 End: 05-24-2024 ambulatory YAJAIRA POST Facility:[facility] Start: 05-17-2024 End: 05-17-2024 ambulatory CRISTIAN MALCOLM Not Available Start: 05-16-2024 End: 05-16-2024 ambulatory Nikkie Romero MD Facility:[facility] Start: 05-13-2024 End: 05-13-2024 ambulatory [facility] Start: 05-11-2024 End: 05-11-2024 ambulatory CRISTIAN AMLCOLM Not Available Start: 05-04-2024 End: 05-04-2024 ambulatory YAJAIRA GONZALEZ Not Available Start: 05-03-2024 End: 05-03-2024 ambulatory AMADA BRUCE Not Available Start: 04-25-2024 End: 04-25-2024 ambulatory YAJAIRA GONZALEZ Not Available Start: 04-15-2024 End: 04-15-2024 ambulatory DAO POND Not Available Start: 04-14-2024 End: 04-14-2024 Patient encounter procedure Marlee Salazar MD Work Phone: Orthopaedics Comment on above: Pain due to total le ft knee replacement, initial encounter ([facility]) (Primary Dx); Status post total left knee replacement Start: 04-14-2024 End: 04-14-2024 ambulatory MARLEE SALAZAR Facility:[facility] Start: 04-14-2024 End: 04-14-2024 Subsequent hospital visit by physician Shashi Stillay [facility] Comment on above: Pain [R52] Start: 04-11-2024 End: 04-11-2024 ambulatory TIA [facility] Start: 04-07-2024 End: 04-07-2024 ambulatory JARON WILL Not Available Start: 04-04-2024 End: 04-04-2024 ambulatory VILMA NAPOLES [facility] Start: 03-31-2024 End: 03-31-2024 ambulatory YAJAIRA GONZALEZ Facility:[facility] Start: 03-31-2024 End: 03-31-2024 Subsequent hospital visit by physician Gabriel Coppola DO Work Phone: Ambulatory Surgery Comment on above: Screening for colore ctal cancer [Z12.11, Z12.12] Start: 03-21-2024 Telephone encounter Gabriel noyola DO Work Phone: Gastroenterology Comment on above: Appointment Start: 03-17-2024 End: 03-17-2024 ambulatory WINSTON GARCÍACarlos [facility] Start: 03-15-2024 End: 03-15-2024 ambulatory TIA FRANK [facility] Start: 03-07-2024 End: 03-07-2024 ambulatory VAIBHAV OVALLE Facility:[facility] Start: 03-07-2024 End: 03-07-2024 Office outpatient visit 25 minutes Vaibhav Ovalle MD Work Phone: Hematology/Oncology Comment on above: Cancer of breast, in traductal, left (Primary Dx); H/O left mastectomy; Malignant 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, estrogen receptor positive, unspecified site of breast (HCC); Iron deficiency anemia due to chronic blood loss Start: 02-23-2024 End: 02-23-2024 ambulatory VAIBHAV OVALLE [facility] Start: 02-16-2024 End: 02-16-2024 ambulatory BEATRICE MARTELL Not Available Start: 02-15-2024 End: 02-15-2024 ambulatory YELENA SANTIAGO Not Available Start: 02-11-2024 Telephone encounter aVibhav boyd MD Work Phone: Cancer [facility] Comment on above: Appointment Start: 02-09-2024 End: 02-09-2024 ambulatory Vaibhav Ovalle MD Work Phone: Hematology/Oncology Comment on above: Cancer of breast, in traductal, left (Primary Dx); H/O left mastectomy; Lump in chest Start: 02-09-2024 End: 02-09-2024 Telemedicine consultation with patient Vaibhav Ovalle MD Work Phone: Hematology/Oncology Start: 02-02-2024 End: 02-02-2024 ambulatory JARON WILL Not Available Start: 01-29-2024 End: 01-29-2024 ambulatory YAJAIRA GONZALEZ Facility:[facility] Start: 01-29-2024 End: 01-29-2024 Patient encounter procedure Gabriel Coppola DO Work Phone: Gastroenterology Comment on above: Gastroesophageal ref lux disease, unspecified whether esophagitis present (Primary Dx); Chronic idiopathic constipation; Hiatal hernia; Screening for colorectal cancer Start: 01-26-2024 End: 01-26-2024 ambulatory BEATRICE MARTELL Not Available Start: 01-22-2024 End: 01-22-2024 ambulatory [facility] Start: 01-20-2024 End: 01-20-2024 ambulatory MIGUEL ANGEL MEZAI Not Available Start: 01-18-2024 End: 01-18-2024 ambulatory YAJAIRA KNOXER Not Available Start: 01-14-2024 End: 01-14-2024 ambulatory WINSTON OLIVIA [facility] Start: 01-11-2024 End: 01-11-2024 ambulatory WINSTON OLIVIA [facility] Start: 01-08-2024 End: 01-08-2024 ambulatory [facility] Start: 01-07-2024 End: 01-07-2024 ambulatory JARON SMITHNER Not Available Start: 01-06-2024 End: 01-06-2024 ambulatory MIGUEL ANGEL A PETITTI Not Available Start: 01-05-2024 End: 01-05-2024 ambulatory BEATRICE MARTELL Not Available Start: 2024 End: 2024 ambulatory YAJAIRA GONZALEZ Not Available Start: 12-24-2023 End: 12-24-2023 ambulatory YELENA A JACK Not Available Start: 12-23-2023 End: 12-23-2023 ambulatory LEATHA Johnson BARRY [facility] Start: 12-21-2023 End: 12-21-2023 Office outpatient visit 25 minutes Vaibhav Ovalle MD Work Phone: Hematology/Oncology Comment on above: Cancer of breast, in traductal, left (Primary Dx); Malignant 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, estrogen receptor positive, unspecified site of breast (HCC) ; Iron deficiency anemia due to chronic blood loss; Major depressive disorder, recurrent episode, mild (HCC) Start: 12-21-2023 End: 12-21-2023 ambulatory YAJAIRA Ramses LISA Facility:[facility] Start: 12-17-2023 End: 12-17-2023 ambulatory BEATRICE MARTELL Not Available Start: 12-15-2023 End: 12-15-2023 ambulatory [facility] Start: 12-09-2023 End: 12-09-2023 ambulatory YAJAIRA GONZALEZ Not Available Start: 12-04-2023 Orders Only Winston tan PERSONAL LINES ACCOUNT MANAGER-ZIPPER TRIMMER HAND Work Phone: [facility] Comment on above: Generalized anxiety disorder Start: 12-03-2023 End: 12-03-2023 ambulatory YAJAIRA GONZALEZ Not Available Start: 12-02-2023 End: 12-02-2023 ambulatory WINSTON GARCÍACarlos [facility] Start: 11-27-2023 End: 11-27-2023 ambulatory AMADA BRUCE Not Available Start: 11-24-2023 End: 11-24-2023 ambulatory [facility] Start: 11-11-2023 ambulatory Vaibhav rosenthal MD Work Phone: Hematology/Oncology Comment on above: Basal Cell Cancer Start: 11-11-2023 Telephone encounter Yelena Spain Hematology/Oncology Comment on above: Nodular Basal Carcin marissa DX Start: 11-10-2023 End: 11-10-2023 ambulatory [facility] Start: 11-05-2023 End: 11-05-2023 ambulatory YELENA SANTIAGO Not Available Start: 11-02-2023 End: 11-02-2023 ambulatory WINSTON GARCÍACarlos [facility] Start: 10-27-2023 End: 10-27-2023 ambulatory YAJAIRA GONZALEZ Not Available Start: 10-27-2023 End: 10-27-2023 ambulatory YAJAIRA GONZALEZ Facility:[facility] Start: 10-27-2023 End: 10-27-2023 Patient encounter procedure Gabriel Coppola DO Work Phone: Gastgroenterology Comment on above: Irritable bowel synd lady with constipation (Primary Dx); Gastroesophageal reflux disease with esophagitis without hemorrhage; History of repair of hiatal hernia Start: 10-26-2023 ambulatory Gabriel Coppola Jr., DO Work Phone: [facility] Start: 10-26-2023 Patient encounter procedure Gabriel Chankes DO Work Phone: Gastgroenterology Comment on above: Appointment on 10/27 Start: 10-23-2023 Chart abstracting Amada Claire Ma rtinez PT Work Phone: [facility] Start: 10-23-2023 End: 10-23-2023 ambulatory AMADA BRUCE Not Available Start: 10-12-2023 End: 10-12-2023 ambulatory [facility] Start: 10-09-2023 End: 10-09-2023 ambulatory Amada Bruce PT Work Phone: [facility] Comment on above: Cervicalgia (Primary Dx); Difficulty walking; Vertigo, benign paroxysmal, unspecified laterality Start: 10-05-2023 End: 10-05-2023 Office outpatient visit 15 minutes Vilma Napoles MD Work Phone: [facility] Comment on above: AD (obstructive sle ep apnea) (Primary Dx) Start: 10-05-2023 End: 10-05-2023 ambulatory VILMA NAPOLES [facility] Start: 09-30-2023 End: 09-30-2023 ambulatory [facility] Start: 09-25-2023 End: 09-25-2023 ambulatory AMADA BRUCE Not Available Start: 09-23-2023 End: 09-23-2023 ambulatory BRETT CANTU Not Available Start: 09-21-2023 End: 09-21-2023 ambulatory MYRANDA CRONIN Not Available Start: 09-18-2023 End: 09-18-2023 ambulatory AMADA BRUCE Not Available Start: 09-17-2023 End: 09-17-2023 ambulatory MARLEE SALAZAR Facility:[facility] Start: 09-16-2023 ambulatory GABRIEL SUBRAMANIAN Facility: [facility] Start: 09-04-2023 End: 09-04-2023 ambulatory YAJAIRA Ramses LISA Not Available Start: 08-25-2023 End: 08-25-2023 ambulatory AMADA BRUCE Not Available Start: 08-17-2023 End: 08-17-2023 ambulatory AMADA BRUCE Not Available Start: 08-05-2023 End: 08-05-2023 ambulatory AMADA BRUCE Not Available Start: 07-17-2023 End: 07-17-2023 ambulatory YAJAIRA GONZALEZ Facility:[facility] Start: 06-24-2023 Telephone encounter Analisa diamond RN Hematology/Oncology Start: 05-29-2023 End: 05-29-2023 Office outpatient visit 25 minutes Vaibhav Ovalle MD Work Phone: Hematology/Oncology Comment on above: Thunderclap headache (Primary Dx); Malignant 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, estrogen receptor positive, unspecified site of breast (HCC) ; Cancer of breast, intraductal, left; Iron deficiency anemia due to chronic blood loss; Major depressive disorder, recurrent episode, mild (HCC) Start: 05-29-2023 End: 06-02-2023 ambulatory VAIBHAV OVALLE Facility:[facility] Start: 05-29-2023 Telephone encounter Vaibhav boyd MD Work Phone: Cancer [facility] Comment on above: Results Start: 04-02-2023 End: 04-02-2023 Patient encounter procedure Marlee Salazar MD Work Phone: Orthopaedics Comment on above: Status post total le ft knee replacement (Primary Dx); Sacroiliitis, not elsewhere classified (HCC) Start: 04-02-2023 End: 04-02-2023 Subsequent hospital visit by physician Cheko [facility] Comment on above: Status post total le ft knee replacement [Z96.652] Start: 03-04-2023 End: 03-04-2023 ambulatory Chair Pamela Ramírez Work Phone: Hematology/Oncology Comment on above: Iron deficiency anem ia secondary to inadequate dietary iron intake (Primary Dx) Start: 02-26-2023 Orders Only Vilma fox [facility] Work Phone: Hematology/Oncology Comment on above: Iron deficiency anem ia secondary to inadequate dietary iron intake Start: 02-25-2023 Telephone encounter Yelena Spain Hematology/Oncology Comment on above: Orders Start: 02-24-2023 ambulatory Vaibhav rosenthal MD Work Phone: Hematology/Oncology Comment on above: Problem Taking Iron Start: 02-19-2023 End: 02-19-2023 Office outpatient visit 25 minutes Vaibhav Ovalle MD Work Phone: Hematology/Oncology Comment on above: Malignant neoplasm o f right breast in female, estrogen receptor positive, unspecified site of breast (HCC) (Primary Dx); Cancer of breast, intraductal, left; Iron deficiency anemia due to chronic blood loss; Major depressive disorder, recurrent episode, mild (HCC) Start: 02-16-2023 End: 02-16-2023 Subsequent hospital visit by physician [facility] Comment on above: Status post total le ft knee replacement [Z96.652] Start: 02-09-2023 Orders Only Marlee Salazar MD Work Phone: Orthopaedics Comment on above: Total knee replaceme nt status, left (Primary Dx); Status post revision of total replacement of left knee Start: 02-04-2023 Telephone encounter Marlee Gramajo MD Work Phone: Orthopaedics Comment on above: Patient Question Start: 01-26-2023 End: 01-27-2023 Evaluation and management of inpatient MARLEE SALAZAR Facility:[facility] Start: 01-15-2023 Telephone encounter Marlee Gramajo MD Work Phone: Orthopaedics Comment on above: Medication Problem Start: 01-06-2023 End: 01-07-2023 ambulatory REDDY MICHAEL II Facility[facility] Start: 01-06-2023 End: 01-06-2023 ambulatory YAJAIRA GONZALEZ [facility] Start: 01-06-2023 Encounter for other preprocedural examination [facility] Start: 01-06-2023 End: 01-06-2023 Admission to [facility] [address] [address] Work Phone: [facility] Start: 01-06-2023 End: 01-06-2023 Admission to same day surgery center Pacc 2 Work Phone: Pre Anesthesia Comment on above: Pre-op exam (Primary Dx); Sick sinus syndrome (HCC); Cardiac pacemaker in situ; Coronary artery disease involving [place] heart without angina pectoris, unspecified vessel or lesion type; Mixed hyperlipidemia; Primary hypertension; Mild intermittent asthma without complication; Chronic obstructive pulmonary disease, unspecified COPD type (HCC); Obstructive sleep apnea; Gastroesophageal reflux disease, unspecified whether esophagitis present; Unspecified hypothyroidism; History of breast cancer; Former smoker; History of lung surgery Start: 01-06-2023 End: 01-06-2023 Preprocedural examination done Pac 2 Work Phone: Pre Anesthesia Start: 12-31-2022 End: 09-05-2023 Preoperative state Vilma Napoles MD Work Phone: [facility] Start: 12-10-2022 ambulatory Gabriel Coppola DO Work Phone: Gastgroenterology Comment on above: Creon Questions Start: 12-08-2022 ambulatory Brittany Swain RN [facility] [place] Comment on above: Blood Management Start: 12-05-2022 Telephone encounter Marlee Gramajo MD Work Phone: Orthopaedics Comment on above: Patient Question Start: 11-20-2022 End: 11-20-2022 Patient encounter procedure Marlee Salazar MD Work Phone: Orthopaedics Comment on above: Pain due to total le ft knee replacement, initial encounter (HCC) (Primary Dx) Start: 10-17-2022 End: 10-17-2022 Office outpatient visit 15 minutes Vaibhav Ovalle MD Work Phone: Hematology/Oncology Comment on above: Malignant neoplasm o f right breast in female, estrogen receptor positive, unspecified site of breast (HCC) (Primary Dx); Cancer of breast, intraductal, left; Anemia, unspecified type; Chemotherapy-induced neuropathy (HCC) Start: 10-03-2022 End: 10-03-2022 Patient encounter procedure Gabriel Coppola DO Work Phone: Gastgroenterology Comment on above: Exocrine pancreatic insufficiency (Primary Dx); Irritable bowel syndrome with diarrhea Start: 10-02-2022 End: 10-02-2022 Patient encounter procedure Marlee Salazar MD Work Phone: Orthopaedics Comment on above: Pain due to total le ft knee replacement, initial encounter (HCC) (Primary Dx) Start: 10-02-2022 End: 10-02-2022 Subsequent hospital visit by physician Shashi Stillay [facility] Comment on above: knee pain Start: 09-30-2022 Telephone encounter Gabriel noyola DO Work Phone: Gastroenterology Comment on above: Patient Update Start: 09-15-2022 Orders Only Marlee Salazar MD Work Phone: Orthopaedics Comment on above: Chronic knee pain af ter total replacement of left knee joint (Primary Dx) Start: 08-15-2022 Telephone encounter Gabriel noyola DO Work Phone: Gastroenterology Comment on above: Patient Update (Nega tive celiac markers) Start: 08-15-2022 End: 08-15-2022 Patient encounter procedure Gabriel Copopla DO Work Phone: Gastgroenterology Comment on above: Irritable bowel synd lady with diarrhea (Primary Dx); Diarrhea, unspecified type Start: 07-29-2022 End: 07-29-2022 ambulatory Amada Baltazar PA-C Work Phone: Orthopaedics Comment on above: Pain due to internal orthopedic prosthetic devices, implants and grafts, initial encounter (HCC) (Primary Dx) Start: 07-29-2022 End: 07-29-2022 Telemedicine consultation with patient Amada Baltazar PA-C Work Phone: [facility] Start: 07-18-2022 End: 07-18-2022 ambulatory Vaibhav Ovalle MD Work Phone: Hematology/Oncology Comment on above: Malignant neoplasm o f right breast in female, estrogen receptor positive, unspecified site of breast (HCC) (Primary Dx); Diarrhea, unspecified type; Cancer of breast, intraductal, left Start: 07-18-2022 End: 07-18-2022 Patient encounter procedure Vaibhav Ovalle MD Work Phone: [place] Start: 07-10-2022 End: 07-10-2022 Patient encounter procedure Amada Baltazar PA-C Work Phone: Orthopedics Comment on above: Pain due to internal orthopedic prosthetic devices, implants and grafts, initial encounter (HCC) (Primary Dx) Start: 06-09-2022 End: 06-09-2022 Subsequent hospital visit by physician [facility] Work Phone: [facility] Molecular Comment on above: Pain due to internal orthopedic prosthetic devices, implants and grafts, initial encounter (HCC) [T84.84XA] Start: 06-09-2022 End: 06-09-2022 Subsequent hospital visit by physician [facility] Work Phone: [facility] Molecular Start: 03-27-2022 End: 03-28-2022 Patient encounter procedure Marina Retana MD Work Phone: [facility] Comment on above: History of left [address] cancer (Primary Dx) Start: 03-27-2022 End: 03-27-2022 Subsequent hospital visit by physician Screen/Diag Mammo [facility] 2 Work Phone: [facility] Mammography Comment on above: Lump of axillary gilbert l of right breast [N63.31] Start: 03-26-2022 End: 03-26-2022 Patient encounter procedure Amada Baltazar PA-C Work Phone: Orthopaedics Comment on above: Total knee replaceme nt status, left (Primary Dx); Sprain of lateral collateral ligament of left knee, initial encounter Start: 03-26-2022 End: 03-26-2022 Subsequent hospital visit by physician [facility] Comment on above: Pain [R52] Start: 02-17-2022 Orders Only Amada silva PA-C Work Phone: Orthopaedics Comment on above: Pain (Primary Dx) Start: 01-07-2022 End: 01-07-2022 Patient encounter procedure León ATKINS [facility] Start: 12-13-2021 Telephone encounter Margo Darby NETWORK PROJECT MANAGER H ematology/Oncology Comment on above: Social Work Services (Patient Entered Data Questionnaire) Start: 12-13-2021 End: 12-13-2021 ambulatory Vaibhav Ovalle MD Work Phone: Hematology/Oncology Comment on above: Chemotherapy-induced neuropathy (HCC) (Primary Dx); Malignant 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, estrogen receptor positive, unspecified site of breast (HCC); Malignant neoplasm of overlapping sites of left breast in female, estrogen receptor positive (HCC) Start: 12-13-2021 End: 12-13-2021 Patient encounter procedure Vaibhav Ovalle MD Work Phone: [facility] Start: 12-04-2021 Telephone encounter Vaibhav boyd MD Work Phone: Hematology/Oncology Comment on above: Lab Orders Start: 02-01-2021 End: 02-01-2021 Admission to same day surgery center Yajaira Gonzalez Work Phone: -[facility] Start: 01-30-2021 End: 01-30-2021 Admission to same day surgery center Yajaira Gonzalez Work Phone: -[facility] Start: 01-16-2021 End: 01-16-2021 Patient encounter procedure Yajaira Gonzalze Work Phone: -[employer] [facility] Procedures Date Procedure Procedure Detail Performing Clinician Start: 04-14-2024 Radiologic exam knee complete 4/more views Marlee Salazar MD Work Phone: Start: 03-31-2024 Colonoscopy flx dx w/collj spec when pfrmd Gabriel Coppola DO Work Phone: Start: 12-23-2023 Follow-up visit Follow-up LEATHA REDDY Start: 04-02-2023 Radiologic examinati on knee 3 views Reddy Michael PA-C Work Phone: Start: 02-16-2023 End: 02-16-2023 Radex hip unilateral with pelvis 2-3 views Reddy Michael PA-C Work Phone: Start: 01-06-2023 End: 09-05-2023 H/O: surgery History of lung surgery Pac 2 Work Phone: Start: 01-06-2023 Antibody screen YAJAIRA HUANG Comment on above: Order Comment: Speci men Type: BLOOD SPECIMEN Ordering Facility: [facility] Address: [address] [place] [id number] Performed By: #### T [id number] #### [facility] CLIA [id number] [place] [address] [facility] Start: 10-02-2022 Radiologic examinati on knee 3 views Marlee Salazar MD Work Phone: Start: 06-11-2022 Adult depression screening assessment Vilma Napoles MD Work Phone: Start: 03-27-2022 Us breast uni real t ellie with image limited Winston Wellington PA-C Work Phone: Start: 03-26-2022 Radiologic exam knee complete 4/more views Amada Baltazar PA-C Work Phone: Start: 09-18-2021 Adult depression screening assessment Vaibhav Ovalle MD Work Phone: Start: 04-12-2021 Excision of breast tissue León ATKINS Start: 01-30-2021 Radiofrequency destruction of peripheral nerve Yajaira Gonzalez Work Phone: Start: 01-16-2021 Radiologic examinati on of knee Yajaira Gonzalez Work Phone: Start: 07-01-2017 H/O: hysterectomy H/O: hysterectomy Amada Bruce PT Work Phone: Start: 08-10-2015 Arthroscopy León DIETZ Start: 01-24-2015 Anterior cervical sp ine approach (qualifier value) León ATKINS Start: 05-11-2013 Mammography Vaibhav boyd MD Work Phone: Start: 09-07-1979 section Edward ATKINS Arthroplasty of knee León ATKINS Cardiac pacemaker, d evice (physical object) León ATKINS Cataract (disorder) León ATKINS Colonoscopy León ATKINS Hernia repair León ATKINS Hysterectomy León ATKINS Procedure on hand León DIETZ Procedure on hand León DIETZ Tonsillectomy León ATKINS Plan of Treatment Date Care Activity Detail Author Start: 12-20-2026 Diabetes Screening Diabetes Screening [facility] Start: 06-24-2026 Diabetes Screening Diabetes Screening [facility] Start: 05-29-2026 Diabetes Screening Diabetes Screening [facility] Start: 02-19-2026 DIABETES SCREEN DIABETES SCREEN [facility] Start: 01-27-2026 DIABETES SCREEN DIABETES SCREEN [facility] Start: 01-06-2026 DIABETES SCREEN DIABETES SCREEN [facility] Start: 10-17-2025 DIABETES SCREEN DIABETES SCREEN [facility] Start: 07-18-2025 DIABETES SCREEN DIABETES SCREEN [facility] Start: 04-18-2025 DIABETES SCREEN DIABETES SCREEN [facility] Start: 01-28-2025 BP Controlled (<130/80) BP Controlled (<130/80) [facility] Start: 12-13-2024 DIABETES SCREEN DIABETES SCREEN [facility] Start: 12-02-2024 Tobacco Screening Tobacco Screening [facility] Start: 10-05-2024 Adult BMI Screening Adult BMI Screening [facility] Start: 10-05-2024 Tobacco Screening Tobacco Screening [facility] Start: 09-20-2024 DIABETES SCREEN DIABETES SCREEN [facility] Start: 09-05-2024 End: 09-05-2024 Follow-up encounter 09/05/2024 3:00 PM EST Visit (SP) Office Hematology/Oncology [address] [place], [place] [address] Vaibhav Ovalle MD [address] [place] [address] 6 month follow up Hematology/Oncology Comment on above: 6 month follow up Start: 09-05-2024 End: 09-05-2024 Patient encounter procedure 09/05/2024 2:45 PM EST Office Visit [facility] [address] [place] [address] 6 month follow up [facility] Comment on above: 6 month follow up Start: 09-04-2024 Medicare Annual Wellness (AWV) Medicare Annual Wellness (AWV) [facility] Start: 07-04-2024 End: 07-04-2024 Patient encounter procedure 07/04/2024 1:00 PM EDT Office Visit Otolaryngology [address] [place] [address] [address] [place] [address] Albert Huntley MD [address] [place] [id number] 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 Otolaryngology Comment on above: 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 Start: 06-24-2024 End: 06-24-2024 Patient encounter procedure 06/24/2024 8:40 AM EDT Office Visit Gastroenterology [address] [place] [address] Gabriel Coppola Jr., [address] [place] [address] 1 month follow-up/ Rev Colonoscopy Gastroenterology Comment on above: 1 month follow-up/ Rev Colonoscopy Start: 06-22-2024 End: 06-22-2024 Patient encounter procedure Audiology Comment on above: 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 Start: 06-01-2024 Hepatitis B surface antibody level LDL Cholesterol [facility] Start: 05-08-2024 Covid-19 Vaccine () Covid-19 Vaccine () [facility] Start: 05-08-2024 Influenza vaccination Influenza Vaccine (#1) [facility] Start: 05-04-2024 End: 05-04-2024 Patient encounter procedure 05/04/2024 9:45 AM EDT Appointment Procedures [address] [place] [address] Gabriel Coppola Jr., DO [address] [place] [address] Screening for colorectal cancer Procedures Comment on above: Screening for colorectal cancer Start: 04-14-2024 End: 04-14-2024 Patient encounter procedure Radiology Comment on above: 1 yr f/u 1 year post op Start: 04-04-2024 End: 04-04-2024 Patient encounter procedure 04/04/2024 10:45 AM EDT Office Visit [facility] [address] [place] [address] Vilma Napoles MD [address] [place] [address] [facility] Start: 03-31-2024 End: 03-31-2024 Patient encounter procedure Orthopaedics Comment on above: 1 year post op COLONOSCOPY Start: 03-07-2024 End: 03-07-2024 ambulatory 03/07/2024 3:00 PM EDT Visit (SP) Office Hematology/Oncology [address] [place] [address] Vaibhav Ovalle MD [address] [place] [address] 1. Left breast / chest wall US. - [facility] - COMPLETED 02/22 Hematology/Oncology Comment on above: 1. Left breast / chest wall US. - [facility] - COMPLETED 02/22 Start: 03-04-2024 End: 03-04-2024 Patient encounter procedure 03/04/2024 12:40 PM EDT Office Visit Gastroenterology [address] [place] [address] Gabriel Coppola Jr., DO [address] [place] [address] 1 month follow-up/ Rev Colonoscopy Gastroenterology Comment on above: 1 month follow-up/ Rev Colonoscopy Start: 02-17-2024 End: 02-17-2024 Patient encounter procedure Procedures Comment on above: Screening for colorectal cancer [Z12.11, Z12.12] Start: 02-09-2024 End: 02-09-2024 ambulatory 02/09/2024 1:45 PM EDT [facility] Hematology/Oncology [address] [place] [address] [address] [place], [place] [address] Vaibhav Ovalle MD [address] [place] [address] 6 week virtual visit to discuss mastectomy pain. Hematology/Oncology Comment on above: 6 week virtual visit to discuss mastecto my pain. Start: 12-23-2023 End: 12-23-2023 Clinical Support [facility] Start: 12-03-2023 End: 12-03-2023 Patient encounter procedure 12/03/2023 11:40 AM EDT Office Visit [facility] [address] [place] [phone] Yajaira Gonzalez MD [address] [place] [address] [facility] Start: 11-09-2023 End: 11-09-2023 Clinical Support 11/09/2023 11:15 AM EST Clinical Support [facility] [address] [place] [phone] Myranda Cronin, [facility] [address] [place] [address] [facility] Start: 10-23-2023 End: 10-23-2023 ambulatory 10/23/2023 9:00 AM EST Treatment [facility] [address] [place] [id number] Amada Bruce, PT [address] [place] [address] [facility] Start: 09-07-2023 Advance Directive Discussion Advance Directive Discussion [facility] Start: 06-11-2023 Depression Screening Depression Screening [employer] [facility] Start: 05-22-2023 End: 02-20-2024 CBC W Auto Differential panel - Blood CBC + DIFF Lab Routine Malignant 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, estrogen receptor positive, unspecified site of breast (HCC) Cancer of breast, intraductal, left Iron deficiency anemia due to chronic blood loss Expected: 05/22/2023 (Approximate), Expires: 02/20/2024 [facility] Work Phone: Comment on above: Expected: 05/22/2023 (Approximate), Expi res: 02/20/2024 Start: 05-22-2023 End: 02-20-2024 Cobalamin (Vitamin B12) [Mass/volume] in Serum or Plasma VITAMIN B12 BLOOD Lab Routine Malignant 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, estrogen receptor positive, unspecified site of breast (HCC) Cancer of breast, intraductal, left Iron deficiency anemia due to chronic blood loss Expected: 05/22/2023 (Approximate), Expires: 02/20/2024 [facility] Work Phone: Comment on above: Expected: 05/22/2023 (Approximate), Expi res: 02/20/2024 Start: 05-22-2023 End: 02-20-2024 Comprehensive metabolic 2000 panel - Serum or Plasma COMP METABOLIC PANEL Lab Routine Malignant 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, estrogen receptor positive, unspecified site of breast (HCC) Cancer of breast, intraductal, left Iron deficiency anemia due to chronic blood loss Expected: 05/22/2023 (Approximate), Expires: 02/20/2024 [facility] Work Phone: Comment on above: Expected: 05/22/2023 (Approximate), Expi res: 02/20/2024 Start: 05-22-2023 End: 02-20-2024 Ferritin [Mass/volume] in Serum or Plasma FERRITIN BLD Lab Routine Malignant 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, estrogen receptor positive, unspecified site of breast (HCC) Cancer of breast, intraductal, left Iron deficiency anemia due to chronic blood loss Expected: 05/22/2023 (Approximate), Expires: 02/20/2024 [facility] Work Phone: Comment on above: Expected: 05/22/2023 (Approximate), Expi res: 02/20/2024 Start: 05-22-2023 End: 02-20-2024 Folate [Mass/volume] in Serum or Plasma FOLATE SERUM Lab Routine Malignant 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, estrogen receptor positive, unspecified site of breast (HCC) Cancer of breast, intraductal, left Iron deficiency anemia due to chronic blood loss Expected: 05/22/2023 (Approximate), Expires: 02/20/2024 [facility] Work Phone: Comment on above: Expected: 05/22/2023 (Approximate), Expi res: 02/20/2024 Start: 05-22-2023 End: 02-20-2024 Iron and Iron binding capacity panel - Serum or Plasma IRON + TIBC Lab Routine Malignant 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, estrogen receptor positive, unspecified site of breast (HCC) Cancer of breast, intraductal, left Iron deficiency anemia due to chronic blood loss Expected: 05/22/2023 (Approximate), Expires: 02/20/2024 [facility] Work Phone: Comment on above: Expected: 05/22/2023 (Approximate), Expi res: 02/20/2024 Start: 05-08-2023 Covid-19 Vaccine ( season) Covid-19 Vaccine () [facility] Start: 05-08-2023 Influenza vaccination [facility] Start: 03-27-2023 BP CONTROLLED (<130/80) BP CONTROLLED (<130/80) [facility] Start: 02-14-2023 End: 10-17-2023 CBC W Auto Differential panel - Blood CBC + DIFF Lab Routine Malignant 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, estrogen receptor positive, unspecified site of breast (HCC) Cancer of breast, intraductal, left Anemia, unspecified type Chemotherapy-induced neuropathy (HCC) Expected: 02/14/2023 (Approximate), Expires: 10/17/2023 [facility] Work Phone: Comment on above: Expected: 02/14/2023 (Approximate), Expi res: 10/17/2023 Start: 02-14-2023 End: 10-17-2023 Cobalamin (Vitamin B12) [Mass/volume] in Serum or Plasma VITAMIN B12 BLOOD Lab Routine Malignant 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, estrogen receptor positive, unspecified site of breast (HCC) Cancer of breast, intraductal, left Anemia, unspecified type Chemotherapy-induced neuropathy (HCC) Expected: 02/14/2023 (Approximate), Expires: 10/17/2023 [facility] Work Phone: Comment on above: Expected: 02/14/2023 (Approximate), Expi res: 10/17/2023 Start: 02-14-2023 End: 10-17-2023 Comprehensive metabolic 2000 panel - Serum or Plasma COMP METABOLIC PANEL Lab Routine Malignant 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, estrogen receptor positive, unspecified site of breast (HCC) Cancer of breast, intraductal, left Anemia, unspecified type Chemotherapy-induced neuropathy (HCC) Expected: 02/14/2023 (Approximate), Expires: 10/17/2023 [facility] Work Phone: Comment on above: Expected: 02/14/2023 (Approximate), Expi res: 10/17/2023 Start: 02-14-2023 End: 10-17-2023 Ferritin [Mass/volume] in Serum or Plasma FERRITIN BLD Lab Routine Malignant 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, estrogen receptor positive, unspecified site of breast (HCC) Cancer of breast, intraductal, left Anemia, unspecified type Chemotherapy-induced neuropathy (HCC) Expected: 02/14/2023 (Approximate), Expires: 10/17/2023 [facility] Work Phone: Comment on above: Expected: 02/14/2023 (Approximate), Expi res: 10/17/2023 Start: 02-14-2023 End: 10-17-2023 Folate [Mass/volume] in Serum or Plasma FOLATE SERUM Lab Routine Malignant 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, estrogen receptor positive, unspecified site of breast (HCC) Cancer of breast, intraductal, left Anemia, unspecified type Chemotherapy-induced neuropathy (HCC) Expected: 02/14/2023 (Approximate), Expires: 10/17/2023 [facility] Work Phone: Comment on above: Expected: 02/14/2023 (Approximate), Expi res: 10/17/2023 Start: 02-14-2023 End: 10-17-2023 Iron and Iron binding capacity panel - Serum or Plasma IRON + TIBC Lab Routine Malignant 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, estrogen receptor positive, unspecified site of breast (HCC) Cancer of breast, intraductal, left Anemia, unspecified type Chemotherapy-induced neuropathy (HCC) Expected: 02/14/2023 (Approximate), Expires: 10/17/2023 [facility] Work Phone: Comment on above: Expected: 02/14/2023 (Approximate), Expi res: 10/17/2023 Start: 12-13-2022 BP CONTROLLED (<130/80) BP CONTROLLED (<130/80) [facility] Start: 10-18-2022 End: 07-18-2023 CBC W Auto Differential panel - Blood CBC + DIFF Lab Routine Malignant 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, estrogen receptor positive, unspecified site of breast (HCC) Cancer of breast, intraductal, left Expected: 10/18/2022 (Approximate), Expires: 07/18/2023 [facility] Work Phone: Comment on above: Expected: 10/18/2022 (Approximate), Expi res: 07/18/2023 Start: 10-18-2022 End: 07-18-2023 Comprehensive metabolic 2000 panel - Serum or Plasma COMP METABOLIC PANEL Lab Routine Malignant 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, estrogen receptor positive, unspecified site of breast (HCC) Cancer of breast, intraductal, left Expected: 10/18/2022 (Approximate), Expires: 07/18/2023 [facility] Work Phone: Comment on above: Expected: 10/18/2022 (Approximate), Expi res: 07/18/2023 Start: 09-18-2022 Adult depression screening assessment DEPRESSION SCREENING [facility] Start: 09-07-2022 ADVANCE DIRECTIVE DISCUSSION ADVANCE DIRECTIVE DISCUSSION [facility] Start: 09-07-2022 DEPRESSION ASSESSMENT DEPRESSION ASSESSMENT [facility] Start: 05-08-2022 Influenza vaccination INFLUENZA (#1) [facility] Start: 04-14-2022 End: 12-13-2022 CBC W Auto Differential panel - Blood CBC + DIFF Lab Routine 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, estrogen receptor positive, unspecified site of breast (HCC) Malignant neoplasm of overlapping sites of left breast in female, estrogen receptor positive (HCC) Expected: 04/14/2022 (Approximate), Expires: 12/13/2022 [facility] Work Phone: Comment on above: Expected: 04/14/2022 (Approximate), Expi res: 12/13/2022 Start: 04-14-2022 End: 12-13-2022 Comprehensive metabolic 2000 panel - Serum or Plasma COMP METABOLIC PANEL Lab Routine 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, estrogen receptor positive, unspecified site of breast (HCC) Malignant neoplasm of overlapping sites of left breast in female, estrogen receptor positive (HCC) Expected: 04/14/2022 (Approximate), Expires: 12/13/2022 [facility] Work Phone: Comment on above: Expected: 04/14/2022 (Approximate), Expi res: 12/13/2022 Start: 01-09-2022 COVID-19 VACCINE (4 - Booster for Moderna series) COVID-19 VACCINE (4 - Booster for Moderna series) [facility] Start: 12-19-2021 End: 02-18-2022 CBC W Auto Differential panel - Blood CBC + DIFF Lab Routine Malignant 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, estrogen receptor positive, unspecified site of breast (HCC) Expected: 12/19/2021, Expires: 02/18/2022 [facility] Work Phone: Comment on above: Expected: 12/19/2021, Expires: Start: 11-06-2021 COVID-19 VACCINE (4 - Booster for Moderna series) COVID-19 VACCINE (4 - Booster for Moderna series) [facility] Start: 11-06-2021 COVID-19 VACCINE (4 - Moderna series) COVID-19 VACCINE (4 - Moderna series) [facility] Start: 09-07-2021 ADVANCE DIRECTIVE DISCUSSION ADVANCE DIRECTIVE DISCUSSION [facility] Start: 09-07-2021 DEPRESSION ASSESSMENT DEPRESSION ASSESSMENT [facility] Start: 02-01-2021 Computerized axial tomography of lumbar spine with contrast CT lumbar spine w [facility] Start: 12-23-2020 LIPID SCREEN LIPID SCREEN [facility] Start: 12-23-2016 Hepatitis B surface antibody level LDL CHOLESTEROL [facility] Start: 10-08-2016 PNEUMOCOCCAL: 65+ (3 - PPSV23 if available, else PCV20) PNEUMOCOCCAL: 65+ (3 - PPSV23 if available, else PCV20) [facility] Start: 10-08-2016 PNEUMOCOCCAL: 65+ (3 - PPSV23 or PCV20) PNEUMOCOCCAL: 65+ (3 - PPSV23 or PCV20) [facility] Start: 10-08-2016 PNEUMOVAX AGE 65 AND OVER WITH 5YR LOOKBACK (#1) PNEUMOVAX AGE 65 AND OVER WITH 5YR LOOKBACK (#1) [facility] Start: 04-07-2016 Administration of varicella zoster vaccine Zoster (Shingles) Vaccine (2 of 3) [facility] Start: 04-07-2016 SHINGRIX VACCINE (1 of 2) SHINGRIX VACCINE (1 of 2) [facility] Start: 04-07-2016 SHINGRIX VACCINE (2 of 3) SHINGRIX VACCINE (2 of 3) [facility] Start: 05-11-2014 Mammography MAMMOGRAM [facility] Start: 01-05-2012 BONE DENSITY BONE DENSITY [facility] Start: 01-05-2012 Bone Density Screening Bone Density Screening [facility] Start: 01-05-2012 Fall Risk Screening Fall Risk Screening [facility] Start: 2007 RSV Vaccine (1 - 1-dose 60+ series) RSV Vaccine (1 - 1-dose 60+ series) [facility] Start: 01-05-1992 COLOGUARD (FIT-DNA) COLOGUARD (FIT-DNA) [facility] Start: 01-05-1992 Colonoscopy COLONOSCOPY [facility] Start: 01-05-1992 COLORECTAL CANCER SCREENING COLORECTAL CANCER SCREENING [facility] Start: 01-05-[address] COLONOGRAPHY [facility] Start: 01-05-1992 FECAL OCCULT BLOOD FECAL OCCULT BLOOD [facility] Start: 01-05-1992 SIGMOIDOSCOPY SIGMOIDOSCOPY [facility] Start: 1977 Zoledronic acid therapy ALPHA-1 ANTITRYPSIN DEFICIENCY SCREENING [facility] Start: 1966 DTaP,Tdap and Td Vaccines (1 - Tdap) DTaP,Tdap and Td Vaccines (1 - Tdap) [facility] Start: 1966 Urine microalbumin profile [facility] Start: 1965 Adult BMI Follow Up Plan Adult BMI Follow Up Plan [facility] Start: 1965 ANNUAL PCP TEAM CHRONIC DISEASE VISIT ANNUAL PCP TEAM CHRONIC DISEASE VISIT [facility] Start: 1965 BP CONTROLLED (<130/80) BP CONTROLLED (<130/80) [facility] Start: 1965 HEPATITIS C SCREENING HEPATITIS C SCREENING [facility] Start: 1965 Hepatitis C screening Hepatitis C Screening [facility] Start: 1965 SPIROMETRY SPIROMETRY [facility] End: 06-28-2023 Bone &/joint imaging 3 phase study NM BONE 3 PHASE Radiology Routine Pain due to internal orthopedic prosthetic devices, implants and grafts, initial encounter (HCC) 1 Occurrences starting 05/29/2022 until 06/28/2023 [facility] Work Phone: Comment on above: 1 Occurrences starting 05/29/2022 until 06/28/2023 Bone &/joint imaging 3 phase study NM BONE 3 PHASE Radiology Routine Pain due to internal orthopedic prosthetic devices, implants and grafts, initial encounter (HCC) 06/09/2022 2:49 PM EDT [facility] Work Phone: End: 03-07-2025 Cancer Ag 15-3 [Units/volume] in Serum or Plasma CA 15-3 BLD Lab Routine Cancer of breast, intraductal, left H/O left mastectomy Malignant 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, estrogen receptor positive, unspecified site of breast (HCC) Iron deficiency anemia due to chronic blood loss Every 6 months for 3 Occurrences starting 03/07/2024 until 03/07/2025 [facility] Work Phone: Comment on above: Every 6 months for 3 Occurrences startin g 03/07/2024 until 03/07/2025 End: 03-07-2025 Cancer Ag 27-29 [Units/volume] in Serum or Plasma CA 27.29 BLOOD Lab Routine Cancer of breast, intraductal, left H/O left mastectomy Malignant 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, estrogen receptor positive, unspecified site of breast (HCC) Iron deficiency anemia due to chronic blood loss Every 6 months for 3 Occurrences starting 03/07/2024 until 03/07/2025 [facility] Comment on above: Every 6 months for 3 Occurrences startin g 03/07/2024 until 03/07/2025 End: 03-07-2025 CBC W Auto Differential panel - Blood COMPLETE BLOOD COUNT AND DIFFERENTIAL Lab Routine Cancer of breast, intraductal, left H/O left mastectomy Malignant 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, estrogen receptor positive, unspecified site of breast (HCC) Iron deficiency anemia due to chronic blood loss Every 6 months for 3 Occurrences starting 03/07/2024 until 03/07/2025 [facility] Comment on above: Every 6 months for 3 Occurrences startin g 03/07/2024 until 03/07/2025 End: 03-07-2025 Comprehensive metabolic 2000 panel - Serum or Plasma COMPREHENSIVE METABOLIC PANEL Lab Routine Cancer of breast, intraductal, left H/O left mastectomy Malignant 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, estrogen receptor positive, unspecified site of breast (HCC) Iron deficiency anemia due to chronic blood loss Every 6 months for 3 Occurrences starting 03/07/2024 until 03/07/2025 [facility] Comment on above: Every 6 months for 3 Occurrences startin g 03/07/2024 until 03/07/2025 End: 06-27-2024 Mri brain brain stem w/o w/contrast material MRI BRAIN WO/W IVCON Radiology Routine [place]cl[place] headache 1 Occurrences starting 05/29/2023 until 06/27/2024 [facility] Work Phone: Comment on above: 1 Occurrences starting 05/29/2023 until 06/27/2024 Patient Education [facility] Patient referral [facility] End: 03-19-2023 Radiologic examination pelvis 1/2 views XR PELVIS 1V AP Radiology Routine Pain 1 Occurrences starting 02/18/2022 until 03/19/2023 [facility] Work Phone: Comment on above: 1 Occurrences starting 02/18/2022 until 03/19/2023 End: 01-28-2025 Screening colonoscopy COLONOSCOPY SCREENING Endoscopy Routine Screening for colorectal cancer 1 Occurrences starting 01/29/2024 until 01/28/2025 [facility] Work Phone: Comment on above: 1 Occurrences starting 01/29/2024 until 01/28/2025 SURGICAL PATHOLOGY [facility] Work Phone: Comment on above: Release Upon Ordering for 1 Occurrences starting 03/31/2024, 1 completed End: 03-10-2025 US Breast - left limited US BREAST LTD LEFT Radiology Routine Cancer of breast, intraductal, left H/O left mastectomy Lump in chest 1 Occurrences starting 02/09/2024 until 03/10/2025 [facility] Work Phone: Comment on above: 1 Occurrences starting 02/09/2024 until 03/10/2025 End: 03-19-2023 XR KNEE GENERAL 4V AP BOTH/PA BOTH/LAT/MERC LEFT XR KNEE GENERAL 4V AP BOTH/PA BOTH/LAT/MERC LEFT Radiology Routine Pain 1 Occurrences starting 02/17/2022 until 03/19/2023 [facility] Work Phone: Comment on above: 1 Occurrences starting 02/17/2022 until 03/19/2023 End: 10-15-2023 XR KNEE POST OP 3V AP/LAT/MERCHANT LEFT XR KNEE POST OP 3V AP/LAT/MERCHANT LEFT Radiology Routine Chronic knee pain after total replacement of left knee joint 1 Occurrences starting 09/16/2022 until 10/15/2023 [facility] Work Phone: Comment on above: 1 Occurrences starting 09/16/2022 until 10/15/2023 [facility] c [facility] Immunizations Immunization Date Immunization Notes Care Provider [facility] 09-04-2023 Influenza, High-dose Seasonal, Quadrivalent, Preservative Free Amada Bruce PT Work Phone: [facility] 09-04-2023 influenza virus vacc ine, unspecified formulation Vaibhav Ovalle MD Work Phone: [facility] 06-17-2022 influenza, high-dose , quadrivalent vaccine (FLUZONE HIGH DOSE QUADRIVALENT) Vaibhav Ovalle MD Work Phone: [facility] 06-17-2022 influenza virus vacc ine, unspecified formulation Vaibhav Ovalle MD Work Phone: [facility] 09-11-2021 SARS-CoV-2 (COVID-19 ) mRNA-1273 vaccine León ATKINS [facility] Comment on above: Result Comment: [facility] 06-13-2021 influenza, high-dose , quadrivalent vaccine (FLUZONE HIGH DOSE QUADRIVALENT) Vaibhav Ovalle MD Work Phone: [facility] 10-17-2020 COVID-19 mRNA-1273 (Moderna) Yajaira Gonzalez Work Phone: [facility] 09-19-2020 COVID-19 mRNA-1273 (Moderna) Yajaira Gonzalez Work Phone: [facility] 09-18-2020 Moderna SARS-CoV-2 Vaccination Amada Bruce PT Work Phone: [facility] 07-12-2020 influenza, high dose seasonal, preservative-free Vaibhav Ovalle MD Work Phone: [facility] 10-03-2019 pneumococcal polysaccharide vaccine, 23 valent Vaibhav Ovalle MD Work Phone: [facility] 06-08-2019 influenza, injectabl e, quadrivalent, contains preservative Vaibhav Ovalle MD Work Phone: [facility] 06-08-2019 influenza, injectabl e, quadrivalent, preservative free Vaibhav Ovalle MD Work Phone: [facility] 06-07-2019 influenza, seasonal, injectable, preservative free Vaibhav Ovalle MD Work Phone: [facility] 06-14-2018 influenza, high dose seasonal, preservative-free Vaibhav Ovalle MD Work Phone: [facility] 06-14-2018 influenza, injectabl e, quadrivalent, preservative free Vaibhav Ovalle MD Work Phone: [facility] 07-01-2017 influenza, high dose seasonal, preservative-free Vaibhav Ovalle MD Work Phone: [facility] 06-09-2016 influenza, high dose seasonal, preservative-free Vaibhav Ovalle MD Work Phone: [facility] 02-11-2016 zoster vaccine, live Vaibhav fox MD Work Phone: [facility] 02-11-2016 zoster vaccine, unspecified formulation Vilma Napoles MD Work Phone: [facility] 07-09-2015 influenza, high dose seasonal, preservative-free Vaibhav Ovalle MD Work Phone: [facility] 05-04-2015 pneumococcal conjuga te vaccine, 13 valent Vaibhav Ovalle MD Work Phone: [facility] 06-02-2014 influenza, high dose seasonal, preservative-free Vaibhav Ovalle MD Work Phone: [facility] 05-30-2013 influenza, high dose seasonal, preservative-free Vaibhav Ovalle MD Work Phone: [facility] 07-02-2012 influenza, seasonal, injectable, preservative free Vaibhav Ovalle MD Work Phone: [facility] 10-09-2011 pneumococcal conjuga te vaccine, 7 valent Vaibhav Ovalle MD Work Phone: [facility] 10-09-2011 pneumococcal Conjuga te, unspecified formulation Amada Bruce PT Work Phone: [facility] 10-08-2011 pneumococcal polysaccharide vaccine, 23 valent Vaibhav Ovalle MD Work Phone: [facility] 06-18-2011 influenza virus vacc ine, whole virus Vaibhav Ovalle MD Work Phone: [facility] 06-18-2011 influenza, seasonal, injectable, preservative free Vaibhav Ovalle MD Work Phone: [facility] Payers Date Payer Category Payer Unknown [place] [id number] 2016-Present [phone] [id number] [place] [address] Indemnity [id number] .[id number] 2016 Unknown [id number]. 1.13.159.2.7.3 .[id number] 2016 Unknown [id number] 2011 Medicare MEDICARE MEDICAR E A AND B [id number] 2011-Present [phone] [address] [address] [place] [address] Medicare [id number] .[id number] 2011 Medicare 1.2.840.186878. 1.13.159.2.7.3 .166589.315 2011 Medicare [id number] 1947 Unknown [id number] 2.16.840.1.988137.3.579.2.128 1947 Unknown [id number] 2.16.840.1.065945.3.579.2.128 1947 Unknown [id number] 2.16.840.1.221408.3.579.2.727 1947 Unknown [id number] 2.16.840.1.817895.3.579.2.128 1947 Unknown [id number] 2.16.840.1.021356.3.579.2.128 1947 Unknown [id number] 2.16.840.1.227161.3.579.2.128 1947 Unknown [id number] 2.16.840.1.846530.3.579.2.128 1947 Unknown [id number] 2.16.840.1.968666.3.579.2.128 1947 Unknown [id number] 2.16.840.1.580118.3.579.2.128 1947 Unknown [id number] 2.16.840.1.736807.3.579.2.128 1947 Unknown [id number] 2.16.840.1.634261.3.579.2.128 1947 Unknown [id number] 2.16.840.1.091461.3.579.2.128 1947 Unknown [id number] 2.16.840.1.764845.3.579.2.128 1947 Unknown [id number] 2.16.840.1.425800.3.579.2.128 1947 Unknown [id number] 2.16.840.1.477496.3.579.2.128 1947 Unknown [id number] 2.16.840.1.291527.3.579.2.128 1947 Unknown [id number] 2.16.840.1.975977.3.579.2.128 1947 Unknown [id number] 2.16.840.1.471332.3.579.2.128 1947 Unknown [id number] 2.16.840.1.742163.3.579.2.128 1947 Unknown [id number] 2.16.840.1.455135.3.579.2.128 1947 Unknown [id number] 2.16.840.1.817717.3.579.2.128 1947 Unknown [id number] 2.16.840.1.544142.3.579.2.128 1947 Unknown [id number] 2.16.840.1.324803.3.579.2.128 1947 Unknown [id number] 2.16.840.1.957455.3.579.2.125 1947 Unknown [id number] 2.16840.1.668729.3.579.2.125 1947 Unknown [id number] 2.16.840.1.363246.3.579.2.125 1947 Unknown [id number] 2.16.840.1.709077.3.579.2.125 1947 Unknown [id number] 2.16.840.1.243785.3.579.2.125 1947 Unknown [id number] 2.16.840.1.131749.3.579.2.125 1947 Unknown [id number] 2.16.840.1.653255.3.579.2.125 1947 Unknown [id number] 2.16.840.1.800756.3.579.2.125 1947 Unknown [id number] 2.16.840.1.715532.3.579.2.125 1947 Unknown [id number] 2.16.840.1.950584.3.579.2.125 1947 Unknown [id number] 2.16.840.1.868267.3.579.2.125 1947 Unknown [id number] 2.16.840.1.521532.3.579.2.125 1947 Unknown [id number] 2.16.840.1.662683.3.579.2.125 1947 Unknown [id number] 2.16.840.1.188483.3.579.2.125 1947 Unknown [id number] 2.16.840.1.430034.3.579.2.125 1947 Unknown [id number] 2.16.840.1.361392.3.579.2.125 1947 Unknown [id number] 2.16.840.1.984793.3.579.2.125 1947 Unknown [id number] 2.16.840.1.686235.3.579.2.125 1947 Unknown [id number] 2.16.840.1.553671.3.579.2.125 1947 Unknown [id number] 2.16.840.1.088351.3.579.2.125 1947 Unknown [id number] 2.16.840.1.515634.3.579.2.125 1947 Unknown [id number] 2.16.840.1.217697.3.579.2.125 1947 Unknown [id number] 2.16.840.1.235159.3.579.2.125 1947 Unknown [id number] 2.16.840.1.539312.3.579.2.125 1947 Unknown [id number] 2.16.840.1.708168.3.579.2.125 1947 Unknown [id number] 2.16.840.1.921783.3.579.2.125 1947 Unknown [id number] 2.16.840.1.758325.3.579.2.125 1947 Unknown [id number] 2.16.840.1.359779.3.579.2.125 1947 Unknown [id number] 2.16.840.1.087005.3.579.2.125 1947 Unknown [id number] 2.16.840.1.504772.3.579.2.125 1947 Unknown [id number] 2.16.840.1.554508.3.579.2.125 1947 Unknown [id number] 2.16.840.1.721438.3.579.2.125 1947 Unknown [id number] 2.16.840.1.971023.3.579.2.125 1947 Unknown [id number] 2.16.840.1.673004.3.579.2.125 1947 Unknown [id number] 2.16.840.1.602354.3.579.2.125 1947 Unknown [id number] 2.16.840.1.253010.3.579.2.125 1947 Unknown [id number] 2.16.840.1.838490.3.579.2.196 1947 Unknown [id number] 2.16.840.1.246925.3.579.2.196 Self-pay Self Pay [id number] Social History Date Type Detail Facility Start: 06-15-2020 End: 04-18-2022 Tobacco smoking status NHIS Ex-smoker (finding) [facility] Start: 1945 Sex Assigned At Female [facility] Start: 09-07-1965 End: 03-07-1987 History of tobacco use Current smoker [facility] Start: 09-07-1965 End: 03-07-1987 History of tobacco use Cigarette Smoker [facility] Start: 09-20-2021 End: 01-26-2023 Alcohol intake Current non-drinker of alcohol (finding) [facility] Start: 12-03-2021 End: 07-18-2022 Exposure to SARS-CoV-2 (event) Not sure [facility] Start: 12-06-2021 Tobacco smoking status Never smoked tobacco (finding) [facility] Tobacco smoking status Never [facility] Start: 02-16-2023 End: 03-27-2023 Sex Assigned At Female [facility] Start: 08-03-2013 End: 02-16-2023 Cigarettes smoked current (pack per day) - Reported 1 [facility] Start: 08-03-2013 End: 04-18-2022 Tobacco use and exposure Smokeless tobacco non-user [facility] History of tobacco use Passive smoker [facility] Start: 01-20-2021 Gender identity Identifies as female gender (finding) [facility] Start: 01-20-2021 Sexual orientation Heterosexual (finding) [facility] Do you belong to any clubs or organizations such as gnosticism groups, unions, fraternal or athletic groups, or school groups? Yes [facility] Are you now , , , , never or living with a partner? [facility] Do you feel stress - tense, restless, nervous, or anxious, or unable to sleep at night because your mind is troubled all the time -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 LUIS. Initial diagnosis 2006 and subsequent recurrence in the scar in 2012. 2. 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 04/22/2021 status post right mastectomy for multifocal lobular carcinoma of 2 small lesions 6 and 2 mm respectively approximately 10 mm apart. Previously poor tolerance to endocrine therapy and patient is reluctant to consider. She is also reluctant to consider adjuvant therapy and therefore we will forego risk evaluation with Oncotype DX. Cancer Staging Malignant neoplasm of female breast (HCC) Staging form: BREAST CANCER - Clinical stage from 05/06/2021: Stage I (T1b(m), N0, M0) - Signed by Vaibhav Ovalle MD on 05/07/2021 Right breast US noted to have nodules consistent with fat necrosis. 3. 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 4. Mild anemia - iron deficient, will replace oral iron. 5. Diarrhea - referral to GI, trial of Lomotil PLAN: MRI Brain - needs cardiology to coordinate her pacer. Triage please call results of today's labs. RTC after MRI to review. HPI: CASE HISTORY: 11/2006 :diagnosed with left breast cancer in November of 2006 after discovering a lump on self examination. :on November 17, 2006 she had core biopsy which noted a small focus of infiltrating carcinoma, favor ductal type, nuclear grade 2. :Stereotactic biopsy dated 11/26/06 noted DCIS, path report notes that early microinvasion could not be excluded. 12/2006 :Completes left mastectomy,sentinel node biopsy, axillary lymph node dissection. Path notes DCIS, intermediate grade and no evidence of axillary lymph node involvement :she was seen by Dr. Ness and recommendation was to pursue adjuvant therapy with anastrazole for a stage 1, ER/SC (+), breast cancer. 06/2011 :she had an exam by her credit and collections analyst which noted a tender lump on examination of her right breast. Ultrasound evaluation was negative and she continued in surveillance. 12/2011 :She completed 5 years of adjuvant anastrazole 09/2012 :she had a right upper and middle lobe resection for what would be discovered to be aspergillosis. 05/2013 :she noticed a lump in her left chest along her incision. A 1 x 1 X 0.8 cn lesion was noted in the subcutaneous soft tissue. 06/10/13 :Completes excisional biopsy which noted metastatic ducta carcinoma. Tumor was ER/SC positive, HER2 was negative. 08/2013 :She had repeat excision by Dr. Whitmore and this was negative for residual disease. 11/2013 :completes adjuvant radiation :starts adjuvant anastrazole, then switches to leterozole 02/2016 :switches to tamoxifen 02/2018 : stops tamoxifen as she feels it is aggravating dyspnea 01/17/2021 :Mammogram right upper breast 4mm new 02/28/2021 :Rt breast bx. - inv. Lobular, ER/SC+, HER@ FISH (-) 04/22/2021 :Right mastectomy, multifocal lobular carcinoma -6 AND 2 mm -10mm apart. declined endocrine therapy 03/27/2022 :Rt Breast US - Oil cyst 02/22/2023 : Monoferric - couldn't tolerate oral iron Updated Visit, May 29, 2023: Vertigo started 2-3 weeks ago after a shopping trip. Also has a lot of pressure in her head. Amoxicillin didn't help Now on Ceftin Having double vision noted as well. Updated Visit, February 19, 2023: Left knee revision but right knee is causing pain Iron studies from January 2023 indicate iron deficiency. Very nervous of pain in right hip being caused by cancer. Reviewed imaging and there is no finding of osseous mets. Updated Visit, October 17, 2022: Saw Dr. Coppola and was diagnosed with endocrine pancreatic insufficiency. Diarrhea is resolved with Creon. CBC reflects mild anemia that is macrocytic and may be associated with malabsorption that I suspect she has given her recent dx of EPI. Knee is still troubling her because her knee implant is causing issues. See Ortho. No new breast concerns - right axilla chronically tender and right sided pace-maker is also in the way. Prevents her from wearing breast prosthesis. Updated Visit, July 18, 2022: Complaints of constant diarrhea - thought it was due to wellbutrin (more content not included)... [facility] 04-02-2023 History of Presen t illness Narrative Images from the original note were not included. Ortho Knee Follow Up Note Narrative Referring Provider: MARLEE SALAZAR [id number] [facility] [id number] PCP: Yajaira Gonzalez MD IMPRESSION/PLAN: 78 year old s/p revision Left Total Knee Replacement completed on 01/26/2023. Recent Surgeries this specialty 01/26/2023 (9w, 3d) REVISION JOINT TOTAL KNEE ONE COMPONENT (Left) Marlee Salazar MD; Michel Jansen MD - Posted PAIN EVALUATION 03/26/2023 1438 Pain Level: 5 Pain Location: Knee-Left Description: Aching;Cramping;Sharp;Sore;Stif fness;Surgical/Not Incision;Tightness Duration Amount of Time: 8 Frequency: Continuous Intervention/Comfort measure: Medication;Reposition;Relaxatio n;Cold;Exercise;Positioning IMPRESSION: Excellent early outcome PLAN: Continue current conservative treatment. Rest, Ice, Compression, Elevation PRN. Patient Reassurance: Normal post-operative course discussed with patient. Progress appears to be with the normal speed of recovery. Patient reassured and supported. All questions answered. Follow up 1 year X-Rays Needed Magi Dao presents today for a an intermediate post-op visit ACTIVE PROBLEM LIST Malignant Neoplasm of Right Breast in Female, Estrogen Receptor Positive ([facility]) Breast Ca ([facility]) Paroxysmal Svt (Supraventricular Tachycardia) ([facility]) Cardiac Pacemaker in Situ Headache(784.0) Obstructive Sleep Apnea Pulmonary Aspergillosis ([facility]) Migraine Without Aura 4.8 New daily-persistent headache ([facility]) [339.42] Anxiety History of Breast Cancer Shoulder Pain, Right Radiotherapy Follow-Up Examination Mixed Hyperlipidemia Unspecified Hypothyroidism Polyneuropathy in Other Diseases Classified Elsewhere ([facility]) Osteoarthrosis, Unspecified Whether Generalized Or Localized, Other Specified Sites Esophageal Reflux Tear of Medial Cartilage Or Meniscus of Knee, Current Predominant Disturbance of Emotions Coronary Artery Disease Chronic Obstructive Pulmonary Disease (Copd) ([facility]) Breast Cancer ([facility]) Sick Sinus Syndrome ([facility]) Asthma Pneumonia Primary Hypertension Thyroid Disease Foraminal Stenosis of Cervical Region Right Rotator Cuff Tear Personal History of Infectious Disease Postoperative Hypotension Orthostatic Hypotension Former Smoker History of Lung Surgery Failed Total Knee Arthroplasty, Initial Encounter ([facility]) Status Post Total Left Knee Replacement Cancer of Breast, Intraductal, Left Iron Deficiency Anemia Due to Chronic Blood Loss Major Depressive Disorder, Recurrent Episode, Mild (Hcc) Iron Deficiency Anemia Status post op: BMI: There is no height or weight on file to calculate BMI. Post-operative recovery was complicated by uneventful/none. Readmission(s) since surgery (90 days post)? No ED Visits & Hospitalizations - Last 180 days 01/26/23 Marlee Salazar MD, EU5FL Failed total knee arthroplasty, initial encounter ([facility]) ..., Admission (Discharged) Patient rates their condition as improving. Does the patient still experience pain? No Post Op discharge patient location: in home. Functional Assessment is as follows: has already started outpatient PT as of this visit. Functional difficulties: None. Pain Medication: Non-narcotic Currently Ambulating with: no ambulation aides == EXAM: POST OP KNEE == Left Post-Operative Knee Ambulates with a: normal gait. SKIN: Appropriate postop appearance and Incision well healed. Range of motion is 5 degrees in extension and 120 degrees of flexion. Extension La degrees Pain with ROM:No There is None effusion. Mal-alignment: No Tender to the palpation of None Neurovascular Status: Sensation Intact, Moves foot and ankle up & down, and 2+ dorsalis pedis Stability:Anterior/Posterior- Yes, stable and Varus/Valgus- Yes, stable Quad strength: normal Imagin. Implants are well aligned. Implants are well fixed. Patella is well positioned. Provider: MARLEE SALAZAR MD Completed by: MARLEE SALAZAR MD documented in this encounter [facility] 04-02-2023 History of Presen t illness Narrative Radiology Service Progress Note PATIENT NAME: Magi Dao DATE OF SERVICE: April 02, 2023 TIME: 1:01 PM PATIENT IDENTITY VERIFICATION COMPLETED USING TWO (2) IDENTIFIERS: Name and Date of confirmed by patient verbally. FALL SCREENING: Has the patient had 2 falls in the last year or 1 fall with injury or currently using an Ambulatory Assistive Device (Walker, Cane, Wheelchair, Crutches, etc.)? No PATIENT GENDER DATA: Female. status: : No status: NO. PATIENT RELEVANT IMPLANT DATA REVIEWED: Not Applicable RADIOLOGY DEPARTMENT: General X-ray: Exam(s) Completed: Lower Extremity X-Ray(s): Knee, AP / Lat / Merchant Left and Wt. Bearing PERIPHERAL IV DATA: Not applicable SIGNED BY: RT Doni(R) April 02, 2023 1:01 PM documented in this encounter [facility] 02-26-2023 Miscellaneous Notes Patient has been scheduled for Monoferric on 03/04. Patient notified. Halie Sanchez PSS: Please call to schedule pt for iron infusion. Arcadio placing orders Yelena Britt RN She is traditional medicare so we can do monoferric. I will add orders in separate encounter. She can be scheduled anytime that fits our schedule if she wishes to proceed with IV iron. Arcadio Saldivar, PharmD, BCOP What IV iron does her insurance cover? Ms. Pt agreeable to IV Iron. HM: Please place orders PSS: Please call to schedule Yelena Britt RN Left VM for pt to call regarding possible IV iron. Encouraged her to call back to discuss. Yelena Britt RN Please notify patient that if she doesn't tolerate oral iron there is always an option to give IV iron. Trinidad Bruce APRN.CNP Sent via [employer]: As you prescribed, I have taken iron (ferrous sulfate) 325 mg. I only took it twice. Once on last Thursday, February 21, and once on last Thursday, February 22. Both times after taking it, I had very serious pain in my stomach/intestines. Severe enough to curl up and scream in pain. I tolerate pain well, but this was not tolerable and lasted for at least 30 minutes and came back a few times during the day, but not quite so severe. I have quit taking it and have not had the pain since stopping it. I don t understand all the blood test results that are on my portal. I just know some are abnormal and point toward anemia, as you said. Am I okay to doing nothing or what is your suggestion? I would appreciate a response and an explanation of the blood tests flagged abnormal. Thank you Magi Dao documented in this encounter [facility] 02-25-2023 Miscellaneous Notes Please notify patient that if she doesn't tolerate oral iron there is always an option to give IV iron. Trinidad Bruce APRN.[employer] documented in this encounter [facility] 02-19-2023 Instructions Vaibhav Ovalle MD - 02/19/2023 1:55 PM EDT Start iron OTC 325 mg once daily - 5 day per week RTC in 3 months labs same day Include anemia labs Will need exam next visit documented in this encounter [facility] 02-19-2023 History of Presen t illness Narrative Images from the original note were not included. NAME: Magi Dao [facility] NO.: [id number] DATE OF SERVICE: February 19, 2023 (Carlene) Some elements in this clinic note that are critical to medical decision making have been carefully reviewed and included from a prior clinic note dated: October 17, 2022 (Carlene) Referring Provider: Additional Clinicians involved in Magi Doa's care: Dr. Marina Retana,Dr. Yajaira Gonzalez DIAGNOSIS: ASSESSMENT: 1. 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 LUIS. Initial diagnosis 2006 and subsequent recurrence in the scar in 2012. 2. 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 04/22/2021 status post right mastectomy for multifocal lobular carcinoma of 2 small lesions 6 and 2 mm respectively approximately 10 mm apart. Previously poor tolerance to endocrine therapy and patient is reluctant to consider. She is also reluctant to consider adjuvant therapy and therefore we will forego risk evaluation with Oncotype DX. Cancer Staging Malignant neoplasm of female breast (HCC) Staging form: BREAST CANCER - Clinical stage from 05/06/2021: Stage I (T1b(m), N0, M0) - Signed by Vaibhav Ovalle MD on 05/07/2021 Right breast US noted to have nodules consistent with fat necrosis. 3. 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 4. Mild anemia - iron deficient, will replace oral iron. 5. Diarrhea - referral to GI, trial of Lomotil PLAN: Start iron OTC RTC in 3 months labs same day Include anemia labs Will need exam next visit CURRENT TREATMENT: Observation HPI: CASE HISTORY: 11/2006 :diagnosed with left breast cancer in November of 2006 after discovering a lump on self examination. :on November 17, 2006 she had core biopsy which noted a small focus of infiltrating carcinoma, favor ductal type, nuclear grade 2. :Stereotactic biopsy dated 11/26/06 noted DCIS, path report notes that early microinvasion could not be excluded. 12/2006 :Completes left mastectomy,sentinel node biopsy, axillary lymph node dissection. Path notes DCIS, intermediate grade and no evidence of axillary lymph node involvement :she was seen by Dr. Ness and recommendation was to pursue adjuvant therapy with anastrazole for a stage 1, ER/SC (+), breast cancer. 06/2011 :she had an exam by her credit and collections analyst which noted a tender lump on examination of her right breast. Ultrasound evaluation was negative and she continued in surveillance. 12/2011 :She completed 5 years of adjuvant anastrazole 09/2012 :she had a right upper and middle lobe resection for what would be discovered to be aspergillosis. 05/2013 :she noticed a lump in her left chest along her incision. A 1 x 1 X 0.8 cn lesion was noted in the subcutaneous soft tissue. 06/10/13 :Completes excisional biopsy which noted metastatic ducta carcinoma. Tumor was ER/SC positive, HER2 was negative. 08/2013 :She had repeat excision by Dr. Whitmore and this was negative for residual disease. 11/2013 :completes adjuvant radiation :starts adjuvant anastrazole, then switches to leterozole 02/2016 :switches to tamoxifen 02/2018 : stops tamoxifen as she feels it is aggravating dyspnea 01/17/2021 :Mammogram right upper breast 4mm new 02/28/2021 :Rt breast bx. - inv. Lobular, ER/SC+, HER@ FISH (-) 04/22/2021 :Right mastectomy, multifocal lobular carcinoma -6 & 2 mm -10mm apart. declined endocrine therapy 03/27/2022 :Rt Breast US - Oil cyst Updated Visit, February 19, 2023: Left knee revision but right knee is causing pain Iron studies from January 2023 indicate iron deficiency. Very nervous of pain in right hip being caused by cancer. Reviewed imaging and there is no finding of osseous mets. Updated Visit, October 17, 2022: Saw Dr. Coppola and was diagnosed with endocrine pancreatic insufficiency. Diarrhea is resolved with Creon. CBC reflects mild anemia that is macrocytic and may be associated with malabsorption that I suspect she has given her recent dx of EPI. Knee is still troubling her because her knee implant is causing issues. See Ortho. No new breast concerns - right axilla chronically tender and right sided pace-maker is also in the way. Prevents her from wearing breast prosthesis. Updated Visit, July 18, 2022: Complaints of constant diarrhea - thought it was due to wellbutrin - still has it now that she is off. Frustrated and feels depressed and week. Is scheduled to see GI. Also is having knee issues. Bone scan negative. Exam unchanged. Updated Visit, April 18, 2022: 03/27/2022 US right breast - shows an oil cyst Still has knee pain - wasn't able to pursue acupuncture - undergoing PT now and has some improvement. Labs indicate mild anemia is stable but improved compared to 2020. Has been battling with major depression for many years and is dealing with this currently. She is under medical care. Recent exam with Dr. Retana. Updated Visit, December 13, 2021: US confirmed benign findings of concerning nodules and will have additional US 6 months apart. Neuropathy continues to be the biggest issue. Chaperoned exam is unchanged. Remains off endocrine therapy. I take care of several of her friends and her sister Natacha Ni. Updated Visit, September 20, 2021: Neuropathy better with Lyrica US negative but additional one was recommended And on my chaperoned exam she clearly has a small hard nodule in the right axilla just above the scar. Now has a small One more medially. Updated Visit, July 22, 2021: Magi Dao is here today for an urgent visit. Approximately 2 weeks ago she noticed a lump near her right axilla surgical incision/scar. She reports that she found it while bathing. She states that this is the same kind of lump that she had discovered when she had her left chest wall recurrence. She remains in physical therapy for right shoulder and right arm pain which she states is caused from the mastectomy. Her physical therapist also did an examination of her right axilla and states that the PT found two lumps. Otherwise, the patient denies any other palpable lumps or bumps. She denies any unusual pain. She denies cough, shortness of breath and other pulmonary issues. She is eating well. She states that in the past she had had a hard time with aromatase inhibitors due to side effects. She is scheduled for her wellness examination today. She will discuss with her PCP the skin lesion on her back that intermittently bleeds. Updated Visit, June 21, 2021: Magi is doing well and is going to do PT. She only has issues with post surgical pain in right lateral chest. She is having chronic left knee pain and will seek an opinion from ortho. Labs reviewed and anemia is improving. Updated Visit, May 06, 2021: Finished COVID quarantine on 04/12/2021 and is still fatigued. Surgery was delayed until the 04/22/2021. She returns today post mastectomy and reports being quite fatigue but this is most likely due to recent surgery as well as recovery from Covid. She was quite anxious about considering adjuvant therapy with antiestrogens because she was not able to take tamoxifen or Arimidex due to neuropathy and severe pain. She is not interested in pursuing chemotherapy and despite multifocal disease, I feel there is little value in considering adjuvant chemotherapy therefore, I will forego request for Oncotype DX risk analysis. Hg improving post-op. Her Emmanuel Addison accompanies her today. Updated Visit, January 24, 2021: Magi is 76 years old and returns with a history of left breast mastectomy for DCIS with possible early microinvasion diagnosed in November 2006. She had underwent adjuvant endocrine therapy with anastrozole for stage I ER/SC positive breast cancer. She had a recurrence in 2012 when she noticed a lump in the left chest along her incision site. 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 Tumor remain ER/SC positive HER-2/christiano negative. She then underwent adjuvant radiation therapy in 2013 and was started on Aromasin then switched to letrozole and in 2015 switched to tamoxifen. She electively stopped tamoxifen in 2018 due to progressive dyspnea. She additionally has had a right upper and middle lobe resection for enlarging mass that was found to be consistent with aspergillosis in September 2012. She presents today in follow-up and is doing well. She completed her mammogram last week and will need further work-up for what appears to be a 4 mm mass in the upper right breast. 01/17/2021 Mammogram at [facility]: FINDINGS: The breasts are heterogeneously dense, which may obscure small masses. New small mass measuring 4 mm suspected within the slightly upper right breast at mid depth. Computer-aided detection was used in the interpretation of this examination. IMPRESSION: BIRADS 0 - Incomplete, Needs Further Imaging. New small mass measuring 4 mm suspected within the slightly upper right breast at mid depth. A diagnostic study is recommended to include spot compression CC/MLO tomosynthesis and ultrasound. OVERALL ASSESSMENT- INCOMPLETE. Updated Visit, July 27, 2020: 04/17/2020 L-Tot Knee had a terrible time recovering - had C-diff Still recovering and is eating a little but has lost a great deal of weight. She's concerned that her weight loss could be cancer associated - it doesn't appear that that is the case Revisit in 3 months to make sure she is recovering Is seeing Glory who has described diverticulosis. Updated Visit, January 27, 2020: Magi Dao is a 75 year old female who presents in follow up to review right sided mammogram which is negative. She also has had Right upper and mid lung lobectomy for PET positive lung findings. After resection turned out to consistent with Aspergillosis. Now gets a little winded but functions well. Breast cancer recurred in the chest wall soon after that. Has a pacemaker - cannot do MRI, having left knee pain - previously had a donor knee replacement 2003 for a benign growth. She is seeing Ortho soon. REVIEW OF SYSTEMS Per HPI and otherwise negative by full review of organ systems. ECOG PERFORMANCE STATUS: 0 PHYSICAL EXAMINATION: Vitals: BP 132/49 Pulse 73 Temp (Src) 97.3 (Temporal) Resp 16 Ht 5' 2.992 (1.60m) Wt 146 lb 6.4 oz (66.4kg) SpO2 100% BMI 25.94 kg/(m^2). Body surface area is 1.72 meters squared. Exam limited to gross visualization where appropriate. Gen.: This is an age-appropriate patient in no acute distress. Head: Appears atraumatic with no visible lesions. Eyes: Pupils equally round and reactive to light, extraocular muscles are intact. Neck: Supple. Respiratory: Appears to be respiring comfortably. Neurologic: Nonfocal to gross visualization. Alert and oriented 3. Psychiatric: No evidence of inappropriate anxiety or depression. Skin: Visible areas of skin without rash, lesions, wounds or petechiae. ALLERGIES: ALLERGIES Allergen Reactions Aspirin Anaphylaxis Avelox [Moxifloxaci* Other: See Comments increases neuropathy, light headed, chest tightness Ciprofloxacin Other: See Comments increases neuropathy, lightheadedness, chest tightness Other reaction(s): Unknown Reaction Clonidine Mental Status Change Nervous Codeine Light-headedness, cold sweat Cymbalta [Duloxetin* Other: See Comments increases neuropathy, lightheadedness, chest tightness Doxycycline Intolerance Dizziness Became very ill. Gabapentin Intolerance heartburn Levaquin [Levofloxa* Other: See Comments increases neuropathy, lightheadedness, chest tightness Oxycodone Mental Status Change, Shortness of Breath Pt. reports she was very out of it and SOB . Requesting no oxycodone preparations. Reports was a reaction with Verapamil Theophylline Other: See Comments Theophyllin caused HTN, rpaid heartbeat and headache. MEDICATIONS: DULCOLAX, BISACODYL, ORAL Take by mouth. apixaban (ELIQUIS) 2.5 mg tab(s) Take 1 tablet by mouth twice daily. baclofen (LIORESAL) 10 mg tablet Take 0.5 tablets by mouth three times daily. triamcinolone acetonide (KENALOG) 0.1 % cream 1 application. acetaminophen (TYLENOL EXTRA STRENGTH) 500 mg tablet Take 2 tablets by mouth every 8 hours. CPAP daily at bedtime. lisinopril (ZESTRIL, PRINIVIL) 5 mg tablet Take 5 mg by mouth as needed. as needed for BP above 140 verapamil ER 180 mg 24 hr capsule Take 180 mg by mouth twice daily. fexofenadine (USHA) 180 mg tablet Take 180 mg by mouth once daily. albuterol sulfate (VENTOLIN HFA INHALATION) Inhale as instructed. ALPRAZolam (XANAX) 0.25 mg tablet Take 0.5 mg by mouth three times daily as needed. OMEPRAZOLE 40 mg capsule Take 40 mg by mouth twice daily. ONABOTULINUMTOXINA (BOTOX INJECTION) by INJECTION(UNSPECIFIED PARENTERAL ROUTES) route. every 9 weeks for migraines LEVOTHYROXINE 88 MCG TAB Take one(1) tablet daily BY MOUTH docusate sodium (COLACE) 100 mg capsule Take 1 capsule by mouth twice daily. Take regularly when on narcotics, Take as needed for constipation when narcotics completed ascorbic acid, vitamin C,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 s/p [place] pacemaker Negative for Recent [place], Angina, CAD, Chest Pain GI:+gerd, diarrhea Denies abdominal pain, nausea, vomiting, diarrhea, constipation, hematochezia, melena. : No history of dysuria, frequency or incontinence,, stones or chronic kidney disease Endocrine: Hypothyroidism Denies diabetes and prediabetes Hematology: No history of bleeding or clotting disorder. Pt is not taking anti-coagulation or platelet medications. No history of hematological symptoms or problems. Oncology:+breast cancer s/p bilateral mastectomy in 2020 most recently, 2006 first time, XRT no chemo Psych: Anxiety, Depression Musculoskeletal: See HPI Skin: Negative for lesions, rash and itching. Objective PHYSICAL EXAM: VITALS: BP 166/89 Pulse 73 Temp (Src) 97.8 (Oral) Resp 16 Ht 5' 3 (1.60m) Wt 144 lb (65.3kg) SpO2 99% BMI 25.51 kg/(m^2). General: Alert and oriented, No acute distress Skin: Normal color, no rash, no lesions. HEENT: EOM, pupils equal, round and reactive. Cardiovascular: Normal S1 & S2, no rubs, murmurs or gallops. No JVD. Pulse regular. Lungs: Normal breath sounds, no wheezes or crackles. Abdomen: Soft, non-tender, no rigidity., Positive bowel sounds Extremities: No deformity, no edema or tenderness, no joint swelling or clubbing. Neurological: Normal cognition and motor skills. Pulses: Carotid and radial pulses normal +2. Pedal pulses normal +2. Diagnostic tests reviewed for today's visit: Lab Value Units Date High Low HB 12.9 g/dL 01/06/2023 15.5 11.5 HCT 41.4 % 01/06/2023 46.0 36.0 WBC 7.16 k/uL 01/06/2023 11.00 3.70 PLT 270 k/uL 01/06/2023 400 150 NA 140 mmol/L 01/06/2023 144 136 K 4.6 mmol/L 01/06/2023 5.1 3.7 GLUC 88 mg/dL 01/06/2023 99 74 BUN 16 mg/dL 01/06/2023 21 7 CREAT 0.89 mg/dL 01/06/2023 0.96 0.58 PTSEC No results within date range. INR No results within date range. APTT No results within date range. ALT 10 U/L 01/06/2023 38 7 AST 25 U/L 01/06/2023 35 13 TBILI 0.3 mg/dL 01/06/2023 1.3 0.2 TSH No results within date range. Lab Value Units Date High Low HCGQT No results within date range. UHCG No results within date range. HCG, BODY* No results within date range. Lab Value Units Date High Low ABORHD No results within date range. ABSCREEN No results within date range. No results found for: HBA1C Most recent EK12/31/22- scanned documents Sinus rhythm Nonspecific QRS widening Nonspecific ST depression and t abnormality Nondiagnostic Abnormal ECG Most recent pacemaker check 12/31/22 Assessment/Plan 1. Pre-op exam Surgery 01/26/23 2. Sick sinus syndrome (HCC) 3. Cardiac pacemaker in situ Biotronik pacemaker Follows Dr. Jonny Torrez at [facility]. Most recent pacemaker check 12/31/22. Requesting records. 35% battery life left Implanted 2012 Located on far right chest wall 4. Coronary artery disease involving [place] heart without angina pectoris, unspecified vessel or lesion type Denies [place], heart stents, chest pain, palpations. 5. Mixed hyperlipidemia Diet and lifestyle modifications 6. Primary hypertension BP in office 166/89. Patient reports she stopped bupropion (Wellbutrin) 3 days ago and was informed stopping this can increase BP. She takes lisinopril prn and will take this when she gets home today. She is to stop verapamil prior to surgery and switch to lisinopril daily due to interaction with oxycodone IR (Roxicodone). Not on BB due to asthma 7. Mild intermittent asthma without complication 8. Chronic obstructive pulmonary disease, unspecified COPD type (HCC) Stable denies cough, SOB, wheezing, orthopnea. 9. Obstructive sleep apnea Tries to use but not consistent 10. Gastroesophageal reflux disease, unspecified whether esophagitis present Stable takes omeprazole (Prilosec) prn 11. Unspecified hypothyroidism Continue levothyroxine (Synthroid) most recent tsh 1.96 in care everywhere 12. History of breast cancer First diagnosed in 2006. Has reoccurred 2 times most recent in 2020. Had XRT no chemo. S/p bilateral mastectomy 13. Former smoker Quit 1985 1 ppd x 20 years 14. History of lung surgery In 2013 had right upper lobe and middle lobe resection due to aspergillus infection . No reoccurrences. Denies chest pain, palpations, cough, SOB, wheezing, orthopnea. Pulse ox 99% today on exam. Lungs CTAB METS: Housework Do moderate work around the house such as vacuuming, sweeping floors, or carrying in groceries (3.50 METs) Climb a flight of stairs or walk up a hill (5.50 METs) Patient denies any chest pain or undue shortness of breath with the above physical activity. ASA Class: 3 ANESTHESIA FINDINGS: Intubation History: No history of difficult intubation Significant Anesthesia Considerations: Has chronic neuropathy bilateral feet to mid calves. Denies problems with spinal anesthesia in the past. Airway Exam: General: Normal appearance Mallampati Score is CLASS III ULBT: Class II - Lower incisors can bite the upper lip below the eduardo line Neck: Distance from hyoid to mentum during neck extension is at least 3 finger breaths, Limited movement extension Mouth: Normal tongue size and Mouth opening greater than 2 finger breaths Dentition: Partial lower Airway History: No history of difficult intubation STOP BANG Score: AD uses CPAP/BiPAP PLAN This patient is optimally prepared for surgery. CONSULTS: Patient does not require consults for optimization at this time. The Following Tests/Procedures Have Been Initiated: No orders of the defined types were placed in this encounter. Planned Anesthetic: Per anesthesia choice Instructions Given to Patient: Instructions located in the after visit summary. Patient given verbal and written preop instructions and voices comprehension and compliance. SIGNATURE: Josie Gill PA-C PATIENT NAME: Magi Dao DATE: 01/06/2023 TIME: 10:53 AM documented in this encounter [facility] 01-05-2023 Instructions Josie Gill PA-C - 01/05/2023 10:34 AM EDT PATIENT PREOPERATIVE INSTRUCTIONS Marlee Salazar MD has scheduled you for your procedure at this surgery center: [facility]: [phone] --[address] [place] [address]. Please read below carefully for your personalized instructions. Arrival Time for Surgery: - The Surgery Center or hospital where you are having surgery will call the afternoon before surgery (or Thursday for Thursday surgery) with a scheduled arrival time. - If you have not heard by 4 pm, please contact the surgery center above. Please be aware that emergency situations arise, which may delay or change your surgical time. If this happens, we will notify you as soon as possible and regret any inconvenience. Dietary Restrictions: - No solid food after midnight. - You may have 12 ounces of clear liquids (water, clear juices such as apple juice or gatorade, carbonated beverages, clear tea, black coffee, jello) until 2 hours before scheduled arrival at facility. Medications: Unless instructed differently below, stay on all of your medications until your surgery. Approved medications to take the morning of surgery with a sip of water: alprazolam (Xanax), levothyroxine (Synthroid), omeprazole (Prilosec), acetaminophen (Tylenol) DO NOT TAKE YOUR lisinopril THE NIGHT BEFORE OR MORNING OF SURGERY Use your inhalers as prescribed If you start any new medications after today's visit, please contact the surgeon's office. Blood Thinning Medications: - Stop NSAIDS (Ibuprofen, Advil, Aleve, Motrin, Celebrex, Mobic, etc.) 7 days before surgery, as directed by your surgeon. - Stop Aspirin 7 days before surgery, as directed by your surgeon. - Stop Vitamin E, ALL multi-vitamins, herbals and dietary supplements 7 days before surgery. - You may take Tylenol (Acetaminophen) or any of your pain medications that do not contain aspirin or NSAIDS as needed. Important Reminders: - Use nasal ointment for 5 days before and day of surgery in both nostril 2 times per day. - If you use a CPAP/BiPAP machine, please bring it with you to surgery center on day of surgery - Candy, mints, and tobacco products are NOT permitted the morning of surgery. - Hearing aids, dentures and glasses may be worn the morning of surgery. - NO jewelry, body piercings, makeup, hairpins or contacts are to be worn the day of surgery. If you develop symptoms such as a fever, cold, or flu, or have other changes to your health within TWO DAYS of scheduled surgery or the morning of surgery, please contact the surgery center above. Personal Belongings: -Please have photo ID and insurance cards. -If you do not have a copy of advance directives on file with us, please bring a copy with you on the day of surgery. - Leave ALL valuables and money at home or with family members. For Outpatient Procedures: - YOU MUST HAVE A RESPONSIBLE ENGINEERING PROJECT MANAGER TAKE YOU HOME. A BOX STAPLER OR STRIP CATCHER CANNOT BE MADE A RESPONSIBLE ENGINEERING PROJECT MANAGER. - We recommend that a responsible person stays with you overnight to take care of you. - You cannot stay in a hotel alone after outpatient surgery. You will not be permitted to have your surgery, if you do not have someone to take care of you. If you already have an Advance Directive, please fax a copy to [phone] or email to for it to be added to your chart. If you do not have an Advance Directive, you can find the appropriate form and more information at [email or web address]. We recommend that you complete the Advance Directive form found on the website and bring it with you the day of your surgery. It can be witnessed and scanned into your chart that day. Josie Gill PA-C documented in this encounter [facility] 12-12-2022 Miscellaneous Notes This patient gave consent to this Medical Advice Message and is aware that it may result in a bill to their insurance, as well as the possibility of receiving a bill for a copay and/or deductible. They are an established patient, but are not seeking information exclusively about a problem treated during an in person or video visit in the last seven days. I did not recommend an in person or video visit within seven days of my reply. See the [employer] message reply for my assessment and plan. I spent a total of 10 minutes reviewing the patient's prior medical records and current request for medical advice, prescribing medications or ordering tests (if applicable), replying to the patient, and documenting the encounter. Dr. Hykes please see attached message per pt. Please review and advise. Thank you Iraida Campoverde RN documented in this encounter [facility] 12-08-2022 History of Presen t illness Narrative Patient referred to Blood Management for anemia evaluation/pre-surgical optimization. Current and complete lab data unavailable. Unable to complete evaluation. documented in this encounter [facility] 12-05-2022 Miscellaneous Notes Returned patient phone call with surgery questions. All questions answered. Stephanie VUONG RN documented in this encounter [facility] 11-20-2022 History of Presen t illness Narrative KNEE EXAM Date of Service:November 20, 2022 Patient Name: Magi Dao : 1945 Age: [age] year old Clinic Number: [id number] Chief Complaint: Left knee pain Referring MD: MARLEE SALAZAR [address] [place] [id number] SUBJECTIVE: Magi is a 77 year old female who is here today for 6 week follow up. Pain did lessen with brace and did notice that it kept her knee more stable. She did find the brace cumbersome. It would make her knee feel better however continued to fall down and she had a hard time wearing any type of clothing over it. OBJECTIVE: She is in no acute distress alert and x3. Her left lower extremity well-healed surgical incision. She has tenderness along the joint line and anteriorly over tubercle. She has full extension 125 degrees of flexion. Increased laxity to varus valgus stress throughout full arc of motion. X-RAYS/IMAGINING: None today ASSESSMENT: Instability left total knee arthroplasty, improved with hinged knee brace PLAN: Encounter Diagnosis ICD-10-CM 1. Pain due to total left knee replacement, initial encounter ([facility]) T84.84XA Z96.652 Edwin Etienne discussed the treatment of her instability of her total knee arthroplasty. Treatment options include continued conservative treatment with the brace, versus revision arthroplasty. Revision arthroplasty could consist of a polyethylene liner exchange versus revision of both components to a constrained implant. This would depend on intraoperative findings. It is an excellent prognostic sign that she received complete relief resolution of her symptoms by wearing the brace. She would like to proceed with revision arthroplasty. Informed consent was obtained today. Risks include the risk of fracture, wound healing problems, prosthetic joint infection, nerve injury, blood vessel artery tendon ligament injury, DVT PE, cardiac events, continued pain and even the need for more surgery. She elected to proceed with this. MARLEE SALAZAR MD documented in this encounter [facility] 10-17-2022 Instructions Vaibhav Ovalle MD - 10/17/2022 11:05 AM EST RTC in 4 months labs same day Include anemia labs Will need exam next visit documented in this encounter [facility] 10-17-2022 History of Presen t illness Narrative Images from the original note were not included. NAME: Magi Dao [facility] NO.: [id number] DATE OF SERVICE: October 17, 2022 (deb) Some elements in this clinic note that are critical to medical decision making have been carefully reviewed and included from a prior clinic note dated: April 18, 2022 (Carlene) Referring Provider: Additional Clinicians involved in Magi Dao's care: Dr. Marina Retana,Dr. Yajaira Gonzalez DIAGNOSIS: ASSESSMENT: 1. 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 LUIS. Initial diagnosis 2006 and subsequent recurrence in the scar in 2012. 2. 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 04/22/2021 status post right mastectomy for multifocal lobular carcinoma of 2 small lesions 6 and 2 mm respectively approximately 10 mm apart. Previously poor tolerance to endocrine therapy and patient is reluctant to consider. She is also reluctant to consider adjuvant therapy and therefore we will forego risk evaluation with Oncotype DX. Cancer Staging Malignant neoplasm of female breast (HCC) Staging form: BREAST CANCER - Clinical stage from 05/06/2021: Stage I (T1b(m), N0, M0) - Signed by Vaibhav Ovalle MD on 05/07/2021 Right breast US noted to have nodules consistent with fat necrosis. 3. 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 4. Mild anemia - stable. 5. Diarrhea - referral to GI, trial of Lomotil PLAN: RTC in 4 months labs same day Include anemia labs Will need exam next visit CURRENT TREATMENT: Observation HPI: CASE HISTORY: 11/2006 :diagnosed with left breast cancer in November of 2006 after discovering a lump on self examination. :on November 17, 2006 she had core biopsy which noted a small focus of infiltrating carcinoma, favor ductal type, nuclear grade 2. :Stereotactic biopsy dated 11/26/06 noted DCIS, path report notes that early microinvasion could not be excluded. 12/2006 :Completes left mastectomy,sentinel node biopsy, axillary lymph node dissection. Path notes DCIS, intermediate grade and no evidence of axillary lymph node involvement :she was seen by Dr. Ness and recommendation was to pursue adjuvant therapy with anastrazole for a stage 1, ER/SC (+), breast cancer. 06/2011 :she had an exam by her credit and collections analyst which noted a tender lump on examination of her right breast. Ultrasound evaluation was negative and she continued in surveillance. 12/2011 :She completed 5 years of adjuvant anastrazole 09/2012 :she had a right upper and middle lobe resection for what would be discovered to be aspergillosis. 05/2013 :she noticed a lump in her left chest along her incision. A 1 x 1 X 0.8 cn lesion was noted in the subcutaneous soft tissue. 06/10/13 :Completes excisional biopsy which noted metastatic ducta carcinoma. Tumor was ER/SC positive, HER2 was negative. 08/2013 :She had repeat excision by Dr. Whitmore and this was negative for residual disease. 11/2013 :completes adjuvant radiation :starts adjuvant anastrazole, then switches to leterozole 02/2016 :switches to tamoxifen 02/2018 : stops tamoxifen as she feels it is aggravating dyspnea 01/17/2021 :Mammogram right upper breast 4mm new 02/28/2021 :Rt breast bx. - inv. Lobular, ER/SC+, HER@ FISH (-) 04/22/2021 :Right mastectomy, multifocal lobular carcinoma -6 & 2 mm -10mm apart. declined endocrine therapy 03/27/2022 :Rt Breast US - Oil cyst Updated Visit, October 17, 2022: Saw Dr. Coppola and was diagnosed with endocrine pancreatic insufficiency. Diarrhea is resolved with Creon. CBC reflects mild anemia that is macrocytic and may be associated with malabsorption that I suspect she has given her recent dx of EPI. Knee is still troubling her because her knee implant is causing issues. See Ortho. No new breast concerns - right axilla chronically tender and right sided pace-maker is also in the way. Provents her from wearing breast prosthesis. Updated Visit, July 18, 2022: Complaints of constant diarrhea - thought it was due to wellbutrin - still has it now that she is off. Frustrated and feels depressed and week. Is scheduled to see GI. Also is having knee issues. Bone scan negative. Exam unchanged. Updated Visit, April 18, 2022: 03/27/2022 US right breast - shows an oil cyst Still has knee pain - wasn't able to pursue acupuncture - undergoing PT now and has some improvement. Labs indicate mild anemia is stable but improved compared to 2020. Has been battling with major depression for many years and is dealing with this currently. She is under medical care. Recent exam with Dr. Retana. Updated Visit, December 13, 2021: US confirmed benign findings of concerning nodules and will have additional US 6 months apart. Neuropathy continues to be the biggest issue. Chaperoned exam is unchanged. Remains off endocrine therapy. I take care of several of her friends and her sister Natacha Ni. Updated Visit, September 20, 2021: Neuropathy better with Lyrica US negative but additional one was recommended And on my chaperoned exam she clearly has a small hard nodule in the right axilla just above the scar. Now has a small One more medially. Updated Visit, July 22, 2021: Magi Dao is here today for an urgent visit. Approximately 2 weeks ago she noticed a lump near her right axilla surgical incision/scar. She reports that she found it while bathing. She states that this is the same kind of lump that she had discovered when she had her left chest wall recurrence. She remains in physical therapy for right shoulder and right arm pain which she states is caused from the mastectomy. Her physical therapist also did an examination of her right axilla and states that the PT found two lumps. Otherwise, the patient denies any other palpable lumps or bumps. She denies any unusual pain. She denies cough, shortness of breath and other pulmonary issues. She is eating well. She states that in the past she had had a hard time with aromatase inhibitors due to side effects. She is scheduled for her wellness examination today. She will discuss with her PCP the skin lesion on her back that intermittently bleeds. Updated Visit, June 21, 2021: Magi is doing well and is going to do PT. She only has issues with post surgical pain in right lateral chest. She is having chronic left knee pain and will seek an opinion from ortho. Labs reviewed and anemia is improving. Updated Visit, May 06, 2021: Finished COVID quarantine on 04/12/2021 and is still fatigued. Surgery was delayed until the 04/22/2021. She returns today post mastectomy and reports being quite fatigue but this is most likely due to recent surgery as well as recovery from Covid. She was quite anxious about considering adjuvant therapy with antiestrogens because she was not able to take tamoxifen or Arimidex due to neuropathy and severe pain. She is not interested in pursuing chemotherapy and despite multifocal disease, I feel there is little value in considering adjuvant chemotherapy therefore, I will forego request for Oncotype DX risk analysis. Hg improving post-op. Her Emmanuel Addison accompanies her today. Updated Visit, January 24, 2021: Magi is 76 years old and returns with a history of left breast mastectomy for DCIS with possible early microinvasion diagnosed in November 2006. She had underwent adjuvant endocrine therapy with anastrozole for stage I ER/SC positive breast cancer. She had a recurrence in 2012 when she noticed a lump in the left chest along her incision site. 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 Tumor remain ER/SC positive HER-2/christiano negative. She then underwent adjuvant radiation therapy in 2013 and was started on Aromasin then switched to letrozole and in 2015 switched to tamoxifen. She electively stopped tamoxifen in 2018 due to progressive dyspnea. She additionally has had a right upper and middle lobe resection for enlarging mass that was found to be consistent with aspergillosis in September 2012. She presents today in follow-up and is doing well. She completed her mammogram last week and will need further work-up for what appears to be a 4 mm mass in the upper right breast. 01/17/2021 Mammogram at [facility]: FINDINGS: The breasts are heterogeneously dense, which may obscure small masses. New small mass measuring 4 mm suspected within the slightly upper right breast at mid depth. Computer-aided detection was used in the interpretation of this examination. IMPRESSION: BIRADS 0 - Incomplete, Needs Further Imaging. New small mass measuring 4 mm suspected within the slightly upper right breast at mid depth. A diagnostic study is recommended to include spot compression CC/MLO tomosynthesis and ultrasound. OVERALL ASSESSMENT- INCOMPLETE. Updated Visit, July 27, 2020: 04/17/2020 Rosie Knee had a terrible time recovering - had C-diff Still recovering and is eating a little but has lost a great deal of weight. She's concerned that her weight loss could be cancer associated - it doesn't appear that that is the case Revisit in 3 months to make sure she is recovering Is seeing Glory who has described diverticulosis. Updated Visit, January 27, 2020: Magi Dao is a 75 year old female who presents in follow up to review right sided mammogram which is negative. She also has had Right upper and mid lung lobectomy for PET positive lung findings. After resection turned out to consistent with Aspergillosis. Now gets a little winded but functions well. Breast cancer recurred in the chest wall soon after that. Has a pacemaker - cannot do MRI, having left knee pain - previously had a donor knee replacement 2003 for a benign growth. She is seeing Ortho soon. REVIEW OF SYSTEMS Per HPI and otherwise negative by full review of organ systems. ECOG PERFORMANCE STATUS: 0 PHYSICAL EXAMINATION: Vitals: BP 144/69 Pulse 80 Temp (Src) 97.3 (Temporal) Resp 16 Ht 5' 2.008 (1.58m) Wt 143 lb 3.2 oz (65.0kg) SpO2 99% BMI 26.18 kg/(m^2). Body surface area is 1.69 meters squared. Exam limited to gross visualization where appropriate due to COVID-19. Gen.: This is an age-appropriate patient in no acute distress. Head: Appears atraumatic with no visible lesions. Eyes: Pupils equally round and reactive to light, extraocular muscles are intact. Neck: Supple. Mouth: Mucous membranes appeared to be moist. Respiratory: Appears to be respiring comfortably. Neurologic: Nonfocal to gross visualization. Alert and oriented 3. Psychiatric: No evidence of inappropriate anxiety or depression. Skin: Visible areas of skin without rash, lesions, wounds or petechiae. ALLERGIES: ALLERGIES Allergen Reactions Aspirin Anaphylaxis Avelox [Moxifloxaci* Other: See Comments increases neuropathy, light headed, chest tightness Ciprofloxacin Other: See Comments increases neuropathy, lightheadedness, chest tightness Other reaction(s): Unknown Reaction Clonidine Mental Status Change Nervous Codeine Light-headedness, cold sweat Cymbalta [Duloxetin* Other: See Comments increases neuropathy,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 [facility]* Diagnosis Screening for colorectal cancer Special screening for malignant neoplasms, colon documented in this encounter [facility] [place] [facility]* Diagnosis Pain due to total left knee replacement, initial encounter ([facility])- Primary Status post total left knee replacement documented in this encounter [facility] [place] [facility]* Diagnosis Pain Generalized pain documented in this [facility] [place] [facility]* Diagnosis Preop examination- Primary Preoperative examination, unspecified Malignant neoplasm of right female breast, unspecified estrogen receptor status, unspecified site of breast (HCC) Migraine without aura and without status migrainosus, not intractable Migraine without aura, without mention of intractable migraine without mention of status migrainosus Cardiac pacemaker in situ 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 Personal history of infectious disease Personal history of unspecified infectious and parasitic disease Coronary artery disease involving [place] heart without angina pectoris, unspecified vessel or lesion type Sick sinus syndrome (HCC) Sinoatrial node dysfunction Obstructive sleep apnea Obstructive sleep apnea (adult) (pediatric) Mild intermittent asthma without complication Unspecified asthma Gastroesophageal reflux disease, unspecified whether esophagitis present Unspecified hypothyroidism Anxiety Anxiety state, unspecified Primary hypertension Unspecified essential hypertension Status post total left knee replacement Chronic pain of left knee Pain in joint, lower leg Anemia, unspecified type [facility] Diagnosis Preop examination- Primary Preoperative examination, unspecified Malignant neoplasm of right female breast, unspecified estrogen receptor status, unspecified site of breast (HCC) Migraine without aura and without status migrainosus, not intractable Migraine without aura, without mention of intractable migraine without mention of status migrainosus Cardiac pacemaker in situ 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 Personal history of infectious disease Personal history of unspecified infectious and parasitic disease Coronary artery disease involving [place] heart without angina pectoris, unspecified vessel or lesion type Sick sinus syndrome (HCC) Sinoatrial node dysfunction Obstructive sleep apnea Obstructive sleep apnea (adult) (pediatric) Mild intermittent asthma without complication Unspecified asthma Gastroesophageal reflux disease, unspecified whether esophagitis present Unspecified hypothyroidism Anxiety Anxiety state, unspecified Primary hypertension Unspecified essential hypertension Status post total left knee replacement Chronic pain of left knee Pain in joint, lower leg Anemia, unspecified type Right hip pain Pain in joint, pelvic region and thigh [facility]ructionsNot on filedocumented in this encounterAC[facility] SystemReason for referral (narrative)* Diagnostic Procedure Only (Routine) - Pending Review Specialty Diagnoses / Procedures Referred By Melba madden Referred To Contact XR IMAGING Diagnoses Pain Procedures XR PELVIS 1V AP RADIOLOGIC EXAMINATION PELVIS 1/2 VIEWS Amada Baltazar PA-C [address] [place] [address] Xr Imaging Referral ID Status Reason Start Date Expiration Date Visits Requested Visits Authorized [id number] Pending Review Auto-Generat ed Referral 02/18/2022 03/19/2023 1 1 * Diagnostic Procedure Only (Routine) - Authorized Specialty Diagnoses / Procedures Referred By Contac t Referred To Contact XR IMAGING Diagnoses Pain Procedures XR KNEE GENERAL 4V AP BOTH/PA BOTH/LAT/MERC LEFT RADIOLOGIC EXAM KNEE COMPLETE 4/MORE VIEWS Amada Baltazar PA-C [address] [place] [address] Xr Imaging Referral ID Status Reason Start Date Expiration Date Visits Requested Visits Authorized [id number] Authorized Auto-Generat ed Referral 02/17/2022 03/19/2023 1 1 [facility] for referral (narrative)* Diagnostic Procedure Only (Routine) - Closed Specialty Diagnoses / Procedures Referred By Contac t Referred To Contact XR IMAGING Diagnoses Pain Procedures XR KNEE GENERAL 4V AP BOTH/PA BOTH/LAT/MERC LEFT RADIOLOGIC EXAM KNEE COMPLETE 4/MORE VIEWS Amada Baltazar PA-C [address] [place] [address] Xr Imaging Referral ID Status Reason Start Date Expiration Date V isits Requested Visits Authorized [id number] Closed Auto-Generate d Referral 02/17/2022 03/19/2023 1 1 T [facility] for referral (narrative)* Diagnostic Procedure Only (Routine) - Closed Specialty Diagnoses / Procedures Referred By Contac t Referred To Contact [facility] IMAGING Diagnoses Lump of axillary tail of right breast Procedures US BREAST LTD RT US BREAST UNI REAL TIME WITH IMAGE LIMITED Winston Wellington PA-C [address] [place] [address] [facility] [address] [place] [address] Referral ID Status Reason Start Date Expiration Date V isits Requested Visits Authorized [id number] Closed Auto-Generate d Referral 09/27/2021 10/27/2022 1 1 [facility] for referral (narrative)* Diagnostic Procedure Only (Routine) - Pending Review Specialty Diagnoses / Procedures Referred By Contac t Referred To Contact XR IMAGING Diagnoses Chronic knee pain after total replacement of left knee joint Procedures XR KNEE POST OP 3V AP/LAT/MERCHANT LEFT RADIOLOGIC EXAMINATION KNEE 3 [place] [address] [place] [address] Xr Imaging Referral ID Status Reason Start Date Expiration Date Visits Requested Visits Authorized [id number] Pending Review Auto-Generat ed Referral 09/16/2022 10/15/2023 1 1 [facility] for referral (narrative)* Diagnostic Procedure Only (Routine) - Closed Specialty Diagnoses / Procedures Referred By Melba madden Referred To Contact XR IMAGING Diagnoses Chronic knee pain after total replacement of left knee joint Procedures XR KNEE POST OP 3V AP/LAT/MERCHANT LEFT RADIOLOGIC EXAMINATION KNEE 3 [place] [address] [place] [id number] Xr Imaging Referral ID Status Reason Start Date Expiration Date V isits Requested Visits Authorized [id number] Closed Auto-Generate d Referral 09/16/2022 10/15/2023 1 1 [facility] for referral (narrative)* Outpatient Procedure (Routine) - Authorized Specialty Diagnoses / Procedures Referred By Contac t Referred To Contact [facility] Diagnoses Screening for colorectal cancer Procedures COLONOSCOPY SCREENING COLONOSCOPY FLX DX W/COLLJ SPEC WHEN Gabriel Perrin Jr., DO [address] [place] [address] [facility] [address] [place] [address] Referral ID Status Reason Start Date Expiration Date Visits Requested Visits Authorized [id number] Authorized Auto-Generat ed Referral 01/29/2024 01/28/2025 1 1 [facility] for referral (narrative)* Diagnostic Procedure Only (Routine) - Pending Review Specialty Diagnoses / Procedures Referred By Contac t Referred To Contact [facility] IMAG[facility] Diagnoses Cancer of breast, intraductal, left H/O left mastectomy Lump in chest Procedures US BREAST LTD LEFT US BREAST UNI REAL TIME WITH IMAGE LIMITED Vaibhav Ovalle MD [address] [place] [address] [address], [place] [address] [facility] [address] [place] [address] Referral ID Status Reason Start Date Expiration Date Visits Requested Visits Authorized [id number] Pending Review Auto-Generat ed Referral 02/09/2024 03/10/2025 1 1 [facility] for referral (narrative)* Outpatient Procedure (Routine) - Closed Specialty Diagnoses / Procedures Referred By Contac t Referred To Contact [facility] Diagnoses Screening for colorectal cancer Procedures COLONOSCOPY SCREENING COLONOSCOPY FLX DX W/COLLJ SPEC WHEN PFD Gabriel Coppola Jr., DO [address] [place] [address] [facility] [address] [place] [address] Referral ID Status Reason Start Date Expiration Date V isits Requested Visits Authorized [id number] Closed Auto-Generate d Referral 01/29/2024 01/28/2025 1 1 [facility] for referral (narrative)* Diagnostic Procedure Only (Routine) - Closed Specialty Diagnoses / Procedures Referred By Contac t Referred To Contact XR IMAGING Diagnoses Pain Procedures XR KNEE GENERAL 4V AP BOTH/PA BOTH/LAT/MERC LEFT RADIOLOGIC EXAM KNEE COMPLETE 4/[place] [address] [place] [address] [place] [address] Referral ID Status Reason Start Date Expiration Date V isits Requested Visits Authorized [id number] Closed Auto-Generate d Referral 03/15/2024 04/14/2025 1 1 [facility] for referral (narrative)* Diagnostic Procedure Only (Routine) - Closed Specialty Diagnoses / Procedures Referred By Contac t Referred To Contact XR IMAGING Diagnoses Status post total left knee replacement Chronic pain of left knee Anemia, unspecified type Procedures XR KNEE POST OP 3V AP/LAT/MERCHANT LEFT RADIOLOGIC EXAMINATION KNEE 3 VIEWS Reddy Michael PA-C [address] [place] [address] [place] [address] Referral ID Status Reason Start Date Expiration Date V isits Requested Visits Authorized [id number] Closed Auto-Generate d Referral 12/01/2022 12/31/2023 1 1 [facility] for referral (narrative)* Diagnostic Procedure Only (Routine) - Closed Specialty Diagnoses / Procedures Referred By Contac t Referred To Contact XR IMAGING Diagnoses Right hip pain Procedures XR HIP GENERAL 3V PELV/AP/LAT RIGHT RADEX HIP UNILATERAL WITH PELVIS 2-3 VIEWS Reddy Michael PA-C [address] [place] [address] [place] [address] Referral ID Status Reason Start Date Expiration Date V isits Requested Visits Authorized [id number] Closed Auto-Generate d Referral 02/13/2023 03/13/2024 1 1 * Diagnostic Procedure Only (Routine) - Closed Specialty Diagnoses / Procedures Referred By Contac t Referred To Contact XR IMAGING Diagnoses Status post total left knee replacement Chronic pain of left knee Anemia, unspecified type Procedures XR KNEE POST OP 3V AP/LAT/MERCHANT LEFT RADIOLOGIC EXAMINATION KNEE 3 VIEWS Reddy Michael PA-C [address] [place] [address] [place] [address] Referral ID Status Reason Start Date Expiration Date V isits Requested Visits Authorized [id number] Closed Auto-Generate d Referral 12/01/2022 12/31/2023 1 1 [facility] for visit Narrative* Diagnostic Procedure Only (Routine) - Closed Specialty Diagnoses / Procedures Referred By Contac t Referred To Contact MOLECULAR & FUNCTIONAL IMAGING Diagnoses Pain due to internal orthopedic prosthetic devices, implants and grafts, initial encounter (HCC) Procedures NM BONE 3 PHASE BONE &/JOINT IMAGING 3 PHASE STUDY Amada Baltazar PA-C [address] [place] [address] Molecular & Functional Imaging [address] [place] [address] Referral ID Status Reason Start Date Expiration Date V isits Requested Visits Authorized [id number] Closed Auto-Generate d Referral 05/29/2022 06/28/2023 1 1 [facility] for visit Narrative* Outpatient Procedure (Routine) - Closed Specialty Diagnoses / Procedures Referred By Contac t Referred To Contact [facility] Diagnoses Screening for colorectal cancer Procedures COLONOSCOPY SCREENING COLONOSCOPY FLX DX W/COLLJ SPEC WHEN PFRMD Gabriel Coppola Jr., DO [address] [place] [address] [facility] [address] [place] [address] Referral ID Status Reason Start Date Expiration Date V isits Requested Visits Authorized [id number] Closed Auto-Generate d Referral 01/29/2024 01/28/2025 1 1 [facility] for visit Narrative* Diagnostic Procedure Only (Routine) - Closed Specialty Diagnoses / Procedures Referred By Contac t Referred To Contact XR IMAGING Diagnoses Pain Procedures XR KNEE GENERAL 4V AP BOTH/PA BOTH/LAT/MERC LEFT RADIOLOGIC EXAM KNEE COMPLETE 4/[place] [address] [place] [address] Xr Imaging [facility] Referral ID Status Reason Start Date Expiration Date V isits Requested Visits Authorized [id number] Closed Auto-Generate d Referral 03/15/2024 04/14/2025 1 1 [facility] for visit Narrative* Diagnostic Procedure Only (Routine) - Closed Specialty Diagnoses / Procedures Referred By Contac t Referred To Contact XR IMAGING Diagnoses Status post total left knee replacement Chronic pain of left knee Anemia, unspecified type Procedures XR KNEE POST OP 3V AP/LAT/MERCHANT LEFT RADIOLOGIC EXAMINATION KNEE 3 VIEWS Reddy Michael PA-C [address] [facility] [place] [address] [place] [address] Referral ID Status Reason Start Date Expiration Date V isits Requested Visits Authorized [id number] Closed Auto-Generate d Referral 12/01/2022 12/31/2023 1 1 [facility] Summary Purpose Family History No Family History Records Found Relationship Condition Age at Onset Recorded Date/T ellie father Cerebrovascular accident (CVA) Unknown Heart disease Unknown Hypertension Unknown grandparent Malignant neoplasm of prostate Unknown grandparent Heart disease Unknown brother Alcoholism Unknown brother Malignant neoplasm of lung Unknown Advance Directives No Advanced Directives Records Found Advance Directive Response Recorded Date/ Time Advance Directives No September 28, 2019 5:22pm Documents on File Type Date Recorded Patient Mobile Manager Expl anation Advance Directive(s) Advance Directive(s) 04/22/2021 7:54 AM Sc anned in on 04/22/21 Advance Directive(s) 04/22/2021 7:49 AM Advance Directive(s) 04/18/2021 9:09 AM Av on Advance Directive(s) 03/13/2021 8:33 AM Documents on File Type Date Recorded Patient Mobile Manager Expl anation Advance Directive(s) Advance Directive(s) 04/22/2021 7:54 AM Sc anned in on 04/22/21 Advance Directive(s) 04/22/2021 7:49 AM Advance Directive(s) 04/18/2021 9:09 AM Av on Advance Directive(s) 03/13/2021 8:33 AM Documents on File Type Date Recorded Patient Mobile Manager Expl anation Advance Directive(s) 04/22/2021 7:49 AM Documents on File Type Date Recorded Patient Mobile Manager Expl anation Advance Directive(s) 04/22/2021 7:49 AM Documents on File Type Date Recorded Patient Mobile Manager Expl anation Durable Power of Telemarketing Fundraiser 04/17/2020 7:10 AM Healthcare POA Latest Code Status on File Code Status Date Activated Date Inactivated Comments Full Code 04/17/2020 8:08 AM 04/18/2020 6:13 PM Chief Complaint and Reason for Visit Chief Complaint M25.562 Chief Complaint M25.562 Knee Pain Chief Complaint M25.562 Knee Pain g89.29 m51.36 m25.562 Reason for Referral Specialty Diagnoses / Procedures Referred By Contac t Referred To Contact Diagnoses Chemotherapy-induced neuropathy (HCC) Procedures CONSULT FOR ACUPUNCTURE OFFICE/OUTPATIENT [facility] 60-74 MINUTES Vaibhav Ovalle MD [address] [place] [address] [address], [place] [address] Referral ID Status Reason Start Date Expiration Date Visits Requested Visits Authorized [id number] Pending Review PCP Requested Referral 12/13/2021 12/13/2022 1 1 Specialty Diagnoses / Procedures Referred By Contac t Referred To Contact Gastroenterology Diagnoses Diarrhea, unspecified type Procedures CONSULT TO GASTROENTEROLOGY OFFICE/OUTPATIENT [facility] 60-74 MINUTES Vaibhav Ovalle MD [address] [place] [address] [address], [place] [address] Referral ID Status Reason Start Date Expiration Date Visits Requested Visits Authorized [id number] Authorized PCP Requested Referral 2 07/18/2023 1 1 Specialty Diagnoses / Procedures Referred By Contac t Referred To Contact [facility] Diagnoses Total knee replacement status, left Status post revision of total replacement of left knee Procedures CONSULT TO PHYSICAL THERAPY PHYSICAL THERAPY EVALUATION HIGH COMPLEX 45 MINS Reddy Michael PA-C [address] [place] [address] [facility] [address] [place] [id number] Referral ID Status Reason Start Date Expiration Date Visits Requested Visits Authorized [id number] Authorized PCP Requested Referral Auto-Generate d Referral 02/09/2023 02/09/2024 99 99 Specialty Diagnoses / Procedures Referred By Contac t Referred To Contact MR IMAGING Diagnoses Thunderclap headache Procedures MRI BRAIN WO/W IVCON MRI BRAIN BRAIN STEM W/O W/CONTRAST MATERIAL Vaibhav Ovalle MD [facility] [address] [address] [place] [address] Referral ID Status Reason Start Date Expiration Date Visits Requested Visits Authorized [id number] Pending Review Auto-Generat ed Referral 05/29/2023 06/27/2024 1 1 Medications Administered Section Inactive Administered Medications - up to 3 most recent administrations Medication Order MAR Action Action Date Dose Rate Site acetaminophen 650 mg tab(s) (TYLENOL) 650 mg, ORAL, ONCE, 1 dose, On Thu03/04/23 at 1330, Give 30 minutes prior to infusion. No more than 4000 mg of acetaminophen should be given per day (FROM ALL SOURCES), If ordered PRN for pain, patient/guardian may elect to receive this medication for higher pain levels INSTEAD of the opioid, if preferred: N/A Given 03/04/2023 1:34 PM EDT 650 mg diphenhydrAMINE 50 mg (BENADRYL) 50 mg, ORAL, ONCE, 1 dose, On Thu03/04/23 at 1330, Give 30 minutes prior to infusion. Given 03/04/2023 1:34 PM EDT 50 mg ferric derisomaltose 1,000 mg in NaCl 0.9% 100 mL (MONOFERRIC) 1,000 mg (set by rule on 02/26/2023 9:02 AM), INTRAVENOUS, Administer over 45 Minutes, ONCE, 1 dose, On Thu03/04/23 at 1330, Monitor patient for hypersensitivity reactions during the infusion and for 30 minutes after infusion is complete. EXP: 03/04/231999 Approx Total Volume= EXP: (8 HR) New Bag/Syringe/Bottle 03/04/2023 2:17 PM EDT 1,000 mg Additional Source Comments INFORMATION SOURCE (unrecogn ized section and content) DATE CREATED AUTHOR 10/11/2018 [facility] DATE CREATED AUTHOR AUTHOR'S ORGANIZ ATION 05/16/2021 [facility] DATE CREATED AUTHOR AUTHOR'S ORGANIZ ATION 10/22/2021 [facility] DATE CREATED AUTHOR AUTHOR'S ORGANIZ ATION 05/14/2022 [facility] dical Specialist DATE CREATED AUTHOR AUTHOR'S ORGANIZ ATION 03/10/2023 [facility] DATE CREATED AUTHOR AUTHOR'S ORGANIZ ATION 09/17/2023 [facility] DATE CREATED AUTHOR AUTHOR'S ORGANIZ ATION 04/05/2024 [facility] DATE CREATED AUTHOR AUTHOR'S ORGANIZ ATION 04/17/2024 [facility] DATE CREATED AUTHOR AUTHOR'S ORGANIZ ATION 05/25/2024 [facility] DATE CREATED AUTHOR AUTHOR'S ORGANIZ ATION 05/29/2024 [facility] DATE CREATED AUTHOR AUTHOR'S ORGANIZ ATION 06/04/2024 [facility] dical Specialists [facility] DATE CREATED AUTHOR AUTHOR'S ORGANIZ ATION 06/06/2024 [facility] Goals (unrecognized section and content) Goals may be documented in a n alternate sectionGoals may be documented in an alternate sectionGoals may be documented in an alternate section No data available for this section Source Comments (unrecognize d section and content) In the event this informatio n is protected by the Federal Confidentiality of Alcohol and Drug Abuse Patient Records regulations: The Federal rules restrict any use of the information to criminally investigate or prosecute any alcohol or drug abuse patient.[facility] the event this information is protected by the Federal Confidentiality of Alcohol and Drug Abuse Patient Records regulations: The Federal rules restrict any use of the information to criminally investigate or prosecute any alcohol or drug abuse patient.[facility] the event this information is protected by the Federal Confidentiality of Alcohol and Drug Abuse Patient Records regulations: The Federal rules restrict any use of the information to criminally investigate or prosecute any alcohol or drug abuse patient.[facility] the event this information is protected by the Federal Confidentiality of Alcohol and Drug Abuse Patient Records regulations: The Federal rules restrict any use of the information to criminally investigate or prosecute any alcohol or drug abuse patient.[facility] the event this information is protected by the Federal Confidentiality of Alcohol and Drug Abuse Patient Records regulations: The Federal rules restrict any use of the information to criminally investigate or prosecute any alcohol or drug abuse patient.[facility] the event this information is protected by the Federal Confidentiality of Alcohol and Drug Abuse Patient Records regulations: The Federal rules restrict any use of the information to criminally investigate or prosecute any alcohol or drug abuse patient.[facility] the event this information is protected by the Federal Confidentiality of Alcohol and Drug Abuse Patient Records regulations: The Federal rules restrict any use of the information to criminally investigate or prosecute any alcohol or drug abuse patient.[facility] the event this information is protected by the Federal Confidentiality of Alcohol and Drug Abuse Patient Records regulations: The Federal rules restrict any use of the information to criminally investigate or prosecute any alcohol or drug abuse patient.[facility] the event this information is protected by the Federal Confidentiality of Alcohol and Drug Abuse Patient Records regulations: The Federal rules restrict any use of the information to criminally investigate or prosecute any alcohol or drug abuse patient.[facility] the event this information is protected by the Federal Confidentiality of Alcohol and Drug Abuse Patient Records regulations: The Federal rules restrict any use of the information to criminally investigate or prosecute any alcohol or drug abuse patient.[facility] the event this information is protected by the Federal Confidentiality of Alcohol and Drug Abuse Patient Records regulations: The Federal rules restrict any use of the information to criminally investigate or prosecute any alcohol or drug abuse patient.[facility] the event this information is protected by the Federal Confidentiality of Alcohol and Drug Abuse Patient Records regulations: The Federal rules restrict any use of the information to criminally investigate or prosecute any alcohol or drug abuse patient.[facility] the event this information is protected by the Federal Confidentiality of Alcohol and Drug Abuse Patient Records regulations: The Federal rules restrict any use of the information to criminally investigate or prosecute any alcohol or drug abuse patient.[facility] the event this information is protected by the Federal Confidentiality of Alcohol and Drug Abuse Patient Records regulations: The Federal rules restrict any use of the information to criminally investigate or prosecute any alcohol or drug abuse patient.[facility] the event this information is protected by the Federal Confidentiality of Alcohol and Drug Abuse Patient Records regulations: The Federal rules restrict any use of the information to criminally investigate or prosecute any alcohol or drug abuse patient.[facility] the event this information is protected by the Federal Confidentiality of Alcohol and Drug Abuse Patient Records regulations: The Federal rules restrict any use of the information to criminally investigate or prosecute any alcohol or drug abuse patient.[facility] the event this information is protected by the Federal Confidentiality of Alcohol and Drug Abuse Patient Records regulations: The Federal rules restrict any use of the information to criminally investigate or prosecute any alcohol or drug abuse patient.[facility] the event this information is protected by the Federal Confidentiality of Alcohol and Drug Abuse Patient Records regulations: The Federal rules restrict any use of the information to criminally investigate or prosecute any alcohol or drug abuse patient.[facility] the event this information is protected by the Federal Confidentiality of Alcohol and Drug Abuse Patient Records regulations: The Federal rules restrict any use of the information to criminally investigate or prosecute any alcohol or drug abuse patient.[facility] the event this information is protected by the Federal Confidentiality of Alcohol and Drug Abuse Patient Records regulations: The Federal rules restrict any use of the information to criminally investigate or prosecute any alcohol or drug abuse patient.[facility] the event this information is protected by the Federal Confidentiality of Alcohol and Drug Abuse Patient Records regulations: The Federal rules restrict any use of the information to criminally investigate or prosecute any alcohol or drug abuse patient.[facility] the event this information is protected by the Federal Confidentiality of Alcohol and Drug Abuse Patient Records regulations: The Federal rules restrict any use of the information to criminally investigate or prosecute any alcohol or drug abuse patient.[facility] the event this information is protected by the Federal Confidentiality of Alcohol and Drug Abuse Patient Records regulations: The Federal rules restrict any use of the information to criminally investigate or prosecute any alcohol or drug abuse patient.[facility] the event this information is protected by the Federal Confidentiality of Alcohol and Drug Abuse Patient Records regulations: The Federal rules restrict any use of the information to criminally investigate or prosecute any alcohol or drug abuse patient.[facility] the event this information is protected by the Federal Confidentiality of Alcohol and Drug Abuse Patient Records regulations: The Federal rules restrict any use of the information to criminally investigate or prosecute any alcohol or drug abuse patient.[facility] the event this information is protected by the Federal Confidentiality of Alcohol and Drug Abuse Patient Records regulations: The Federal rules restrict any use of the information to criminally investigate or prosecute any alcohol or drug abuse patient.[facility] the event this information is protected by the Federal Confidentiality of Alcohol and Drug Abuse Patient Records regulations: The Federal rules restrict any use of the information to criminally investigate or prosecute any alcohol or drug abuse patient.[facility] the event this information is protected by the Federal Confidentiality of Alcohol and Drug Abuse Patient Records regulations: The Federal rules restrict any use of the information to criminally investigate or prosecute any alcohol or drug abuse patient.[facility] the event this information is protected by the Federal Confidentiality of Alcohol and Drug Abuse Patient Records regulations: The Federal rules restrict any use of the information to criminally investigate or prosecute any alcohol or drug abuse patient.[facility] the event this information is protected by the Federal Confidentiality of Alcohol and Drug Abuse Patient Records regulations: The Federal rules restrict any use of the information to criminally investigate or prosecute any alcohol or drug abuse patient.[facility] the event this information is protected by the Federal Confidentiality of Alcohol and Drug Abuse Patient Records regulations: The Federal rules restrict any use of the information to criminally investigate or prosecute any alcohol or drug abuse patient.[facility] the event this information is protected by the Federal Confidentiality of Alcohol and Drug Abuse Patient Records regulations: The Federal rules restrict any use of the information to criminally investigate or prosecute any alcohol or drug abuse patient.[facility] the event this information is protected by the Federal Confidentiality of Alcohol and Drug Abuse Patient Records regulations: The Federal rules restrict any use of the information to criminally investigate or prosecute any alcohol or drug abuse patient.[facility] the event this information is protected by the Federal Confidentiality of Alcohol and Drug Abuse Patient Records regulations: The Federal rules restrict any use of the information to criminally investigate or prosecute any alcohol or drug abuse patient.[facility] the event this information is protected by the Federal Confidentiality of Alcohol and Drug Abuse Patient Records regulations: The Federal rules restrict any use of the information to criminally investigate or prosecute any alcohol or drug abuse patient.[facility]In the event this information is protected by the Federal Confidentiality of Alcohol and Drug Abuse Patient Records regulations: The Federal rules restrict any use of the information to criminally investigate or prosecute any alcohol or drug abuse patient.[facility]In the event this information is protected by the Federal Confidentiality of Alcohol and Drug Abuse Patient Records regulations: The Federal rules restrict any use of the information to criminally investigate or prosecute any alcohol or drug abuse patient.[facility] the event this information is protected by the Federal Confidentiality of Alcohol and Drug Abuse Patient Records regulations: The Federal rules restrict any use of the information to criminally investigate or prosecute any alcohol or drug abuse patient.[facility] the event this information is protected by the Federal Confidentiality of Alcohol and Drug Abuse Patient Records regulations: The Federal rules restrict any use of the information to criminally investigate or prosecute any alcohol or drug abuse patient.[facility]In the event this information is protected by the Federal Confidentiality of Alcohol and Drug Abuse Patient Records regulations: The Federal rules restrict any use of the information to criminally investigate or prosecute any alcohol or drug abuse patient.[facility]In the event this information is protected by the Federal Confidentiality of Alcohol and Drug Abuse Patient Records regulations: The Federal rules restrict any use of the information to criminally investigate or prosecute any alcohol or drug abuse patient.[facility]In the event this information is protected by the Federal Confidentiality of Alcohol and Drug Abuse Patient Records regulations: The Federal rules restrict any use of the information to criminally investigate or prosecute any alcohol or drug abuse patient.[facility]In the event this information is protected by the Federal Confidentiality of Alcohol and Drug Abuse Patient Records regulations: The Federal rules restrict any use of the information to criminally investigate or prosecute any alcohol or drug abuse patient.[facility]In the event this information is protected by the Federal Confidentiality of Alcohol and Drug Abuse Patient Records regulations: The Federal rules restrict any use of the information to criminally investigate or prosecute any alcohol or drug abuse patient.[facility]In the event this information is protected by the Federal Confidentiality of Alcohol and Drug Abuse Patient Records regulations: The Federal rules restrict any use of the information to criminally investigate or prosecute any alcohol or drug abuse patient.[facility]In the event this information is protected by the Federal Confidentiality of Alcohol and Drug Abuse Patient Records regulations: The Federal rules restrict any use of the information to criminally investigate or prosecute any alcohol or drug abuse patient.[facility]In the event this information is protected by the Federal Confidentiality of Alcohol and Drug Abuse Patient Records regulations: The Federal rules restrict any use of the information to criminally investigate or prosecute any alcohol or drug abuse patient.[facility]In the event this information is protected by the Federal Confidentiality of Alcohol and Drug Abuse Patient Records regulations: The Federal rules restrict any use of the information to criminally investigate or prosecute any alcohol or drug abuse patient.[facility]In the event this information is protected by the Federal Confidentiality of Alcohol and Drug Abuse Patient Records regulations: The Federal rules restrict any use of the information to criminally investigate or prosecute any alcohol or drug abuse patient.[facility]In the event this information is protected by the Federal Confidentiality of Alcohol and Drug Abuse Patient Records regulations: The Federal rules restrict any use of the information to criminally investigate or prosecute any alcohol or drug abuse patient.[facility]In the event this information is protected by the Federal Confidentiality of Alcohol and Drug Abuse Patient Records regulations: The Federal rules restrict any use of the information to criminally investigate or prosecute any alcohol or drug abuse patient.[facility]In the event this information is protected by the Federal Confidentiality of Alcohol and Drug Abuse Patient Records regulations: The Federal rules restrict any use of the information to criminally investigate or prosecute any alcohol or drug abuse patient.[facility]In the event this information is protected by the Federal Confidentiality of Alcohol and Drug Abuse Patient Records regulations: The Federal rules restrict any use of the information to criminally investigate or prosecute any alcohol or drug abuse patient.[facility] Reason for Visit (unrecogniz ed section and content) Reason Comments Lab Orders Reason Comments Breast Cancer 3 month follow up Reason Comments Social Work Services Patient Entered Tino a Questionnaire Reason Comments Radio Gen A21 Specialty Diagnoses / Procedures Referred By Contac t Referred To Contact XR IMAGING Diagnoses Pain Procedures XR KNEE GENERAL 4V AP BOTH/PA BOTH/LAT/MERC LEFT RADIOLOGIC EXAM KNEE COMPLETE 4/MORE VIEWS Amada Baltazar PA-C [address] [place] [address] Xr Imaging Referral ID Status Reason Start Date Expiration Date V isits Requested Visits Authorized [id number] Closed Auto-Generate d Referral 02/17/2022 03/19/2023 1 1 Reason Comments Radiology US Specialty Diagnoses / Procedures Referred By Contac t Referred To Contact BR IMAGING Diagnoses Lump of axillary tail of right breast Procedures US BREAST LTD RT US BREAST UNI REAL TIME WITH IMAGE LIMITED Winston Wellington PA-C [address] [place] [address] Br Imaging [address] [place] [address] Referral ID Status Reason Start Date Expiration Date V isits Requested Visits Authorized [id number] Closed Auto-Generate d Referral 09/27/2021 10/27/2022 1 1 Reason Comments New Reason Comments Follow Up Reason Comments Follow Up Bones scan review Knee Pain Bones scan review Reason Comments Established Patient Follow Up Reason Comments New Patient Diarrhea since the s ummer Specialty Diagnoses / Procedures Referred By Contac t Referred To Contact Gastroenterology Diagnoses Diarrhea, unspecified type Procedures CONSULT TO GASTROENTEROLOGY OFFICE/OUTPATIENT NEW HIGH MDM 60-74 MINUTES Vaibhav Ovalle MD [address] [place] [address] [address] [place], [place] [address] Referral ID Status Reason Start Date Expiration Date V isits Requested Visits Authorized [id number] Closed PCP Requested Referral 07/18/2022 07/18/2023 1 1 Reason Comments Patient Update Negative celiac ramirez ers Reason Comments Patient Update Reason Comments New Knee Replacement Knee Pain Swelling Specialty Diagnoses / Procedures Referred By Contac t Referred To Contact XR IMAGING Diagnoses Chronic knee pain after total replacement of left knee joint Procedures XR KNEE POST OP 3V AP/LAT/MERCHANT LEFT RADIOLOGIC EXAMINATION KNEE 3 [place] [address] [place] [address] Xr Imaging Referral ID Status Reason Start Date Expiration Date V isits Requested Visits Authorized [id number] Closed Auto-Generate d Referral 09/16/2022 10/15/2023 1 1 Reason Comments Establish Care Follow up Reason Comments Breast Cancer Reason Comments Established Patient Follow Up Knee Pain Knee Replacement Swelling Reason Comments Patient Question Reason Comments Blood Management Reason Comments Medication Problem Reason Onset Date Comments Orders 02/25/2023 Specialty Diagnoses / Procedures Referred By Contac t Referred To Contact Diagnoses Iron deficiency anemia secondary to inadequate dietary iron intake Trinidad Bruce, [facility] [address] [place] [address] Salazar Treat [facility] [address] [place], [place] [address] Referral ID Status Reason Start Date Expiration Date V isits Requested Visits Authorized [id number] Authorized 02/26/2023 05/27/2023 99 99 Reason Comments Breast Cancer Reason Comments Results Reason Comments Sleep Apnea DME: [facility] not used machine since 05/2023 due to Vertigo Specialty Diagnoses / Procedures Referred By Contac t Referred To Contact Physical Therapy Diagnoses Dizziness and giddiness Procedures SC PHYSICAL THERAPY EVALUATION LOW COMPLEX 20 MINS Esme Oliva NP [address] [place], [place] Amada Bruce, PT [address] [place] [address] Referral ID Status Reason Start Date Expiration Date Visits Requested Visits Authorized [id number] Authorized Consult and Treat 09/18/2023 03/16/2024 23 30 Reason Comments F/U 3 Month F/U 3 months Questions about rece nt tests Reason Comments Nodular Basal Carcinoma DX Reason Comments Breast Cancer Thunderclap headache Follow up Reason Comments Established Patient Reason Comments Appointment Reason Comments Breast Cancer Follow up Specialty Diagnoses / Procedures Referred By Contac t Referred To Contact XR IMAGING Diagnoses Pain Procedures XR KNEE GENERAL 4V AP BOTH/PA BOTH/LAT/MERC LEFT RADIOLOGIC EXAM KNEE COMPLETE 4/[place] [address] [facility] [place] [address] [place] [address] Referral ID Status Reason Start Date Expiration Date V isits Requested Visits Authorized [id number] Closed Auto-Generate d Referral 03/15/2024 04/14/2025 1 1 Reason Comments Radio Gen RMP Specialty Diagnoses / Procedures Referred By Contac t Referred To Contact XR IMAGING Diagnoses Status post total left knee replacement Chronic pain of left knee Anemia, unspecified type Procedures XR KNEE POST OP 3V AP/LAT/MERCHANT LEFT RADIOLOGIC EXAMINATION KNEE 3 VIEWS Reddy Michael PA-C [address] [address] [place] [address] Referral ID Status Reason Start Date Expiration Date V isits Requested Visits Authorized [id number] Closed Auto-Generate d Referral 12/01/2022 12/31/2023 1 1 Care Teams (unrecognized sec tion and content) [employer] Supervisor Relationship Specialty Start Date End Date Yajaira Gonzalez MD [address] [place] [address] PCP - General 11/13/06 Mackenzie Garzon(Historical), PA Referring 03/13/20 Ramirez Jang [address] [address] Cardiology 03/19/21 Vilma Sandoval MD [address] [place], [place] [id number] Pulmonary Disease 03/19/21 [employer] Supervisor Relationship Specialty Start Date End Date Yajaira Gonzalez MD [address] [facility] [place] [address] PCP - General 11/13/06 Mackenzie Garzon(Historical), PA Referring 03/13/20 SuhailRamirez mondragon [address] [place] [address] Cardiology 03/19/21 Vilma Sandoval MD [address] [place] [address] Pulmonary Disease 03/19/21 Fab[employer]ation And Assembly Supervisor Relationship Specialty Start Date End Date Yajaira Gonzalez MD [facility] [place] [address] PCP - General 11/13/06 Mackenzie Garzon(Historical), PA Referring 03/13/20 SuhailRamirez mondragon [address] [place] [address] Cardiology 03/19/21 Vilma Sandoval MD [address] [place] [address] Pulmonary Disease 03/19/21 [employer] And [employer] Supervisor Relationship Specialty Start Date End Date Yajaira Gonzalez MD [address] [place] [address] PCP - General 11/13/06 Mackenzie Garzon(Historical), PA Referring 03/13/20 Suhail, Ramirez Bertrand [address] [place] [address] Cardiology 03/19/21 Vilma Sandoval MD [address] [place] [address] Pulmonary Disease 03/19/21 Fabrication And Assembly Supervisor Relationship Specialty Start Date End Date Yajaira Gonzalez MD [facility] [place] [address] PCP - General 11/13/06 Mackenzie Garzon(Historical), PA Referring 03/13/20 SuhailRamirez mondragon Bertrand [address] [place] [address] Cardiology 03/19/21 Vilma Sandoval MD [address] [place] [address] Pulmonary Disease 03/19/21 Fab[employer]ation And Assembly Supervisor Relationship Specialty Start Date End Date Yajaira Gonzalez MD [facility] [place] [address] PCP - General 11/13/06 Mackenzie Garzon(Historical), PA Referring 03/13/20 SuhailRamirez mondragon [address] [place] [address] Cardiology 03/19/21 Vilma Sandoval MD [address] [place] [address] Pulmonary Disease 03/19/21 Fab[employer]ation And Assembly Supervisor Relationship Specialty Start Date End Date Yajaira Gonzalez MD [address] [place] [address] PCP - General 11/13/06 Mackenzie Garzon(Historical), PA Referring 03/13/20 SuhailRamirez Bertrand [address] [place] [address] Cardiology 03/19/21 Vilma Sandoval MD [address] [place] [address] Pulmonary Disease 03/19/21 Fab[employer]ation And Assembly Supervisor Relationship Specialty Start Date End Date Yajaira Gonzalez MD [facility] [place] [address] PCP - General 11/13/06 Mackenzie Garzon(Historical), PA Referring 03/13/20 SuhailRamirez mondragon Bertrand [address] [place] [address] Cardiology 03/19/21 Vilma Sandoval MD [address] [place] [address] Pulmonary Disease 03/19/21 Fabrication And Assembly Supervisor Relationship Specialty Start Date End Date Yajaira Gonzalez MD [address] [place] [address] PCP - General 11/13/06 Mackenzie Garzon(Historical), PA Referring 03/13/20 SuhailRamirez mondragon [address] [place] [address] Cardiology 03/19/21 Vilma Sadnoval MD [address] [place] [address] Pulmonary Disease 03/19/21 Fabrication And Assembly Supervisor Relationship Specialty Start Date End Date Yajaira Gonzalez MD [address] [place] [address] PCP - General 11/13/06 Mackenzie Garzon(Historical), PA Referring 03/13/20 SuhailRamirez [address] [place] [address] Cardiology 03/19/21 Vilma Sandoval MD [address] [place] [address] Pulmonary Disease 03/19/21 Fabrication And Assembly Supervisor Relationship Specialty Start Date End Date Yajaira Gonzalez MD [address] [facility] [place] [address] PCP - General 11/13/06 Mackenzie Garzon(Historical), PA [address] [facility] [place] [address] Referring 03/13/20 SuhailRamirez mondragon Bertrand [address] [place] [address] Cardiology 03/19/21 Vilma Sandoval MD [address] [place] [address] Pulmonary Disease 03/19/21 Fabrication And Assembly Supervisor Relationship Specialty Start Date End Date Yajaira Gonzalez MD [facility] [place] [address] PCP - General 11/13/06 Mackenzie Garzon(Historical), PA [address] [facility] [place] [address] Referring 03/13/20 Ramirez Jang [address] [place] [address] Cardiology 03/19/21 Vilma Sandoval MD [address] [place] [address] Pulmonary Disease 03/19/21 Fabrication And Assembly Supervisor Relationship Specialty Start Date End Date Yajaira Gonzalez MD [address] [facility] [place] [address] PCP - General 11/13/06 Mackenzie Garzon(Historical), PA [address] [facility] [place] [address] Referring 03/13/20 Ramirez Jang [address] [place] [address] Cardiology 03/19/21 Vilma Sandoval MD [address] [place] [address] Pulmonary Disease 03/19/21 Fabrication And Assembly Supervisor Relationship Specialty Start Date End Date Yajaira Gonzalez MD [address] [facility] [place] [address] PCP - General 11/13/06 Mackenzie Garzon(Historical), PA [address] [facility] [place] [address] Referring 03/13/20 SuhailRamirez mondragon [address] [place] [address] Cardiology 03/19/21 Vilma Sandoval MD [address] [place] [address] Pulmonary Disease 03/19/21 Fabrication And Assembly Supervisor Relationship Specialty Start Date End Date Yajaira Gonzalez MD [address] [facility] [place] [address] PCP - General 11/13/06 Mackenzie Garzon(Historical), PA [address] [facility] [place] [address] Referring 03/13/20 Ramirez Jang [address] [place] [address] Cardiology 03/19/21 Vilma Sandoval MD [address] [place] [address] Pulmonary Disease 03/19/21 Fabrication And Assembly Supervisor Relationship Specialty Start Date End Date Yajaira Gonzalez MD [address] [facility] [place] [address] PCP - General 11/13/06 Mackenzie Garzon(Historical), PA [address] [facility] [place] [address] Referring 03/13/20 SuhailRamirez mondragon [address] [place] [address] Cardiology 03/19/21 Vilma Sandoval MD [address] [place] [address] Pulmonary Disease 03/19/21 Fabrication And Assembly Supervisor Relationship Specialty Start Date End Date Yajaira Gonzalez MD [address] [place] [address] PCP - General 11/13/06 Mackenzie Garzon(Historical), PA [address] [place] [address] Referring 03/13/20 Ramirez Jang [address] [place] [address] Cardiology 03/19/21 Vilma Sandoval MD [address] [place] [address] Pulmonary Disease 03/19/21 Fabrication And Assembly Supervisor Relationship Specialty Start Date End Date Yajaira Gonzalez MD [address] [place] [address] PCP - General 11/13/06 Mackenzie Garzon(Historical), PA [address] [place] [address] Referring 03/13/20 Ramirez Jang [address] [place] [address] Cardiology 03/19/21 Vilma Sandoval MD [address] [place] [address] Pulmonary Disease 03/19/21 Fabrication And Assembly Supervisor Relationship Specialty Start Date End Date Yajaira Gonzalez MD [address] [facility] [place] [address] PCP - General 11/13/06 Mackenzie Garzon(Historical), PA [address] [place] [address] Referring 03/13/20 SuhailRamirez mondragon [address] [place] [address] Cardiology 03/19/21 Vilma Sandoval MD [address] [place] [address] Pulmonary Disease 03/19/21 Fabrication And Assembly Supervisor Relationship Specialty Start Date End Date Yajaira Gonzalez MD [address] [facility] [place] [address] PCP - General 11/13/06 Mackenzie Garzon(Historical), PA [address] [facility] [place] [address] Referring 03/13/20 Ramirez Jang [address] [place] [address] Cardiology 03/19/21 Vilma Sandoval MD [address] [place] [address] Pulmonary Disease 03/19/21 Fabrication And Assembly Supervisor Relationship Specialty Start Date End Date Yajaira Gonzalez MD [address] [facility] [place] [address] PCP - General 11/13/06 Mackenzie Garzon(Historical), PA [address] [place] [address] Referring 03/13/20 Ramirez Jang [address] [place] [address] Cardiology 03/19/21 Vilma Sandoval MD [address] [place] [address] Pulmonary Disease 03/19/21 Fabrication And Assembly Supervisor Relationship Specialty Start Date End Date Yajaira Gonzalez MD [address] [facility] [place] [address] PCP - General 11/13/06 Mackenzie Garzon(Historical), PA [address] [facility] [place] [address] Referring 03/13/20 Suhail, Ramirez Thurston [address] [place] [address] Cardiology 03/19/21 Vilma Sandoval MD [address] [place] [address] Pulmonary Disease 03/19/21 Fabrication And Assembly Supervisor Relationship Specialty Start Date End Date Yajaira Gonzalez MD [address] [facility] [place] [address] PCP - General 11/13/06 Mackenzie Garzon(Historical), PA [address] [facility] [place] [address] Referring 03/13/20 SuhailRamirez [address] [place] [address] Cardiology 03/19/21 Vilma Sandoval MD [address] [place] [address] Pulmonary Disease 03/19/21 Fabrication And Assembly Supervisor Relationship Specialty Start Date End Date Yajaira Gonzalez MD [address] [facility] [place] [address] PCP - General 11/13/06 Mackenzie Gazron(Historical), PA [address] [facility] [place] [address] Referring 03/13/20 Suhail, Ramirez Thurston [address] [place] [address] Cardiology 03/19/21 Vilma Sandoval MD [address] [place] [address] Pulmonary Disease 03/19/21 Fabrication And Assembly Supervisor Relationship Specialty Start Date End Date Yajaira Gonzalez MD [address] [facility] [place] [address] PCP - General 11/13/06 Mackenzie Garzon(Historical), PA [address] [place] [place] [address] Referring 03/13/20 SuhailRamirez mondragon [address] [place] [address] Cardiology 03/19/21 Vilma Sandoval MD [address] [place] [address] Pulmonary Disease 03/19/21 Fabrication And Assembly Supervisor Relationship Specialty Start Date End Date Yajaira Gonzalez MD [facility] [place] [address] PCP - General 11/13/06 Mackenzie Garzon(Historical), PA [address] [place] [address] Referring 03/13/20 SuhailRamriez mondragon [address] [place] [address] Cardiology 03/19/21 Vilma Sandoval MD [address] [place] [address] Pulmonary Disease 03/19/21 Fabrication And Assembly Supervisor Relationship Specialty Start Date End Date Yajaira Gonzalez MD [address] [place] [address] PCP - General 11/13/06 Mackenzie Garzon(Historical), PA [address] [place] [place] [address] Referring 03/13/20 SuhailRamirez mondragon [address] [place] [address] Cardiology 03/19/21 Vilma Sandoval MD [address] [place] [address] Pulmonary Disease 03/19/21 Fabrication And Assembly Supervisor Relationship Specialty Start Date End Date Yajaira Gonzalez MD [address] [place] [address] PCP - General 11/13/06 Mackenzie Garzon(Historical), PA [address] [place] [address] Referring 03/13/20 Ramirez Jang [address] [place] [address] Cardiology 03/19/21 Vilma Sandoval MD [address] [place] [address] Pulmonary Disease 03/19/21 Fabrication And Assembly Supervisor Relationship Specialty Start Date End Date Yajaira Gonzalez MD [address] [place] [address] PCP - General 11/13/06 Mackenzie Garzon(Historical), PA [address] [place] [address] Referring 03/13/20 Ramirez Jang [address] [place] [address] Cardiology 03/19/21 Vilma Sandoval MD [address] [place] [address] Pulmonary Disease 03/19/21 Fabrication And Assembly Supervisor Relationship Specialty Start Date End Date Yajaira Gonzalez MD [address] [facility] [place] [address] PCP - General 11/13/06 Mackenzie Garzon(Historical), PA [address] [facility] [place] [address] Referring 03/13/20 Ramirez Jang [address] [place] [address] Cardiology 03/19/21 Vilma Napoles MD [address] [place] [address] Pulmonary Disease 03/19/21 Fabrication And Assembly Supervisor Relationship Specialty Start Date End Date Yajaira Gonzalez MD [address] [facility] [place] [address] PCP - General 11/13/06 Mackenzie Garzon(Historical), PA [address] [facility] [place] [address] Referring 03/13/20 Ramirez Jang [address] [place] [address] Cardiology 03/19/21 Vilma Napoles MD [address] [place] [address] Pulmonary Disease 03/19/21 Fabrication And Assembly Supervisor Relationship Specialty Start Date End Date Yajaira Gonzalez MD [address] [place] [address] PCP - General 11/13/06 Mackenzie Garzon(Historical), PA [address] [facility] [place] [address] Referring 03/13/20 Ramirez Jang DO [address] [place] [address] Cardiology 03/19/21 Vilma Napoles MD [address] [place] [address] Pulmonary Disease 03/19/21 Fabrication And Assembly Supervisor Relationship Specialty Start Date End Date Yajaira Gonzalez MD [address] [facility] [place] [address] PCP - General Family Medicine 11/17/16 Fab[employer]ation And Assembly Supervisor Relationship Specialty Start Date End Date Yajaira Gonzalez MD [address] [place] [address] PCP - ACO Reach 01/29/23 Yajaira Gonzalez MD [address] [facility] [place] [address] PCP - General Family Medicine 02/06/23 Fabrication And Assembly Supervisor Relationship Specialty Start Date End Date Yajaira Gonzalez MD [address] [facility] [place] [address] PCP - ACO Reach 01/29/23 Yajaira Gonzalez MD [address] [facility] [place] [address] PCP - General Family Medicine 02/06/23 Fabrication And Assembly Supervisor Relationship Specialty Start Date End Date Yajaira Gonzalez MD [address] [facility] [place] [address] PCP - General 11/13/06 Mackenzie Garzon(Historical), PA [address] [facility] [place] [address] Referring 03/13/20 Ramirez Jang DO [address] [place] [address] Cardiology 03/19/21 Vilma Napoles MD [address] [place] [address] Pulmonary Disease 03/19/21 Fabrication And Assembly Supervisor Relationship Specialty Start Date End Date Yajaira Gonzalez MD [address] [facility] [place] [address] PCP - General 11/13/06 Mackenzie Garzon(Historical), PA [address] [facility] [place] [address] Referring 03/13/20 Ramirez Jang, [address] [place] [address] Cardiology 03/19/21 Vilma Napoles MD [address] [place] [address] Pulmonary Disease 03/19/21 Fabrication And Assembly Supervisor Relationship Specialty Start Date End Date Yajaira Gonzalez MD [address] [facility] [place] [address] PCP - General 11/13/06 Mackenzie Garzon(Historical), PA [address] [facility] [place] [address] Referring 03/13/20 Ramirez Jang, [address] [place] [address] Cardiology 03/19/21 Vilma Napoles MD [address] [place] [address] Pulmonary Disease 03/19/21 Fabrication And Assembly Supervisor Relationship Specialty Start Date End Date Yajaira Gonzalez MD [address] [facility] [place] [address] PCP - General 11/13/06 Mackenzie Garzon(Historical), PA [address] [place] [facility] [place] [address] Referring 03/13/20 Ramirez Jang, [address] [place] [address] Cardiology 03/19/21 Vilma Napoles MD [address] [place] [address] Pulmonary Disease 03/19/21 Fabrication And Assembly Supervisor Relationship Specialty Start Date End Date Yajaira Gonzalez MD [address] [facility] [place] [address] PCP - General Family Medicine 11/17/16 Fabrication And Assembly Supervisor Relationship Specialty Start Date End Date Yajaira Gonzalez MD [address] [facility] [place] [address] PCP - General 11/13/06 Mackenzie Garzon(Historical), PA [address] [place] [facility] [place] [address] Referring 03/13/20 Ramirez Jang, [address] [place] [address] Cardiology 03/19/21 Vilma Napoles MD [address] [place] [address] Pulmonary Disease 03/19/21 Fabrication And Assembly Supervisor Relationship Specialty Start Date End Date Yajaira Gonzalez MD [address] [facility] [place] [address] PCP - General 11/13/06 Mackenzie Garzon(Historical), PA [address] [place] [address] Referring 03/13/20 Ramirez Jang, [address] [place] [address] Cardiology 03/19/21 Vilma Napoles MD [address] [place] [address] Pulmonary Disease 03/19/21 Fabrication And Assembly Supervisor Relationship Specialty Start Date End Date Yajaira Gonzalez MD [address] [facility] [place] [place] [address] PCP - General 11/13/06 Mackenzie Garzon(Historical), PA [address] [facility] [place] [place] [address] Referring 03/13/20 Ramirez Jang, [address] [place] [address] Cardiology 03/19/21 Vilma Napoles MD [address] [place] [address] Pulmonary Disease 03/19/21 Fabrication And Assembly Supervisor Relationship Specialty Start Date End Date Yajaira Gonzalez MD [address] [facility] [place] [address] PCP - General 11/13/06 Mackenzie Garzon(Historical), PA [address] [facility] [place] [address] Referring 03/13/20 Ramirez Jang DO [address] [place] [address] Cardiology 03/19/21 Vilma Napoles MD [address] [place] [address] Pulmonary Disease 03/19/21 Fabrication And Assembly Supervisor Relationship Specialty Start Date End Date Yajaira Gonzalez MD [address] [facility] [place] [address] PCP - General 11/13/06 Mackenzie Garzon(Historical), PA [address] [place] [address] Referring 03/13/20 Ramirez Jang, DO [address] [place] [address] Cardiology 03/19/21 Vilma Napoles MD [address] [place] [address] Pulmonary Disease 03/19/21 [employer]ation [employer] Supervisor Relationship Specialty Start Date End Date Yajaira Gonzalez MD [address] [facility] [place] [address] PCP - General 11/13/06 Mackenzie Garzon(Historical), PA [address] [facility] [place] [address] Referring 03/13/20 Ramirez Jang, DO [address] [place] [address] Cardiology 03/19/21 Vilma Napoles MD [address] [place] [address] Pulmonary Disease 03/19/21 Fab[employer]ation And Assembly Supervisor Relationship Specialty Start Date End Date Yajaira Gonzalez MD [address] [facility] [place] [address] PCP - General 11/13/06 Mackenzie Garzon(Historical), PA [address] [place] [address] Referring 03/13/20 Ramirez Jang, [address] [place] [address] Cardiology 03/19/21 Vilma Napoles MD [address] [place] [address] Pulmonary Disease 03/19/21 Fab[employer] Supervisor Relationship Specialty Start Date End Date Yajaira Gonzalez MD [address] [place] [address] PCP - General 11/13/06 Mackenzie Garzon(Historical), PA [address] [place] [address] Referring 03/13/20 Ramirez Jang DO [address] [facility] [address] Cardiology 03/19/21 Vilma Napoles MD [address] [facility] [place] [address] Pulmonary Disease 03/19/21 [employer] Supervisor Relationship Specialty Start Date End Date Yajaira Gonzalez MD [address] [address] PCP - General 11/13/06 Mackenzie Garzon(Historical), PA [address] [place] [address] Referring 03/13/20 Ramirez Jang DO [address] [place] [address] Cardiology 03/19/21 Vilma Napoles MD [address] [place] [address] Pulmonary Disease 03/19/21 FOR RECORDS PERTAINING TO PATIENTS WHO ARE OR HAVE BEEN ENROLLED IN A CHEMICAL DEPENDENCY/SUBSTANCEABUSE PROGRAM, SOME INFORMATION MAY BE OMITTED. This clinical summary was aggregated from multiple sources. Caution should be exercised in using it in the provision of clinical care. This summary normalizes information from multiple sources, and as a consequence, information in this document may materially change the coding, format and clinical context of patient data. In addition, data may be omitted in some cases. CLINICAL DECISIONS SHOULD BE BASED ON THE PRIMARY CLINICAL RECORDS. [facility] [employer] [facility]. provides no warranty or guarantee of the accuracy or completeness of information in this document.
[2024-06-06 09:52] VITALS: BP 119/77; PULSE 69; TEMP 36; O2SAT 99
[2024-06-06] MEDS: LIDOCAINE HCL 1% 100 MG/10 ML MDV 2 ML INJ (10:28)
[2024-06-06] MEDS: BUPIVACAINE HCL 0.25% PF 25 MG/10 ML VIAL INJ (10:28)
[2024-06-06 10:30] VITALS: BP 135/62; BP 135/65; PULSE 68; PULSE 72; O2SAT 97; O2SAT 98
--- NOTE | 2024-06-06 10:31 | W.PM.PROCNOT ---
Date of procedure: 06/06/24 Pre-op diagnosis: Pain due to lumbar spondylosis without myelopathy Post-op diagnosis: same as pre-op Procedure: Procedure: Bilateral L4-5, L5-S1 medial branch block Medications: Bupivacaine 0.25% 6cc The patient was seen and examined in the preoperative holding area.? An informed consent was obtained and placed on the chart.? The patient was brought to the medical procedure unit and placed in the prone position.? A timeout was completed verifying correct patient, procedure site, positioning, plan, and special equipment.? Using aseptic technique, the needle was placed at left L4. Under direct fluoroscopic visualization a Quincke-tipped spinal needle was advanced to the junction of the superior articulating process with the transverse process at the designated medial branch segment.? Preceded by negative aspiration, the above-mentioned injectate was placed in 1 mL aliquots.? The procedure was repeated at left L5, S1.? The needle was removed and insertion site was covered. The same procedure, at the same levels, was completed on the right side. The patient was taken to the postprocedural recovery area and monitored for an appropriate length of time before found suitable for discharge in the company of a responsible adult. Anesthesia: Local Surgeon: Nikkie Romero Pathology: none sent Condition: stable Disposition: no change
== END 2024-06-06 10:35 | disposition home or self-care (01) ==
PROVIDERS: PCP Family Medicine; Visit Provider Anesthesiology
DX: M47.816 Spondylosis without myelopathy or radiculopathy, lumbar region (principal)
CPT/HCPCS: 64493; 64494; J0665

== ENCOUNTER 2024-06-16 13:14 | Outpatient (OUT) | payer MEDICARE, BC, SELFPAY ==
--- NOTE | 2024-07-06 08:22 | P.CN_ITS ---
Consult Note: HPI Data of Consult Patient: known to practice within the last 3 years Consult date: 06/16/24 Requesting Physician: Cadence Pastor NP Primary Care Provider: VICKIE STILES Consult Narrative Reason for consult: f/u Narrative: 79yof who presents for assessment. continues to have significant low back pain that is worsened with ambulation. completed 6w of PT in past 3 months, without lasting benefit. continues in a series of provider directed home exercises >6w, without benefit. uses tylenol as needed. lumbar imaging reviewed, significant for multilevel moderate facet arthropathy through lumbar spine. denies adverse med side effects. recently underwent bilateral L4-5 l5-s1 MBB #1 with 100% improvement in pain and functional ability immediately following and greater than 2 hours after the injection. cc:: CC: Cadence Pastor NP Review of Systems ROS Status of ROS 10 or more systems reviewed and unremark able except as noted in history and below Musculoskeletal Reports: back pain PF[facility] Medical History (Updated 06/08/24 @ 09:43 by Daria Hernandez) Neck pain ?M54.2 - Cervicalgia (ICD-10) Low back pain ?M54.50 - Low back pain, unspecified (ICD-10) Osteoarthritis ?M19.90 - Unspecified osteoarthritis, unspecified site (ICD-10) Fibromyalgia ?M79.7 - Fibromyalgia (ICD-10) Breast cancer ?C50.919 - Malignant neoplasm of unspecified site of unspecified female breast (ICD-10) Depression ?F32.A - Depression, unspecified (ICD-10) Hearing deficit ?H91.90 - Unspecified hearing loss, unspecified ear (ICD-10) Anxiety ?F41.9 - Anxiety disorder, unspecified (ICD-10) Hiatal hernia ?K44.9 - Diaphragmatic hernia without obstruction or gangrene (ICD-10) Acid reflux ?K21.9 - Gastro-esophageal reflux disease without esophagitis (ICD-10) Hypothyroid ?E03.9 - Hypothyroidism, unspecified (ICD-10) Former smoker ?Z87.891 - Personal history of nicotine dependence (ICD-10) Aspergillus ?B44.9 - Aspergillosis, unspecified (ICD-10) Asthma ?J45.909 - Unspecified asthma, uncomplicated (ICD-10) Sleep apnea ?G47.30 - Sleep apnea, unspecified (ICD-10) Irregular heart beat ?I49.9 - Cardiac arrhythmia, unspecified (ICD-10) Sick sinus syndrome ?I49.5 - Sick sinus syndrome (ICD-10) High cholesterol ?E78.00 - Pure hypercholesterolemia, unspecified (ICD-10) Hypertension ?I10 - Essential (primary) hypertension (ICD-10) Surgical History H/O facial fracture repair ?Z98.890 - Other specified postprocedural states (ICD-10) ?Z87.81 - Personal history of (healed) traumatic fracture (ICD-10) H/O section ?Z98.891 - History of uterine scar from previous surgery (ICD-10) History of tonsillectomy ?Z90.89 - Acquired absence of other organs (ICD-10) History of cholecystectomy ?Z90.49 - Acquired absence of other specified parts of digestive tract (ICD- 10) H/O: hysterectomy ?Z90.710 - Acquired absence of both cervix and uterus (ICD-10) H/O arthroscopic knee surgery ?Z98.890 - Other specified postprocedural states (ICD-10) H/O cataract extraction ?Z98.49 - Cataract extraction status, unspecified eye (ICD-10) History of lobectomy of lung ?Z90.2 - Acquired absence of lung [part of] (ICD-10) H/O hand surgery ?Z98.890 - Other specified postprocedural states (ICD-10) S/P left mastectomy ?Z90.12 - Acquired absence of left breast and nipple (ICD-10) S/P cardiac pacemaker procedure ?Z95.0 - Presence of cardiac pacemaker (ICD-10) H/O cervical spine surgery ?Z98.890 - Other specified postprocedural states (ICD-10) H/O arthroscopy of shoulder ?Z98.890 - Other specified postprocedural states (ICD-10) H/O foot surgery ?Z98.890 - Other specified postprocedural states (ICD-10) H/O mastectomy ?Z90.10 - Acquired absence of unspecified breast and nipple (ICD-10) H/O blepharoplasty ?Z98.890 - Other specified postprocedural states (ICD-10) H/O total knee replacement ?Z96.659 - Presence of unspecified artificial knee joint (ICD-10) Meds Home Medications and Allergies Home Medications ?Medication ?Instructions ?Recorded ?Confirmed ?Type acetaminophen 500 mg tablet 500 mg PO Q6H PRN pain 06/06/24 06/06/24 History (Acetaminophen Extra Strength) albuterol sulfate 90 mcg/actuation inhalation 06/06/24 History aerosol inhaler alprazolam 0.5 mg tablet mg 06/06/24 History desvenlafaxine succinate 25 mg 25 mg PO DAILY 06/06/24 06/06/24 History tablet,extended release 24 hr (Pristiq) hydrochlorothiazide 25 mg tablet 25 mg PO DAILY 06/06/24 06/06/24 History lansoprazole 30 mg capsule,delayed mg 06/06/24 History release levothyroxine 88 mcg tablet mcg 06/06/24 History lisinopril 5 mg tablet mg 06/06/24 History magnesium oxide 250 mg PO DAILY 06/06/24 06/06/24 History sennosides 8.6 mg-docusate sodium 1 tab-cap PO DAILY 06/06/24 06/06/24 History 50 mg tablet (Senexon-S) verapamil 180 mg tablet,extended mg PO 06/06/24 History release Allergies Allergy/AdvReac Type Severity Reaction Status Date / Time aspirin Allergy Unknown Verified 06/16/24 14:17 ciprofloxacin (From Cipro) Allergy Unknown Verified 06/16/24 14:17 clonidine Allergy Unknown Verified 06/16/24 14:17 codeine Allergy Unknown Verified 06/16/24 14:17 doxycycline Allergy Unknown Verified 06/16/24 14:17 gabapentin Allergy Unknown Verified 06/16/24 14:17 levofloxacin (From Levaquin) Allergy Unknown Verified 06/16/24 14:17 moxifloxacin (From Avelox) Allergy Unknown Verified 06/16/24 14:17 oxycodone Allergy Unknown Verified 06/16/24 14:17 theophylline Allergy Unknown Verified 06/16/24 14:17 tramadol Allergy Unknown Verified 06/16/24 14:17 Exam Constitutional Documenting provider has reviewed patient's vital signs: yes Common normals: no apparent distress, oriented x3, healthy appearing, alert and well nourished General appearance: cooperative HENMT Common normals: normocephalic, hearing grossly normal bilaterally and moist oral mucous membranes Head and scalp: normocephalic Eye Common normals: PERRL Pupil: PERRL Neck & C-Spine Common normals: full ROM General: normal visual inspection Chest Common normals: inspection of chest normal Respiratory Common normals: normal respiratory effort, no retractions and no use of accessory muscles Back & Pelvis Lumbar spine/lower back: ROM limited, pain with ROM and straight leg raise negative bilaterally; no paraspinal muscle tenderness and no paraspinal muscle spasm Sacroiliac joints: SI joints normal Other: positive facet loading tenderness L4-S1 negative radiculopathy strength 5/5 in BLE Neuro Common normals: oriented x3, CN's II-XII intact bilaterally, moves all extremities, no focal motor deficits, no sensory deficits noted and deep tendon reflexes 2+ bilaterally Sensorium/orientation: alert Motor exam: strength 5/5 throughout and no movement abnormalities noted Psych Common normals: mental status grossly normal, thought process normal, cooperative, affect normal, speech normal and activity/motor behavior normal Speech: normal speech Thought process: normal thought process Results Additional Findings Additional findings: If on a controlled substance or opioids, I have checked an [place]AR[place] report on this patient and there are no aberrancies noted in the prescribing history.??If on a controlled substance or opioid a drug screen was completed and reviewed within the last year, and if there has not been a drug screen completed we ordered one today to monitor higher risk, state monitored pain medication use. As part of providing excellent, safe, comprehensive care, the following was completed at our patient's visit: 1. A medication reconciliation and review to ensure accurate knowledge of current/active medications, including asking our patients to inform us about any [id number]-[id number] medications or herbal remedies/nutritional supplements/alternative remedies. 2. A review to specifically ensure our patients have had annual screening for screening for depression, screening for tobacco use, and screening for unhealthy alcohol use. For concerning screenings had a discussion with the patient, provided patient education, and recommended follow-up with primary care provider when appropriate. If patient noted with a risk of falling, they received education on strength, gait, and balance training to prevent future risk of falling. Assessment and Plan Assessment and Plan (1) Lumbar spondylosis: Plan proceed with bilateral L4-5 L5-S1 MBB #2 working towards RFA under fluoroscopy, risks vs benefits reviewed continue HEP as tolerated continue current medications f/u after injection
== END 2024-06-16 13:15 | disposition home or self-care (01) ==
LOC: PM 13:14
PROVIDERS: PCP Family Medicine; Visit Provider Nurse Practitioner
DX: M47.816 Spondylosis without myelopathy or radiculopathy, lumbar region (principal)
CPT/HCPCS: G0463

== ENCOUNTER 2024-07-11 08:59 | Day surgery (SDC) | payer MEDICARE, BC, SELFPAY ==
[2024-07-11 09:42] VITALS: BP 128/78; PULSE 62; TEMP 36.7; O2SAT 98
[2024-07-11 10:24] VITALS: BP 143/87; BP 144/94; PULSE 82; PULSE 83; O2SAT 94; O2SAT 96
--- NOTE | 2024-07-11 10:27 | W.PM.PROCNOT ---
Date of procedure: 07/11/24 Pre-op diagnosis: Pain due to lumbar spondylosis without myelopathy Post-op diagnosis: same as pre-op Procedure: Procedure: Bilateral L4-5, L5-S1 medial branch block Medications: Bupivacaine 0.25% 6cc The patient was seen and examined in the preoperative holding area.? An informed consent was obtained and placed on the chart.? The patient was brought to the medical procedure unit and placed in the prone position.? A timeout was completed verifying correct patient, procedure site, positioning, plan, and special equipment.? Using aseptic technique, the needle was placed at left L4. Under direct fluoroscopic visualization a Quincke-tipped spinal needle was advanced to the junction of the superior articulating process with the transverse process at the designated medial branch segment.? Preceded by negative aspiration, the above-mentioned injectate was placed in 1 mL aliquots.? The procedure was repeated at left L5, S1.? The needle was removed and insertion site was covered. The same procedure, at the same levels, was completed on the right side. The patient was taken to the postprocedural recovery area and monitored for an appropriate length of time before found suitable for discharge in the company of a responsible adult. Anesthesia: Local Surgeon: Nikkie Romero Pathology: none sent Condition: stable Disposition: no change
[2024-07-11] MEDS: LIDOCAINE HCL 2% 400 MG/20 ML MDV INJ (10:28)
[2024-07-11] MEDS: BUPIVACAINE HCL 0.25% PF 25 MG/10 ML VIAL 8 ML INJ (10:28)
== END 2024-07-11 10:32 | disposition home or self-care (01) ==
LOC: SURGOUT 09:00
PROVIDERS: PCP Family Medicine; Visit Provider Anesthesiology
DX: M47.816 Spondylosis without myelopathy or radiculopathy, lumbar region (principal)
CPT/HCPCS: 64493; 64494; J0665

== ENCOUNTER 2024-07-14 12:36 | Outpatient (OUT) | payer MEDICARE, BC, SELFPAY ==
--- NOTE | 2024-07-14 13:10 | PM.CN ---
Consult Note: HPI Data of Consult Patient: known to practice within the last 3 years Consult date: 06/16/24 Requesting Physician: Cadence Pastor NP Primary Care Provider: VICKIE STILES Consult Narrative Reason for consult: f/u Narrative: 79yof who presents for assessment. continues to have significant low back pain that is worsened with ambulation. completed 6w of PT in past 3 months, without lasting benefit. continues in a series of provider directed home exercises >6w, without benefit. uses tylenol as needed. lumbar imaging reviewed, significant for multilevel moderate facet arthropathy through lumbar spine. denies adverse med side effects. recently underwent bilateral L4-5 l5-s1 MBB #1 and#2 with 100% improvement in pain and functional ability immediately following and greater than 2 hours after the injection. cc:: CC: Cadence Pastor NP Review of Systems ROS Status of ROS 10 or more systems reviewed and unremarkable except as noted in history and below Musculoskeletal Reports: back pain; Denies: extremity pain [facility] Medical History (Updated 06/08/24 @ 09:43 by Daria Hernandez) Neck pain ?M54.2 - Cervicalgia (ICD-10) Low back pain ?M54.50 - Low back pain, unspecified (ICD-10) Osteoarthritis ?M19.90 - Unspecified osteoarthritis, unspecified site (ICD-10) Fibromyalgia ?M79.7 - Fibromyalgia (ICD-10) Breast cancer ?C50.919 - Malignant neoplasm of unspecified site of unspecified female breast (ICD-10) Depression ?F32.A - Depression, unspecified (ICD-10) Hearing deficit ?H91.90 - Unspecified hearing loss, unspecified ear (ICD-10) Anxiety ?F41.9 - Anxiety disorder, unspecified (ICD-10) Hiatal hernia ?K44.9 - Diaphragmatic hernia without obstruction or gangrene (ICD-10) Acid reflux ?K21.9 - Gastro-esophageal reflux disease without esophagitis (ICD-10) Hypothyroid ?E03.9 - Hypothyroidism, unspecified (ICD-10) Former smoker ?Z87.891 - Personal history of nicotine dependence (ICD-10) Aspergillus ?B44.9 - Aspergillosis, unspecified (ICD-10) Asthma ?J45.909 - Unspecified asthma, uncomplicated (ICD-10) Sleep apnea ?G47.30 - Sleep apnea, unspecified (ICD-10) Irregular heart beat ?I49.9 - Cardiac arrhythmia, unspecified (ICD-10) Sick sinus syndrome ?I49.5 - Sick sinus syndrome (ICD-10) High cholesterol ?E78.00 - Pure hypercholesterolemia, unspecified (ICD-10) Hypertension ?I10 - Essential (primary) hypertension (ICD-10) Surgical History H/O facial fracture repair ?Z98.890 - Other specified postprocedural states (ICD-10) ?Z87.81 - Personal history of (healed) traumatic fracture (ICD-10) H/O section ?Z98.891 - History of uterine scar from previous surgery (ICD-10) History of tonsillectomy ?Z90.89 - Acquired absence of other organs (ICD-10) History of cholecystectomy ?Z90.49 - Acquired absence of other specified parts of digestive tract (ICD-10) H/O: hysterectomy ?Z90.710 - Acquired absence of both cervix and uterus (ICD-10) H/O arthroscopic knee surgery ?Z98.890 - Other specified postprocedural states (ICD-10) H/O cataract extraction ?Z98.49 - Cataract extraction status, unspecified eye (ICD-10) History of lobectomy of lung ?Z90.2 - Acquired absence of lung [part of] (ICD-10) H/O hand surgery ?Z98.890 - Other specified postprocedural states (ICD-10) S/P left mastectomy ?Z90.12 - Acquired absence of left breast and nipple (ICD-10) S/P cardiac pacemaker procedure ?Z95.0 - Presence of cardiac pacemaker (ICD-10) H/O cervical spine surgery ?Z98.890 - Other specified postprocedural states (ICD-10) H/O arthroscopy of shoulder ?Z98.890 - Other specified postprocedural states (ICD-10) H/O foot surgery ?Z98.890 - Other specified postprocedural states (ICD-10) H/O mastectomy ?Z90.10 - Acquired absence of unspecified breast and nipple (ICD-10) H/O blepharoplasty ?Z98.890 - Other specified postprocedural states (ICD-10) H/O total knee replacement ?Z96.659 - Presence of unspecified artificial knee joint (ICD-10) Meds Home Medications and Allergies Home Medications ?Medication ?Instructions ?Recorded ?Confirmed ?Type acetaminophen 500 mg tablet 500 mg PO Q6H PRN pain 06/06/24 07/11/24 History (Acetaminophen Extra Strength) albuterol sulfate 90 mcg/actuation inhalation 06/06/24 History aerosol inhaler alprazolam 0.5 mg tablet mg 06/06/24 History desvenlafaxine succinate 25 mg 25 mg PO DAILY 06/06/24 07/11/24 History tablet,extended release 24 hr (Pristiq) levothyroxine 88 mcg tablet mcg 06/06/24 History lisinopril 5 mg tablet mg 06/06/24 History magnesium oxide 250 mg PO DAILY 06/06/24 07/11/24 History sennosides 8.6 mg-docusate sodium 1 tab-cap PO DAILY 06/06/24 07/11/24 History 50 mg tablet (Senexon-S) verapamil 180 mg tablet,extended mg PO 06/06/24 History release atogepant 30 mg tablet (Qulipta) 30 mg PO DAILY 07/11/24 07/11/24 History Allergies Allergy/AdvReac Type Severity Reaction Status Date / Time aspirin Allergy Unknown Verified 07/11/24 09:48 ciprofloxacin (From Cipro) Allergy Unknown Verified 07/11/24 09:48 clonidine Allergy Unknown Verified 07/11/24 09:48 codeine Allergy Unknown Verified 07/11/24 09:48 doxycycline Allergy Unknown Verified 07/11/24 09:48 gabapentin Allergy Unknown Verified 07/11/24 09:48 levofloxacin (From Levaquin) Allergy Unknown Verified 07/11/24 09:48 moxifloxacin (From Avelox) Allergy Unknown Verified 07/11/24 09:48 oxycodone Allergy Unknown Verified 07/11/24 09:48 theophylline Allergy Unknown Verified 07/11/24 09:48 tramadol Allergy Unknown Verified 07/11/24 09:48 Exam Constitutional Documenting provider has reviewed patient's vital signs: yes Common normals: no apparent distress, oriented x3, healthy appearing, alert and well nourished General appearance: cooperative HENMT Common normals: normocephalic, hearing grossly normal bilaterally and moist oral mucous membranes Head and scalp: normocephalic Eye Common normals: PERRL Pupil: PERRL Neck & C-Spine Common normals: full ROM General: normal visual inspection Chest Common normals: inspection of chest normal Respiratory Common normals: normal respiratory effort, no retractions and no use of accessory muscles Back & Pelvis Lumbar spine/lower back: ROM limited, pain with ROM and straight leg raise negative bilaterally; no paraspinal muscle tenderness and no paraspinal muscle spasm Sacroiliac joints: SI joints normal Other: positive facet loading tenderness L4-S1 negative radiculopathy strength 5/5 in BLE Neuro Common normals: oriented x3, CN's II-XII intact bilaterally, moves all extremities, no focal motor deficits, no sensory deficits noted and deep tendon reflexes 2+ bilaterally Sensorium/orientation: alert Motor exam: strength 5/5 throughout and no movement abnormalities noted Psych Common normals: mental status grossly normal, thought process normal, cooperative, affect normal, speech normal and activity/motor behavior normal Speech: normal speech Thought process: normal thought process Results Additional Findings Additional findings: If on a controlled substance or opioids, I have checked an [place]AR[place] report on this patient and there are no aberrancies noted in the prescribing history.??If on a controlled substance or opioid a drug screen was completed and reviewed within the last year, and if there has not been a drug screen completed we ordered one today to monitor higher risk, state monitored pain medication use. As part of providing excellent, safe, comprehensive care, the following was completed at our patient's visit: 1. A medication reconciliation and review to ensure accurate knowledge of current/active medications, including asking our patients to inform us about any rhli-rzs-deybgcy medications or herbal remedies/nutritional supplements/alternative remedies. 2. A review to specifically ensure our patients have had annual screening for screening for depression, screening for tobacco use, and screening for unhealthy alcohol use. For concerning screenings had a discussion with the patient, provided patient education, and recommended follow-up with primary care provider when appropriate. If patient noted with a risk of falling, they received education on strength, gait, and balance training to prevent future risk of falling. Assessment and Plan Assessment and Plan (1) Lumbar spondylosis: Plan proceed with bilateral L4-5 L5-S1 RFA with MAC sedation, due to anxiolysis, under fluoroscopy. risks vs benefits reviewed continue HEP as tolerated continue current medications f/u 1 month after RFA complete
== END 2024-07-14 12:37 | disposition home or self-care (01) ==
LOC: PM 12:37
PROVIDERS: PCP Family Medicine; Visit Provider Nurse Practitioner
DX: M47.816 Spondylosis without myelopathy or radiculopathy, lumbar region (principal)
CPT/HCPCS: G0463

== ENCOUNTER 2024-07-25 08:56 | Day surgery (SDC) | payer MEDICARE, BC, SELFPAY ==
--- OUTSIDE RECORDS SUMMARY | 2024-07-25 09:18 | XMS_ITS | CCD ---
Author Organization [facility] [place] [facility] Care Team Providers Care Day Care Worker Name Role Phone Yajaira Gonzalez Primary Care Provider Ceferino Morales Attending Provider Yajaira Gonzalez MD Primary Care Provider [phone] Mackenzie Kurtz(Historical) Unavailable Un available Ramirez Jang Unavailable Vilma Sandoval MD Unavailable YAJAIRA POST Primary Care Physician Yajaira Gonzalez MD Primary Care Provider [phone] Ramirez Jang Unavailable Vlima Sandoval MD Unavailable Yajaira Gonzalez MD Primary Care Provider [phone] Yajaira Gonzalez MD Primary Care Provider Mackenzie Kurtz(Historical) Unavailable Un available Ramirez Jang Unavailable Vilma Sandoval MD Unavailable [phone] MARLEE SALAZAR Admitting Unavailable MARLEE SALAZAR Attending Unavailable YAJAIRA GONZALEZ Primary Care Unavailable FENG LEY Consulting Unavailable Ramirez Jang Unavailable Vilma Napoles MD Unavailable SuhailRamirez mondragon DO Unavailable [phone] LISAYAJAIRA Primary Care Unavailable MARLEE SALAZAR Referring Unavailable SELL II, REDDY W Referring Unavailable LISAYAJAIRA Primary Care Unavailable GABRIEL SUBRAMANIAN Attending Unavailable LISAYAJAIRA Primary Care Unavailable GABRIEL COPPOLA JR Referring Unavailable Lisa THOMAS Yajaira Pearce Primary Care Provider Lisa THOMAS, Yajaira Pearce Unavailable Lisa THOMAS, Yajaira Pearce Primary Care Provider Lisa THOMAS, Yajaira Pearce Primary Care Provider [phone] VILMA NAPOLES Attending Unavailable LISA, YAJAIRA Pearce Referring Unavailable LISA, YAJAIRA Pearce Primary Care Unavailable VILMA NAPOLES Attending Unavailable LISA, YAJAIRA Pearce Referring Unavailable LISA, YAJAIRA Pearce Primary Care Unavailable POST YAJAIRA Primary Care Unavailable Yee Zambrano Attending Unavailable Vilma Napoles MD Unavailable Lisa THOMAS, Yajaira Pearce Primary Care Provider Jaron Will DO Unavailable GABRIEL COPPOLA JR Attending Unavailable LISA, YAJAIRA Ramses Primary Care Unavailable MARLEE SALAZAR Attending Unavailable LISA, YAJAIRA Pearce Primary Care Unavailable GABRIEL COPPOLA JR Referring Unavailable GABRIEL COPPOLA JR Attending Unavailable LISA, YAJAIRA Pearce Primary Care Unavailable ABHYANKAR, VAIBHAV Referring Unavailable ABHYANKAR, VAIBHAV Attending Unavailable LISA, YAJAIRA Pearce Primary Care Unavailable LISA, YAJAIRA Pearce Primary Care Unavailable MARLEE SALAZAR Referring Unavailable DERENMARLEE Referring Unavailable MARLEE SALAZAR Attending Unavailable LISA, YAJAIRA Pearce Primary Care Unavailable LORELEI RAPHAEL Attending Unavailable LISA, YAJAIRA Ramses Primary Care Unavailable LISA, YAJAIRA Ramses Referring Unavailable RADHA PRICE Attending Unavailable LISA, YAJAIRA Pearce Referring Unavailable LISA, YAJAIRA Ramses Primary Care Unavailable GABRIEL COPPOLA JR Referring Unavailable GABRIEL COPPOLA JR Attending Unavailable LISA, YAJAIRA F Primary Care Unavailable HYKES GABRIEL LARIOS Attending Unavailable LISA, YAJAIRA Ramses Primary Care Unavailable LISA, YAJAIRA Ramses Primary Care Unavailable MARLEE SALAZAR Referring Unavailable ALBERT HUNTLEY Attending Unavailable LISA, YAJAIRA F Referring Unavailable LISA, YAJAIRA Ramses Primary Care Unavailable ABHYANKAR, VAIBHAV Referring Unavailable LISA, YAJAIRA F Primary Care Unavailable ABHYANKAR, VAIBHAV Referring Unavailable ABHYANKAR, VAIBHAV Attending Unavailable LISA, YAJAIRA Ramses Primary Care Unavailable ABHYANKAR, VAIBHAV Attending Unavailable LISA, YAJAIRA F Primary Care Unavailable GABRIEL COPPOLA JR Referring Unavailable PROMISE SOLIMAN Attending Unavailable LISA, YAJAIRA F Primary Care Unavailable Heather THOMAS, Nikkie Arriaga Attending Unavailable Heather THOMAS, Nikkie Arriaga Attending Unavailable Heather THOMAS, Nikkie Arriaga Attending Unavailable Heather THOAMS, Nikkie Arriaga Attending Unavailable TIA MARIE Attending Unavailable LISA, YAJAIRA F Referring Unavailable LISA, YAJAIRA F Primary Care Unavailable TIA MARIE Attending Unavailable LISA, YAJAIRA F Referring Unavailable LISA, YAJAIRA F Primary Care Unavailable WINSTON CHANEL Attending Unavailable LISA, YAJAIRA F Referring Unavailable [...] LISA, YAJAIRA F Primary Care Unavailable WINSTON CHANEL Attending Unavailable LISA, YAJAIRA F Referring Unavailable LISA, YAJAIRA F Primary Care Unavailable WINSTON CHANEL Referring Unavailable LISA, YAJAIRA F Primary Care Unavailable TIA MARIE Attending Unavailable LISA, YAJAIRA F Referring Unavailable LISA, YAJAIRA F Primary Care Unavailable VAIBHAV OVALLE Referring Unavailable LISA, YAJAIRA F Primary Care Unavailable TIA MARIE Attending Unavailable LISA, YAJAIRA F Referring Unavailable LISA, YAJAIRA F Primary Care Unavailable WINSTON CHANEL Attending Unavailable LISA, YAJAIRA F Referring Unavailable LISA, YAJAIRA F Primary Care Unavailable TIA MARIE Attending Unavailable LISA, YAJAIRA F Referring Unavailable LISA, YAJAIRA F Primary Care Unavailable TIA MARIE Attending Unavailable LISA, YAJAIRA F Referring Unavailable LISA, YAJAIRA F Primary Care Unavailable TIA MARIE Attending Unavailable LISA, YAJAIRA F Referring Unavailable LISA, YAJAIRA F Primary Care Unavailable WINSTON CHANEL Attending Unavailable LISA, YAJAIRA F Referring Unavailable LISA, YAJAIRA F Primary Care Unavailable TIA MARIE Attending Unavailable LISA, YAJAIRA F Referring Unavailable LISA, YAJAIRA F Primary Care Unavailable WINSTON CHANEL Attending Unavailable LISA, YAJAIRA F Referring Unavailable LISA, YAJAIRA F Primary Care Unavailable TIA MARIE Attending Unavailable LISA, YAJAIRA F Referring Unavailable LISA, YAJAIRA F Primary Care Unavailable TIA MARIE Attending Unavailable LISA, YAJAIRA F Referring Unavailable LISA, YAJAIRA F Primary Care Unavailable YEE ZAMBRANO Referring Unavailable LISA, YAJARIA F Primary Care Unavailable WINSTON CHANEL Attending Unavailable LISA, YAJAIRA F Referring Unavailable LISA, YAJAIRA F Primary Care Unavailable MARIETIA Attending Unavailable LISA, YAJAIRA F Referring Unavailable LISA, YAJAIRA F Primary Care Unavailable LISA, YAJAIRA F Attending Unavailable JANIS, AMADA Claire Attending Unavailable GILLMOR, ESME Referring Unavailable ROSEANNEMYRANDA Attending Unavailable LISA, YAJAIRA F Referring Unavailable TIMMISBRETT Attending Unavailable JANIS, AMADA Claire Attending Unavailable JANIS, AMADA Claire Attending Unavailable GILLMOR, ESME Referring Unavailable JANIS, AMADA Claire Attending Unavailable GILLMOR, ESME Referring Unavailable LISA, YAJAIRA F Attending Unavailable FELTER, YELENA Mondragon Attending Unavailable LISA, YAJAIRA F Referring Unavailable JANIS, AMADA Claire Attending Unavailable GILLMOR, ESME Referring Unavailable LISA, YAJAIRA F Attending Unavailable GUZIK, ILA Attending Unavailable GILLMOR, ESME Referring Unavailable FELTER, YELENA Mondragon Attending Unavailable JANIS, AMADA Claire Attending Unavailable GILLMOR, ESME Referring Unavailable JANIS, AMADA Claire Attending Unavailable GILLMOR, ESME Referring Unavailable GUZIK, ILA Attending Unavailable GILLMOR, ESME Referring Unavailable PETITTI, MIGUEL ANGEL Mondragon Attending Unavailable NICOLETTE, JARON Attending Unavailable PETITTI, MIGUEL ANGEL Mondragon Attending Unavailable GUZIK, ILA Attending Unavailable GILLMOR, ESME Referring Unavailable NICOLETTE, JARON Attending Unavailable FELTER, YELENA Mondragon Attending Unavailable GUZIK, ILA Attending Unavailable GILLMOR, ESME Referring Unavailable NICOLETTE, JARON Attending Unavailable KAMPDAO CARABALLO Attending Unavailable LISA, YAJAIRA F Attending Unavailable [...] Attending Unavailable LISA, YAJAIRA F Referring Unavailable GOLDCRISTIAN GUTIERREZ Attending Unavailable YAJAIRA GONZALEZ Referring Unavailable JARON WILL Attending Unavailable YELENA DAVISON Attending Unavailable GOLDCRISTIAN Attending Unavailable YAJAIRA GONZALEZ Referring Unavailable GOLDCRISTIAN Attending Unavailable YAJAIRA GONZALEZ Referring Unavailable Allergies Allergy Classification Reported Allergen(s) Allergy Type Date of Onset Reaction(s) Facility Acetaminophen / HYDROcodone (1 source) Acetaminophen / HYDROcodone Drug Allergy 01-27-20 23 Mental Status Change, Shortness of Breath [facility] Anti-Epileptic Agents (4 sources) gabapentin Drug Allergy 10-16-19 15 Intolerance [facility] Aspirin (1 source) Aspirin Drug Allergy 10-17-19 23 Anaphylaxis [facility] cloNIDine (4 sources) cloNIDine Drug Allergy 04-13-20 12 Mental Status Change, Rash [facility] Doxycycline (4 sources) Doxycycline Drug Allergy 01-25-20 14 Intolerance, GI Upset, Unknown [facility] DULoxetine (4 sources) DULoxetine Drug Allergy 02-18-20 11 Other: See Comments, Rash, Swelling, Unknown [facility] Opioid Agonists (9 sources) Codeine Drug Allergy 01-27-20 08 Unknown, Mental Status Change, Shortness of Breath, Other: See Comments [facility] pregabalin (1 source) pregabalin Drug Allergy 01-28-20 23 Other: See Comments [facility] Quinolones (antibiotic) (13 sources) Ciprofloxacin Drug Allergy 02-18-20 11 Other: See Comments, Rash, Unknown [facility] Theophylline (4 sources) Theophylline Drug Allergy 02-23-20 12 Other: See Comments [facility] (20 sources) Ciprofloxacin; Translations: [ciprofloxacin] Drug Allergy 02-18-20 11 Other: See Comments, Unknown (qualifier value), Rash, Unknown [facility] (20 sources) cloNIDine; Translations: [clonidine] Drug Allergy 04-13-20 12 Mental Status Change, Headache (finding), Rash, Hallucinations [facility] Work Phone: (20 sources) Codeine; Translations: [codeine] Drug Allergy 01-27-20 08 Dizziness (finding), Unknown [facility] (20 sources) Doxycycline; Translations: [doxycycline] Drug Allergy 01-25-20 14 Intolerance, GI Upset, Unknown, GI intolerance [facility] (20 sources) DULoxetine; Translations: [duloxetine] Drug Allergy 02-18-20 11 Other: See Comments, Unknown (qualifier value), Rash, Swelling, Unknown [facility] (20 sources) gabapentin; Translations: [gabapentin] Drug Allergy 10-16-19 15 Intolerance, Oral lesion (finding), Headache (finding) [facility] (20 sources) levoFLOXacin; Translations: [levofloxacin] Drug Allergy 02-18-20 11 Other: See Comments, Unknown (qualifier value), Rash, Other [facility] (20 sources) moxifloxacin; Translations: [MOXIFLOXACIN HCL] Drug Allergy 02-18-20 11 Other: See Comments [facility] (20 sources) oxyCODONE; Translations: [OXYCODONE] Drug Allergy 03-19-20 21 Mental Status Change, Shortness of Breath [facility] Work Phone: (20 sources) Theophylline; Translations: [theophylline] Drug Allergy 02-23-20 12 Other: See Comments, Headache (finding), hypertension [facility] (20 sources) moxifloxacin; Translations: [moxifloxacin] Drug Allergy 02-18-20 11 Unknown (qualifier value), Rash, Unknown [facility] (20 sources) traMADol; Translations: [tramadol] Drug Allergy 10-14-19 17 Unknown (qualifier value), Other: See Comments [facility] (20 sources) Aspirin; Translations: [ASPIRIN] Drug Allergy 10-17-19 Anaphylaxis, Shortness Of Breath [facility] (20 sources) Acetaminophen / HYDROcodone; Translations: [HYDROCODONE-EMMY TAMINOPHEN] Drug Allergy 01-27-20 23 Mental Status Change, Shortness of Breath, Unknown [facility] (20 sources) pregabalin; Translations: [PREGABALIN] Drug Allergy 01-28-20 23 Other: See Comments [facility] (5 sources) Simvastatin; Translations: [SIMVASTATIN] Drug Allergy 10-14-19 17 [facility] (5 sources) Thiuram Analogues; Translations: [THIURAM ANALOGUES] Propensity to adverse reactions to drug 12-29-19 [facility] (15 sources) Aluminum aspirin Drug Allergy 10-17-19 23 Anaphylaxis [facility] (15 sources) Ciprofloxacin Drug Allergy 09-25-19 22 Rash [facility] (15 sources) DULoxetine Drug Allergy 09-25-19 22 Swelling, Rash, Other [facility] (15 sources) Pregabalin Allergy to substance 01-28-20 23 [facility] (15 sources) Simvastatin Propensity to adverse reactions 10-14-19 17 [facility] Medications Current Medications Medication Drug Class(es) Dates [...] tablets by mo uth every 8 hours. [id number] 200 actuat albuterol 0.09 mg/actuat metered dose inhaler (20 sources) beta2-Adrenergic Agonist Start: 01-27-2024 take 2 puff(s) by inhalation every six hours as needed for wheezing albuterol (PROVENTIL HFA;VENTOLIN HFA) 90 mcg/actuation inhaler Indications: Asthma, unspecified asthma severity, unspecified whether complicated, unspecified whether persistent Inhale 2 puffs every 6 (six) hours as needed for wheezing. 18 g 11 01/27/2024 Active Start: 06-10-2022 take 2 puff(s) by mo uth every six hours as needed for wheezing [...] mg oral tablet (20 sources) Benzodiazepine Start: 2 End: 4 take 1 tablet by mouth in the morning, then take 1 tablet by mouth in the evening, then take 1 tablet by mouth at bedtime ALPRAZolam (Xanax) 0.5 MG tablet Indications: Anxiety Take 1 tablet (0.5 mg) by mouth in the morning and 1 tablet (0.5 mg) in the evening and 1 tablet (0.5 mg) before bedtime. 90 tablet 10/08/2023 Active Start: 11-15-2019 take 2 tablets by mo [facility] twice daily Alprazolam (Xanax) 0.25 mg Tablet Active 0.5 MG PO Twice daily November 15, 2019 8:24am Start: 11-15-2019 take 1 tablet by [facility]a twice daily Alprazolam (Xanax) 0.25 mg Tablet [...] three times daily as needed. atogepant (QULIPTA) 60 mg tablet (7 sources) atogepant (QULIP TA) 60 mg tablet Take by mouth. Active take 1 tablet by mouth once yane y atogepant (QULIPTA) 60 mg tablet Take 60 mg by mouth once daily. 0 Active atogepant (QULIP TA) 60 mg tablet Take by mouth. 0 Active Comment on above: Take 60 mg by mouth once daily. Atogepant (Qulipta) 60 MG tablet (15 sources) Atogepant (Qulip ta) 60 MG tablet Take by mouth Active Atogepant (Qulip ta) 60 MG tablet Take by mouth 0 Active azelastine (20 sources) Histamine-1 Receptor Antagonist Start: 12-06-2021 azelastine hydrochlo ride 137 mcg spray = 2 spray(s), Nasal, BID Start Date: 12/06/21 Status: Ordered Start: 11-15-2019 Azelastine Act luis 2 SPRAY INTRANASAL Twice daily November 15, 2019 8:24am Start: 01-10-2019 End: 01-06-2023 azelastine (ASTELIN,ASTEPRO) 0.1% nasal spray Use 2 Sprays in the nose as needed. 0 01/10/2019 01/06/2023 Discontinued (Course of therapy completed) Comment on above: Use 2 Sprays in the nose as needed. betahistine 16 mg oral tablet (1 source) Start : 07-04 End: 10-02 take 1 capsule by mouth three times daily betahistine capsule 16 mg (CPD) Take 1 capsule by mouth three times a day. 90 capsule 2 07/04/2024 10/02/2024 Active bisacodyl 5 mg delayed release oral tablet (2 sources) Stimulant Laxative Start : 01-28 End: 02-11 take 2 tablets by mouth once daily for constipation bisacodyl EC (DULCOLAX) 5 mg EC tablet Take 2 tablets by mouth once daily for 14 days. Take regularly when on narcotics, Take as needed for constipation when narcotics completed 28 tablet 0 01/28/2023 02/11/2023 Active Comment on above: Take 2 tablets by [facility] once daily for 14 days. Take regularly when on narcotics, Take as needed for constipation when narcotics completed botox injections every 3 months (1 source) Start : 12-06 botox injections every 3 months botox injections every 3 months Start Date: 12/06/21 Status: Ordered onabotulinumtoxina 100 unt injection (20 sources) Acetylcholine Release Inhibitor Start : 07-07 End: 07-07 onabotulinumtoxinA (Botox) injection 300 Units Start: 07-07-2024 End: 07-07-2024 inject 300 [IU] by intramuscular injection once 300 Units, Intramuscular, Once, On Kim 07/07/24 at 1145, For 1 dose, Charging context for this clinic-administered medication: Medically Necessary/Insurance onabotulinumtoxi nA (BOTOX) 100 unit recon soln every 3 (three) months. For migraines Active ONABOTULINUMTOXI NA (BOTOX INJECTION) by INJECTION(UNSPECIFIED PARENTERAL ROUTES) route. every 9 weeks for migraines Active ONABOTULINUMTOXI NA (BOTOX INJECTION) by INJECTION(UNSPECIFIED [...] 7:37am clobetasol propionate 0.5 mg/ml medicated shampoo (20 sources) Corticosteroid Start: 2023 Clobetasol Propionate 0.05 % shampoo Indications: Pruritus Apply to scalp, leave on 5 min, rinse. 2-3 x week, 30 day supply 118 mL 11 02/15/2024 Active 24 hr desvenlafaxine succinate 25 mg extended release oral tablet (20 sources) Serotonin and Norepinephrine Reuptake Inhibitor Start: 2023 take 1 tablet by mouth every twenty-four hours in the morning desvenlafaxine (PRISTIQ) 25 mg 24 hr tablet Indications: Major depressive disorder, recurrent episode, mild (CMS-HCC) , Generalized anxiety disorder Take 1 tablet (25 mg total) by mouth in the morning. 30 tablet 3 05/05/2024 Active Start: 12-01-2023 take 1 tablet by nila th once daily, then take 1 tablet by mouth every twenty-four hours desvenlafaxine ER (PRISTIQ) 50 mg 24 hr tablet Take 50 mg by mouth once daily. 12/01/2023 Active Start: 12-01-2023 take 1 tablet by nila th once daily, then take 1 tablet by mouth every twenty-four hours desvenlafaxine ER (PRISTIQ) 25 mg 24 hr tablet Take 25 mg by mouth once daily. 0 12/01/2023 Active Start: 11-02-2023 take 1 tablet by nila th every twenty-four hours in the morning desvenlafaxine (Pristiq) 50 MG 24 hr tablet Take 50 mg by mouth in the morning. 11/02/2023 Active Start: 11-02-2023 take 1 tablet by [...] daily. docusate sodium 50 mg / sennosides, alf 8.6 mg oral tablet (16 sources) Start: 02-29-20 take 2 tablets by [...] on above: Take 2 tablets by mo [facility] daily at bedtime. famotidine 20 mg oral tablet (5 sources) Histamine-2 Receptor Antagonist Start: 4 End: 4 take 1 tablet by mouth twice daily famotidine (PEPCID) 20 mg tablet Take 1 tablet by mouth two times a day. 60 tablet 2 10/27/2023 01/25/2024 Active Comment on above: Take 1 tablet by [facility] two times a day. fexofenadine (20 sources) [...] once daily. fluocinonide 0.5 mg/ml topical solution (20 sources) Corticosteroid Start: 02-15-2024 fluocinonide (Lidex) 0.05 % external solution Indications: Pruritus Apply to affected areas on the scalp, up to twice a day when flared, 30 day supply 60 mL 11 02/15/2024 Active Start: 02-15-2024 fluocinonide ( LIDEX) 0.05 % external solution Apply to affected area once daily. 02/15/2024 Active folic acid 1 mg oral tablet (2 sources) folic acid (Folv ite) 1 MG tablet Take by mouth Daily. 0 Active ipratropium bromide 0.2 mg/ml inhalation solution (3 sources) Anticholinergic Start: 2019 Ipratropium [place] Active 1.25 ML INHALATION every 6 to [...] lansoprazole 30 mg delayed release oral capsule (20 sources) Proton Pump Inhibitor Start: 2023 End: 2023 take 1 capsule by mouth before mealtime lansoprazole (Prevacid) [address] capsule Take 30 mg by mouth in the morning. Take before meals. 01/29/2024 Active levothyroxine sodium 0.088 mg oral tablet (20 sources) l-Thyroxine Start: 2009 End: 2024 take 1 tablet by mouth once daily levothyroxine (Synthroid, Levoxyl) 88 MCG tablet Indications: Other specified hypothyroidism (CMS/HCC) Take 1 tablet (88 mcg) by mouth Daily 90 tablet 3 03/30/2024 03/30/2025 Active Comment on above: Take one(1) tablet d aily BY MOUTH Lidocaine Hcl-Benzyl Alcohol (Salonpas Lidocaine Plus) 4-10 % Cream (1 source) Start: 2020 Lidocaine Hcl-Benzyl Alcohol (Salonpas Lidocaine Plus) 4-10 % Cream Active 1 APPLIC TOPICAL Twice daily February 01, 2021 7:37am lisinopril 5 mg oral tablet (20 sources) Angiotensin Converting Enzyme Inhibitor Start: 2020 lisinopril 5 MG tablet Take 5 mg by mouth When bp goes above 130/140 12/31/2022 Active Start: 01-30-2021 Lisinopril Act luis 5 MG PO Daily January 30, 2021 10:26am take when BP is >130/140 Comment on above: Take 5 mg by mouth a s needed. as needed for BP above 140 Magnesium Oxide (13 sources) magnesium oxide (Mag-Ox) 400 mg tablet 500 mg Daily Active marijuana (1 source) Start: 12-06-2021 marijuana marijuana Start Date: 12/06/21 Status: Ordered metroNIDAZOLE 0.0075 mg/mg topical gel (16 sources) Nitroimidazole Antimicrobial Start: 11-09-2023 metroNIDAZOLE (Metrogel) 0.75 % gel Indications: Other rosacea Apply thin layer to face, once daily, 30 day supply 45 g 11 11/09/2023 Active Start: 08-15-2022 End: 08-22-2022 take 1 tablet by mouth twice daily metroNIDAZOLE (FLAGYL) 500 mg tablet Indications: Diarrhea, unspecified type Take 1 tablet by mouth twice daily for 7 days. 14 tablet 0 08/15/2022 08/22/2022 Active metroNIDAZOLE (M ETROGEL) 1 % gel Apply 1 Application topically in the morning. Active Comment on above: Take 1 tablet by nila twice daily for 7 days. miconazole nitrate 20 mg/ml topical cream (20 sources) Azole Antifungal Start: 02-06-2023 End: 06-24-2024 miconazole (Micatin) 2 % cream Indications: Candidal vaginitis Apply topically 2 (two) times a day. 15 g 02/06/2023 Active Comment on above: Apply to affected ar ea. montelukast 5 mg chewable tablet (20 sources) Leukotriene Receptor Antagonist Start: 12-06-2021 Singulair 5 mg Tab-Chew 5 mg = [...] Start: 09-14-2016 take 1 capsule by mo [facility] once daily before breakfast omeprazole (PriLOSEC) 40 [...] mg Tablet,Delayed Release (Dr/Ec) (2 sources) Start: 0 Omeprazole Magnesium (Prilosec Otc) 20 mg Tablet,Delayed Release (Dr/Ec) Active 40 MG PO Twice daily November 15, 2019 8:24am polyethylene glycol 3350 45479 mg powder for oral solution (1 source) Osmotic Laxative Start: 1 Polyethylene Glycol 3350 (Miralax) 17 gram/dose Powder Active 17 GM PO Daily February 01, 2021 7:37am RABEprazole sodium 20 mg delayed release oral tablet (2 sources) Proton Pump Inhibitor Start: 4 take 1 tablet by mouth once daily RABEprazole (ACIPHEX) 20 mg tablet Take 1 tablet by mouth once daily. 30 tablet 3 06/24/2024 Active UNABLE TO FIND (3 sources) UNABLE TO FIND M ed Name: Allergy shots-MONTHLY Active UNABLE TO FIND ed Name: Allergy shots-MONTHLY 0 Active Ventolin HFA 90 mcg/inh Aerosol (1 source) Start: 12-06-2021 take 2 puff(s) by inhalation every six hours Ventolin HFA 90 mcg/inh Aerosol 2 puff(s), Inhalation, q6hr Start Date: 12/06/21 Status: Ordered verapamil hydrochloride 180 mg extended release oral tablet (20 sources) Calcium Channel Yoan Start: 03-02-2024 take 1 tablet by mouth once daily, then take 1 tablet by mouth once daily in the morning, then take 1 tablet by mouth once daily at bedtime verapamil SR (CALAN-SR) 180 mg CR tablet Take 1 tablet (180 mg total) by mouth nightly. TAKE ONE TABLET BY MOUTH EVERY MORNING AND TAKE ONE TABLET BY MOUTH EVERY NIGHT BEFORE BEDTIME 180 tablet 2 03/02/2024 Active Start: 03-09-2023 take 1 tablet by nila once daily in the morning, then take 1 tablet by mouth once daily at bedtime verapamil SR (CALAN-SR) 180 mg CR tablet TAKE ONE TABLET BY MOUTH EVERY MORNING AND TAKE ONE TABLET BY MOUTH EVERY NIGHT BEFORE BEDTIME 180 tablet 3 03/09/2023 Active Start: 12-06-2021 take 1 capsule by [facility] twice daily verapamil 180 mg Cap-ER 180 mg = 1 cap(s), Oral, BID Start Date: 12/06/21 Status: Ordered Start: 02-01-2021 take 180 mg by mouth twice lacey ly Verapamil Active 180 MG PO Twice daily February 01, 2021 7:37am Start: 11-15-2019 End: 02-01-2021 take 180 mg by mouth every twelve hours Verapamil Discontinued 180 MG PO Q12H November 15, 2019 8:24am February 01, 2021 7:38am take 1 capsule by [facility] every twenty-four hours in the morning verapamil ER (Verelan) 180 MG 24 hr capsule Take 180 mg by mouth in the morning and 180 mg in the evening. Active take 1 capsule by mo [facility] twice daily verapamil ER 180 mg 24 hr capsule Take 180 mg by mouth twice daily. Active Comment on above: Take 180 mg [...] 500 mg capsule 03/24/2023 05/30/2023 Discontinued amylase [id number] unt / lipase [id number] unt / protease [id number] unt delayed release oral capsule (7 sources) Start: 10-03-2022 End: 11-27-2022 take 1 capsule by mouth three times daily at mealtime szyjev-[id number]-dnv lase (CREON) 24,000-76,000 -120,000 unit delayed release capsule Indications: Exocrine pancreatic insufficiency Take 1 capsule by mouth three times daily with meals. 90 capsule 0 10/28/2022 Active Comment on above: Take 1 capsule by mo [facility] three times daily with meals. apixaban 2.5 mg oral tablet (7 sources) Factor Xa Inhibitor Start: 01-27-2023 End: 02-26-2023 take 1 tablet by mouth twice daily apixaban (ELIQUIS) 2.5 mg tab(s) Take 1 tablet by mouth twice daily. 60 tablet 01/27/2023 02/26/2023 Comment on above: Take 1 tablet by nila twice daily. ascorbic acid 500 mg oral [...] Take 1 tablet by nila twice daily with meals for 27 doses. aspirin 81 mg chewable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 Filed: 03/31/2024 15:13 Note Text: POST ANESTHESIA EVALUATION NOTE : 1945 Procedure Summary Date: 03/31/24 Room / Location: Ambulatory Surgery Anesthesia Start: 1216 Anesthesia Stop: 1244 Procedure: COLONOSCOPY SCREENING Diagnosis: Screening for colorectal cancer (Screening for colorectal malignant neoplasm) Scheduled Providers: Gabriel Coppola Jr., DO; Osiris Hendricks RN; Promise Soliman APRN.SPORTS BOOK WRITER Responsible Provider: Natalie Mejias MD Anesthesia Type: [...] March 31, 2024 TIME: 3:13 PM CSN: [id number] [facility] ANES PRE-OPon 03-31-2024 ANES PRE-OP HNO ID: [id number] Author: NATALIE MEJIAS MD Service: Anesthesiology Author Type: Anesthesiologist Type: Anesthesia Preprocedure Evaluation Filed: 03/31/2024 10:56 Note Text: ANESTHESIOLOGY DAY OF SURGERY NOTE : 1945 Procedure Information Date/Time: 03/31/24 1500 Scheduled providers: Gabriel Coppola Jr., DO; Osiris Hendricks RN; Promise Soliman APRN.SPORTS BOOK WRITER Procedure: COLONOSCOPY SCREENING Location: Ambulatory Surgery Estimated [...] and consent discussed: yes. Patient / Responsible Libertarian agrees to proceed: yes Patient / Surrogate [...] March 31, 2024 TIME: 10:55 AM CSN: [id number] [facility] Colonoscopyon 03-31-2024 Colonoscopy [place] [facility] Gastrointestinal Endoscopy Patient Name: Magi Dao Procedure [...] the patient. Procedure Code(s): --- Professional --- 55440, Colonoscopy, flexible; with biopsy, single or multiple Diagnosis Code(s): --- Professional --- Z12.11, Encounter for screening for malignant neoplasm of colon K57.30, Diverticulosis of large intestine without perforation or abscess without bleeding CPT copyright 2020 [employer]. All rights reserved. The codes documented in this report are preliminary and upon information coder review may be revised to meet current compliance requirements. Attending Participation: I personally performed the entire procedure. Scope In: 12:21:29 PM Scope Out: 12:40:20 PM MD Gabriel David Jr, DO 03/31/2024 12:44:59 PM This report has been signed electronically by Gabriel Coppola Jr, DO Number of Addenda: 0 Note Initiated On: 03/31/2024 12:05 PM Estimated Blood Loss: Estimated blood loss: none. [facility] Colonoscopy Study observatio non 03-31-2024 [facility] Gastrointestinal Endoscopy Patient Name: Magi Dao Procedure [...] the patient. Procedure Code(s): --- Professional --- 22911, Colonoscopy, flexible; with biopsy, single or multiple Diagnosis Code(s): --- Professional --- Z12.11, Encounter for screening for malignant neoplasm of colon K57.30, Diverticulosis of large intestine without perforation or abscess without bleeding CPT copyright 2020 [employer]. All rights reserved. The codes documented in this report are preliminary and upon information coder review may be revised to meet current compliance requirements. Attending Participation: I personally performed the entire proce (more content not included)... [facility] Radiology Study observation (narrative) [facility] HISTORY PHYSICALon HISTORY PHYSICAL HNO ID: [id number] Author: GABRIEL COPPOLA JR, DO Service: Gastroenterology [...] cold swea (more content not included)... [facility] SURGICAL PATHOLOGYon 024 CASE REPORT [facility] Comment on above: Order Comment: Speci men Type: BLOOD SPECIMEN Ordering Facility: [facility] Address: [address] [place] [address] Result Comment: Surg [facility] Pathology Report Case: [id number] Authorizing Provider: Gabriel Coppola Jr., DO Collected: 03/31/2024 12:37 PM Ordering Location: Ambulatory Surgery Received: 03/31/2024 02:38 PM Pathologist: Fabienne Deng MD Specimen: Colon, Biopsy, random colon rule out microscopic colitis Performed By: #### 5 7021-8 #### [facility] CLIA [id number] [address] [place], [place] [address] FINAL DIAGNOSIS [facility] Comment on above: Order Comment: Speci men Type: BLOOD SPECIMEN Ordering Facility: [facility] Address: [address] [place] [address] Result Comment: [place] om colon, biopsy: - Melanosis coli. - No evidence of colitis. Performed By: #### 5 7021-8 #### [facility] CLIA [id number] [address] [place], [place] [address] FINAL PERFORMING LAB Normal [facility] Comment on above: Order Comment: Speci men Type: BLOOD SPECIMEN Ordering Facility: [facility] Address: [address] [place] [address] Result Comment: Diag nostic interpretation performed at [facility], [address] [place] [address] CLIA# [id number] Putty Mixer: Ishaan Main M.D. Performed By: #### 5 7021-8 #### [facility] CLIA [id number] [address] [place], [place] [address] GROSS DESCRIPTION Normal [facility] Comment on above: Order Comment: Speci men Type: BLOOD SPECIMEN Ordering Facility: [facility] Address: [address] [place] [address] Result Comment: Medhat boss, Biopsy Received in formalin are multiple pieces of hicks, soft tissue aggregating to 2.0 x 0.2 x 0.1 cm. Totally submitted in one cassette. DB April 01, 2024 1:12 AM Gross examination performed at [facility], [address] [place] [address] Performed By: #### 5 7021-8 #### [facility] CLIA [id number] [address] [place] [address] Rand 03-21-2024 CNPN Telephone (DES) -- MAGI DAO ([id number]) 1945 F Date Time Provider Department 03/21/24 GABRIEL COPPOLA JR During your visit today, we recorded the following information about you: Iraida Campoverde RN 03/21/2024 12:[address] Coppola, pt needs moved off your [facility] schedule in April. It does look like you did her colonoscopy at [facility]. She has h/o AD, COPD, PPM. Just confirming she still needs [facility] for her EGD? And can it be with any provider? Please review and advise. Thank you Iraida Terry RN, RN 03/21/2024 1:49 PM Signed Schedule colonoscopy at [facility] in the next couple weeks with me or can be done at [facility] with any provider. Gabriel Coppola Jr., DO [place] 03/21/2024 2:01 PM Signed Spoke to patient she is going to take 03/31 and see if she can get her Ortho appt change. She can not do 03/28 at aware that she may have to reschedule with another provider at [facility] if can not do 03/31. Patient will [...] mg table (more content not included)... [facility] CNOVSPon 03-07-2024 OVS Visit (SP) Office ([facility]) -- MAGI DAO ([id number]) 1945 F Date Time Provider Department 03/07/24 3:00 PM VAIBHAV OVALLE During your visit today, we recorded the following information about you: Temperature Pulse Respiration Blood pressure 97.4 degrees 86/minute 16/minute 156/87 Weight Height 69 kg 1.6 m Vaibhav Ovalle MD 03/08/2024 4:47 PM Signed NAME: Magi Dao CLINIC NO.: [id number] DATE OF SERVICE: March 07, 2024 (Carlene) [...] - Rt breast bx. - inv. Lobular, ER/LA+, HER@ FISH (-) 01/17/2021 - Mammogram right [...] which noted metastatic ducta carcinoma. Tumor was ER/LA positive, HER2 was negative. 05/2013 - she [...] - She had an exam by her jig and fixture builder apprentice which noted a tender lump on examination of her right breast. Ultrasound evaluation was negative and she continued in surveillance. she was seen by Dr. Ness and recommendation was to pursue adjuvant therapy with anastrazole for a stage 1, ER/LA (+), breast cancer. 12/2006 - Completes left mastectomy,sentinel node biopsy, axillary lymph node dissection. Path notes DCIS, intermediate grade and no evidence of axillary lymph node involvement 11/26/2006 - Stereotactic biopsy noted DCIS, path report notes that early microinvasion could not be excluded. 11/17/2006 - Core biopsy which noted (more content not included)... [facility] US BREAST LT LIMITEDon 02-22 US BREAST [...] 02/23/2024 11:10 AM 2 F/U REFER DR Malloy [facility] Rand 02-11-2024 KERA Telephone ([facility]) -- MAGI DAO ([id number]) 1945 F Date Time Provider Department 02/11/24 VAIBHAV OVALLE During your visit today, we recorded the following information about you: Halie Sanchez 02/11/2024 11:45 AM Signed Faxed order to [facility]. Will call and check up on order received and get a date and time. Halie Caballero 02/11/2024 4:05 PM Signed Patient has been scheduled for US at [facility] on 02/22 and follow up with VANDANA [...] 11/20/2014 Radioth (more content not included)... [facility] CNOVon 01-29-2024 CNOV Office Visit ([facility] ) -- MAGI DAO ([id number]) 1945 F Date Time Provider Department 01/29/24 10:40 AM GABRIEL COPPOLA JR [facility] During your visit today, we recorded the following information about you: Temperature Pulse Blood pressure Weight 97.6 degrees 65/minute 126/71 68.1 kg Height 1.6 m Gabriel Coppola Jr., 01/29/2024 10:55 AM Signed CC: followup HPI: [...] cm from the incisors. A partially slipped Yuila fundoplication was found. Normal examined duodenum. No [...] pg 33. (more content not included)... [facility] MAGNESIUMon 01-14-2024 Magnesium [Mass/Vol] 1.8 mg/dL Normal 1.8-2.6 [facility] Comment on above: Performed By: #### 1 9123-9 #### [facility] ([id number]) [address] [place] [address] CBC W Auto Differential pane l (Bld)on 12-21-2023 Basophils (Bld) [#/Vol] 0.04 10*3/uL Normal <0.11 [facility] Comment on above: Order Comment: Speci men Type: BLOOD SPECIMEN Ordering Facility: [facility] Address: [address] [place] [address] Performed By: #### 5 7021-8 #### [facility] CLIA [id number] [address] [place] [address] Basophils/100 WBC (Bld) 0.6 % [facility] Comment on above: Order Comment: Speci men Type: BLOOD SPECIMEN Ordering Facility: [facility] Address: [address] [place] [address] Performed By: #### 5 7021-8 #### [facility] CLIA [id number] [address] [place] [address] Differential cell count method Nom (Bld) Auto [facility] Comment on above: Order Comment: Speci men Type: BLOOD SPECIMEN Ordering Facility: [facility] Address: [address] [place] [address] Performed By: #### 5 7021-8 #### [facility] CLIA [id number] [address] [place] [address] Eosinophils (Bld) [#/Vol] 0.10 10*3/uL Normal <0.46 [facility] Comment on above: Order Comment: Speci men Type: BLOOD SPECIMEN Ordering Facility: [facility] Address: [address] [place] [address] Performed By: #### 5 7021-8 #### [facility] CLIA [id number] [address] [place] [address] Eosinophils/100 WBC (Bld) 1.6 % Normal [facility] Comment on above: Order Comment: Speci men Type: BLOOD SPECIMEN Ordering Facility: [facility] Address: [address] [place] [address] Performed By: #### 5 7021-8 #### [facility] CLIA [id number] [address] [place] [address] Erythrocyte distribution width (RBC) [Ratio] 12.3 % Normal 11.5-15.0 [facility] Comment on above: Order Comment: Speci men Type: BLOOD SPECIMEN Ordering Facility: [facility] Address: [address] [place] [address] Performed By: #### 5 7021-8 #### [facility] CLIA [id number] [address] [place] [address] Hematocrit (Bld) [Volume fraction] 42.5 % Normal 36.0-46.0 [facility] Comment on above: Order Comment: Speci men Type: BLOOD SPECIMEN Ordering Facility: [facility] Address: [address] [place] [address] Performed By: #### 5 7021-8 #### [facility] CLIA [id number] [address] [place] [address] Hemoglobin (Bld) [Mass/Vol] 13.9 g/dL Normal 11.5-15.5 [facility] Comment on above: Order Comment: Speci men Type: BLOOD SPECIMEN Ordering Facility: [facility] Address: [address] [place] [address] Performed By: #### 5 7021-8 #### [facility] CLIA [id number] [address] [place] [address] Immature granulocytes (Bld) [#/Vol] 10*3/uL Normal <0.10 [facility] Comment on above: Order Comment: Speci men Type: BLOOD SPECIMEN Ordering Facility: [facility] Address: [address] [place] [address] Performed By: #### 5 7021-8 #### [facility] CLIA [id number] [address] [place] [address] Immature granulocytes/100 WBC (Bld) 0.2 % Normal [facility] Comment on above: Order Comment: Speci men Type: BLOOD SPECIMEN Ordering Facility: [facility] Address: [address] [place] [address] Performed By: #### 5 7021-8 #### [facility] CLIA [id number] [address] [place] [address] Lymphocytes (Bld) [#/Vol] 1.63 10*3/uL Normal 1.00-4.00 [facility] Comment on above: Order Comment: Speci men Type: BLOOD SPECIMEN Ordering Facility: [facility] Address: [address] [place] [address] Performed By: #### 5 7021-8 #### [facility] CLIA [id number] [address] [place] [address]62 Lymphocytes/100 WBC (Bld) 25.8 % Normal [facility] Comment on above: Order Comment: Speci men Type: BLOOD SPECIMEN Ordering Facility: [facility] Address: [address] [place] [address] Performed By: #### 5 7021-8 #### [facility] CLIA [id number] [address] [place] [address]28 MCH (RBC) [Entitic mass] 31.5 pg Normal 26.0-34.0 [facility] Comment on above: Order Comment: Speci men Type: BLOOD SPECIMEN Ordering Facility: [facility] Address: [address] [place] [address] Performed By: #### 5 7021-8 #### [facility] CLIA [id number] [address] [place] [address] MCHC (RBC) [Mass/Vol] 32.7 g/dL Normal 30.5-36.0 [facility] Comment on above: Order Comment: Speci men Type: BLOOD SPECIMEN Ordering Facility: [facility] Address: [address] [place] [address] Performed By: #### 5 7021-8 #### [facility] CLIA [id number] [address] [place] [address] MCV (RBC) [Entitic vol] 96.4 fL Normal 80.0-100.0 [facility] Comment on above: Order Comment: Speci men Type: BLOOD SPECIMEN Ordering Facility: [facility] Address: [address] [place] [address] Performed By: #### 5 7021-8 #### [facility] CLIA [id number] [address] [place] [address]74 Monocytes (Bld) [#/Vol] 0.49 10*3/uL Normal <0.87 [facility] Comment on above: Order Comment: Speci men Type: BLOOD SPECIMEN Ordering Facility: [facility] Address: [address] [place] [address] Performed By: #### 5 7021-8 #### [facility] CLIA [id number] [address] [place] [address]27 Monocytes/100 WBC (Bld) 7.8 % Normal [facility] Comment on above: Order Comment: Speci men Type: BLOOD SPECIMEN Ordering Facility: [facility] Address: [address] [place] [address] Performed By: #### 5 7021-8 #### [facility] CLIA [id number] [address] [place] [address]88 Neutrophils (Bld) [#/Vol] 4.04 10*3/uL Normal 1.45-7.50 [facility] Comment on above: Order Comment: Speci men Type: BLOOD SPECIMEN Ordering Facility: [facility] Address: [address] [place] [address] Performed By: #### 5 7021-8 #### [facility] CLIA [id number] [address] [place] [address] 17628 Neutrophils/100 WBC (Bld) 64.0 % Normal [facility] Comment on above: Order Comment: Speci men Type: BLOOD SPECIMEN Ordering Facility: [facility] Address: [address] [place] [address] Performed By: #### 5 7021-8 #### [facility] CLIA [id number] [address] [place] [address] Nucleated RBC (Bld) [#/Vol] 10*3/uL Normal <0.01 [facility] Comment on above: Order Comment: Speci men Type: BLOOD SPECIMEN Ordering Facility: [facility] Address: [address] [place] [address] Performed By: #### 5 7021-8 #### [facility] CLIA [id number] [address] [place] [address] Nucleated RBC/100 WBC (Bld) [Ratio] 0.0 /100 WBC Normal [facility] Comment on above: Order Comment: Speci men Type: BLOOD SPECIMEN Ordering Facility: [facility] Address: [address] [place] [address] Performed By: #### 5 7021-8 #### [facility] CLIA [id number] [address] [place] [address]48 Platelet mean volume (Bld) [Entitic vol] 8.5 fL Low 9.0-12.7 [facility] Comment on above: Order Comment: Speci men Type: BLOOD SPECIMEN Ordering Facility: [facility] Address: [address] [place] [address] Performed By: #### 5 7021-8 #### [facility] CLIA [id number] [address] [place] [address]48 Platelets (Bld) [#/Vol] 235 10*3/uL Normal 150-400 [facility] Comment on above: Order Comment: Speci men Type: BLOOD SPECIMEN Ordering Facility: [facility] Address: [address] [place] [address] Performed By: #### 5 7021-8 #### [facility] CLIA [id number] [address] [place] [address] RBC (Bld) [#/Vol] 4.41 10*6/uL Normal 3.90-5.[address] [facility] Comment on above: Order Comment: Speci men Type: BLOOD SPECIMEN Ordering Facility: [facility] Address: [address] [place] [address] Performed By: #### 5 7021-8 #### [facility] CLIA [id number] [address] [place] [address] WBC (Bld) [#/Vol] 6.31 10*3/uL Normal 3.70-11.[address] [facility] Comment on above: Order Comment: Speci men Type: BLOOD SPECIMEN Ordering Facility: [facility] Address: [address] [place], [place] [address] Performed By: #### 5 7021-8 #### [facility] CLIA [id number] [address] [place] [address]761 CNOVSPon 12-21-2023 CNOVS Visit (SP) Office ( [facility]) -- MAGI DAO ([id number]) 1945 F Date Time Provider Department 12/21/23 10:45 AM VAIBHAV OVALLE During your visit today, we recorded the following information about you: Temperature Pulse Respiration Blood pressure 97.9 degrees 79/minute 16/minute 143/72 Weight Height 67.3 kg 1.6 m Vaibhav Ovalle MD 12/22/2023 1:51 PM Signed NAME: Edwin Daocarlos enrique CHAVIRA NO.: [id number] DATE OF SERVICE: December 21, 2023 (Carlene) [...] - Rt breast bx. - inv. Lobular, ER/LA+, HER@ FISH (-) 01/17/2021 - Mammogram right [...] which noted metastatic ducta carcinoma. Tumor was ER/LA positive, HER2 was negative. 05/2013 - she [...] - she had an exam by her jig and fixture builder apprentice which noted a tender lump on examination of her right breast. Ultrasound evaluation was negative and she continued in surveillance. she was seen by Dr. Ness and recommendation was to pursue adjuvant therapy with anastrazole for a stage 1, ER/LA (+), breast cancer. 12/2006 - Completes left [...] - diagnosed with left breast cancer in March of (more content not included)... Normal [facility] Cancer Ag15-3 SerPl-aCncon 0 12-21-2023 Cancer Ag 15-3 Qn 24.4 U/mL Normal <26.0 [facility] Comment on above: Order Comment: Speci men Type: BLOOD SPECIMENOrdering Facility: [facility] Address: [address] [place] [address] Result Comment: The CA 15-3 test methodology used is the Electrochemiluminescence Immunoassay by [employer]. Results obtained with different methods or kits cannot be used interchangeably. Performed By: #### 6 875-9, 2276-4, 42005-7 ####[facility]CLIA [id number] [address] [place] Cancer Ag27-29 SerPl-aCncon 12-21-2023 Cancer Ag 27-29 Qn 23.1 [arb'U]/mL Normal <38.6 [facility] Comment on above: Order Comment: Speci men Type: BLOOD SPECIMEN Ordering Facility: [facility] Address: [address] [place] [address] Result Comment: The CA27.29 test was performed using the Siemens Stellarisaur XP chemiluminometric immunoassay method. Results obtained with different assay methods or kits cannot be used interchangeably. Performed By: #### 1 7842-6 #### [facility] CLIA [id number] [address] [place] [address] [place] Comprehensive metabolic 2000 panelon 12-21-2023 Albumin [Mass/Vol] 4.5 g/dL Normal 3.9-4.9 [facility] Comment on above: Order Comment: Speci men Type: BLOOD SPECIMENOrdering Facility: [facility] Address: [address] [place] [address] Performed By: #### 2 4323-8 ####[facility] [id number] [place] [address] ALP [Catalytic activity/Vol] 94 U/L Normal 34-123 [facility] Comment on above: Order Comment: Speci men Type: BLOOD SPECIMENOrdering Facility: [facility] Address: [address] [place] [address] Performed By: #### 2 4323-8 ####[facility] LABCLIA [id number] [place] [address] ALT [Catalytic activity/Vol] 12 U/L Normal 7-38 [facility] Comment on above: Order Comment: Speci men Type: BLOOD SPECIMENOrdering Facility: [facility] Address: [address] [place] [address] Performed By: #### 2 4323-8 ####[facility] LABCLIA [id number] [place] [address] Anion gap [Moles/Vol] 12 mmol/L Normal 9-18 [facility] Comment on above: Order Comment: Speci men Type: BLOOD SPECIMENOrdering Facility: [facility] Address: [address] [place] [address] Performed By: #### 2 4323-8 ####[facility] LABCLIA [id number] [place] [address] AST [Catalytic activity/Vol] 16 U/L Normal 13-35 [facility] Comment on above: Order Comment: Speci men Type: BLOOD SPECIMENOrdering Facility: [facility] Address: [address] [place] [address] Performed By: #### 2 4323-8 ####[facility] LABCLIA [id number] [place] [address] Bilirubin [Mass/Vol] 0.5 mg/dL Normal 0.2-1.3 [facility] Comment on above: Order Comment: Speci men Type: BLOOD SPECIMENOrdering Facility: [facility] Address: [address] [place] [address] Performed By: #### 2 4323-8 ####[facility] LABCLIA [id number] [place] [address] Calcium [Mass/Vol] 10.2 mg/dL Normal 8.5-10.2 [facility] Comment on above: Order Comment: Speci men Type: BLOOD SPECIMENOrdering Facility: [facility] Address: [address] [place] [address] Performed By: #### 2 4323-8 ####[facility] LABCLIA [id number] [place] [address] Chloride [Moles/Vol] 104 mmol/L Normal 97-105 [facility] Comment on above: Order Comment: Speci men Type: BLOOD SPECIMENOrdering Facility: [facility] Address: [address] [place] [address] Performed By: #### 2 4323-8 ####[facility] LABCLIA [id number] [place] [address] CO2 [Moles/Vol] 25 mmol/L Normal 22-30 [facility] Comment on above: Order Comment: Speci men Type: BLOOD SPECIMENOrdering Facility: [facility] Address: [address] [place] [address] Performed By: #### 2 4323-8 ####[facility] LABCLIA [id number] [place] [address] Creatinine [Mass/Vol] 0.99 mg/dL High 0.58-0.96 [facility] Comment on above: Order Comment: Speci men Type: BLOOD SPECIMENOrdering Facility: [facility] Address: [address] [place] [address] Performed By: #### 2 4323-8 ####[facility] LABCLIA [id number] [place] [address] Creatinine and Glomerular filtration rate.predicted panel (S/P/Bld) 59 mL/min/1.73m??? Low >=60 [facility] Comment on above: Order Comment: Speci men Type: BLOOD SPECIMENOrdering Facility: [facility] Address: [address] [place] [address] Result Comment: Sabiha mated Glomerular Filtration Rate [...] reflect actual GFR. Performed By: #### 2 4323-8 ####[facility] LABCLIA [id number] [place] [address] Glucose [Mass/Vol] 87 mg/dL Normal 74-99 [facility] Comment on above: Order Comment: Speci men Type: BLOOD SPECIMENOrdering Facility: [facility] Address: [address] [place] [address] Result Comment: The [place] [employer] (ADA) provides guidance for cutoff [...] Standards of Medical Care in Diabetes 2016, [place] [employer]. Diabetes Care. 2016.39(Suppl 1). Performed By: #### 2 4323-8 ####[facility] LABCLIA [id number] [place] [address] Potassium [Moles/Vol] 4.2 mmol/L Normal 3.7-5.1 [facility] Comment on above: Order Comment: Thomasi men Type: BLOOD SPECIMENOrdering Facility: [facility] Address: [address] [place] [address] Performed By: #### 2 4323-8 ####[facility] LABCLIA [id number] [place] [address] Protein [Mass/Vol] 7.0 g/dL Normal 6.3-8.0 [facility] Comment on above: Order Comment: Speci men Type: BLOOD SPECIMENOrdering Facility: [facility] Address: [address] [place] [address] Performed By: #### 2 4323-8 ####[facility] LABCLIA [id number] [place] [address] Sodium [Moles/Vol] 141 mmol/L Normal 136-144 [facility] Comment on above: Order Comment: Speci men Type: BLOOD SPECIMENOrdering Facility: [facility] Address: [address] [place] [address] Performed By: #### 2 4323-8 ####[facility] LABCLIA [id number] [place] [address] Urea nitrogen [Mass/Vol] 12 mg/dL Normal 7-21 [facility] Comment on above: Order Comment: Speci men Type: BLOOD SPECIMENOrdering Facility: [facility] Address: [address] [place] [address] Performed By: #### 2 4323-8 ####[facility] LABCLIA [id number] [place] [address] Ferritin SerPl-mCncon 2023 Ferritin [Mass/Vol] 123.0 ng/mL Normal 14.7-205.1 [facility] Comment on above: Order Comment: Speci men Type: BLOOD SPECIMENOrdering Facility: [facility] Address: [address] [place] [address] Performed By: #### 6 875-9, 2276-4, 66319-9 ####[facility] LABCLIA [id number] [place] [address] [place] Folate SerPl-mCncon 12-21-19 24 Folate [Mass/Vol] 7.4 ng/mL Normal >4.7 [facility] Comment on above: Order Comment: Speci men Type: BLOOD SPECIMENOrdering Facility: [facility] Address: [address] [place] [address] Performed By: #### 2 284-8, 2132-9 ####[facility] LABIA [id number] [place] [address] [place] Iron and Iron binding capaci ty panelon 12-21-2023 Iron [Mass/Vol] 94 ug/dL Normal 41-186 [facility] Comment on above: Order Comment: Speci men Type: BLOOD SPECIMENOrdering Facility: [facility] Address: [address] [place] [address] Performed By: #### 6 875-9, 2276-4, 55888-1 ####[facility] [id number] [place] [address] [place] Iron binding capacity [Mass/Vol] 303 ug/dL Normal 232-386 [facility] Comment on above: Order Comment: Speci men Type: BLOOD SPECIMENOrdering Facility: [facility] Address: [address] [place] [address] Performed By: #### 6 875-9, 2276-4, 73503-9 ####[facility] [id number] [place] [address] [place] Iron/TIBC [Molar ratio] 31.0 % Normal 15.0-57.0 [facility] Comment on above: Order Comment: Speci men Type: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 Tear of medial cartilage or [...] UTERUS 250 GM/< 1994 Hysterectomy, vaginal FAMILY HISTORY: FAMILY HISTORY Problem [...] Disp: , Rfl: 0, 01/26/2023 at 0200 wtsllx-tubdmpeh-gucypvx (CREON) 24,000-76,000 -120,000 unit delayed release capsule, Take 1 capsule by mouth three times daily with meals. (Patient not taking: Reported on 01/06/2023), Disp: 90 capsule, Rfl: 0 triamcinolone acetonide (KENALOG) 0.1 % cream, 1 application., Disp: , Rfl: , 01/24/2023 at 0800 CPAP, daily at bedtime., Dis (more content not included)... Normal [facility] Microorganism Spec Culton Microorganism identified Cx Nom (Unsp spec) CULTURE, FUNGAL: No Fungus isolated after 28 days FUNGAL SMEAR: No fungus seen [facility] Comment on above: Performed By: #### 1 1475-1, 611-4, 635-3 ####[facility]IA [id number] [place] [id number] [place] Microorganism identified Cx Nom (Unsp spec) CULTURE, AFB: No Acid Fast Bacilli isolated after 42 days AFB STAIN: No acid fast bacilli seen by flurochrome stain [facility] Comment on above: Performed By: #### 1 1475-1, 611-4, 635-3 ####[facility]IA [id number] [address] [address] [place] Microorganism identified Cx Nom (Unsp spec) CULTURE, FUNGAL: No Fungus isolated after 28 days FUNGAL SMEAR: No fungus seen [facility] Comment on above: Performed By: #### 4 3408-4, 35304-8, 635-3 ####[facility] [id number] [address] [address] [place] Microorganism identified Cx Nom (Unsp spec) CULTURE, AFB: No Acid Fast Bacilli isolated after 42 days AFB STAIN: No acid fast bacilli seen by flurochrome stain Normal [facility] Comment on above: Performed By: #### 4 3408-4, 96976-7, 635-3 ####[facility]IA [id number] [address] [address] [place] Microorganism identified Cx Nom (Unsp spec) CULTURE, FUNGAL: No Fungus isolated after 28 days FUNGAL SMEAR: No fungus seen Normal [facility] Comment on above: Performed By: #### 4 3408-4, 58903-3, 635-3 ####[facility]CLIA [id number] [place] [id number] [facility] [place] Performed By: #### 1 1475-1, 635-3, 36791-3 ####[facility]IA [id number] [address] [place] Microorganism identified Cx Nom (Unsp spec) CULTURE, AFB: No Acid Fast Bacilli isolated after 42 days AFB STAIN: No acid fast bacilli seen by flurochrome stain Normal [facility] Comment on above: Performed By: #### 4 3408-4, 37189-9, 635-3 ####[facility] [id number] [address] [place] [id number] [facility] [place] Performed By: #### 1 1475-1, 635-3, 08397-6 ####[facility]IA [id number] [facility] [place] [address] [place] Microorganism identified Cx Nom (Unsp spec) CULTURE, FUNGAL: No Fungus isolated after 28 days FUNGAL SMEAR: No fungus seen Normal [facility] Comment on above: Performed By: #### 6 35-3, 99424-2, 40315-8 ####[facility] [id number] [facility] [address] Microorganism identified Cx Nom (Unsp spec) CULTURE, AFB: No Acid Fast Bacilli isolated after 42 days AFB STAIN: No acid fast bacilli seen by flurochrome stain [facility] Comment on above: Performed By: #### 6 35-3, 69400-3, 05118-8 ####[facility]CLIA [id number] [address] [place] NURSING PROGon 01-26-2023 NURSING PROG HNO ID: [id number] Author: Nikki Major LPN Service: Nursing Author Type: LICENSED NURSE Type: Nursing Progress Note Filed: 01/26/2023 9:57 PM Note Text: 2005 Nurse in to see patient. Night medication administered. Patient denies n/v, ice pack and heating back given. Call light in reach. [facility] NURSING PROG HNO ID: [id number] Author: Lzi Lofton RN Service: ? Author Type: Registered [...] he states ok to stop for now. [facility] OPERATIVE NOon 01-26-2023 OPERATIVE NO HNO ID: [id number] Author: Marlee Salazar MD Service: Orthopaedic Surgery Author Type: Physician Type: Operative Report Filed: 01/26/2023 11:35 AM Note Text: OPERATIVE NOTE TOTAL KNEE ARTHROPLASTY PATIENT NAME: Magi Dao LOG ID: [id number] Surgery Date: 01/26/2023 Surgeon(s) and Deputy Insurance Commissioner(s): Surgeon(s) and Role: * Marlee Salazar MD - Primary * Michel Jansen MD - Fellow Physician Deputy Insurance Commissioner: Reddy Michael PA-C BMI: Estimated body mass [...] polyethylene ins (more content not included)... Normal [facility] SURGICAL PATHOLOGYon 023 CASE REPORT Normal [facility] Comment on above: Order Comment: Speci men Type: DEVICE SPECIMENOrdering Facility: [facility] Address: [address] [place] [id number] Result Comment: Surg ica Pathology Report Case: [id number] Authorizing Provider: Marlee Salazar MD Collected: 01/26/2023 11:14 AM Ordering Location: [facility] Surgical Received: 01/26/2023 12:08 PM Services Pathologist: Shahbaz Nash MD Specimen: HARDWARE, Left Knee Performed By: #### S ####[facility] LABCLIA [id number] [address] CLINICAL HISTORY Normal [facility] Comment on above: Order Comment: Speci men Type: DEVICE SPECIMENOrdering Facility: [facility] Address: [address] [place] [address] Result Comment: Pre- op diagnosis: Status post total left knee replacement [Z96.652] Chronic pain of left knee [M25.562, G89.29] Performed By: #### S ####[facility] LABCLIA [id number] [address] FINAL DIAGNOSIS Normal [facility] Comment on above: Order Comment: Speci men Type: DEVICE SPECIMENOrdering Facility: [facility] Address: [address] [place] [address] Result Comment: A. L eft knee hardware, removal: - Polyethylene tibial insert (gross examination only). J/DENISE/mm/01/27/2023 Performed By: #### S ####[facility]CLIA [id number] [address] FINAL PERFORMING LAB Normal [facility] Comment on above: Order Comment: Speci men Type: DEVICE SPECIMENOrdering Facility: [facility] Address: [address] [address] Result Comment: Diag nostic interpretation performed at [place] [address] [place] [address] CLIA# [id number] Putty Mixer: Ishaan Main M.D. Performed By: #### S ####[facility]CLIA [id number] [address] GROSS DESCRIPTION A. HARDWARE Normal [facility] Comment on above: Order Comment: Speci men Type: DEVICE SPECIMENOrdering Facility: [facility] Address[facility] [address] [place] [phone] Result Comment: Rece ived in formalin, labeled left knee hardware is a hicks-white polyethylene tibial spacer that measures 7.4 x 4.6 x 2.3 cm and is inscribed ZXL [id number] PE EF-5-6-10 . There is no adherent tissue present. No sections are submitted for microscopic evaluation. The specimen is grossly reviewed with Dr. Nash. DENISE/clyde/01/27/2023 Gross examination performed at [facility] [place] [address] CLIA# [id number] Performed By: #### S ####[facility] LABCLIA [id number] [address] THERAPY NTon 01-26-2023 THERAPY NT HNO ID: [id number] Author: Neda Harry, PT Service: ? Author Type: Physical Therapist Type: Therapy (PT/OT/Speech/Resp) Filed: 01/26/2023 4:35 PM Note Text: Physical Therapy Evaluation SERVICE DATE: 01/26/2023 SERVICE TIME: 1510 to 1555 ROOM: [place] [address] Recommended Discharge Disposition: Home PT Recommended Discharge [...] I had the original knee done in 2020 and it has been painful ever since. [...] headed and required immediate return to bed. JH-HLM: 3: Sit at edge of bed Learning/Educational Needs: Discharge Plan, Functional Activities/Mobility, Plan (more content not included)... [facility] XR KNEE 2V AP/LAT LTon 01-26 XR KNEE 2V AP/LAT LT * * *Final Report* * * DATE OF EXAM: Jan 26 2023 12:30PM EUX 5206 - XR KNEE 2V AP/LAT LT / PROCEDURE REASON: Post-operative / post-procedure assessment, asymptomatic * * * * Physician Interpretation * * * * RESULT: EXAMINATION / TECHNIQUE: XR KNEE 2V AP/LAT LT ACCESSION NUMBER: [id number] HISTORY: post op Post-operative / post-procedure assessment, [...] on Jan 26 2023 2:39PM EST [id number] [facility] CBC W Auto Differential pane l (Bld)on 01-06-2023 Basophils (Bld) [#/Vol] 0.05 10*3/uL Normal <0.11 [facility] Comment on above: Order Comment: Speci men Type: BLOOD SPECIMEN [facility] Facility[facility] Address: [address] [address] Performed By: #### 5 7021-8 #### [facility] CLIA [id number] [facility] [place] [address] [place] Basophils/100 WBC (Bld) 0.7 % Normal [facility] Comment on above: Order Comment: Speci men Type: BLOOD SPECIMEN [facility] Facility: [facility] Address: [address] [address] Performed By: #### 5 7021-8 #### [facility] CLIA [id number] [place] [address] [place] Differential cell count method Nom (Bld) Auto Normal [facility] Comment on above: Order Comment: Speci men Type: BLOOD SPECIMEN [facility] Facility: [facility] Address: [address] [address] Performed By: #### 5 7021-8 #### [facility] CLIA [id number] [place] [address] [place] Eosinophils (Bld) [#/Vol] 0.09 10*3/uL Normal <0.46 [facility] Comment on above: Order Comment: Speci men Type: BLOOD SPECIMEN [facility] Facility: [facility] Address: [address] [address] Performed By: #### 5 7021-8 #### [facility] CLIA [id number] [facility] [place] [address] [place] Eosinophils/100 WBC (Bld) 1.3 % Normal [facility] Comment on above: Order Comment: Speci men Type: BLOOD SPECIMEN [facility] Facility: [facility] Address: [address] [address] Performed By: #### 5 7021-8 #### [facility] CLIA [id number] [address] [place] Erythrocyte distribution width (RBC) [Ratio] 13.5 % Normal 11.5-15.0 [facility] Comment on above: Order Comment: Speci men Type: BLOOD SPECIMEN [facility] Facility: [facility] Address: [address] [address] Performed By: #### 5 7021-8 #### [facility] [place] [id number] [place] Hematocrit (Bld) [Volume fraction] 41.4 % Normal 36.0-46.0 [facility] Comment on above: Order Comment: Speci men Type: BLOOD SPECIMEN [facility] Facility: [facility] Address: [address] [address] Performed By: #### 5 7021-8 #### [facility] [place] [id number] [place] [address] [place] Hemoglobin (Bld) [Mass/Vol] 12.9 g/dL Normal 11.5-15.5 [facility] Comment on above: Order Comment: Speci men Type: BLOOD SPECIMEN [facility] Facility: [facility] Address: [address] [address] Performed By: #### 5 7021-8 #### [facility] [place] [id number] [place] Immature granulocytes (Bld) [#/Vol] 10*3/uL Normal <0.10 [facility] Comment on above: Order Comment: Speci men Type: BLOOD SPECIMEN [facility] Facility: [facility] Address: [address] [address] Performed By: #### 5 7021-8 #### [facility] [place] [id number] [address] [place] [address] [place] Immature granulocytes/100 WBC (Bld) 0.3 % Normal [facility] Comment on above: Order Comment: Speci men Type: BLOOD SPECIMEN [facility] Facility: [facility] Address: [address] [address] Performed By: #### 5 7021-8 #### [facility] CLIA [id number] [place] Lymphocytes (Bld) [#/Vol] 2.63 10*3/uL Normal 1.00-4.00 [facility] Comment on above: Order Comment: Speci men Type: BLOOD SPECIMEN [facility] Facility: [facility] Address: [address] [place] [address] Performed By: #### 5 7021-8 #### [facility] CLIA [id number] [address] [place] Lymphocytes/100 WBC (Bld) 36.7 % Normal [facility] Comment on above: Order Comment: Speci men Type: BLOOD SPECIMEN Ordering Facility: [facility] Address: [address] [place] [address] Performed By: #### 5 7021-8 #### [facility] [place] [id number] [place] [address] [place] MCH (RBC) [Entitic mass] 31.5 pg Normal 26.0-34.0 [facility] Comment on above: Order Comment: Speci men Type: BLOOD SPECIMEN Ordering Facility: [facility] Address: [address] [place] [address] Performed By: #### 5 7021-8 #### [facility] [place] [id number] [address] [place] [address] [place] MCHC (RBC) [Mass/Vol] 31.2 g/dL Normal 30.5-36.0 [facility] Comment on above: Order Comment: Speci men Type: BLOOD SPECIMEN Ordering Facility: [facility] Address: [address] [place], [place] [address] Performed By: #### 5 7021-8 #### [facility] [place] [id number] [address] [place] MCV (RBC) [Entitic vol] 101.2 fL High 80.0-100.0 [facility] Comment on above: Order Comment: Speci men Type: BLOOD SPECIMEN Ordering Facility: [facility] Address: [address] [place] [address] Performed By: #### 5 7021-8 #### [facility] [place] [id number] [address] [place] [address] [place] Monocytes (Bld) [#/Vol] 0.52 10*3/uL Normal <0.87 [facility] Comment on above: Order Comment: Speci men Type: BLOOD SPECIMEN Ordering Facility: [facility] Address: [address] [place] [address] Performed By: #### 5 7021-8 #### [facility] [place] [id number] [address] [place] [address] [place] Monocytes/100 WBC (Bld) 7.3 % Normal [facility] Comment on above: Order Comment: Speci men Type: BLOOD SPECIMEN Ordering Facility: [facility] Address: [address] [place] [address] Performed By: #### 5 7021-8 #### [facility] [place] [id number] [address] [place] [address] [place] Neutrophils (Bld) [#/Vol] 3.85 10*3/uL Normal 1.45-7.50 [facility] Comment on above: Order Comment: Speci men Type: BLOOD SPECIMEN Ordering Facility: [facility] Address: [address] [place] [address] Performed By: #### 5 7021-8 #### [facility] [place] [id number] [address] [place] [address] [place] Neutrophils/100 WBC (Bld) 53.7 % Normal [facility] Comment on above: Order Comment: Speci men Type: BLOOD SPECIMEN Ordering Facility: [facility] Address: [address] [place] [address] Performed By: #### 5 7021-8 #### [facility] [place] [id number] [address] [place] [id number] [place] Nucleated RBC (Bld) [#/Vol] 10*3/uL Normal <0.01 [facility] Comment on above: Order Comment: Speci men Type: BLOOD SPECIMEN Ordering Facility: [facility] Address: [address] [place] [address] Performed By: #### 5 7021-8 #### [facility] CLIA [id number] [address] [place] [address] [place] Nucleated RBC/100 WBC (Bld) [Ratio] 0.0 /100 WBC Normal [facility] Comment on above: Order Comment: Speci men Type: BLOOD SPECIMEN Ordering Facility: [facility] Address: [address] [place] [address] Performed By: #### 5 7021-8 #### [facility] IA [id number] [address] [place] [address] [place] Platelet mean volume (Bld) [Entitic vol] 8.8 fL Low 9.0-12.7 [facility] Comment on above: Order Comment: Speci men Type: BLOOD SPECIMEN Ordering Facility: [facility] Address: [address] Performed By: #### 5 7021-8 #### [facility] CLIA [id number] [address] [place] [address] [place] Platelets (Bld) [#/Vol] 270 10*3/uL Normal 150-400 [facility] Comment on above: Order Comment: Speci men Type: BLOOD SPECIMEN Ordering Facility: [facility] Address: [address] Performed By: #### 5 7021-8 #### [facility] CLIA [id number] [address] [place] [address] [place] RBC (Bld) [#/Vol] 4.09 10*6/uL Normal 3.90-5.20 [facility] Comment on above: Order Comment: Speci men Type: BLOOD SPECIMEN Ordering Facility: [facility] Address: [address] Performed By: #### 5 7021-8 #### [facility] CLIA [id number] [address] [facility] [place] [address] [place] WBC (Bld) [#/Vol] 7.16 10*3/uL Normal 3.70-11.00 [facility] Comment on above: Order Comment: Speci men Type: BLOOD SPECIMEN Ordering Facility: [facility] Address: [address] [place] [address] Performed By: #### 5 7021-8 #### [facility] CLIA [id number] [address] [place], [place] [id number] [place] [address] CONFIRM BLOOD TYPEon 023 ABO B Normal [facility] Comment on above: Order Comment: Speci men Type: BLOOD SPECIMEN Ordering Facility: [facility] Address: [address] [place] [address] Performed By: #### C ONABO #### [facility] [id number] [address] [place] Rh Nom (Bld) Negative Normal [facility] Comment on above: Order Comment: Speci men Type: BLOOD SPECIMEN Ordering Facility: [facility] Address: [address] [place] [address] Performed By: #### C ONABO #### [facility] [place] [id number] [address] [place] Comprehensive metabolic 2000 panelon 01-06-2023 Albumin [Mass/Vol] 4.6 g/dL Normal 3.9-4.9 [facility] Comment on above: Order Comment: Speci men Type: BLOOD SPECIMEN Ordering Facility: [facility] Address: [address] [place] [address] Performed By: #### 5 0190-8, 15607-9, 2276-4 #### [facility] CLIA [id number] [address] [facility] [place] [address] [place] ALP [Catalytic activity/Vol] 93 U/L Normal 34-123 [facility] Comment on above: Order Comment: Speci men Type: BLOOD SPECIMEN Ordering Facility: [facility] Address: [address] [place] [address] Performed By: #### 5 0190-8, 34857-9, 2275-4 #### [facility] CLIA [id number] [address] [place] [address] [place] ALT [Catalytic activity/Vol] 10 U/L Normal 7-38 [facility] Comment on above: Order Comment: Speci men Type: BLOOD SPECIMEN Ordering Facility: [facility] Address: [address] [place] [address] Performed By: #### 5 0190-8, 35094-0, 2275-4 #### [facility] CLIA [id number] [address] [place] [address] [place] Anion gap [Moles/Vol] 11 mmol/L Normal 9-18 [facility] Comment on above: Order Comment: Speci men Type: BLOOD SPECIMEN Ordering Facility: [facility] Address: [address] [place] [address] Performed By: #### 5 0190-8, 14157-3, 2275-4 #### [facility] CLIA [id number] [address] [place] [address] [place] AST [Catalytic activity/Vol] 25 U/L Normal 13-35 [facility] Comment on above: Order Comment: Speci men Type: BLOOD SPECIMEN Ordering Facility: [facility] Address: [address] [place] [address] Performed By: #### 5 0190-8, 93211-1, 2275-4 #### [facility] CLIA [id number] [address] [place] [address] [place] Bilirubin [Mass/Vol] 0.3 mg/dL Normal 0.2-1.3 [facility] Comment on above: Order Comment: Speci men Type: BLOOD SPECIMEN Ordering Facility: [facility] Address: [address] [place] [address] Performed By: #### 5 0190-8, 22760-3, 2275-4 #### [facility] CLIA [id number] [address] [place] [address] [place] Calcium [Mass/Vol] 9.9 mg/dL Normal 8.5-10.2 [facility] Comment on above: Order Comment: Speci men Type: BLOOD SPECIMEN Ordering Facility: [facility] Address: [address] [place] [address] Performed By: #### 5 0190-8, 79168-9, 2275-4 #### [facility] CLIA [id number] [address] [place] [address] [place] Chloride [Moles/Vol] 103 mmol/L Normal 97-105 [facility] Comment on above: Order Comment: Speci men Type: BLOOD SPECIMEN Ordering Facility: [facility] Address: [address] [place] [address] Performed By: #### 5 0190-8, 45848-3, 2275-4 #### [facility] CLIA [id number] [address] [place] [address] [place] CO2 [Moles/Vol] 26 mmol/L Normal 22-30 [facility] Comment on above: Order Comment: Speci men Type: BLOOD SPECIMEN Ordering Facility: [facility] Address: [address] [place] [address] Performed By: #### 5 0190-8, 75955-8, 2275-4 #### [facility] CLIA [id number] [address] [place] [address] [place] Creatinine [Mass/Vol] 0.89 mg/dL Normal 0.58-0.96 [facility] Comment on above: Order Comment: Speci men Type: BLOOD SPECIMEN Ordering Facility: [facility] Address: [address] [place] [address] Performed By: #### 5 0190-8, 93890-5, 2275-4 #### [facility] CLIA [id number] [place] [address] [place] ESTIMATED GLOMERULAR FILTRATION RATE 67 mL/min/1.73m??? Normal >=60 [facility] Comment on above: Order Comment: Donny ayala Type: BLOOD SPECIMEN Ordering Facility: [facility] Address: [address] [place] [address] Result Comment: Sabiha mated Glomerular Filtration Rate [...] actual GFR. Performed By: #### 5 0190-8, 15449-7, 6-4 #### [facility] CLIA [id number] [address] [facility] [place] [address] [place] Glucose [Mass/Vol] 88 mg/dL Normal 74-99 [facility] Comment on above: Order Comment: Donny ayala Type: BLOOD SPECIMEN Ordering Facility: [facility] Address: [address] [place], [place] [address] Result Comment: The [place] Diabetes [employer] (ADA) provides guidance for cutoff [...] Standards of Medical Care in Diabetes 2016, [place] [employer]. Diabetes Care. 2016.39(Suppl 1). Performed By: #### 5 0190-8, 21219-1, 2275-4 #### [facility] CLIA [id number] [address] [facility] [place] [address] [place] Potassium [Moles/Vol] 4.6 mmol/L Normal 3.7-5.1 [facility] Comment on above: Order Comment: Donny ayala Type: BLOOD SPECIMEN Ordering Facility: [facility] Address: [address] Performed By: #### 5 0190-8, 36491-3, 2276-4 #### [facility] CLIA [id number] [address] [place] [address] [place] Protein [Mass/Vol] 7.5 g/dL Normal 6.3-8.0 [facility] Comment on above: Order Comment: Speci men Type: BLOOD SPECIMEN Ordering Facility: [facility] Address: [address] [place] [address] Performed By: #### 5 0190-8, 24993-7, 6-4 #### [facility] CLIA [id number] [address] [place] [address] [place] Sodium [Moles/Vol] 140 mmol/L Normal 136-144 [facility] Comment on above: Order Comment: Speci men Type: BLOOD SPECIMEN Ordering Facility: [facility] Address: [address] [place] [address] Performed By: #### 5 0190-8, 14430-0, 2275-4 #### [facility] CLIA [id number] [address] [place] [address] [place] Urea nitrogen [Mass/Vol] 16 mg/dL Normal 7-21 [facility] Comment on above: Order Comment: Speci men Type: BLOOD SPECIMEN Ordering Facility: [facility] Address: [address] [place] [address] Performed By: #### 5 0190-8, 85445-4, 2275-4 #### [facility] CLIA [id number] [address] [place] [address] [place] Ferritin SerPl-mCncon 2022 Ferritin [Mass/Vol] 31.5 ng/mL Normal 14.7-205.1 [facility] Comment on above: Order Comment: Speci men Type: BLOOD SPECIMEN Ordering Facility: [facility] Address: [address] [place] [address] Performed By: #### 5 0190-8, 07854-4, 6-4 #### [facility] CLIA [id number] [address] [facility] [place] [address] [place] HISTORY PHYSICALon HISTORY PHYSICAL HNO ID: [id number] Author: Josie Gill PA-C Service: ? Author Type: Physician Deputy Insurance Commissioner Type: HANDP Filed: 01/06/2023 3:26 PM Note [...] Pneumonia Polyneuropathy in other diseases classified elsewhere ([facility]) Bilateral lower extremities Predominant disturbance of emotions [...] acetonide (KENALO (more content not included)... Normal [facility] Iron and Iron binding capaci ty panelon 01-06-2023 Iron [Mass/Vol] 43 ug/dL Normal 41-186 [facility] Comment on above: Order Comment: Speci men Type: BLOOD SPECIMEN Ordering Facility: [facility] Address: [address] [place] [address] Performed By: #### 5 0190-8, 50096-3, 2276-4 #### [facility] CLIA [id number] [address] [place] [id number] [place] [address] Iron binding capacity [Mass/Vol] 395 ug/dL High 232-386 [facility] Comment on above: Order Comment: Speci men Type: BLOOD SPECIMEN Ordering Facility: [facility] Address: [address] [place] [address] Performed By: #### 5 0190-8, 39457-9, 6-4 #### [facility] CLIA [id number] [address] [place] [address] Iron/TIBC [Molar ratio] 10.9 % Low 15.0-57.0 [facility] Comment on above: Order Comment: Speci men Type: BLOOD SPECIMEN Ordering Facility: [facility] Address: [address] [place] [address] Performed By: #### 5 0190-8, 97305-8, 6-4 #### [facility] CLIA [id number] [address] [place] [address] OF [facility] TYPE AND SCREEN,30 DAYon ABO B Normal [facility] Comment on above: Order Comment: Speci men Type: BLOOD SPECIMEN Ordering Facility: [facility] Address: [address] [place] [address] Performed By: #### T SCR30 #### [facility] CLIA [id number] [address] [place] [address] HISTORICAL AB SCR STATUS Negative Normal [facility] Comment on above: Order Comment: Speci men Type: BLOOD SPECIMEN Ordering Facility: [facility] Address: [address] [place] [address] Performed By: #### T SCR30 #### [facility] CLIA [id number] [address] [place] [address] [facility] Rh Nom (Bld) Negative Normal [facility] Comment on above: Order Comment: Speci men Type: BLOOD SPECIMEN Ordering Facility: [facility] Address: [address] [place] [address] Performed By: #### T SCR30 #### [facility] CLIA [id number] [address] [place] [address] [facility] XR KNEE POST OP 3V AP/LAT/ME RCHANT LEFTon 10-02-2022 [facility] XR Abdomen Single View (KUB) *on 05-05-2022 [...] by Mando Thompson on 05/06/2022 0915 Normal [facility] Information Officer C-REACTIVE PROTEIN (CRP)on 0 03-27-2022 CRP [Mass/Vol] 0.4 mg/dL <0.9 mg/dL [facility] ESR Westergren method (Bld) [Velocity]on 03-27-2022 ESR (Bld) [Velocity] 8 mm/h 0 - 20 mm/hr [facility] BREAST LTD RTon 2 [facility] XR KNEE GENERAL 4V AP BOTH/P A BOTH/LAT/MERC LEFTon 03-26-2022 [facility] US Breast - right limitedon 09-27-2021 IMPRESSION: PROBABLY BENIGN - SHORT TERM INTERVAL FOLLOW-UP RECOMMENDED The 0.9 cm x 0.4 cm x 0.5 cm oval mass in the right breast at 9 o'clock most likely is fat necrosis and is probably benign. A follow-up ultrasound in 6 months is recommended. The 0.5 cm x 0.2 cm x 0.3 cm oval cyst in the right breast at 9 o'clock likely represents an oil cyst and is probably benign. A follow-up ultrasound in 6 months is recommended. A follow-up ultrasound in 6 months is recommended to demonstrate stability. Megan akhtar/elodia:09/27/2021 12:00:46 Cigar Packer And Sorter(s): Iraida Cheney, RT(R)(M), [facility] Ultrasound BI-RADS: 3 Probably benign finding - short term interval follow-up recommended Multiple national specialty organizations have released breast cancer screening guidelines for women at average risk for developing breast cancer - guidelines that are based on both evidence and opinion, yet differ on when to start and how often to screen for breast cancer. With representation from Breast Imaging, Internal Medicine, Women's Health, Family Medicine, and Medical/Surgical Oncology, the [facility] has carefully reviewed the data and reached the following consensus: 1) All women should engage in shared decision-making with their providers to decide when to start and how often to screen; 2) All women should have the opportunity to start screening mammography at age 40; 3) For women ages 45-55, we recommend annual screening mammograms; 4) For women ages 55 and over, we support both the transition from an annual to a biennial interval if this aligns more with patient's values and preferences, or continuation with annual screening; 5) All women should discuss with their providers when to stop screening mammograms. Jump Iron Machine Presser: Elodia Transcribe Date/Time: Sep 27 2021 10:17A Dictated by: MEGAN DANIELLE MD This examination was interpreted and the report reviewed and electronically signed by: MEGAN DANIELLE MD on Sep 27 2021 12:00PM [facility] DIVISION OF RADIOLOGY * * *Final Report* * * DATE OF EXAM: Sep 27 2021 10:19AM [facility] 0594 - [facility] [employer] BREAST Wis[place] RT / PROCEDURE REASON: new right lumps * * * * Physician Interpretation * * * * RESULT: #[id number] - [facility] US BREAST LTD RT LIMITED ULTRASOUND OF RIGHT BREAST: 09/27/2021 HISTORY: 76 year old female with history of bilateral breast cancer, s/p bilateral mastectomy (right side in April 2021), with two palpable areas along the lateral aspect of the surgical scar. RESULT: No prior exams were available for comparison. Color flow and real-time ultrasound of the right breast were performed on the areas of interest. Bates scale images of the real-time examination were reviewed. There is 0.9 cm x 0.4 cm x 0.5 cm oval mass in the right breast at 9 o'clock. This oval mass is hypoechoic with posterior acoustic enhancement. This correlates as palpated. Color flow imaging demonstrates that there is no increase in vascularity. There also is 0.5 cm x 0.2 cm x 0.3 cm oval cyst in the right breast at 9 o'clock. This oval cyst is anechoic with an abrupt boundary and posterior acoustic enhancement. This correlates with mammography findings. Color flow imaging demonstrates that there is no increase in vascularity. These palpable masses are located along the lateral aspect of the patient's mastectomy scar from April 2021 and likely represent fat necrosis. DIVISION OF RADIOLOGY Provider, [facility] - 09/27/2021 * * *Final Report* * * DATE OF EXAM: Sep 27 2021 10:19AM W 0594 - [facility] BREAST [facility] RT / PROCEDURE REASON: new right lumps * * * * Physician Interpretation * * * * RESULT: #[id number] - [facility] BREAST [facility] RT LIMITED ULTRASOUND OF RIGHT BREAST: 09/27/2021 HISTORY: 76 year old female with history of bilateral breast cancer, s/p bilateral mastectomy (right side in April 2021), with two palpable areas along the lateral aspect of the surgical scar. RESULT: No prior exams were available for comparison. Color flow and real-time ultrasound of the right breast were performed on the areas of interest. Bates scale images of the real-time examination were reviewed. There is 0.9 cm x 0.4 cm x 0.5 cm oval mass in the right breast at 9 o'clock. This oval mass is hypoechoic with posterior acoustic enhancement. This correlates as palpated. Color flow imaging demonstrates that there is no increase in vascularity. There also is 0.5 cm x 0.2 cm x 0.3 cm oval cyst in the right breast at 9 o'clock. This oval cyst is anechoic with an abrupt boundary and posterior acoustic enhancement. This correlates with mammography findings. Color flow imaging demonstrates that there is no increase in vascularity. These palpable masses are located along the lateral aspect of the patient's mastectomy scar from April 2021 and likely represent fat necrosis. IMPRESSION IMPRESSION: PROBABLY BENIGN - SHORT TERM INTERVAL FOLLOW-UP RECOMMENDED The 0.9 cm x 0.4 cm x 0.5 cm oval mass in the right breast at 9 o'clock most likely is fat necrosis and is probably benign. A follow-up ultrasound in 6 months is recommended. The 0.5 cm x 0.2 cm x 0.3 cm oval cyst in the right breast at 9 o'clock likely represents an oil cyst and is probably benign. A follow-up ultrasound in 6 months is recommended. A follow-up ultrasound in 6 months is recommended to demonstrate stability. Megan akhtar/elodia:09/27/2021 12:00:46 Cigar Packer And Sorter(s): RT Eliud(R)(M), [facility] Ultrasound BI-RADS: 3 Probably benign finding - short term interval follow-up recommended Multiple national specialty organizations have released breast cancer screening guidelines for women at average risk for developing breast cancer - guidelines that are based on both evidence and opinion, yet differ on when to start and how often to screen for breast cancer. With representation from Breast Imaging, Internal Medicine, Women's Health, Family Medicine, and Medical/Surgical Oncology, the [facility] has carefully reviewed the data and reached the following consensus: 1) All women should engage in shared decision-making with their providers to decide when to start and how often to screen; 2) All women should have the opportunity to start screening mammography at age 40; 3) For women ages 45-55, we recommend annual screening mammograms; 4) For women ages 55 and over, we support both the transition from an annual to a biennial interval if this aligns more with patient's values and preferences, or continuation with annual screening; 5) All women should discuss with their providers when to stop screening mammograms. Jump Iron Machine Presser: Elodia Transcribe Date/Time: Sep 27 2021 10:17A Dictated by: MEGAN DANIELLE MD This examination was interpreted and the report reviewed and electronically signed by: MEGAN DANIELLE MD on Sep 27 2021 12:00PM EST [facility] Radiology Study observation (narrative) [facility] US Breast - right limitedOrd ered By: [facility] Provider on 09-27-2021 [facility] COVID-19 FRon 09-19-2021 SARS-CoV-2 (COVID-19) RNA JEREMY+probe Ql (Unsp spec) Negative Normal Negative [facility] Comment on above: Order Comment: Healt hcare Worker?: N Result Comment: Testing for SARS-CoV-2 by RT-PCR This test was developed and its performance characteristics determined by [employer]) and validated at the [facility]. This test has not been FDA [...] is terminated or revoked sooner. PERFORMED BY: [address] [place] [address] PATHOLOGIST [employer]IS[employer]S OFFICER MANDY VASQUEZ M.D. Performed By: #### C OVID 19 [facility] #### [address] SURGICAL PATHOLOGYon 021 SURGICAL PATHOLOGY ADDENDUM PRESENT Specimen originated from [facility] Specimen #: [id number] Submitting Physician: MARINA RETANA MD FINAL DIAGNOSIS 1. Lymph node, sentinel #1, sentinel lymph node excision (A): 1 lymph node, negative for carcinoma (0/1). 2. Lymph node, sentinel #2, sentinel lymph node excision (B): 1 lymph node, negative for carcinoma (0/1). 3. Breast, right, mastectomy (C): Two foci of invasive lobular carcinoma, [place] grade 2, 6 mm and 2 mm. [...] biopsy ER: Positive (greater than 95%), strong LA: Positive (20%), moderate HER-2 FISH: Not amplified Previous biopsy Patient Admitting Clerk Block: C9 GL 04/24/2021 COMMENT Sections of [...] in-situ hybridization tests have been [facility] ([facility] in a manner consistent with CLIA requirements. One or more of these tests have not been cleared or approved by the FDA. [facility] is regulated under CLIA as qualified to [...] Parts A and B were performed at [facility], [address] [place] [address] //05/15/2021 Addendum Pathologist: Fatou Nobles M.D. 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 Tati Nash). FSB1: Lymph node, negative for metastatic carcinoma (Dr. Tati Nash). Intraoperative diagnosis performed at [facility], [address] [facility], [place] [address] GROSS DESCRIPTION A. Received fresh for frozen section is a single segment of f (more content not included)... Normal [facility] Comment on above: Performed By: #### S #### See report for performing lab information. CT lumbar spine w conon - CT lumbar spine w con [facility] Main [address] [address] Fluoroscopy Report Signed Patient: Magi Dao MR#: [id number] 0 : 1945 Acct:[id number] Age/Sex: 76 / F ADM Date: 02/01/21 Loc: XD Room: Type: [facility] Attending Dr: Ceferino Morales MD Ordering Provider: Ceferino Morales MD Date of Service: 02/01/21 FL/FL myelogram spine lumbosacral: Chronic pain;Lumbar degenerative disc disease ([id number]) CT/CT lumbar spine w con: Chronic pain;Lumbar [...] Rice Jr., M.D.02/01/2021 12:05 PM Dictation Location: [place] [address] Transcribed By: [facility] 02/01/21 4866 Dictated By: Natalie Rice Jr, MD 02/01/21 1146 Signed By: 02/01/21 1202 [facility] XR knee LT 4V*on 01-16-2021 XR knee LT 4V* [facility] Main [place] [address] [place] [address] XRay Report Signed Patient: Magi Dao MR#: [id number] 0 : 1945 Acct:[id number] Age/Sex: 76 / F ADM Date: 01/16/21 Loc: XD Room: Type: [facility] Attending Dr: Ceferino Morales MD Ordering Provider: [...] Rice Jr., M.D.01/16/2021 9:25 PM Dictation Location: [place] [address] Transcribed By: [facility] 01/16/212124 Dictated By: Natalie Rice Jr, MD 01/16/212121 Signed By: 01/16/212124 Normal [facility] CBC NO DIFFon 10-01-2018 Erythrocyte distribution width Ratio (RBC) 11.7 % Normal 10.8-14.8 [facility] Comment on above: Performed By: #### 4 500, 8790, 7887, 3860, 42089 #### [facility] Unless Otherwise Noted [address] [place] [address] / COLA #4724/CLIA # [id number] Hematocrit Volume Fraction (Bld) 38.9 % Normal 36.0-48.0 [facility] Comment on above: Performed By: #### 4 500, 4510, 4520, 5010, 65381 #### [facility] Unless Otherwise Noted [address] [address] / COLA #4724/CLIA # [id number] Hemoglobin mass conc (Bld) 13.3 g/dL Normal 12.0-16.0 [facility] Comment on above: Performed By: #### 4 500, 4510, 4520, 5010, 47084 #### [facility] Unless Otherwise Noted [address] [address] / COLA #4724/CLIA # [id number] MCH Entitic mass (RBC) 31.0 pg Normal 27.0-34.0 [facility] Comment on above: Performed By: #### 4 500, 4510, 4520, 5010, 57019 #### [facility] Unless Otherwise Noted [address] [address] / COLA #4724/CLIA # [id number] MCHC mass conc (RBC) 34.2 g/dL Normal 31.0-36.0 [facility] Comment on above: Performed By: #### 4 500, 4510, 4520, 5010, 38008 #### [facility] Unless Otherwise Noted [address] [address] / COLA #1124/CLIA # [id number] MCV Entitic volume (RBC) 90.7 fL Normal 80.-100. [facility] and [facility] Comment on above: Performed By: #### 4 500, 4510, 4520, 5010, 09101 #### [facility] Unless Otherwise Noted [address] [address] / COLA #4724/CLIA # [id number] Platelets #/vol (Bld) 272 10*3/uL Normal 150.-450. [facility] Comment on above: Performed By: #### 4 500, 4510, 4520, 5010, 65735 #### [facility] Unless Otherwise Noted [address] [place] [address] / COLA #4724/CLIA # [id number] RBC #/vol (Bld) 4.29 10*6/uL Normal 4.00-5.50 [facility] Comment on above: Performed By: #### 4 500, 4510, 4520, 5010, 75381 #### [facility] Unless Otherwise Noted [address] [place] [address] / COLA #4724/CLIA # [id number] WBC #/vol (Bld) 6.4 10*3/uL Normal 3.7-10.8 [facility] and [facility] Comment on above: Performed By: #### 4 500, 4510, 4520, 5010, 57825 #### [facility] Unless Otherwise Noted [address] [place] [address] / COLA #4724/CLIA # [id number] IRON BINDING CAPACITY (IBC), IRON AND % SATURATIONon 10-01-2018 CALCULATED % IRON SAT 18 % Low 20-50 End [facility] Comment on above: Result Comment: [facility] [address] [place] [address] CLIA No. [id number] CAP Accreditation No. [id number] Putty Mixer: Justin Erickson M.D. Performed By: #### 4 500, 4510, 4520, 5010, 33839 #### [facility] Unless Otherwise Noted [address] [address] / COLA #4724/CLIA # [id number] CALCULATED TIBC 296 MCG/DL Normal 250-450 [facility] Comment on above: Performed By: #### 4 500, 4510, 4520, 5010, 52873 #### [facility] Unless Otherwise Noted [address] [address] / COLA #4724/CLIA # [id number] IRON, SERUM 52 ug/dL Normal 37-145 [facility] Comment on above: Performed By: #### 4 500, 4510, 4520, 5010, 91261 #### [facility] Unless Otherwise Noted [address] [address] / COLA #4724/CLIA # [id number] UNSATURATED IBC 243.5 ug/dL Normal 112-347 [facility] and [facility] Comment on above: Performed By: #### 4 500, 4510, 4520, 5010, 09588 #### [facility] Unless Otherwise Noted [address] [address] / COLA #4724/CLIA # [id number] FT309-30-2018 FT3 2.91 pg/mL Normal 2.45-5.93 [facility] Comment on above: Performed By: #### 4 500, 4510, 4520, 5010, 24863 #### [facility] Unless Otherwise Noted [address] [address] / COLA #4724/CLIA # [id number] FT409-30-2018 T4 free mass conc 1.66 ng/dL Normal 0.78-2.44 [facility] Comment on above: Performed By: #### 4 500, 4510, 4520, 5010, 69963 #### [facility] Unless Otherwise Noted [address] [facility] [address] [place] [address] / COLA #4724/CLIA # [id number] TSHon 09-30-2018 Thyrotropin Qn 0.90 uIU/ml Normal 0.47-4.68 [facility] Comment on above: Performed By: #### 4 500, 5950, 4520, 5010, 08328 #### [facility] Unless Otherwise Noted [address] [facility] [address] [place] [address] / COLA #4724/CLIA # [id number] Vital Signs Date Time Vital Sign Value Performing Clinician Facility 07-07-2024 10:51-0400 Diastolic blood pressure 80 mm[Hg] Jaron Will DO Work Phone: [facility] 07-07-2024 10:51-0400 Heart rate 74 /min Jaron Nicolette DO Work Phone: [facility] 07-07-2024 10:51-0400 SaO2% (BldA) [Mass fraction] 98 % Jaron Nicolette DO Work Phone: [facility] 07-07-2024 10:51-0400 Systolic blood pressure 128 mm[Hg] Jaron Nicolette DO Work Phone: [facility] 06-24-2024 08:16-0400 Body height 157.5 cm Gabriel Coppola Jr., DO Work Phone: [facility] 06-24-2024 08:16-0400 Body mass index (BMI) [Ratio] 29.23 kg/m2 Gabriel Coppola Jr., DO Work Phone: [facility] 06-24-2024 08:16-0400 Body temperature 97.39 [degF] Gabriel Coppola Jr., DO Work Phone: [facility] 06-24-2024 08:16-0400 Body weight 72.5 kg Gabriel Coppola Jr., DO Work Phone: [facility] 06-24-2024 08:16-0400 Diastolic blood pressure 75 mm[Hg] Gabriel Coppola Jr., DO Work Phone: [facility] 06-24-2024 08:16-0400 Heart rate 63 /min Gabriel oCppola Jr., DO Work Phone: [facility] 06-24-2024 08:16-0400 SaO2% (BldA) [Mass fraction] 99 % Gabriel Coppola Jr., DO Work Phone: [facility] 06-24-2024 08:16-0400 Systolic blood pressure 115 mm[Hg] Gabriel Coppola Jr., DO Work Phone: [facility] 03-31-2024 13:05-0400 Diastolic blood pressure 72 mm[Hg] Gabriel Coppola Jr., DO Work Phone: [facility] 03-31-2024 13:05-0400 Heart rate 72 /min Gabriel Coppola Jr., DO Work Phone: [facility] 03-31-2024 13:05-0400 Respiratory rate 16 /min Gabriel Coppola Jr., DO Work Phone: [facility] 03-31-2024 13:05-0400 SaO2% (BldA) [Mass fraction] 99 % Gabriel Coppola Jr., DO Work Phone: [facility] 03-31-2024 13:05-0400 Systolic blood pressure 147 mm[Hg] Gabriel Coppola Jr., DO Work Phone: [facility] 03-31-2024 12:45-0400 Body temperature 97.11 [degF] Gabriel Coppola Jr., DO Work Phone: [facility] 03-07-2024 15:34-0400 Body height 160 cm Vaibhav Ovalle MD Work Phone: [facility] 03-07-2024 15:34-0400 Body mass index (BMI) [Ratio] 26.95 kg/m2 Vaibhav Ovalle MD Work Phone: [facility] 03-07-2024 15:34-0400 Body temperature 97.39 [degF] Vaibhav Ovalle MD Work Phone: [facility] 03-07-2024 15:34-0400 Body weight 69 kg Vaibhav Ovalle MD Work Phone: [facility] 03-07-2024 15:34-0400 Diastolic blood pressure 87 mm[Hg] Vaibhav Ovalle MD Work Phone: [facility] 03-07-2024 15:34-0400 Heart rate 86 /min Vaibhav Ovalle MD Work Phone: [facility] 03-07-2024 15:34-0400 Respiratory rate 16 /min Vaibhav Ovalle MD Work Phone: [facility] 03-07-2024 15:34-0400 SaO2% (BldA) [Mass fraction] 98 % Vaibhav Ovalle MD Work Phone: [facility] 03-07-2024 15:34-0400 Systolic blood pressure 156 mm[Hg] Vaibhav Ovalle MD Work Phone: [facility] 01-29-2024 10:17-0400 Body height 160 cm Gabriel Coppola Jr., DO Work Phone: [facility] 01-29-2024 10:17-0400 Body mass index (BMI) [Ratio] 26.59 kg/m2 Gabriel Coppola Jr., DO Work Phone: [facility] 01-29-2024 10:17-0400 Body temperature 97.59 [degF] Gabriel Coppola Jr., DO Work Phone: [facility] 01-29-2024 10:17-0400 Body weight 68.1 kg Gabriel Coppola Jr., DO Work Phone: [facility] 01-29-2024 10:17-0400 Diastolic blood pressure 71 mm[Hg] Gabriel Coppola Jr., DO Work Phone: [facility] 01-29-2024 10:17-0400 Heart rate 65 /min Gabriel Coppola Jr., DO Work Phone: [facility] 01-29-2024 10:17-0400 SaO2% (BldA) [Mass fraction] 99 % Gabriel Coppola Jr., DO Work Phone: [facility] 01-29-2024 10:17-0400 Systolic blood pressure 126 mm[Hg] Gabriel Coppola Jr., DO Work Phone: [facility] 12-21-2023 10:53-0400 Body height 160 cm Vaibhav Ovalle MD Work Phone: [facility] 12-21-2023 10:53-0400 Body temperature 97.9 [degF] Vaibhav Ovalle MD Work Phone: [facility] 12-21-2023 10:53-0400 Body weight 67.3 kg Vaibhav Ovalle MD Work Phone: [facility] 12-21-2023 10:53-0400 Diastolic blood pressure 72 mm[Hg] Vaibhav Ovalle MD Work Phone: [facility] 12-21-2023 10:53-0400 Heart rate 79 /min Vaibhav Ovalle MD Work Phone: [facility] 12-21-2023 10:53-0400 Respiratory rate 16 /min Vaibhav Ovalle MD Work Phone: [facility] 12-21-2023 10:53-0400 SaO2% (BldA) [Mass fraction] 98 % Vaibhav Ovalle MD Work Phone: [facility] 12-21-2023 10:53-0400 Systolic blood pressure 143 mm[Hg] Vaibhav Ovalle MD Work Phone: [facility] 10-27-2023 10:35-0500 Diastolic blood pressure 68 mm[Hg] Gabriel Coppola Jr., DO Work Phone: [facility] 10-27-2023 10:35-0500 Systolic blood pressure 161 mm[Hg] Gabriel Coppola Jr., DO Work Phone: [facility] 10-27-2023 10:21-0500 Body height 160 cm Gabriel Coppola Jr., DO Work Phone: [facility] 10-27-2023 10:21-0500 Body temperature 97.59 [degF] Gabriel Coppola Jr., DO Work Phone: [facility] 10-27-2023 10:21-0500 Body weight 68.1 kg Gabriel Coppola Jr., DO Work Phone: [facility] 10-27-2023 10:21-0500 Heart rate 88 /min Gabriel Coppola Jr., DO Work Phone: [facility] 10-27-2023 10:21-0500 SaO2% (BldA) [Mass fraction] 99 % Gabriel Coppola Jr., DO Work Phone: [facility] 10-05-2023 10:32-0500 Body height 160 cm Vilma Napoles MD Work Phone: [facility] 10-05-2023 10:32-0500 Body mass index (BMI) [Ratio] 26.89 kg/m2 Vilma Napoles MD Work Phone: [facility] 10-05-2023 10:32-0500 Body weight 68.86 kg Vilma Napoles MD Work Phone: [facility] 10-05-2023 10:32-0500 Diastolic blood pressure 67 mm[Hg] Vilma Napoles MD Work Phone: [facility] 10-05-2023 10:32-0500 Heart rate 63 /min Vilma Napoles MD Work Phone: [facility] 10-05-2023 10:32-0500 SaO2% (BldA) [Mass fraction] 100 % Vilma Napoles MD Work Phone: [facility] 10-05-2023 10:32-0500 Systolic blood pressure 145 mm[Hg] Vilma Napoles MD Work Phone: [facility] 05-29-2023 14:16-0400 Body height 160 cm Vaibhav Ovalle MD Work Phone: [facility] 05-29-2023 14:16-0400 Body temperature 97.59 [degF] Vaibhav Ovalle MD Work Phone: [facility] 05-29-2023 14:16-0400 Body weight 66.04 kg Vaibhav Ovalle MD Work Phone: [facility] 05-29-2023 14:16-0400 Diastolic blood pressure 68 mm[Hg] Vaibhav Ovalle MD Work Phone: [facility] 05-29-2023 14:16-0400 Heart rate 77 /min Vaibhav Ovalle MD Work Phone: [facility] 05-29-2023 14:16-0400 Respiratory rate 16 /min Vaibhav Ovalle MD Work Phone: [facility] 05-29-2023 14:16-0400 SaO2% (BldA) [Mass fraction] 98 % Vaibhav Ovalle MD Work Phone: [facility] 05-29-2023 14:16-0400 Systolic blood pressure 161 mm[Hg] Vaibhav Ovalle MD Work Phone: [facility] 03-04-2023 13:42-0400 Body temperature 97.5 [degF] Chair Ramírez Work Phone: [facility] 03-04-2023 13:42-0400 Diastolic blood pressure 81 mm[Hg] Chair Desiree Work Phone: [facility] 03-04-2023 13:42-0400 Heart rate 64 /min Chair Desiree Work Phone: [facility] 03-04-2023 13:42-0400 Respiratory rate 16 /min Chair [place] Work Phone: [facility] 03-04-2023 13:42-0400 SaO2% (BldA) [Mass fraction] 100 % Chair [place] Work Phone: [facility] 03-04-2023 13:42-0400 Systolic blood pressure 157 mm[Hg] Chair Desiree Work Phone: [facility] 02-19-2023 13:18-0400 Body height 160 cm Vaibhav Ovalle MD Work Phone: [facility] 02-19-2023 13:18-0400 Body temperature 97.3 [degF] Vaibhav Ovalle MD Work Phone: [facility] 02-19-2023 13:18-0400 Body weight 66.41 kg Vaibhav Ovalle MD Work Phone: [facility] 02-19-2023 13:18-0400 Diastolic blood pressure 49 mm[Hg] Vaibhav Ovalle MD Work Phone: [facility] 02-19-2023 13:18-0400 Heart rate 73 /min Vaibhav Ovalle MD Work Phone: [facility] 02-19-2023 13:18-0400 Respiratory rate 16 /min Vaibhav Ovalle MD Work Phone: [facility] 02-19-2023 13:18-0400 SaO2% (BldA) [Mass fraction] 100 % Vaibhav Ovalle MD Work Phone: [facility] 02-19-2023 13:18-0400 Systolic blood pressure 132 mm[Hg] Vaibhav Ovalle MD Work Phone: [facility] 01-06-2023 10:30-0400 Diastolic blood pressure 89 mm[Hg] Pacc 2 Work Phone: [facility] 01-06-2023 10:30-0400 Systolic blood pressure 166 mm[Hg] Pacc 2 Work Phone: [facility] 01-06-2023 10:21-0400 Body height 160 cm Pacc 2 Work Phone: [facility] 01-06-2023 10:21-0400 Body temperature 97.81 [degF] Pacc 2 Work Phone: [facility] 01-06-2023 10:21-0400 Body weight 65.32 kg Pacc 2 Work Phone: [facility] 01-06-2023 10:21-0400 Heart rate 73 /min Pacc 2 Work Phone: [facility] 01-06-2023 10:21-0400 Respiratory rate 16 /min Pacc 2 Work Phone: [facility] 01-06-2023 10:21-0400 SaO2% (BldA) [Mass fraction] 99 % Pacc 2 Work Phone: [facility] 10-17-2022 09:56-0500 Body height 157.5 cm Vaibhav Ovalle MD Work Phone: [facility] 10-17-2022 09:56-0500 Body temperature 97.3 [degF] Vaibhav Ovalle MD Work Phone: [facility] 10-17-2022 09:56-0500 Body weight 64.95 kg Vaibhav Ovalle MD Work Phone: [facility] 10-17-2022 09:56-0500 Diastolic blood pressure 69 mm[Hg] Vaibhav Ovalle MD Work Phone: [facility] 10-17-2022 09:56-0500 Heart rate 80 /min Vaibhav Ovalle MD Work Phone: [facility] 10-17-2022 09:56-0500 Respiratory rate 16 /min Vaibhav Ovalle MD Work Phone: [facility] 10-17-2022 09:56-0500 SaO2% (BldA) [Mass fraction] 99 % Vaibhav Ovalle MD Work Phone: [facility] 10-17-2022 09:56-0500 Systolic blood pressure 144 mm[Hg] Vaibhav Ovalle MD Work Phone: [facility] 10-03-2022 12:18-0500 Body height 157.5 cm Gabriel Coppola Jr., DO Work Phone: [facility] 10-03-2022 12:18-0500 Body weight 63.5 kg Gabriel Coppola Jr., DO Work Phone: [facility] 10-03-2022 12:18-0500 Diastolic blood pressure 66 mm[Hg] Gabriel Coppola Jr., DO Work Phone: [facility] 10-03-2022 12:18-0500 Heart rate 79 /min Gabriel Coppola Jr., DO Work Phone: [facility] 10-03-2022 12:18-0500 SaO2% (BldA) [Mass fraction] 99 % Gabriel Coppola Jr., DO Work Phone: [facility] 10-03-2022 12:18-0500 Systolic blood pressure 131 mm[Hg] Gabriel Coppola Jr., DO Work Phone: [facility] 10-02-2022 11:39-0500 Body height 157.5 cm Marlee Salazar MD Work Phone: [facility] 10-02-2022 11:39-0500 Body weight 62.6 kg Marlee Salazar MD Work Phone: [facility] 08-15-2022 10:43-0500 Body height 157.5 cm Gabriel Coppola Jr., DO Work Phone: [facility] 08-15-2022 10:43-0500 Body weight 64.86 kg Gabriel Coppola Jr., DO Work Phone: [facility] 08-15-2022 10:43-0500 Diastolic blood pressure 85 mm[Hg] Gabriel Coppola Jr., DO Work Phone: [facility] 08-15-2022 10:43-0500 Heart rate 80 /min Gabriel Coppola Jr., DO Work Phone: [facility] 08-15-2022 10:43-0500 SaO2% (BldA) [Mass fraction] 99 % Gabriel Coppola Jr., DO Work Phone: [facility] 08-15-2022 10:43-0500 Systolic blood pressure 139 mm[Hg] Gabriel Coppola Jr., DO Work Phone: [facility] 07-18-2022 10:29-0500 Body height 160 cm Vaibhav Ovalle MD Work Phone: [facility] 07-18-2022 10:29-0500 Body temperature 97.5 [degF] Vaibhav Ovalle MD Work Phone: [facility] 07-18-2022 10:29-0500 Body weight 65.95 kg Vaibhav Ovalle MD Work Phone: [facility] 07-18-2022 10:29-0500 Diastolic blood pressure 75 mm[Hg] Vaibhav Ovalle MD Work Phone: [facility] 07-18-2022 10:29-0500 Heart rate 95 /min Vaibhav Ovalle MD Work Phone: [facility] 07-18-2022 10:29-0500 Respiratory rate 16 /min Vaibhav Ovalle MD Work Phone: [facility] 07-18-2022 10:29-0500 SaO2% (BldA) [Mass fraction] 100 % Vaibhav Ovalle MD Work Phone: [facility] 07-18-2022 10:29-0500 Systolic blood pressure 147 mm[Hg] Vaibhav Ovalle MD Work Phone: [facility] 07-10-2022 11:58-0400 Body height 160 cm Amada Baltazar PA-C Work Phone: [facility] 07-10-2022 11:58-0400 Body weight 71.22 kg Amada Baltazar PA-C Work Phone: [facility] 03-27-2022 10:22-0400 Body height 160 cm Marina Retana MD Work Phone: [facility] 03-27-2022 10:22-0400 Body weight 69.4 kg Marina Retana MD Work Phone: [facility] 03-27-2022 10:22-0400 Diastolic blood pressure 70 mm[Hg] Marina Retana MD Work Phone: [facility] 03-27-2022 10:22-0400 Systolic blood pressure 122 mm[Hg] Marina Retana MD Work Phone: [facility] 12-13-2021 10:07-0400 Body height 158.5 cm Vaibhav Ovalle MD Work Phone: [facility] 12-13-2021 10:07-0400 Body temperature 97.3 [degF] Vaibhav Ovalle MD Work Phone: [facility] 12-13-2021 10:07-0400 Body weight 69.76 kg Vaibhav Ovalle MD Work Phone: [facility] 12-13-2021 10:07-0400 Diastolic blood pressure 72 mm[Hg] Vaibhav Ovalle MD Work Phone: [facility] 12-13-2021 10:07-0400 Heart rate 75 /min Vaibhav Ovalle MD Work Phone: [facility] 12-13-2021 10:07-0400 Respiratory rate 16 /min Vaibhav Ovalle MD Work Phone: [facility] 12-13-2021 10:07-0400 SaO2% (BldA) [Mass fraction] 99 % Vaibhav Ovalle MD Work Phone: [facility] 12-13-2021 10:07-0400 Systolic blood pressure 125 mm[Hg] Vaibhav Ovalle MD Work Phone: [facility] 02-01-2021 09:15-0400 Diastolic blood pressure 66 mm[Hg] Yajaira Knoxer Work Phone: [facility] 02-01-2021 09:15-0400 Heart rate 60 /min Yajaira Knoxer Work Phone: [facility] 02-01-2021 09:15-0400 Respiratory rate 18 /min Yajaira Knoxer Work Phone: [facility] 02-01-2021 09:15-0400 SaO2% (BldA) [Mass fraction] 97 % Yajaira Knoxer Work Phone: [facility] 02-01-2021 09:15-0400 Systolic blood pressure 150 mm[Hg] Yajaira Lisa Work Phone: [facility] 02-01-2021 07:35-0400 Body height 162.56 cm Yajaira Lisa Work Phone: [facility] 02-01-2021 07:35-0400 Body mass index (BMI) [Ratio] 25.2 kg/m2 Yajaira Lisa Work Phone: [facility] 02-01-2021 07:35-0400 Body weight 66.67 kg Yajaira Lisa Work Phone: [facility] 01-30-2021 12:15-0400 Diastolic blood pressure 73 mm[Hg] Yajaira Lisa Work Phone: [facility] 01-30-2021 12:15-0400 Heart rate 63 /min Yajaira Lisa Work Phone: [facility] 01-30-2021 12:15-0400 Respiratory rate 20 /min Yajaira Gonzalez Work Phone: [facility] 01-30-2021 12:15-0400 SaO2% (BldA) [Mass fraction] 99 % Yajaira Gonzalez Work Phone: [facility] 01-30-2021 12:15-0400 Systolic blood pressure 127 mm[Hg] Yajaira Gonzalez Work Phone: [facility] 01-30-2021 10:32-0400 Body height 162.56 cm Yajaira Gonzalez Work Phone: [facility] 01-30-2021 10:32-0400 Body mass index (BMI) [Ratio] 26.2 kg/m2 Yajaira Gonzalez Work Phone: [facility] 01-30-2021 10:32-0400 Body weight 69.4 kg Yajaira Gonzalez Work Phone: [facility] Encounters Encounter Date Encounter Type Care Provider Facility Start: 07-20-2024 End: 07-20-2024 ambulatory CRISTIAN MALCOLM Not Available Start: 07-15-2024 End: 07-15-2024 ambulatory TIA MARIE [facility] Start: 07-13-2024 End: 07-13-2024 Bamboo flowsheet Cristian Malcolm PT Work Phone: [facility] Start: 07-13-2024 End: 07-13-2024 Bamboo flowsheet Cristian Malcolm PT Work Phone: [facility] Start: 07-13-2024 End: 07-13-2024 Treatment Cristian Malcolm PT Work Phone: [facility] Comment on above: Meniere's disease (c ochlear hydrops), right (Primary Dx); Cervicalgia; Balance disorder; Meniere disease, right Start: 07-13-2024 End: 07-13[facility]24 [facility]: 07-11-2024 End: 07-11-2024 Office outpatient visit 15 minutes Yelena Davison [facility] FOUNDRY LABORER-REGISTER IN CHANCERY Work Phone: [facility] Comment on above: Other nonthrombocyto penic purpura (CMS/HCC); Inflamed seborrheic keratosis Start: 07-11-2024 End: 07-11-2024 ambulatory YELENA DAVISON Not Available Start: 07-11-2024 End: 07-11-2024 ambulatory Nikkie Romero MD Facility:[facility] Start: 07-07-2024 End: 07-07-2024 Bamboo flowsheet Jaron Will DO Work Phone: [facility] Start: 07-07-2024 End: 07-07-2024 Bamboo flowsheet Jaronvishal Will DO Work Phone: [facility] Start: 07-07-2024 End: 07-07-2024 Patient encounter procedure Jaron Will DO Work Phone: [facility] Comment on above: Spasmodic torticolli s (Primary Dx); Intractable 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 without status migrainosus (CMS/HCC) Start: 07-07-2024 End: 07-07-2024 ambulatory JARON NICOLETTE Not Available Start: 07-05-2024 End: 07-05-2024 Treatment Cristian Malcolm PT Work Phone: [facility] Comment on above: Meniere's disease (c ochlear hydrops), right (Primary Dx); Cervicalgia; Balance disorder; Meniere disease, right Start: 07-04-2024 End: 07-04-2024 ambulatory ALBERT HUNTLEY Facility:[facility] Start: 07-04-2024 End: 07-04-2024 Patient encounter procedure Albert Huntley MD Work Phone: Otolaryngology Comment on above: Imbalance (Primary D x); Dizziness and giddiness; Vestibular migraine; Sensorineural hearing loss (SNHL) of both ears Start: 06-27-2024 End: 06-27-2024 Bamboo flowsheet Cristian Claire Gold PT Work Phone: [facility] Start: 06-27-2024 End: 06-27-2024 Bamboo flowsheet Cristian Yuiggs PT Work Phone: [facility] Start: 06-27-2024 End: 06-27-2024 Treatment Cristian J Gold PT Work Phone: [facility] Comment on above: Meniere's disease (c ochlear hydrops), right (Primary Dx); Cervicalgia; Balance disorder; Meniere disease, right Start: 06-24-2024 End: 06-24-2024 ambulatory GABRIEL COPPOLA JR Facility:[facility] Start: 06-24-2024 End: 06-24-2024 Patient encounter procedure Gabriel Coppola DO Work Phone: Gastroenterology Comment on above: Irritable bowel synd lady with constipation (Primary Dx); Gastroesophageal reflux disease without esophagitis; History of fundoplication Start: 06-22-2024 End: 06-22-2024 ambulatory RADHA PRICE Facility:[facility] Start: 06-22-2024 End: 06-22-2024 Patient encounter procedure Lorelei Raphael AUD Work Phone: Audiology Comment on above: Dizziness and giddin ess (Primary Dx); Other specified hearing loss, unspecified ear; Sensorineural hearing loss, bilateral; Ear fullness, right; Tinnitus, bilateral; Ear pressure, right Asymmetric SNHL (sen sorineural hearing loss) (Primary Dx); Dizziness; Subjective tinnitus of both ears; Ear pressure, bilateral Start: 06-21-2024 End: 06-21-2024 ambulatory YEE ZAMBRANO [facility] Start: 06-20-2024 End: 06-20-2024 ambulatory TIA [facility] Start: 06-17-2024 End: 06-17-2024 Bamboo flowsheet Cristian Alethea Malcolm PT Work Phone: [facility] Start: 06-17-2024 End: 06-17-2024 Bamboo flowsheet Cristian Malcolm PT Work Phone: [facility] Start: 06-17-2024 End: 06-17-2024 Treatment Cristian Malcolm PT Work Phone: [facility] Comment on above: Meniere's disease (c ochlear hydrops), right (Primary Dx); Cervicalgia; Balance disorder; Meniere disease, right Start: 06-10-2024 End: 06-10-2024 Bamboo flowsheet Cristian Malcolm PT Work Phone: [facility] Start: 06-10-2024 End: 06-10-2024 Bamboo flowsheet Cristian Malcolm PT Work Phone: [facility] Start: 06-10-2024 End: 06-10-2024 Treatment Cristian Malcolm PT Work Phone: [facility] Comment on above: Meniere's disease (c ochlear hydrops), right (Primary Dx); Cervicalgia; Balance disorder; Meniere disease, right Start: 06-07-2024 End: 06-07-2024 Orders Only Winston Chanel APRN-REGISTER IN CHANCERY Work Phone: [facility] Start: 06-06-2024 End: 06-06-2024 ambulatory Nikkie Romero MD Facility: [facility] Start: 06-03-2024 End: 06-03-2024 ambulatory CRISTIAN MALCOLM Not Available Start: 05-30-2024 End: 05-30-2024 ambulatory Nikkie Romero MD Facility: [facility] Start: 05-26-2024 End: 05-26-2024 ambulatory TIA MARIE [facility] Start: 05-26-2024 End: 05-26-2024 ambulatory WINSTON CHANEL [facility] Start: 05-25-2024 End: 05-25-2024 ambulatory CRISTIAN MALCOLM Not Available Start: 05-24-2024 End: 05-24-2024 ambulatory YAJAIRA POST [facility] Start: 05-17-2024 End: 05-17-2024 ambulatory CRISTIAN MALCOLM Not Available Start: 05-16-2024 End: 05-16-2024 ambulatory Nikkie Romero MD [facility] Start: 05-13-2024 End: 05-13-2024 ambulatory TIA [facility] Start: 05-11-2024 End: 05-11-2024 ambulatory CRISTIAN MALCOLM Not Available Start: 05-04-2024 End: 05-04-2024 ambulatory YAJAIRA GONZALEZ Not Available Start: 05-03-2024 End: 05-03-2024 ambulatory AMADA BRUCE Not Available Start: 04-25-2024 End: 04-25-2024 ambulatory YAJAIRA GONZALEZ Not Available Start: 04-15-2024 End: 04-15-2024 ambulatory DAO SALTY Not Available Start: 04-14-2024 End: 04-14-2024 Patient encounter procedure Marlee Salazar MD Work Phone: Orthopaedics Comment on above: Pain due to total le ft knee replacement, initial encounter ([facility]) (Primary Dx); Status post total left knee replacement Start: 04-14-2024 End: 04-14-2024 ambulatory MARLEE SALAZAR Facility:[facility] Start: 04-14-2024 End: 04-14-2024 Subsequent hospital visit by physician Shashi Stillay [facility] Radiology Comment on above: Pain [R52] Start: 04-11-2024 End: 04-11-2024 ambulatory [facility] Start: 04-07-2024 End: 04-07-2024 ambulatory JARNO WILL Not Available Start: 04-04-2024 End: 04-04-2024 ambulatory VILMA NAPOLES [facility] Start: 03-31-2024 End: 03-31-2024 ambulatory GABRIEL COPPOLA JR Facility:[facility] Start: 03-31-2024 End: 03-31-2024 Subsequent hospital visit by physician Gabriel Coppola DO Work Phone: Ambulatory Surgery Comment on above: Screening for colore ctal cancer [Z12.11, Z12.12] Start: 03-21-2024 Telephone encounter Gabriel noyola DO Work Phone: Gastroenterology Comment on above: Appointment Start: 03-17-2024 End: 03-17-2024 ambulatory WINSTON CHANEL [facility] Start: 03-15-2024 End: 03-15-2024 ambulatory TIA MARIE [facility] Start: 03-07-2024 End: 03-07-2024 ambulatory VAIBHAV OVALLE Facility:[facility] Start: 03-07-2024 End: 03-07-2024 Office outpatient visit 25 minutes Vaibhav Ovalle MD Work Phone: Hematology/Oncology Comment on above: Cancer of breast, in traductal, left (Primary Dx); H/O left mastectomy; Malignant 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, estrogen receptor positive, unspecified site of breast (HCC); Iron deficiency anemia due to chronic blood loss Start: 02-23-2024 End: 02-23-2024 ambulatory VAIBHAV OVALLE [facility] Start: 02-16-2024 End: 02-16-2024 ambulatory ILA MARTELL Not Available Start: 02-15-2024 End: 02-15-2024 ambulatory YELENA DAVISON Not Available Start: 02-11-2024 Telephone encounter Vaibhav boyd MD Work Phone: [facility] Comment on above: Appointment Start: 02-09-2024 End: 02-09-2024 ambulatory Vaibhav Ovalle MD Work Phone: Hematology/Oncology Comment on above: Cancer of breast, in traductal, left (Primary Dx); H/O left mastectomy; Lump in chest Start: 02-09-2024 End: 02-09-2024 Telemedicine consultation with patient Vaibhav Ovalle MD Work Phone: Hematology/Oncology Start: 02-02-2024 End: 02-02-2024 ambulatory JARON WILL Not Available Start: 01-29-2024 End: 01-29-2024 ambulatory GABRIEL COPPOLA JR Facility:[facility] Start: 01-29-2024 End: 01-29-2024 Patient encounter procedure Gabriel Coppola DO Work Phone: Gastroenterology Comment on above: Gastroesophageal ref lux disease, unspecified whether esophagitis present (Primary Dx); Chronic idiopathic constipation; Hiatal hernia; Screening for colorectal cancer Start: 01-26-2024 End: 01-26-2024 ambulatory ILA MARTELL Not Available Start: 01-22-2024 End: 01-22-2024 ambulatory [facility] Start: 01-20-2024 End: 01-20-2024 ambulatory MIGUEL ANGEL A PETITTI Not Available Start: 01-18-2024 End: 01-18-2024 ambulatory YAJAIRA KNOXER Not Available Start: 01-14-2024 End: 01-14-2024 ambulatory [facility] Start: 01-11-2024 End: 01-11-2024 ambulatory [facility] Start: 01-08-2024 End: 01-08-2024 ambulatory [facility] Start: 01-07-2024 End: 01-07-2024 ambulatory JARON WILL Not Available Start: 01-06-2024 End: 01-06-2024 ambulatory MIGUEL ANGEL A PETITTI Not Available Start: 01-05-2024 End: 01-05-2024 ambulatory ILA MARTELL Not Available Start: 2024 End: 2024 ambulatory YAJAIRA GONZALEZ Not Available Start: 12-24-2023 End: 12-24-2023 ambulatory YELENA A JACK Not Available Start: 12-23-2023 End: 12-23-2023 ambulatory LEATHA REDDY [facility] Start: 12-21-2023 End: 12-21-2023 Office outpatient visit 25 minutes Vaibhav Ovalle MD Work Phone: Hematology/Oncology Comment on above: Cancer of breast, in traductal, left (Primary Dx); Malignant 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, estrogen receptor positive, unspecified site of breast (HCC) ; Iron deficiency anemia due to chronic blood loss; Major depressive disorder, recurrent episode, mild (HCC) Start: 12-21-2023 End: 12-21-2023 ambulatory VAIBHAV OVALLE Facility:[facility] Start: 12-17-2023 End: 12-17-2023 ambulatory ILA MARTELL Not Available Start: 12-15-2023 End: 12-15-2023 ambulatory [facility] Start: 12-09-2023 End: 12-09-2023 ambulatory YAJAIRA GNOZALEZ Not Available Start: 12-04-2023 Orders Only Winston García britney COREROOM FOUNDRY LABORER-REGISTER IN CHANCERY Work Phone: [facility] Comment on above: Generalized anxiety disorder Start: 12-03-2023 End: 12-03-2023 ambulatory YAJAIRA GONZALEZ Not Available Start: 12-02-2023 End: 12-02-2023 [facility] Start: 11-27-2023 End: 11-27-2023 ambulatory AMADA BRUCE Not Available Start: 11-24-2023 End: 11-24-2023 ambulatory [facility] Start: 11-11-2023 ambulatory Vaibhav rosenthal MD Work Phone: Hematology/Oncology Comment on above: Basal Cell Cancer Start: 11-11-2023 Telephone encounter Yelena Spain Hematology/Oncology Comment on above: Nodular Basal Carcin marissa DX Start: 11-10-2023 End: 11-10-2023 ambulatory [facility] Start: 11-05-2023 End: 11-05-2023 ambulatory YELENA DAVISON Not Available Start: 11-02-2023 End: 11-02-2023 [facility] Start: 10-27-2023 End: 10-27-2023 ambulatory YAJAIRA GONZALEZ Not Available Start: 10-27-2023 End: 10-27-2023 ambulatory GABRIEL COPPOLA JR Facility:[facility] Start: 10-27-2023 End: 10-27-2023 Patient encounter procedure Gabriel Coppola DO Work Phone: Gastgroenterology Comment on above: Irritable bowel synd lady with constipation (Primary Dx); Gastroesophageal reflux disease with esophagitis without hemorrhage; History of repair of hiatal hernia Start: 10-26-2023 ambulatory Gabriel Coppola , DO Work Phone: [place] Start: 10-26-2023 Patient encounter procedure Prasad Coppola DO Work Phone: Gastgroenterology Comment on above: Appointment on 10/27 Start: 10-23-2023 Chart abstracting Amada Bruce PT Work Phone: [facility] Start: 10-23-2023 End: 10-23-2023 ambulatory AMADA BRUCE Not Available Start: 10-12-2023 End: 10-12-2023 ambulatory [facility] Start: 10-09-2023 End: 10-09-2023 ambulatory Amada Bruce PT Work Phone: [facility] PT Comment on above: Cervicalgia (Primary Dx); Difficulty walking; Vertigo, benign paroxysmal, unspecified laterality Start: 10-05-2023 End: 10-05-2023 Office outpatient visit 15 minutes Vilma Napoles MD Work Phone: [facility] Comment on above: AD (obstructive sle ep apnea) (Primary Dx) Start: 10-05-2023 End: 10-05-2023 ambulatory VILMA NAPOLES [facility] Start: 09-30-2023 End: 09-30-2023 ambulatory [facility] Start: 09-25-2023 End: 09-25-2023 ambulatory AMADA BRUCE Not Available Start: 09-23-2023 End: 09-23-2023 ambulatory BRETT CANTU Not Available Start: 09-21-2023 End: 09-21-2023 ambulatory MYRANDA CRONIN Not Available Start: 09-18-2023 End: 09-18-2023 ambulatory AMADA BRUCE Not Available Start: 09-17-2023 End: 09-17-2023 ambulatory MARLEE SALAZAR Facility:[facility] Start: 09-16-2023 ambulatory GABRIEL SUBRAMANIAN Facility: [facility] Start: 09-04-2023 End: 09-04-2023 ambulatory YAJAIRA GONZALEZ Not Available Start: 08-25-2023 End: 08-25-2023 ambulatory AMADA BRUCE Not Available Start: 08-17-2023 End: 08-17-2023 ambulatory AMADA BRUCE Not Available Start: 08-05-2023 End: 08-05-2023 ambulatory AMADA BRUCE Not Available Start: 07-17-2023 End: 07-17-2023 ambulatory GABRIEL COPPOLA JR Facility:[facility] Start: 06-24-2023 Telephone encounter Jeannette diamond RN Hematology/Oncology Start: 05-29-2023 End: 05-29-2023 Office outpatient visit 25 minutes Vaibhav Ovalle MD Work Phone: Hematology/Oncology Comment on above: Thunderclap headache (Primary Dx); Malignant 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, estrogen receptor positive, unspecified site of breast (HCC) ; Cancer of breast, intraductal, left; Iron deficiency anemia due to chronic blood loss; Major depressive disorder, recurrent episode, mild (HCC) Start: 05-29-2023 Telephone encounter Vaibhav boyd MD Work Phone: [facility] Comment on above: Results Start: 04-02-2023 End: [...] Dx) Start: 02-26-2023 Orders Only Vilma fox [facility] Work Phone: Hematology/Oncology Comment on above: Iron [...] 02-16-2023 Subsequent hospital visit by physician [facility] [place] [facility] Comment on above: Status post total [...] Evaluation and management of inpatient MARLEE SALAZAR Facility:[facility] Start: 01-15-2023 Telephone encounter Marlee Gramajo MD Work Phone: Orthopaedics Comment on above: Medication Problem Start: 01-06-2023 End: 01-07-2023 ambulatory REDDY MICHAEL II Facility:[facility] Start: 01-06-2023 End: 01-06-2023 ambulatory YAJAIRA GONZALEZ Facility:[facility] Start: 01-06-2023 Encounter for other preprocedural examination [facility] Start: 01-06-2023 End: 01-06-2023 Admission to establishment [facility] 2 Work Phone: [facility] Start: 01-06-2023 End: 01-06-2023 Admission to same day surgery center 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 2 Work Phone: Pre Anesthesia Start: 12-31-2022 End: 09-05-2023 Preoperative state Vilma Napoles MD Work Phone: [facility] Start: 12-10-2022 ambulatory Gabriel Coppola DO Work Phone: Gastgroenterology Comment on above: Creon Questions Start: 12-08-2022 ambulatory Brittany Swain RN [facility] Comment on above: Blood Management Start: 12-05-2022 [...] End: 10-02-2022 Subsequent hospital visit by physician Orth General Xray A21 Radiology Comment on above: knee pain [...] 08-15-2022 End: 08-15-2022 Patient encounter procedure Gabriel Bernardo Coppola DO Work Phone: Gastgroenterology Comment on above: Irritable bowel synd lady with diarrhea (Primary Dx); Diarrhea, unspecified type Start: 07-29-2022 End: 07-29-2022 ambulatory Amada Baltazar PA-C Work Phone: Orthopaedics Comment on above: Pain due to internal orthopedic prosthetic devices, implants and grafts, initial encounter (HCC) (Primary Dx) Start: 07-29-2022 End: 07-29-2022 Telemedicine consultation with patient Amada Baltazar PA-C Work Phone: [facility] Start: 07-18-2022 End: 07-18-2022 ambulatory Vaibhav [...] Subsequent hospital visit by physician [facility] Work Phone: [facility] Radiology Molecular Comment on above: Pain due to internal orthopedic prosthetic devices, implants and grafts, initial encounter (HCC) [T84.84XA] Start: 06-09-2022 End: 06-09-2022 Subsequent hospital visit by physician [facility] Work Phone: [facility] Radiology Molecular Start: 03-27-2022 End: 03-28-2022 Patient encounter procedure Marina Retana MD Work Phone: Breast Center Comment on above: History of left [facility] [facility] cancer (Primary Dx) Start: 03-27-2022 End: 03-27-2022 Subsequent hospital visit by physician Screen/Diag Mammo [facility] 2 Work Phone: [facility] Radiology Mammography Comment on above: Lump of [...] Pain [R52] Start: 02-17-2022 Orders Only Amada Baltazar PA-C Work Phone: Orthopaedics Comment on above: Pain (Primary Dx) Start: 01-07-2022 End: 01-07-2022 Patient encounter procedure León Rosenthal ATKINS [facility] Start: 12-13-2021 Telephone encounter Margomeena Darby SENIOR MAINTENANCE MECHANIC H ematology/Oncology Comment on above: Social Work [...] Vaibhav Ovalle MD Work Phone: [facility] Start: 12-04-2021 Telephone encounter Vaibhav boyd MD Work Phone: Hematology/Oncology Comment on above: Lab Orders Start: 09-27-2021 End: 09-27-2021 Subsequent hospital visit by physician Diagnostic Mammo [facility] Start: 02-01-2021 End: 02-01-2021 Admission to same day surgery center Yajaira Gonzalez Work Phone: -[facility] Start: 01-30-2021 End: 01-30-2021 Admission to same day surgery center Yajaira Gonzalez Work Phone: -[facility] Start: 01-16-2021 End: 01-16-2021 Patient encounter procedure Yajaira Gonzalez Work Phone: -[facility] Procedures Date Procedure Procedure Detail Performing Clinician Start: 07-11-2024 CRYOTHERAPY SKIN LESION Yelena Davison COREROOM FOUNDRY LABORER-REGISTER IN CHANCERY Work Phone: Start: 06-22-2024 HEARING TEST/AUDIOGRAM Albert Huntley MD Work Phone: Start: 04-14-2024 Radiologic exam knee complete 4/more [...] men Type: BLOOD SPECIMEN Ordering Facility: [facility] Address: [address] [place] [address] Performed By: #### T [id number] #### [facility] CLIA [id number] [place], [place] [id number] [place] [address] [facility] Start: 10-02-2022 Radiologic examinati on knee 3 views Marlee Salazar MD Work Phone: Start: 06-11-2022 Adult depression screening assessment Vilma Napoles MD Work Phone: Start: 03-27-2022 Us breast uni real t ellie with image limited Winston THOMPSONC Work Phone: Start: 03-26-2022 Radiologic exam knee complete 4/more views Amada Baltazar PANicolasC Work Phone: Start: 09-27-2021 Us breast uni real t ellie with image limited Trinidad Bruce APRN.CNP Work Phone: Start: 09-18-2021 Adult depression screening assessment Vaibhav Ovalle MD Work Phone: Start: 04-12-2021 Excision of breast tissue León ATKINS Start: 01-30-2021 Radiofrequency destruction of peripheral nerve Yajaira Gonzalez Work Phone: Start: 01-16-2021 Radiologic examinati on of knee Yajaira Gonzalez Work Phone: Start: 07-01-2017 H/O: hysterectomy H/O: hysterectomy Amada Janis PT Work Phone: Start: 08-10-2015 Arthroscopy Leónwilliam DIETZ Start: 01-24-2015 Anterior cervical sp ine approach (qualifier value) León ATKINS Start: 05-11-2013 Mammography Vaibhav boyd MD Work Phone: Start: 09-07-1979 section Edward ATKINS Arthroplasty of knee León ATKINS Cardiac pacemaker, d evice (physical object) León ATKINS Cataract (disorder) León ATKINS Colonoscopy León ATKINS Hernia repair León ATKINS Hysterectomy León ATKINS Procedure on hand León PISANOS Procedure on hand León DIETZ Tonsillectomy León ATKINS Plan of Treatment Date Care Activity Detail Author Start: 12-20-2026 Diabetes Screening Diabetes Screening [facility] Start: 06-24-2026 Diabetes Screening Diabetes Screening [facility] Start: 05-29-2026 Diabetes Screening Diabetes Screening [facility] Start: 02-19-2026 DIABETES SCREEN DIABETES SCREEN [facility] Start: 01-27-2026 DIABETES SCREEN DIABETES SCREEN [facility] Start: 01-06-2026 DIABETES SCREEN DIABETES SCREEN [facility] Start: 10-17-2025 DIABETES SCREEN DIABETES SCREEN [facility] Start: 07-18-2025 DIABETES SCREEN DIABETES SCREEN [facility] Start: 06-24-2025 BP Controlled (<130/80) BP Controlled (<130/80) [facility] Start: 05-28-2025 Tobacco Screening Tobacco Screening [facility] Start: 04-18-2025 DIABETES SCREEN DIABETES SCREEN [facility] Start: 04-04-2025 Adult BMI Screening Adult BMI Screening [facility] Start: 01-28-2025 BP Controlled (<130/80) BP Controlled (<130/80) [facility] Start: 01-13-2025 End: 01-13-2025 Patient encounter procedure Gastroenterology Comment on above: 6 months follow-up Start: 12-22-2024 End: 12-22-2024 Patient encounter procedure 12/22/2024 1:20 PM EDT Office Visit [facility] [address] [place] [address] Yelena Davison APRN-REGISTER IN CHANCERY [address] [place] [address] [facility] Start: 12-13-2024 DIABETES SCREEN DIABETES SCREEN [facility] Start: 12-02-2024 Tobacco Screening Tobacco Screening [facility] Start: 10-17-2024 End: 10-17-2024 Patient encounter procedure 10/17/2024 1:45 PM EST Office Visit [facility] [address] [place] [id number] Vilma Napoles MD [address] [place] [address] [facility] Start: 10-13-2024 End: 10-13-2024 Patient encounter procedure 10/13/2024 10:30 AM EST Procedure Visit [facility] [address] [place] [id number] Jaron Will DO [address] [place] [address] [facility] Start: 10-05-2024 Adult BMI Screening Adult BMI Screening [facility] Start: 10-05-2024 Tobacco Screening Tobacco Screening [facility] Start: 09-20-2024 DIABETES SCREEN DIABETES SCREEN [facility] Start: 09-14-2024 End: 09-14-2024 Patient encounter procedure 09/14/2024 10:00 AM EST Office Visit [facility] [address] [place] [address] Yajaira Gonzalez MD [address] [place] [address] [facility] Start: 09-05-2024 End: 09-05-2024 Follow-up encounter 09/05/2024 3:00 PM EST Visit (SP) Office Hematology/Oncology [address] [place] [address] Vaibhav Ovalle MD [address] [place] [address] 6 month follow up Hematology/Oncology Comment on above: 6 month follow up Start: 09-05-2024 End: 09-05-2024 Patient encounter procedure 09/05/2024 2:45 PM EST Office Visit [facility] [address] [place] [address] 6 month follow up [facility] Comment on above: 6 month follow up Start: 09-04-2024 Medicare Annual Wellness (AWV) Medicare Annual Wellness (AWV) [facility] Start: 08-16-2024 End: 08-16-2024 Patient encounter procedure 08/16/2024 9:15 AM EST Office Visit Otolaryngology [address] [address] Albert Huntley MD [address] [place] [address] 6 week follow up Otolaryngology Comment on above: 6 week follow up Start: 08-03-2024 End: 08-03-2024 ambulatory 08/03/2024 1:00 PM EST Treatment [facility] [address] [place] [phone] Cristian Malcolm, PT [address] [place] [address] [facility] Start: 07-27-2024 End: 07-27-2024 ambulatory 07/27/2024 10:30 AM EST Treatment [facility] [address] [place] [phone] Cristian Malcolm, PT [address] [place] [address] [facility] Start: 07-20-2024 End: 07-20-2024 ambulatory 07/20/2024 10:30 AM EST Treatment [facility] [address] [place] [phone] Cristian Malcolm, PT [address] [place] [address] [facility] Start: 07-13-2024 End: 07-13-2024 ambulatory [facility] Comment on above: Arrived Start: 07-11-2024 End: 07-11-2024 Patient encounter procedure 07/11/2024 1:20 PM EST Office Visit [facility] [address] [place] [phone] Yelena Davison, [employer] [address] [place] [address] [facility] Start: 07-07-2024 End: 07-07-2024 Patient encounter procedure [facility] Comment on above: Arrived Start: 07-05-2024 End: 07-05-2024 ambulatory 07/05/2024 10:30 AM EDT Treatment [facility] [address] [place] [phone] Cristian Malcolm, PT [address] [facility] [place] [address] [facility] Start: 07-04-2024 End: 07-04-2024 Patient encounter procedure 07/04/2024 1:00 PM EDT Office Visit Otolaryngology [address] [facility] [address] [place] [address] [place] [address] [place] [address] 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 Otolaryngology Comment on above: 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 Start: 06-27-2024 End: 06-27-2024 ambulatory [facility] Comment on above: Arrived Start: 06-24-2024 End: 06-24-2024 Patient encounter procedure 06/24/2024 8:40 AM EDT Office Visit Gastroenterology [address] [place] [address] Gabriel Coppola Jr., DO [address] [place] [address] 1 month follow-up/ Rev Colonoscopy Gastroenterology Comment on above: 1 month follow-up/ Rev Colonoscopy Start: 06-22-2024 End: 06-22-2024 Patient encounter procedure Audiology Comment on above: 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 Start: 06-17-2024 End: 06-17-2024 ambulatory [facility] Comment on above: Arrived Start: 06-01-2024 Hepatitis B surface antibody level LDL Cholesterol [facility] Start: 05-08-2024 Covid-19 Vaccine ( season) Covid-19 Vaccine ( season) [facility] Start: 05-08-2024 Covid-19 Vaccine ( season) Covid-19 Vaccine () [facility] Start: 05-08-2024 Influenza vaccination [facility] Start: 05-04-2024 End: 05-04-2024 Patient encounter procedure 05/04/2024 9:45 AM EDT Appointment Procedures [address] [place] [address] Gabriel Coppola Jr., DO [address] [place] [address] Screening for colorectal cancer Procedures Comment on above: Screening for colorectal cancer Start: 04-14-2024 End: 04-14-2024 Patient encounter procedure Radiology Comment on above: 1 yr f/u 1 year post op Start: 04-04-2024 End: 04-04-2024 Patient encounter procedure 04/04/2024 10:45 AM EDT Office Visit [facility] [address] [place] [address] Vilma Napoles MD [address] [facility] [address] [place] [address] [facility] Start: 03-31-2024 End: 03-31-2024 Patient encounter procedure Orthopaedics Comment on above: 1 year post op COLONOSCOPY Start: 03-07-2024 End: 03-07-2024 ambulatory 03/07/2024 3:00 PM EDT Visit (SP) Office Hematology/Oncology [address] [place] [address] Vaibhav Ovalle MD [address] [place] [address] 1. Left breast / chest wall US. - [facility] - COMPLETED 02/22 Hematology/Oncology Comment on above: 1. Left breast / chest wall US. - [facility] - COMPLETED 02/22 Start: 03-04-2024 End: 03-04-2024 Patient encounter procedure 03/04/2024 12:40 PM EDT Office Visit Gastroenterology [address] [place] [address] Gabriel Coppola Jr., DO [address] [place] [address] 1 month follow-up/ Rev Colonoscopy Gastroenterology Comment on above: 1 month follow-up/ Rev Colonoscopy Start: 02-17-2024 End: 02-17-2024 Patient encounter procedure Procedures Comment on above: Screening for colorectal cancer [Z12.11, Z12.12] Start: 02-09-2024 End: 02-09-2024 ambulatory 02/09/2024 1:45 PM EDT [facility] Hematology/Oncology [address] [place] [address] [address] [place], [place] [address] Vaibhav Ovalle MD [address] [place] [address] [address] [place] [address] 6 week virtual visit to discuss mastectomy pain. Hematology/Oncology Comment on above: 6 week virtual visit to discuss mastecto my pain. Start: 12-23-2023 End: 12-23-2023 Clinical Support [facility] Start: 12-03-2023 End: 12-03-2023 Patient encounter procedure 12/03/2023 11:40 AM EDT Office Visit [facility] [address] [place] [address] Yajaira Gonzalez MD [address] [facility] [place] [address] [facility] FM Start: 11-09-2023 End: 11-09-2023 Clinical Support 11/09/2023 11:15 AM EST Clinical Support [facility] [address] [facility] [address] [place] [phone] Myranda Cronin, [facility] [address] [place] [address] [facility] Start: 10-23-2023 End: 10-23-2023 ambulatory 10/23/2023 9:00 AM EST Treatment [facility] PT [address] [place] [address] Amada Bruce, PT [address] [place] [address] [facility] PT Start: 09-07-2023 Advance Directive Discussion Advance Directive Discussion [facility] Start: 06-11-2023 Depression Screening Depression Screening [facility] Start: 05-22-2023 End: 02-20-2024 CBC W Auto Differential panel - Blood CBC + DIFF Lab Routine Malignant 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, estrogen receptor positive, unspecified site of breast (HCC) Cancer of breast, intraductal, left Iron deficiency anemia due to chronic blood loss Expected: 05/22/2023 (Approximate), Expires: 02/20/2024 Work Phone: Comment on above: Expected: 05/22/2023 (Approximate), Expi res: 02/20/2024 Start: 05-22-2023 End: 02-20-2024 Cobalamin (Vitamin B12) [Mass/volume] in Serum or Plasma VITAMIN B12 BLOOD Lab Routine Malignant 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, estrogen receptor positive, unspecified site of breast (HCC) Cancer of breast, intraductal, left Iron deficiency anemia due to chronic blood loss Expected: 05/22/2023 (Approximate), Expires: 02/20/2024 Work Phone: Comment on above: Expected: 05/22/2023 (Approximate), Expi res: 02/20/2024 Start: 05-22-2023 End: 02-20-2024 Comprehensive metabolic 2000 panel - Serum or Plasma COMP METABOLIC PANEL Lab Routine Malignant 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, estrogen receptor positive, unspecified site of breast (HCC) Cancer of breast, intraductal, left Iron deficiency anemia due to chronic blood loss Expected: 05/22/2023 (Approximate), Expires: 02/20/2024 Work Phone: Comment on above: Expected: 05/22/2023 (Approximate), Expi res: 02/20/2024 Start: 05-22-2023 End: 02-20-2024 Ferritin [Mass/volume] in Serum or Plasma FERRITIN BLD Lab Routine Malignant 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, estrogen receptor positive, unspecified site of breast (HCC) Cancer of breast, intraductal, left Iron deficiency anemia due to chronic blood loss Expected: 05/22/2023 (Approximate), Expires: 02/20/2024 Work Phone: Comment on above: Expected: 05/22/2023 (Approximate), Expi res: 02/20/2024 Start: 05-22-2023 End: 02-20-2024 Folate [Mass/volume] in Serum or Plasma FOLATE SERUM Lab Routine Malignant 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, estrogen receptor positive, unspecified site of breast (HCC) Cancer of breast, intraductal, left Iron deficiency anemia due to chronic blood loss Expected: 05/22/2023 (Approximate), Expires: 02/20/2024 Work Phone: Comment on above: Expected: 05/22/2023 (Approximate), Expi res: 02/20/2024 Start: 05-22-2023 End: 02-20-2024 Iron and Iron binding capacity panel - Serum or Plasma IRON + TIBC Lab Routine Malignant 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, estrogen receptor positive, unspecified site of breast (HCC) Cancer of breast, intraductal, left Iron deficiency anemia due to chronic blood loss Expected: 05/22/2023 (Approximate), Expires: 02/20/2024 Work Phone: Comment on above: Expected: 05/22/2023 (Approximate), Expi res: 02/20/2024 Start: 05-08-2023 Covid-19 Vaccine ( season) Covid-19 Vaccine ( season) [facility] Start: 05-08-2023 Influenza vaccination [facility] Start: 03-27-2023 BP CONTROLLED (<130/80) BP CONTROLLED (<130/80) [facility] Start: 02-14-2023 End: 10-17-2023 CBC W Auto Differential panel - Blood CBC + DIFF Lab Routine Malignant 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, estrogen receptor positive, unspecified site of breast (HCC) Cancer of breast, intraductal, left Anemia, unspecified type Chemotherapy-induced neuropathy (HCC) Expected: 02/14/2023 (Approximate), Expires: 10/17/2023 Work Phone: Comment on above: Expected: 02/14/2023 (Approximate), Expi res: 10/17/2023 Start: 02-14-2023 End: 10-17-2023 Cobalamin (Vitamin B12) [Mass/volume] in Serum or Plasma VITAMIN B12 BLOOD Lab Routine Malignant 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, estrogen receptor positive, unspecified site of breast (HCC) Cancer of breast, intraductal, left Anemia, unspecified type Chemotherapy-induced neuropathy (HCC) Expected: 02/14/2023 (Approximate), Expires: 10/17/2023 Work Phone: Comment on above: Expected: 02/14/2023 (Approximate), Expi res: 10/17/2023 Start: 02-14-2023 End: 10-17-2023 Comprehensive metabolic 2000 panel - Serum or Plasma COMP METABOLIC PANEL Lab Routine Malignant 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, estrogen receptor positive, unspecified site of breast (HCC) Cancer of breast, intraductal, left Anemia, unspecified type Chemotherapy-induced neuropathy (HCC) Expected: 02/14/2023 (Approximate), Expires: 10/17/2023 Work Phone: Comment on above: Expected: 02/14/2023 (Approximate), Expi res: 10/17/2023 Start: 02-14-2023 End: 10-17-2023 Ferritin [Mass/volume] in Serum or Plasma FERRITIN BLD Lab Routine Malignant 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, estrogen receptor positive, unspecified site of breast (HCC) Cancer of breast, intraductal, left Anemia, unspecified type Chemotherapy-induced neuropathy (HCC) Expected: 02/14/2023 (Approximate), Expires: 10/17/2023 Work Phone: Comment on above: Expected: 02/14/2023 (Approximate), Expi res: 10/17/2023 Start: 02-14-2023 End: 10-17-2023 Folate [Mass/volume] in Serum or Plasma FOLATE SERUM Lab Routine Malignant 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, estrogen receptor positive, unspecified site of breast (HCC) Cancer of breast, intraductal, left Anemia, unspecified type Chemotherapy-induced neuropathy (HCC) Expected: 02/14/2023 (Approximate), Expires: 10/17/2023 Work Phone: Comment on above: Expected: 02/14/2023 (Approximate), Expi res: 10/17/2023 Start: 02-14-2023 End: 10-17-2023 Iron and Iron binding capacity panel - Serum or Plasma IRON + TIBC Lab Routine Malignant 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, estrogen receptor positive, unspecified site of breast (HCC) Cancer of breast, intraductal, left Anemia, unspecified type Chemotherapy-induced neuropathy (HCC) Expected: 02/14/2023 (Approximate), Expires: 10/17/2023 Work Phone: Comment on above: Expected: 02/14/2023 (Approximate), Expi res: 10/17/2023 Start: 12-13-2022 BP CONTROLLED (<130/80) BP CONTROLLED (<130/80) [facility] Start: 10-18-2022 End: 07-18-2023 CBC W Auto Differential panel - Blood CBC + DIFF Lab Routine Malignant 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, estrogen receptor positive, unspecified site of breast (HCC) Cancer of breast, intraductal, left Expected: 10/18/2022 (Approximate), Expires: 07/18/2023 Work Phone: Comment on above: Expected: 10/18/2022 (Approximate), Expi res: 07/18/2023 Start: 10-18-2022 End: 07-18-2023 Comprehensive metabolic 2000 panel - Serum or Plasma COMP METABOLIC PANEL Lab Routine Malignant 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, estrogen receptor positive, unspecified site of breast (HCC) Cancer of breast, intraductal, left Expected: 10/18/2022 (Approximate), Expires: 07/18/2023 Work Phone: Comment on above: Expected: 10/18/2022 (Approximate), Expi res: 07/18/2023 Start: 09-18-2022 Adult depression screening assessment DEPRESSION SCREENING [facility] Start: 09-07-2022 ADVANCE DIRECTIVE DISCUSSION ADVANCE DIRECTIVE DISCUSSION [facility] Start: 09-07-2022 DEPRESSION ASSESSMENT DEPRESSION ASSESSMENT [facility] Start: 05-08-2022 Influenza vaccination INFLUENZA (#1) [facility] Start: 04-14-2022 End: 12-13-2022 CBC W Auto Differential panel - Blood CBC + DIFF Lab Routine 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, estrogen receptor positive, unspecified site of breast (HCC) Malignant neoplasm of overlapping sites of left breast in female, estrogen receptor positive (HCC) Expected: 04/14/2022 (Approximate), Expires: 12/13/2022 Work Phone: Comment on above: Expected: 04/14/2022 [...] positive (HCC) Expected: 04/14/2022 (Approximate), Expires: 12/13/2022 Work Phone: Comment on above: Expected: 04/14/2022 (Approximate), Expi res: 12/13/2022 Start: 01-09-2022 COVID-19 VACCINE (4 - Booster for Moderna series) COVID-19 VACCINE (4 - Booster for Moderna series) [facility] Start: 2022 RSV Vaccine (1 - 1-dose 75+ series) RSV Vaccine (1 - 1-dose 75+ series) [facility] Start: 12-19-2021 End: 02-18-2022 CBC W Auto Differential panel - Blood CBC + DIFF Lab Routine Malignant 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, estrogen receptor positive, unspecified site of breast (HCC) Expected: 12/19/2021, Expires: 02/18/2022 Work Phone: Comment on above: Expected: 12/19/2021, Expires: 2 Start: 11-06-2021 COVID-19 VACCINE (4 - Booster for Moderna series) COVID-19 VACCINE (4 - Booster for Moderna series) [facility] Start: 11-06-2021 COVID-19 VACCINE (4 - Moderna series) COVID-19 VACCINE (4 - Moderna series) [facility] Start: 09-07-2021 ADVANCE DIRECTIVE DISCUSSION ADVANCE DIRECTIVE DISCUSSION [facility] Start: 09-07-2021 DEPRESSION ASSESSMENT DEPRESSION ASSESSMENT [facility] Start: 02-01-2021 Computerized axial tomography of lumbar spine with contrast CT lumbar spine w [facility] Start: 12-23-2020 LIPID SCREEN LIPID SCREEN [facility] Start: 12-23-2016 Hepatitis B surface antibody level LDL CHOLESTEROL [facility] Start: 10-08-2016 PNEUMOCOCCAL: 65+ (3 - PPSV23 if available, else PCV20) PNEUMOCOCCAL: 65+ (3 - PPSV23 if available, else PCV20) [facility] Start: 10-08-2016 PNEUMOCOCCAL: 65+ (3 - PPSV23 or PCV20) PNEUMOCOCCAL: 65+ (3 - PPSV23 or PCV20) [facility] Start: 10-08-2016 PNEUMOVAX AGE 65 AND OVER WITH 5YR LOOKBACK (#1) PNEUMOVAX AGE 65 AND OVER WITH 5YR LOOKBACK (#1) [facility] Start: 04-07-2016 Administration of varicella zoster vaccine [facility] ADmantX [facility] Start: 04-07-2016 SHINGRIX VACCINE (1 of 2) SHINGRIX VACCINE (1 of 2) [facility] Start: 04-07-2016 SHINGRIX VACCINE (2 of 3) SHINGRIX VACCINE (2 of 3) [facility] Start: 05-11-2014 Mammography MAMMOGRAM [facility] Start: 01-05-2012 BONE DENSITY BONE DENSITY [facility] Start: 01-05-2012 Bone Density Screening Bone Density Screening [facility] Start: 01-05-2012 Fall Risk Screening Fall Risk Screening [facility] Start: 2007 RSV Vaccine (1 - 1-dose 60+ series) RSV Vaccine (1 - 1-dose 60+ series) [facility] Start: 01-05-1992 COLOGUARD (FIT-DNA) COLOGUARD (FIT-DNA) [facility] Start: 01-05-1992 Colonoscopy COLONOSCOPY [facility] Start: 01-05-1992 COLORECTAL CANCER SCREENING COLORECTAL CANCER SCREENING [facility] Start: 01-05-[address] COLONOGRAPHY [facility] Start: 01-05-1992 FECAL OCCULT BLOOD FECAL OCCULT BLOOD [facility] Start: 01-05-1992 SIGMOIDOSCOPY SIGMOIDOSCOPY [facility] Start: 1977 Zoledronic acid therapy ALPHA-1 ANTITRYPSIN DEFICIENCY SCREENING [facility] Start: 1966 DTaP,Tdap and Td Vaccines (1 - Tdap) DTaP,Tdap and Td Vaccines (1 - Tdap) [facility] Start: 1966 Urine microalbumin profile [facility] Start: 1965 Adult BMI Follow Up Plan Adult BMI Follow Up Plan [facility] Start: 1965 ANNUAL PCP TEAM CHRONIC DISEASE VISIT ANNUAL PCP TEAM CHRONIC DISEASE VISIT [facility] Start: 1965 BP CONTROLLED (<130/80) BP CONTROLLED (<130/80) [facility] Start: 1965 HEPATITIS C SCREENING HEPATITIS C SCREENING [facility] Start: 1965 Hepatitis C screening Hepatitis C Screening [facility] Start: 1965 SPIROMETRY SPIROMETRY [facility] Start: 1947 Medicare Annual Wellness Visit Medicare Annual Wellness Visit [facility] End: 06-28-2023 Bone &/joint imaging 3 phase study NM BONE 3 PHASE Radiology Routine Pain due to internal orthopedic prosthetic devices, implants and grafts, initial encounter (HCC) 1 Occurrences starting 05/29/2022 until 06/28/2023 Work Phone: Comment on above: 1 Occurrences starting 05/29/2022 until 06/28/2023 Bone &/joint imaging 3 phase study NM BONE 3 PHASE Radiology Routine Pain due to internal orthopedic prosthetic devices, implants and grafts, initial encounter (HCC) 06/09/2022 2:49 PM EDT Work Phone: End: 03-07-2025 Cancer Ag 15-3 [Units/volume] in Serum or Plasma CA 15-3 BLD Lab Routine Cancer of breast, intraductal, left H/O left mastectomy Malignant 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, estrogen receptor positive, unspecified site of breast (HCC) Iron deficiency anemia due to chronic blood loss Every 6 months for 3 Occurrences starting 03/07/2024 until 03/07/2025 Work Phone: Comment on above: Every 6 [...] for 3 Occurrences starting 03/07/2024 until 03/07/2025 [facility] Comment on above: Every 6 months for [...] for 3 Occurrences starting 03/07/2024 until 03/07/2025 [facility] Comment on above: Every 6 months for [...] for 3 Occurrences starting 03/07/2024 until 03/07/2025 [facility] Comment on above: Every 6 months for 3 Occurrences startin g 03/07/2024 until 03/07/2025 End: 06-27-2024 Mri brain brain stem w/o w/contrast material MRI BRAIN WO/W IVCON Radiology Routine [place] headache 1 Occurrences starting 05/29/2023 until 06/27/2024 Work Phone: Comment on above: 1 Occurrences starting 05/29/2023 until 06/27/2024 Patient Education [facility] Patient referral [facility] End: 03-19-2023 Radiologic examination pelvis 1/2 views XR PELVIS 1V AP Radiology Routine Pain 1 Occurrences starting 02/18/2022 until 03/19/2023 Work Phone: Comment on above: 1 Occurrences starting 02/18/2022 until 03/19/2023 End: 01-28-2025 Screening colonoscopy COLONOSCOPY SCREENING Endoscopy Routine Screening for colorectal cancer 1 Occurrences starting 01/29/2024 until 01/28/2025 Work Phone: Comment on above: 1 Occurrences starting 01/29/2024 until 01/28/2025 SURGICAL PATHOLOGY Work Phone: Comment on above: Release Upon Ordering for 1 Occurrences starting 03/31/2024, 1 completed End: 03-10-2025 US Breast - left limited US BREAST LTD LEFT Radiology Routine Cancer of breast, intraductal, left H/O left mastectomy Lump in chest 1 Occurrences starting 02/09/2024 until 03/10/2025 Work Phone: Comment on above: 1 Occurrences starting 02/09/2024 until 03/10/2025 End: 03-19-2023 XR KNEE GENERAL 4V AP BOTH/PA BOTH/LAT/MERC LEFT XR KNEE GENERAL 4V AP BOTH/PA BOTH/LAT/MERC LEFT Radiology Routine Pain 1 Occurrences starting 02/17/2022 until 03/19/2023 Work Phone: Comment on above: 1 Occurrences starting 02/17/2022 until 03/19/2023 End: 10-15-2023 XR KNEE POST OP 3V AP/LAT/MERCHANT LEFT XR KNEE POST OP 3V AP/LAT/MERCHANT LEFT Radiology Routine Chronic knee pain after total replacement of left knee joint 1 Occurrences starting 09/16/2022 until 10/15/2023 Work Phone: Comment on above: 1 Occurrences starting 09/16/2022 until 10/15/2023 [facility] Immunizations Immunization Date Immunization Notes Care Provider [facility] 09-04-2023 Influenza, High-dose Seasonal, Quadrivalent, Preservative Free Amada Bruce PT Work Phone: [facility] 09-04-2023 influenza virus vacc ine, unspecified formulation Vaibhav Ovalle MD Work Phone: [facility] 06-17-2022 influenza, high-dose , quadrivalent vaccine (FLUZONE HIGH DOSE QUADRIVALENT) Vaibhav Ovalle MD Work Phone: [facility] 06-17-2022 influenza virus vacc ine, unspecified formulation Vaibhav Ovalle MD Work Phone: [facility] 09-11-2021 SARS-CoV-2 (COVID-19 ) mRNA-1273 vaccine León ATKINS [facility] Comment on above: Result Comment: [facility] 06-13-2021 influenza, high-dose , quadrivalent vaccine (FLUZONE HIGH DOSE QUADRIVALENT) Vaibhav Ovalle MD Work Phone: [facility] 10-17-2020 COVID-19 mRNA-1273 (Moderna) Yajaira Gonzalez Work Phone: [facility] 09-19-2020 COVID-19 mRNA-1273 (Moderna) Yajaira Gonzalez Work Phone: [facility] 09-18-2020 Moderna SARS-CoV-2 Vaccination Amada Bruce PT Work Phone: [facility] 07-12-2020 influenza, high dose seasonal, preservative-free Vaibhav Ovalle MD Work Phone: [facility] 10-03-2019 pneumococcal polysaccharide vaccine, 23 valent Vaibhav Ovalle MD Work Phone: [facility] 06-08-2019 influenza, injectabl e, quadrivalent, contains preservative Vaibhav Ovalle MD Work Phone: [facility] 06-08-2019 influenza, injectabl e, quadrivalent, preservative free Vaibhav Ovalle MD Work Phone: [facility] 06-07-2019 influenza, seasonal, injectable, preservative free Vaibhav Ovalle MD Work Phone: [facility] 06-14-2018 influenza, high dose seasonal, preservative-free Vaibhav Ovalle MD Work Phone: [facility] 06-14-2018 influenza, injectabl e, quadrivalent, preservative free Vaibhav Ovalle MD Work Phone: [facility] 07-01-2017 influenza, high dose seasonal, preservative-free Vaibhav Ovalle MD Work Phone: [facility] 06-09-2016 influenza, high dose seasonal, preservative-free Vaibhav Ovalle MD Work Phone: [facility] 02-11-2016 zoster vaccine, live Vaibhav fox MD Work Phone: [facility] 02-11-2016 zoster vaccine, unspecified formulation Vilma Napoles MD Work Phone: [facility] 07-09-2015 influenza, high dose seasonal, preservative-free Vaibhav Ovalle MD Work Phone: [facility] 05-04-2015 pneumococcal conjuga te vaccine, 13 valent Vaibhav Ovalle MD Work Phone: [facility] 06-02-2014 influenza, high dose seasonal, preservative-free Vaibhav Ovalle MD Work Phone: [facility] 05-30-2013 influenza, high dose seasonal, preservative-free Vaibhav Ovalle MD Work Phone: [facility] 07-02-2012 influenza, seasonal, injectable, preservative free Vaibhav Ovalle MD Work Phone: [facility] 10-09-2011 pneumococcal conjuga te vaccine, 7 valent Vaibhav Ovalle MD Work Phone: [facility] 10-09-2011 pneumococcal Conjuga te, unspecified formulation Amada Bruce PT Work Phone: [facility] 10-08-2011 pneumococcal polysaccharide vaccine, 23 valent Vaibhav Ovalle MD Work Phone: [facility] 06-18-2011 influenza virus vacc ine, whole virus Vaibhav Ovalle MD Work Phone: [facility] 06-18-2011 influenza, seasonal, injectable, preservative free Vaibhav Ovalle MD Work Phone: [facility] Payers Date Payer Category Payer [facility] er Subscriber Plan / Payer (Effective 2016-Present) Name: Magi Dao Relation to Subscriber: Self Name: Magi Dao Payer ID: Not on file Group ID: [id number] Type: Not on file Address: [address] [place] [id number] 2016 Unknown HARVEY TAVAREZ DICARE SUPPLEMENT [id number] 2016-Present [phone] [address] [place] [id number] Indemnity [id number] 2016 Unknown [id number] 2016 Unknown [id number] 2011 Medicare MEDICARE MEDICAR E A AND B [id number] 2011-Present [phone] [place] [address] Medicare [id number] 2011 Medicare [id number] 2011 Medicare [id number] 1947 Unknown [id number] 1947 Unknown [id number] 2.16.840.1.350907.3.579.2 .1285 1945 Unknown [id number] 2.16.840.1.139438.3.579.2 .727 1945 Unknown [id number] 2.16.840.1.051285.3.579.2 .1945 Unknown [id number] 2.16.840.1.179091.3.579.2 .196 1945 Unknown [id number] 2.16.840.1.768147.3.579.2 .196 1945 Unknown [id number] 2.16.840.1.972618.3.579.2 .1945 Unknown [id number] 2.16.840.1.874128.3.579.2 .1286 1945 Unknown [id number] 2.16.840.1.995241.3.579.2 .1285 1945 Unknown [id number] 2.16.840.1.302417.3.579.2 .1285 1945 Unknown [id number] 2.16.840.1.658433.3.579.2 .1285 1945 Unknown [id number] 2.16.840.1.447982.3.579.2 .1285 1945 Unknown [id number] 2.16.840.1.607017.3.579.2 .1285 1945 Unknown [id number] 2.840.1.405795.3.579.2 .1285 1945 Unknown [id number] 2.840.1.647315.3.579.2 .1285 1945 Unknown [id number] 2.840.1.681168.3.579.2 .1285 1945 Unknown [id number] 2.840.1.887852.3.579.2 .1285 1945 Unknown [id number] 2.840.1.131374.3.579.2 .1285 1945 Unknown [id number] 2.840.1.413418.3.579.2 .1285 1945 Unknown [id number] 2.840.1.190564.3.579.2 .1285 1945 Unknown [id number] 2.16840.1.302828.3.579.2 .1285 1945 Unknown [id number] 2.16840.1.348450.3.579.2 .1285 1945 Unknown [id number] 2.16.840.1.782436.3.579.2 .1285 1945 Unknown [id number] 2.16840.1.272029.3.579.2 .128 1945 Unknown [id number] 2.16840.1.542485.3.579.2 .1285 1945 Unknown [id number] 2.16840.1.823267.3.579.2 .1285 1945 Unknown [id number] 2.16840.1.901029.3.579.2 .1285 1945 Unknown [id number] 2.16840.1.145749.3.579.2 .1285 1945 Unknown [id number] 2.16840.1.234019.3.579.2 .1285 1945 Unknown [id number] 2.840.1.172824.3.579.2 .1285 1945 Unknown [id number] 2..1.264259.3.579.2 .1285 1945 Unknown [id number] 2.840.1.162438.3.579.2 .1258 1945 Unknown [id number] 2.840.1.274646.3.579.2 .1258 1945 Unknown [id number] 2.840.1.884383.3.579.2 .1258 1945 Unknown [id number] 2.84.1.335056.3.579.2 .1258 1945 Unknown [id number] 2.840.1.038183.3.579.2 .1258 1945 Unknown [id number] 2.16840.1.685905.3.579.2 .1258 1945 Unknown [id number] 2.16840.1.589403.3.579.2 .1258 1945 Unknown [id number] 2.840.1.830431.3.579.2 .1258 1945 Unknown [id number] 2.16.840.1.807214.3.579.2 .1258 1945 Unknown [id number] 2.16.840.1.530297.3.579.2 .1258 1945 Unknown [id number] 2.16.840.1.687575.3.579.2 .1258 1945 Unknown [id number] 2.16.840.1.315056.3.579.2 .1258 1945 Unknown [id number] 2.16.840.1.767816.3.579.2 .1258 1945 Unknown [id number] 2.16840.1.396784.3.579.2 .1258 1945 Unknown [id number] 2.16.840.1.546213.3.579.2 .1258 1945 Unknown [id number] 2.16840.1.967698.3.579.2 .1258 1945 Unknown [id number] 2.16840.1.970995.3.579.2 .1258 1945 Unknown [id number] 2.16840.1.401507.3.579.2 .1258 1945 Unknown [id number] 2.16.840.1.258532.3.579.2 .1258 1945 Unknown [id number] 2.16.840.1.947177.3.579.2 .1258 1945 Unknown [id number] 2.16.840.1.350318.3.579.2 .1258 1945 Unknown [id number] 2.16.840.1.812571.3.579.2 .1258 1945 Unknown [id number] 2.16.840.1.997758.3.579.2 .1258 1947 Unknown [id number] 2.16.840.1.785691.3.579.2 .125 1945 Unknown [id number] 2.16.840.1.577142.3.579.2 .1258 1945 Unknown [id number] 2.16.840.1.959818.3.579.2 .1258 1945 Unknown [id number] 2.16.840.1.166319.3.579.2 .1258 1945 Unknown [id number] 2.16.840.1.120664.3.579.2 .1258 1945 Unknown [id number] 2.16.840.1.951831.3.579.2 .1258 1945 Unknown [id number] 2.16.840.1.910565.3.579.2 .1258 1945 Unknown [id number] 2.16.840.1.197292.3.579.2 .1258 1945 Unknown [id number] 2.16.840.1.676606.3.579.2 .1258 1945 Unknown [id number] 2.16.840.1.604600.3.579.2 .1258 1945 Unknown [id number] 2.16.840.1.291759.3.579.2 .1258 1945 Unknown [id number] 2.16.840.1.291160.3.579.2 .1258 1945 Unknown [id number] 2.16.840.1.172675.3.579.2 .1258 1945 Unknown [id number] 2.16.840.1.142785.3.579.2 .1258 1945 Unknown [id number] 2.16.840.1.795745.3.579.2 .1258 1945 Unknown [id number] 2.16.840.1.272077.3.579.2 .1258 1945 Unknown [id number] 2.16.840.1.387048.3.579.2 .1259 1945 Unknown [id number] 2.16.840.1.282431.3.579.2 .9 1945 Unknown [id number] 2.16.840.1.282714.3.579.2 .9 1945 Unknown [id number] 2.16.840.1.592741.3.579.2 .9 1945 Unknown [id number] 2.16.840.1.998822.3.579.2 .9 Self-pay Self Pay [id number] Social History Date Type Detail Facility Start: 06-15-2020 End: 04-15-2024 Tobacco smoking status NHIS Ex-smoker (finding) [facility] Start: 1945 Sex Assigned At Female [facility] Start: 09-07-1965 End: 03-07-1987 History of tobacco use Current smoker [facility] Start: 09-07-1965 End: 03-07-1987 History of tobacco use Cigarette Smoker [facility] Start: 09-20-2021 End: 07-04-2024 Alcohol intake Current non-drinker of alcohol (finding) [facility] Start: 08-21-2021 End: 07-18-2022 Exposure to SARS-CoV-2 (event) Not sure [facility] Start: 12-06-2021 Tobacco smoking status Never smoked tobacco (finding) [facility] Tobacco smoking status Never [facility] Start: 03-27-2023 End: 04-25-2024 Sex Assigned At Female [facility] Start: 08-03-2013 End: 04-25-2024 Cigarettes smoked current (pack per day) - Reported 1 [facility] Start: 08-03-2013 End: 04-15-2024 Tobacco use and exposure Smokeless tobacco non-user [facility] History of tobacco use Passive smoker [facility] Start: 01-20-2021 Gender identity Identifies as female gender (finding) [facility] Start: 01-20-2021 Sexual orientation Heterosexual (finding) [facility] Do you belong to any clubs or organizations such as mormonism groups, unions, fraternal or athletic groups, or school groups? Yes [facility] Are you now , , , , never or living with a partner? [facility] Do you feel stress - tense, restless, nervous, or anxious, or unable to sleep at night because your mind is troubled all the time - these days [OSQ] Only a little [facility] Start: 06-11-2022 Education 17 [facility] Start: 09-28-2023 End: 07-11-2024 Alcohol intake Ex-drinker (finding) [facility] Within the last year , have you been afraid of your partner or ex-partner? No [facility] How often to you hav e a drink containing alcohol? Never [facility] (I/We) worried whewale er (my/our) food would run out before (I/we) got money to buy more. Never true [facility] Start: 02-25-2023 Education 19 [facility] Start: 04-22-2023 Tobacco Comment Last smoked : > 10 years [facility] Start: 04-22-2023 Alcohol Comment drinks 2-4 times per month; caffeine intake : none , pt states she eats chocolates nopw and then [facility] Do you feel stress - tense, restless, nervous, or anxious, or unable to sleep at night because your mind is troubled all the time - these days [OSQ] Not at all [facility] Medical Equipment Procedure Code Equipment Code Equipment Origin al Text Equipment Identifier Dates Insert Nexgen Lps-Flex 5-6 E-F Prolong 14mm Articular Fix Bearing Sterile - [id number] Start: 01-26-2023 Cmnt Bn Bio 40gm Rpl [id number] - Sna - [id number] Start: 04-17-2020 Ins Artc 5-6 E-F 10mm Kn Fx Rpl [id number] - Sna - [id number] Start: 04-17-2020 Cardiac pacemaker, device (physical object) ([id number]) Pacemaker-03/02/2012 [id number] Start: 03-02-2012 Plt Tib [id number] Nxgn Kn Cmnt Rpl [id number] - Sna - [id number] Start: 04-17-2020 Pacemaker-Anelia [id number] Start: 03-02-2012 Xtn Stm 30mm 75m m 15mm Kn Tib Rpl [id number] - Sna - [id number] Start: 04-17-2020 Cmpt Fem E Kn Lt Lpsflx Gndr Rpl [id number] - Sna - [id number] Start: 04-17-2020 Cmpt Ptlr 32mm Persona Alpnancy - Sna - [id number] Start: 04-17-2020 Goals Date Patient Goal Desired Activity /State Personal health goal Comment on above: Formatting of this n ote might be different from the original. Evaluation of progress towards goal: DC home with family support and [facility] for in home therapy. Clinical Notes 09-27-2021 to 07-13-2024 Cristian Malcolm, PT - 07/13/2024 1:30 PM Colin Davison, [facility] [employer] [facility] - 07/11/2024 1:20 PM Carmen Will, DO - 07/07/2024 10:45 AM SURAJTCristian Malcolm, PT - 07/05/2024 10:30 AM EDT Note Date & Type Note Facility 07-13-2024 History of Present illness Narrative Images from the original note were not included. Magi Dao [id number] 07/13/24 Visit# 10 Sup time: 40 min Total time 58 min Time in: 1:30 pm Time out: 1:28 pm Phone consult 04/25 79 yof sent to PT by Dr Gonzalez for dizziness Pt has been treated in past by undersigned for Meniere's and neck dizziness Does have much R sided neck stiffness Massage seems to help Also notices pressure in R ear, last wk it was blocked and couldn't hear well out of it but now hearing better Frequent falls Advised pt to schedule with ENT for Meneire's intervention Transition from Sterling Bruce, PT @ [facility]. Objective/Examination: at IE *Hearing: Fullness & impaired R Postional Testing: Negative BPPV testing: Negative Postural Hypotension head fixed lay down sit up testing: Mild dizziness would benefit from conditioning Ocular: Negative Gaze Evoked Nystagmus, Smooth Pursuit, Saccades Strabismus observation: No obvious misalgnment noticed. No exo/eso/hyper/hypo tropia noticed. No phoria noticed. Upper Motor Neuron: Negative finger to nose, hoffmans, hyperreflexia, rapid alt hand movt *Cervical Motion: Impaired motion and discomfort Vertebral Artery Screening test (VAST): negative *Cervical Proprioception Testing: Poor head neck awareness *Sensory Organization Performance Test: fail tests 2 4 5 6 high fall risk! *Fukuda test: unable to perform Ocular assessment with goggles: Negative spontaneous nystagmus, gaze evoked nystagmus *High Frequency Head shake (2 Hz) with video goggles: Post nystagmus toward L ear suggesting unilateral R weakness *Motion Sensitivity Test: impaired *Computerized Dynamic Visual Acuity test: fail with and without head movement Today's presentation: Increased dizziness and off balance since last visit multiple near recently Therapeutic Intervention: JONNY: per paper grid neck AROM, stretching/flexibility, general strength and endurance exercises as well x 15 min sup, 20 total 5 min on bike warm up, held reps [id number]-XPQ: balance, VRT NSEO on ground 10 x 10 tends to want to fall backwards at times min A required on/off x , SLS balance 10 x 1-2 alt desmond with UE assist at rail, march walking/backward walking in moy 4 x 15 feet with close CGA and gait belt, min A on and off X 15 min total, Gaze stabilization added today with min increased s/s. Manual: STM/massage Uts/LS desmond, SO release x 10 min total, min increased dizziness on and off Modalities: MHP x 10 at end of session, neck. Assessment: Suspected Therapy Diagnosis: Meniere's disease and cervicogenic dizziness component Problems: Frequent falls, wilson high fall risk, sop fail tests 2 4 5 6, fail cdvat and motion sensitivity tests, poor conditioning, postural hypotension Poor neck motion, neck dizziness Goals: Prevent falls, pass tests 1 thru 4 sop, wilson medium fall risk, optimize neck motion, optmize conditioning, ENT consult edgardo Plan: Continue POC 1-2 x week for 4-6 more weeks, has ENT appt scheduled but not until next month Potential: Fair/poor (per IE) Good tolerance to all overall less dizziness with neck ROM and JONNY today and MT that went well. VTR continues to exacerbate s/s as expected especially gaze stabilization exercises. No real progress to date, s/s continue to greatly affect ADLs/QOL and safety amb is using cane instead of walker today and fairly stable coming in. Some improvement with neck pain and tightness with MT and MHP. Pt had vestibular testing thinking Vestibular migraines vs Menieres, has started 1 new med waiting to start the other due to potential side affects and uncertainty. Ok documented in this encounter [facility] 07-11-2024 History of Present illness Narrative Follow up Diagnosis: Seborrheic Keratosis Location: generalized Last visit: 02/15/2024 Symptoms: scaly, itchy Procedure performed: Cryotherapy Date of procedure: Number of treatments to date: 2 Patient is here for cryotherapy Rash Location: chest Duration: comes and goes Quality: itchy at times Modifying Factors: worse with showering Associated symptoms: red Current treatments: none Established patient All pertinent medical history, medications, and allergies were reviewed. General Exam: alert, oriented to person, place, and time, normal affect, well appearing uses a cane Unaccompanied A focused exam completed based on patient reported problems, see below: 1. Other nonthrombocytopenic purpura (CMS/HCC) (2) Chest (Upper Torso, Anterior); Arms 2. Inflamed seborrheic keratosis (14) Left Flank, Left Lower Back (8), Right Lower Back (4), Right Upper Back Inflamed seborrheic keratoses: pink and brown stuck on verrucous scaly papule with surrounding erythema and bloody crust. The patient was informed that symptomatic seborrheic keratoses are benign growths that become inflamed, itchy, tender, traumatized, caught on clothing, or bleed. Symptomatic lesions can be treated with cryotherapy or curretage. Thicker lesions treated with cryotherapy may require more than one treatment. The patient was instructed to notify the office if abnormal redness or tenderness develops at the treatment site. Cryotherapy today, see procedure note. Diagnosis: Inflamed seborrheic keratosis Indication: Inflamed Consent: Verbal consent was obtained and risks were discussed, including, but not limited to risks of scarring, darker or facility examiner pigmentary changes, recurrence, incomplete removal and infection. Method: Liquid nitrogen was used to treat the lesion(s) with two 5-10 second freeze-thaw cycles Number of lesions treated: 14 Post-procedure instructions: Instructions were given orally and in writing. The office will be contacted if the lesion fails to resolve despite treatment, or if a side effect develops such as abnormal crusting, scabbing, redness or tenderness Cryotherapy, skin lesion - Left Flank, Left Lower Back (8), Right Lower Back (4), Right Upper Back Next Visit: as scheduled documented in this encounter [facility] 07-07-2024 History of Present illness Narrative Procedure - Therapeutic injection, Botulinum Toxin, Chronic Migraine Indication Chronic Migraine, cervical dystonia and blepharospasm. 79 year old female with chronic migraines that have been intractable to medication but are finally responding to Botox injections. She is worse again and having more dizziness but she went off of the quilipta. She was doing better on the medication but her insurance company does not cover it and she needed samples. She saw an ENT at [facility] who is checking or Meniere's disease but thinks this could all be a migraine variant as do I and why she was likely doing better until she stopped the qulipta. She did not call us to let us know she was going to stop the qulipta. I would like to get her back on that medication. She was given samples today. She needs to stepwise get back on medication. Try 1 for about 2 weeks then add an additional 1 such as the 1 the ENT is going to give her. She is so exquisitely sensitive to medications I do not want her to do 2 things at once as we will not know what helped her she voiced understanding of this. Patient also has significant cervical dystonia with posterior muscle tightness and poor range of motion. She is doing her regular exercises .. Patient also has bilateral blepharospasm which originally was inferior lid and now is the superior lid but there was not much twitch today. EMG was used for the paraspinal muscles to be sure that we are in the bulk of the muscle were the spasticity is and injecting appropriately within the muscle belly. Identification The patient was positively identified by name and date of . Consent The procedure with risks and benefits was explained to the patient. The risks included but were not limited to bleeding/bruising, weakness, ptosis, dysphagia, infection, and . Informed consent for the procedure was obtained and witnessed. All further questions were answered during this visit. Site Prep The areas to be injected were sterilized with 70% isopropanol alcohol. Lot # [id number] Exp: 11/2026 Dilution: 1:1 Procedure Procerus 10+5 units Beta Tester, L 10 units Beta Tester, R 10 units Frontalis, L 5+5 +5+5 units Frontalis, R 5+5 +5+5 units Top of head R 5+5+5 units Temporalis, L 10+5+5+5 units Temporalis, R 10+5+5+5 units Occipitalis, L 5+5+10 units Occipitalis, R 5+5+10 units Semisipinalis capitis R 10 units Semi spinalis capitis L 10 units Splenius capitis R 10 + 10 units Splenius capitis L 10+10 units Trapezius, L 5+10+10 +5 units Trapezius, L 5+10+10+5 units NOT DONE TODAY Orbicularis oculi superior R 2.5+2.5 units Orbicularis oculi superior L 2.5+2.5 units Other TOTAL UNITS INJECTED 300 WASTE 0 Disposition The patient tolerated the procedure well. Post-op care was discussed. The patient is aware that duration of action is ~ 90 days, and that delay in reinjection often results in recurrence of migraines Patient Instructions The patient was instructed to call or return for any excessive,weakness or any other unexpected symptoms. Assessment Chronic migraine without aura, intractable, without status migrainosus - G43.719 documented in this encounter [facility] 07-05-2024 History of Present illness Narrative Images from the original note were not included. Magi Dao [id number] 07/05/24 Visit# 10 Sup time: 40 min Total time 60 min Time in: 12:30 pm Time out: 1:30 pm Phone consult 04/25 79 yof sent to PT by Dr Gonzalez for dizziness Pt has been treated in past by undersigned for Meniere's and neck dizziness Does have much R sided neck stiffness Massage seems to help Also notices pressure in R ear, last wk it was blocked and couldn't hear well out of it but now hearing better Frequent falls Advised pt to schedule with ENT for Meneire's intervention Transition from Sterling Bruce, PT @ [place] location. Objective/Examination: at IE *Hearing: Fullness & impaired R Postional Testing: Negative BPPV testing: Negative Postural Hypotension head fixed lay down sit up testing: Mild dizziness would benefit from conditioning Ocular: Negative Gaze Evoked Nystagmus, Smooth Pursuit, Saccades Strabismus observation: No obvious misalgnment noticed. No exo/eso/hyper/hypo tropia noticed. No phoria noticed. Upper Motor Neuron: Negative finger to nose, hoffmans, hyperreflexia, rapid alt hand movt *Cervical Motion: Impaired motion and discomfort Vertebral Artery Screening test (VAST): negative *Cervical Proprioception Testing: Poor head neck awareness *Sensory Organization Performance Test: fail tests 2 4 5 6 high fall risk! *Fukuda test: unable to perform Ocular assessment with goggles: Negative spontaneous nystagmus, gaze evoked nystagmus *High Frequency Head shake (2 Hz) with video goggles: Post nystagmus toward L ear suggesting unilateral R weakness *Motion Sensitivity Test: impaired *Computerized Dynamic Visual Acuity test: fail with and without head movement Today's presentation: Increased dizziness and off balance since last visit multiple near recently Therapeutic Intervention: JONNY: per paper grid neck AROM, stretching/flexibility, general strength and endurance exercises as well x 15 min sup, 20 total 5 min on bike warm up, held reps Dsjwv-swqcktl-GLV: balance, VRT NSEO on ground 10 x 10 tends to want to fall backwards at times min A required on/off x , SLS balance 10 x 1-2 alt desmond with UE assist at rail, march walking/backward walking in moy 4 x 15 feet with close CGA and gait belt, min A on and off X 15 min total, Gaze stabilization added today with min increased s/s. Manual: STM/massage Uts/LS desmond, SO release x 10 min total, min increased dizziness on and off Modalities: MHP x 10 at end of session, neck. Assessment: Suspected Therapy Diagnosis: Meniere's disease and cervicogenic dizziness component Problems: Frequent falls, wilson high fall risk, sop fail tests 2 4 5 6, fail cdvat and motion sensitivity tests, poor conditioning, postural hypotension Poor neck motion, neck dizziness Goals: Prevent falls, pass tests 1 thru 4 sop, wilson medium fall risk, optimize neck motion, optmize conditioning, ENT consult edgardo Plan: Continue POC 1-2 x week for 4-6 more weeks, has ENT appt scheduled but not until next month Potential: Fair/poor (per IE) Fait tolerance to all some increased dizziness with neck ROM and JONNY today as well as during MT including SO release and traction and continues to report relief with MHP. No real progress to date, s/s continue to greatly affect ADLs/QOL and safety amb, has walker with her today looks more stable Some improvement with neck pain and tightness with MT and MHP. Pt had vestibular testing thinking Vestibular migraines vs Menieres. documented in this encounter [facility] 07-04-2024 Instructions Albert Huntley MD - 07/04/2024 1:59 PM EDT Assessment: Imbalance secondary to vestibular migraine vs meniere's disease. 28% caloric weakness on right side. Plan: Vestibular migraine diet. Migraine supplements given to patient. Betahistine 16 mg every 8 hours for 30 days; two refills. Vestibular therapy with particular attention to exercises laid out by Dr. Price (this was printed for patient). Discuss initiation of prophylactic medication for vestibular migraine with her Neurologist. PATIENT INSTRUCTIONS FOR MENIERE'S Your doctor may have prescribed a diuretic or (water pill) for you. (Ex: Dyazide, Hydrochlorothiazide, or Amiloride) Take 1 (one) pill in the A.M with food. Stay hydrated (decrease caffeine intake.) Eat a piece of fruit daily. (apple, banana, orange) Instead of a diuretic you may have been told to use cranberry juice or pills. Drink 2 (two) - 8oz glasses of cranberry juice in the A.M. and early afternoon or use cranberry pills as directed on bottle. Stay hydrated (decrease caffeine intake.) If you should experience any unusual symptoms (i.e. leg cramps, tiredness, limb weakness, rash, or extreme nausea), please call our office so we may adjust or discontinue the medication. LOW SODIUM DIET Limit to 2000mg of sodium daily Remove saltshaker from table and cook with spices (garlic, onion, peppers, herbs, honorio, dill, ect.) Watch for hidden sodium in canned foods, microwave dinners, brads, beverages, and certain oriental foods. HIDDEN SOURCES OF SODIUM There is enough present naturally in food to meet the needs of most individuals. It is in the processing of foods that salt and other sodium containing ingredients are added. Here are examples of these sodium additives and their use in food. CONDIMENTS AND SEASONING: Arellano Bits, Barbeque sauce, Bouillon, [place], Celery Salt, Chilies, [place] sauce, Cooking Wine, Garlic salt, Grave (canned and mix), Horseradish, Marinades, Meat tenderizer, Miso, MSG, Mustard, Olives, Oyster sauce, Pickles, Salad dressing (most of them), Salsa, Salt, Sauerkraut, Soy sauce, Steak sauce, Sweet & Sour sauce, Tamari sauce, Teriyaki sauce, Worcestershire sauce, ect. Other Additives: Baking powder - leavening agent Baking soda - leavening agent Monosodium glutamate - flavor enhancement Sodium alginate - used in chocolate milk and ice cream to make a smooth mixture Sodium benzoate - preservative Sodium caseinate - thicker and binder Sodium citrate - buffer, used to control acidity in soft drink and fruit drinks Sodium hydroxide - soften and loosen skins of ripe olives and some fruit and vegetables Sodium nitrate - curing agent in meat and sausages, provides color, prevents botulism Sodium phosphate - emulsifier, stabilizer, buffer Sodium propionate - mild inhibitor Sodium saccharin - artificial sweetener Sodium Sodium sulfate - bleach fruits for artificial coloring and preservative in prunes DIARY Below is an example of a daily diary to keep track of daily sodium intake and weather conditions You may make copies of the below example or keep notes on a smart phone or tablet You may use an santhosh or website to gather nutritional value for all food intake Some apps available on your smart phone are: My DashDiet Nutrition Info My Fitness Pal MyPlate Calorie Counter Please remember to write in weather conditions. (BP=Barometric Pressure) You may also use an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 swelling. Skin: Negative for pallor and rash. Neurological: Positive for dizziness. Negative for tremors, seizures, syncope and headaches. Hematological: Does not bruise/bleed easily. BP 115/75 Pulse 63 Temp 36.3 C (97.4 F) (Temporal) Ht 157.5 cm (5' 2 ) Wt 72.5 kg (159 lb 13.3 oz) SpO2 99% BMI 29.23 kg/m Physical Exam Constitutional: General: She is not in acute distress. HENT: Mouth/Throat: Pharynx: Oropharynx is clear. Eyes: Conjunctiva/sclera: Conjunctivae normal. Cardiovascular: Rate and Rhythm: Normal rate and regular rhythm. Pulmonary: Effort: Pulmonary effort is normal. Breath sounds: Normal breath sounds. Abdominal: General: Bowel sounds are normal. Palpations: Abdomen is soft. Musculoskeletal: General: No swelling. Skin: General: Skin is warm and dry. Coloration: Skin is not jaundiced. Neurological: Mental Status: She is alert. Mental status is at baseline. ASSESSMENT/PLAN: 79 y/o femal with IBS-C, GERD, and history of fundoplication. Maintain Senokot S, change lansoprazole to rabeprazole, followup in 4 months. 1. Irritable bowel syndrome with constipation - ICD9: 564.1, ICD10: K58.1 (primary diagnosis) 2. Gastroesophageal reflux disease without esophagitis - ICD9: 530.81, ICD10: K21.9 3. History of fundoplication - ICD9: V15.29, ICD10: Z98.890 Gabriel Coppola Jr. documented in this encounter [facility] 06-24-2024 Note HNO ID: [id number] Author: GABRIEL COPPOLA JR, DO Service: ? Author Type: Physician Type: Progress Notes Filed: 06/24/2024 09:04 Note Text: Patient presents with: F/U 3 Month Diarrhea HPI: Magi Dao, 79 year old female, followup for IBS-C and GERD. Constipation controlled with Senokot S. GERD is controlled with lansoprazole but has side effects of headaches which she also had with omeprazole and famotidine. Dysphagia improved after dilatation for esophageal spasm. History of hiatal hernia repair in 1985. Negative family history. History of breast cancer with resection and radiation, did not require chemotherapy. Cholecystectomy done years ago. History of depression, stable at this time. Last colonoscopy was March 2024. Recent dysuria, follows with urology and has upcoming cystoscopy. Recent vertigo after ear infection, follows with ENT at [facility]. Past GI workup 03/31/24 Colonoscopy was done for Screening for colorectal malignant neoplasm, per Gabriel Coppola Jr, DO - The examined portion of the ileum was normal. - Diverticulosis in the entire examined colon. - Normal mucosa in the entire examined colon. Biopsied Path as follows: Random colon, biopsy: - Melanosis coli. - No evidence of colitis. 01/29/24 Last OV notes per Dr. Abdon Dao, 79 year old female, followup for [...] History of depression, stable at this time. 09/16/23 Upper GI endoscopy was done for [...] CA27.29 <38.6 U/mL 23.1 Latest Ref Rng 12/21/2023 WBC 3.70 - 11.00 k/uL 6.31 RBC 3.90 - 5.20 m/uL 4.41 Hemoglobin 11.5 - 15.5 g/dL 13.9 Hematocrit 36.0 - 46.0 % 42.5 MCV 80.0 - 100.0 fL 96.4 MCH 26.0 - 34.0 pg 31.5 MCHC 30.5 - 36.0 g/dL 32.7 RDW-CV 11.5 - 15.0 % 12.3 Platelet Count 150 - 400 k/uL 235 MPV 9.0 - 12.7 fL 8.5 (L) Neut% % 64.0 Abs Neut (ANC) 1.45 - 7.50 k/uL 4.04 Lymph% % 25.8 Abs Lymph 1.00 - 4.00 k/uL 1.63 [place]% % 7.[address] [place] <0.87 k/uL 0.49 Eosin% % 1.6 Abs Eosin <0.46 k/uL 0.10 Baso% % 0.6 Abs Baso <0.11 k/uL 0.04 Immature Gran % % 0.2 IMMATURE GRANS (ABS) <0.10 k/uL <0.03 NRBC /100 WBC 0.0 Absolute nRBC <0.01 k/uL <0.01 DTYPE Auto Protein, Total 6.3 - 8.0 g/dL 7.0 Albumin 3.9 - 4.9 g/dL 4.5 Calcium 8.5 - 10.2 mg/dL 10.2 Bilirubin, Total 0.2 - 1.3 mg/dL 0.5 Alkaline Phosphatase 34 - 123 U/L 94 AST 13 - 35 U/L 16 ALT 7 - 38 U/L 12 Glucose 74 - 99 mg/dL 87 BUN 7 - 21 mg/dL 12 Creatinine 0.58 - 0.96 mg/dL 0.99 (H) Sodium 136 - 144 mmol/L 141 Potassium 3.7 - 5.1 mmol/L 4.2 Chloride 97 - 105 mmol/L 104 CO2 22 - 30 mmol/L 25 Anion Gap 9 - 18 mmol/L 12 eGFR >=60 mL/min/1.73m? 59 (L) Iron 41 - 186 ug/dL 94 TIBC 232 - 386 ug/dL 303 Transferrin Saturation 15.0 - 57.0 % 31.0 Ferritin 14.7 - 205.1 ng/mL 123.0 Vitamin B12 232 - 1,245 pg/mL 661 Folate >4.7 ng/mL 7.4 PAST MEDICAL HISTORY Diagnosis Date Asthma Breast cancer (HCC) 2006 Left Chronic obstructive pulmonary disease (COPD) (HCC) Coronary artery disease patient denies any Esophageal reflux Gastroesophageal reflux High blood pressure Major depressive disorder, recurrent episode, mild (HCC) 02/19/2023 Malignant neoplasm of breast (female), unspecified site 11/21/06 Breast canc (more content not included)... [facility] 06-22-2024 History of Present illness Narrative Images from the original note were not included. [facility] Vestibular and Balance Disorders Laboratory Vestibular Test Battery Report Name: Magi Dao [facility]#: [id number] Date of Service: 06/22/2024 Date of : 1945 Age: [age] year old Referred by: Yajaira Gonzalez MD Referred for: Evaluation of the cause of disorder of hearing, tinnitus, or balance. Referral documented: In an order in [facility] Pretest Instructions: All pretest instructions were not completed prior to testing: Xanax which she took last night. She has been taking this for 5 years. She takes 0.5 mg three times per day. Impressions and Recommendations OVERALL IMPRESSIONS: Abnormal vestibular evaluation. Results indicate right peripheral vestibular hypofunction as evident by caloric irrigations (28% right weakness) and sub-clinical nystagmus observed across several vision-denied conditions (left beating with leftward gaze, positional testing). These findings likely align with Magi's sensorineural interaural asymmetry with the right ear poorer than the left and reduced right-sided WRS score. The remainder of today's evaluation revealed the following: - Normal high frequency horizontal vestibulo-ocular reflex (VOR) function as evident by video head impulse testing. - Bilaterally absent cervical VEMP was observed which is not particularly alarming as ~ 40% of people > 60 years old do not generate a cVEMP (Annika et al., 2004). - There were no clinically significant signs of pathophysiologic nystagmus provoked during gaze stability testing with fixation removed and post-headshake testing. - There were no subjective or objective indications of Benign Paroxysmal Positional Vertigo (BPPV). - There were no indications of central vestibulo-ocular pathway involvement noted. Normal oculomotor examination. - Normal observation of gait and transfers. RECOMMENDATIONS: - Continue medical follow up with Albert Huntley MD. - Pending medical management, Magi should consider returning to physical therapy. Instead of emphasis on neck therapy, consider the followin) gaze stabilization exercises for VOR gain deficiencies, 2) habituation exercises to reduce triggered symptoms, and 3) general balance/gait exercises to improve functioning during activities of daily living and reduce falling risk. - Consider re-evaluation as medically indicated. - Consider maintaining a healthy sleep schedule in addition to diet, hydration, and exercise. The results and recommendations were explained to Magi Claire Feliberto who expressed understanding of the information. History Present Illness The following history was obtained by way of Magi Dao's previous medical record, patient entered questionnaire, and direct patient interview: Magi Dao began feeling symptoms of imbalance and lightheadedness onset May 2023 where she was diagnosed with cervical vertigo. She underwent several sessions of PT with minimal resolution of symptoms. She then began experiencing right-sided otalgia early April 2024 which she was treated with antibiotics for ME effusion. She was then seen by PCP who diagnosed patient with Meniere's disease. A few weeks after, imbalance and lightheadedness increased. Around this time she also began noticing hearing loss of the right ear when talking on the phone. She denied sudden change of hearing. Associated symptoms include bilateral aural fullness (R>L) and global head pressure. Imbalance can be provoked when standing, walking, and horizontal head movement (R>L). She recalled an instance where she instantly feel with a quick head turn to the right. She noted sensation of lightheadedness is constant - even when head is static. She also reported double vision when looking to the left only, and blurred vision. She denied vertigo. She reported constant tinnitus bilaterally which is longstanding. She began wearing hearing aids December 2023; audiologic evaluation from that time revealed bilateral sensorineural hearing loss with right ear poorer than left (see below). - Headache or migraine symptoms: constant pressure in globally and mostly in forehead. - Neck pain/restrictions: neck pain bilaterally (L>R). Currently in PT for neck pain. - Previously completed vestibular rehabilitation (physical therapy): Yes. Pt was previously concerned for Meniere's disease. - Significant falls within the last few months. Additional fall risk factors: fear of falling. - Magi is currently using an ambulatory device. - Aforementioned symptoms are impacting Magi's quality of life: reduced productivity and restriction of activities (e.g., not going to [employer] because of dizziness). SUMMARY OF PAST MEDICAL HISTORY: VNG at outside facility: - Summary of relevant imaging (directly adapted from report): hx of pacemaker, was informed that she could not obtain MRI. Previous CT scan from outside facility. - Previous audiologic evaluation: 09/21/2023 Latest Speech Audiometry Last edited by Lorelei Raphael AUD on 06/22/2024 9:26 AM Speech Audiometry Ear Method [employer] SAT SRT [facility] Test/List Score (%) Intensity Mask/Noise Notes right recorded 28 30 NU-6 Difficulty 70 70 40 n=50 left recorded 22 25 NU-6 Difficulty 100 65 35 n=10 Normal TM mobility AU. - Previous encounter(s) with neurology: yes. Patient-Entered Questionnaire Scores 06/18/2024 Vestibular Case History I experience the following: Feeling that I am spinning in a [place] Feeling of falling or veering to one side Feeling as though I could pass out or faint Feeling lightheaded or swimming sensation Feeling unsteady on my feet or like I am swaying while walking Feeling a general sensation that my perception of the world around me is off or altered My symptoms began: 05/23/2024 My last episode was: 06/18/2024 Symptoms have changed since they began: Yes Symptoms are: Worse Symptoms started after cold or flu: No Specific event caused dizziness: No Free from dizziness or problems with balance in between attacks: No Trouble walking or standing in the dark or dimly lit room: Yes Trouble walking on soft or uneven surfaces (grass or carpet): Yes Dizziness symptoms last: Days Continuous, I have never had a break in my symptoms since they started Dizziness symptoms occur: Every time I move my head or body Multiple times a day Multiple times per week Multiple months Continuous, I have never had a break in my symptoms since they started Dizziness symptoms mainly happen when sitting or standing up too quickly: Yes Dizziness symptoms mainly happen when changing positions: Yes Change in hearing in: Right ear Fullness/pressure feeling in: Both ears Ringing or buzzing sound in: Both ears Pain in: Right ear Drainage from: N/A Sensitivity to sound: Yes Your voice sounds loud to you: No Hearing checked in last year: Yes Vision-related symptoms with dizziness: Blurriness Double vision Fatigue Dizziness can occur from visual stimuli: Yes Wear glasses or contacts: Yes Vision checked in last year Yes Symptoms with dizziness: Light sensitivity Sound sensitivity Head pain Head throbbing Nausea Vision changes Neck Pain Motion Sickness Numbness in face, arms or legs Weakness or clumsiness in arms or legs Confusion or memory loss Diagnosed with migraines or headaches: Yes Experience migraines or headaches: Yes Recent head or neck injury: No Added stress to life: No Dizziness worse with stress or when anxious: No Restrict activities due to dizziness symptoms: Yes Fallen in the past year: Yes Fear of falling: Yes Symptoms of dizziness improved by: Being still Change in position Closing eyes Rest Multiple values from one day are sorted in reverse-chronological order 02/13/2015 12/21/2014 08/10/2014 PHQ-9 Score 3 3 4 04/07/2024 12/20/2023 05/27/2023 PROMIS Global Health Scale Physical Health Percentile 7 15 15 Mental Health Percentile 26* 34 34 Percentiles provide an indication of how a patient's score ranks in relation to the [place] general population. > 31st percentile is within normal limits or better * < 31st percentile is at least SD worse than population, which may be clinically relevant < 16th percentile is at least 1 SD worse than population and warrants attention Based on review of the past medical history and chief complaint, the following clinical questions were explored during today's appointment: right-sided peripheral vestibular involvement? Plan for today's objective vestibular testing based on these clinical questions: Videonystagmography (VNG), Video Head Impulse Test (VHIT), and Vestibular Evoked Myogenic Potentials (VEMPs) Medical History ACTIVE PROBLEM LIST Malignant Neoplasm of Right Breast in Female, Estrogen Receptor Positive ([facility]) Breast Ca ([facility]) Paroxysmal Svt (Supraventricular Tachycardia) ([facility]) Cardiac Pacemaker in Situ Headache(784.0) Obstructive Sleep Apnea Pulmonary Aspergillosis ([facility]) Migraine Without Aura 4.8 New daily-persistent headache ([facility]) [339.42] Anxiety History of Breast Cancer Shoulder Pain, Right Radiotherapy Follow-Up Examination Mixed Hyperlipidemia Unspecified Hypothyroidism Polyneuropathy in Other Diseases Classified Elsewhere ([facility]) Osteoarthrosis, Unspecified Whether Generalized Or Localized, Other Specified Sites Esophageal Reflux Tear of Medial Cartilage Or Meniscus of Knee, Current Predominant Disturbance of Emotions Coronary Artery Disease Chronic Obstructive Pulmonary Disease (Copd) ([facility]) Breast Cancer ([facility]) Sick Sinus Syndrome ([facility]) Asthma Pneumonia Primary Hypertension Thyroid Disease Foraminal Stenosis of Cervical Region Right Rotator Cuff Tear Personal History of Infectious Disease Postoperative Hypotension Orthostatic Hypotension Former Smoker History of Lung Surgery Failed Total Knee Arthroplasty, Initial Encounter ([facility]) ([facility]) Status Post Total Left Knee Replacement Cancer of Breast, Intraductal, Left Iron Deficiency Anemia Due to Chronic Blood Loss Major Depressive Disorder, Recurrent Episode, Mild ([facility]) Iron Deficiency Anemia Sacroiliitis, Not Elsewhere Classified ([facility]) Medications: Current Outpatient Medications on File Prior to Visit Medication Sig fluocinonide (LIDEX) 0.05 % external solution Apply [...] facility-administered medications on file prior to visit. Current medications with potential vestibular/balance side effects highlighted in bold. Family/Social History FAMILY HISTORY Problem Relation Age of Onset Breast Cancer Maternal Aunt diagnosed age 40's other (Other [Other]) Other no known family h/o ovarian cancer Breast Cancer Sister Breast Cancer Other maternal cousin Stroke Father Arthritis Mother Social History Tobacco Use Smoking status: Former Current packs/day: 0.00 Average packs/day: 1 pack/day for 20.0 years (20.0 ttl pk-yrs) Types: Cigarettes Start date: 09/07/1965 Quit date: 09/07/1985 Years since quittin.8 Passive exposure: Past Smokeless tobacco: Never Vaping Use Vaping status: Never Used Substance Use Topics Alcohol use: No Drug use: Never Physical/Vestibular Evaluation GENERAL: Cognitive Status: Alert, Oriented, and Cooperative EARS: Right ear: Ear canal with some cerumen, Eardrum visible, and Landmarks noted Left ear: Ear canal with some cerumen, Eardrum visible, and Landmarks noted EYES/OCULOMOTOR: Extra-ocular range of motion (CN III, IV, ): normal. Conjugate eye movements: Yes Smooth pursuit (horizontal and vertical): normal Saccades (horizontal, vertical, oblique): normal Cover uncover test: normal Ngyot-fnmpe-wtcie test: normal Convergence test: normal VESTIBULAR: Head impulses of semi-circular canals: possible corrective saccade to the right Ocular counter roll: normal GAIT AND BALANCE: Observation of gait and transfer: Patient required use of a walker. Additional gait and postural control screening deferred for patient safety. OBJECTIVE VESTIBULAR MEASURES: Videonystagmography Examination (VNG): CPT codes: 94198, 41206, 39396, 76788. Description of Procedure: objective assessment of peripheral (e.g., low frequency horizontal canal VOR function), status of compensation, Benign Paroxysmal Positional Vertigo (BPPV), and central vestibulo-ocular pathway (oculomotor examination). Procedure time: 30-45 minutes. Note: The fast component (direction) of all nystagmus is reported from the patient's perspective. Calibration procedure: unremarkable Saccade Performance test (pseudo-random presentation of a laser target; 5 - 50 deg horizontal steps): Latency values: normal Accuracy values: normal Peak Velocity values: normal Reported symptoms: none Pursuit Tracking test (sinusoidal presentation of a laser target; .1-.6 Hz, 10-60 deg/sec): Gain values: normal. Evidence of saccadic pursuit: No. Reported symptoms: none Note, crosshair instability observed at the onset of testing. Spontaneous & Gaze-Evoked Nystagmus test: Nystagmus center gaze with fixation: none. Temporal profile: n/a. Saccadic intrusions/oscillations: none. Symptoms: none. Nystagmus center gaze without fixation: none. Temporal profile: n/a. Saccadic intrusions/oscillations: none. Symptoms: none. Nystagmus right gaze with fixation: none.Temporal profile: n/a. Saccadic intrusions/oscillations: none. Symptoms: none. Nystagmus right gaze without fixation: none. Temporal profile: n/a. Saccadic intrusions/oscillations: none. Symptoms: none. Nystagmus left gaze with fixation: none.Temporal profile: n/a. Saccadic intrusions/oscillations: none. Symptoms: none. Nystagmus left gaze without fixation: 2 d/s left-beating. Temporal profile: continuous. Saccadic intrusions/oscillations: none. Symptoms: none. Nystagmus up gaze with fixation: none. Temporal profile: n/a. Saccadic intrusions/oscillations: none. Symptoms: none. Nystagmus up gaze without fixation: none. Temporal profile: n/a. Saccadic intrusions/oscillations: none. Symptoms: none. Nystagmus down gaze with fixation: none. Temporal profile: n/a. Saccadic intrusions/oscillations: none. Symptoms: none. Nystagmus down gaze without fixation: none. Temporal profile: n/a. Saccadic intrusions/oscillations: none. Symptoms: none. Note: remainder of testing completed without fixation unless otherwise specified. Head shaking test: Nystagmus post-horizontal head shake: none. Temporal profile: n/a. Symptoms: dizziness. Nystagmus post-vertical head shake: none. Temporal profile: n/a. Symptoms: unsteadiness. Vertical Semi-circular Canal BPPV Nystagmus tests: Nystagmus [place]-Hallpike right ear down position: 2 d/s right-beating and cross-hair instability observed . Temporal profile: continuous and suppressed with fixation. Symptoms: dizziness. Nystagmus [place]-Hallpike right ear return to sit position: 2 d/s right-beating. Temporal profile: continuous and suppressed with fixation. Symptoms: none. Nystagmus [place]-Hallpike left ear down position: 2 d/s left-beating. Temporal profile: continuous and suppressed with fixation. Symptoms: dizziness. Nystagmus [place]-Hallpike left ear return to sit position: none. Temporal profile: n/a. Symptoms: none. Horizontal Semi-circular Canal BPPV and Positional Nystagmus tests: Nystagmus head center supine: 1 d/s right-beating.Temporal profile: continuous. Symptoms: none. Nystagmus head (roll) right: 2 d/s right-beating. Temporal profile: continuous and suppressed with fixation. Symptoms: none. Nystagmus head (roll) left: 2 d/s left-beating. Temporal profile: continuous and suppressed with fixation. Symptoms: none. Note, additional positional tests (body right and left) not tested due to patient concern of back pain during testing. Bithermal alternating water calorics (30 second irrigations, supine position): Unilateral Weakness (UW%): abnormal. 28% UW in the right ear. (Note: abnormal UW% >/= 25%) Directional Preponderance (DP%): normal. 0% Fixation Suppression Index (FI%): normal. (Note: abnormal FI% >/= 0.6) Nystagmus pre-caloric position (10 sec screening): none. Vestibular Evoked Myogenic Potentials (VEMP): CPT code: 44424 Description of Procedure: short-latency myogenic potentials produced with sound or vibration originating from otolith organs (saccule and utricle). Cervical (cVEMPs) are recorded from the sternocleidomastoid muscles (patient in a semi-reclined position, head lifted and rotated away from ear stimulated): Ocular (oVEMPs) recorded from the inferior oblique extra-muscles (patient seated with 30 deg upward gaze). Screening for SSCD (superior semi-circular canal dehiscence) conducted if medically warranted. Procedure time: 30 minutes. Note: Integrity of the auditory stimulus, electrode placement and muscle contraction were verified. Otoscopy performed prior to testing confirming unoccluded canals. Amplitude and latency values represent best responses if more than 1 waveform is obtained. Refer to scanned documents for VEMP waveform details. Cervical (cVEMP): No repeatable responses observed bilaterally with air and bone conduction. Note, patient felt increased dizziness with head turn to the right. Interaural amplitude difference cVEMP (abnormal > 30%): N/A% Video Head Impulse Test (VHIT): CPT code: 41236 Description of Procedure: assessment of the angular vestibulo-ocular reflex (VOR) of all six semicircular canals. During vHIT, patients wear infrared goggles and their head is quickly moved in the plane of each semicircular canal. Measurements of VOR gain and corrective saccades are used to determine semicircular canal paresis. Procedure time: 20 minutes. Refer to scanned documents for details for vHIT raw data. Calibration procedure: unremarkable. Camera placement over the right eye. Lateral Canal VHIT: Normal. Results are not consistent with lateral semicircular canal/VOR pathway involvement in both ears. (Note: abnormal gain < 0.80) Vertical Canal VHIT: Attempted but could not accurately measure gain due to artifact (e.g., eye-related). (Note: abnormal gain < 0.70; High gain values noted for vertical canal impulses, which may be due to camera mass over the right eye, goggle fit, and/or a calibration error) It was my pleasure to evaluate Magi Dao. If you have any questions regarding this information, please contact me at [phone]. Keeley Hernandez, [facility])-A Vestibular Senior [employer] Developer documented in this encounter [facility] 06-22-2024 Note HNO ID: [id number] Author: RADHA PRICE AUD Service: ? Author Type: Senior Ux Developer Type: Progress Notes Filed: 07/04/2024 11:11 Note Text: [facility] Vestibular and Balance Disorders Laboratory Vestibular Test Battery Report Name: Magi Dao [facility]#: [id number] Date of Service: 06/22/2024 Date of : 1945 Age: [age] year old Referred by: Yajaira Gonzalez MD Referred for: Evaluation of the cause of disorder of hearing, tinnitus, or balance. Referral documented: In an order in [facility] Pretest Instructions: All pretest instructions were not completed prior to testing: Xanax which she took last night. She has been taking this for 5 years. She takes 0.5 mg three times per day. Impressions and Recommendations OVERALL IMPRESSIONS: Abnormal vestibular evaluation. Results indicate right peripheral vestibular hypofunction as evident by caloric irrigations (28% right weakness) and sub-clinical nystagmus observed across several vision-denied conditions (left beating with leftward gaze, positional testing). These findings likely align with Magi's sensorineural interaural asymmetry with the right ear poorer than the left and reduced right-sided WRS score. The remainder of today's evaluation revealed the following: - Normal high frequency horizontal vestibulo-ocular reflex (VOR) function as evident by video head impulse testing. - Bilaterally absent cervical VEMP was observed which is not particularly alarming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 arthroplasty performed by Dr. Bertrand Gonzalez at [facility] in [facility] April 17, 2020. 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 Rodrigues). Patient states Pain is worse now than before the replacement and the pain is different documented in this encounter [facility] 03-26-2022 History of Present illness Narrative Radiology Service Progress Note PATIENT [...] 2022 10:25 AM documented in this encounter [facility] 01-07-2022 Hospital Discharge instructions Patient Education 01/07/2022 11:21:48 EU - [...] With:León ATKINS Address: [facility] [address], [place] [address]- Business (1) When: Unknown Comments:Office will call to schedule follow up [facility] 12-13-2021 Miscellaneous Notes Unable To Reach Patient SOCIAL WORK FOLLOW UP NOTE: [facility]ER CENTER Date of service:12/13/21 PLAN: Continue follow up as needed Patient scored an 8 on the NCCN Distress Questionnaire. SW called and left this Patient a message to go over the questionnaire results. Awaiting a call back. TRISHA Marmolejo documented in this encounter [facility] 12-13-2021 Nurse Note Clinical questionnaires incomplete due to Nurse was Interrupted by provider during rooming process . Alecia Simms documented in this encounter [facility] 12-13-2021 History of Present illness Narrative Images from the original note were not included. NAME: Magi Dao [facility] NO.: [id number] DATE OF SERVICE: December 13, 2021 Some [...] therapy with anastrazole for a stage 1, ER/LA (+), breast cancer. 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 Tumor was ER/LA positive, HER2 was negative. 08/2013 :She had repeat excision by Dr. Whitmore and this was negative for residual disease. 11/2013 :completes adjuvant radiation :starts adjuvant anastrazole, then switches to leterozole 02/2016 :switches to tamoxifen 02/2018 : stops tamoxifen as she feels it is aggravating dyspnea 01/17/2021 :Mammogram right upper breast 4mm new 02/28/2021 :Rt breast bx. - inv. Lobular, ER/LA+, HER@ FISH (-) 04/22/2021 :Right mastectomy, multifocal [...] endocrine therapy with anastrozole for stage I ER/LA positive breast cancer. She had a recurrence in 2012 when she noticed a lump in the left chest along her incision site. 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 Tumor remain ER/LA positive HER-2/christiano negative. She then underwent adjuvant radiation therapy in 2013 and was started on Aromasin then switched to letrozole and in 2015 switched to tamoxifen. She electively stopped tamoxifen in 2017 due to progressive dyspnea. She additionally has [...] the upper right breast. 01/17/2021 Mammogram at [facility]: FINDINGS: The breasts are heterogeneously dense, [...] which included preparing to see the patient, [id number] patient care, completing clinical documentation, obtaining and/or reviewing separately obtained history, performing a medically appropriate examination, counseling and educating the patient/family/caregiver and care coordination (not separately reported). Vaibhav Ovalle MD, CPE Services Provided at: [place], [place] & [place], [place] CC: Dr. Marina Gonzalez [address] [facility] [id number] documented in this encounter [facility] 12-04-2021 Miscellaneous Notes Please sign pending new cbc order. Thanks, Kimberlee Rogel MA documented in this encounter [facility] 09-27-2021 History of Present illness Narrative Radiology Service Progress Note PATIENT NAME: Magi Dao DATE OF SERVICE: September 27, 2021 TIME: 10:21 AM PATIENT IDENTITY VERIFICATION COMPLETED USING TWO [...] IMPLANT DATA REVIEWED: Not Applicable RADIOLOGY DEPARTMENT: Ultrasound PERIPHERAL IV DATA: Not applicable SIGNED BY: RT Dot(R) September 27, 2021 10:21 AM documented in this encounter [facility] Evaluation + Plan note No data available for this section [facility] Evaluation note No assessment inform ation available [facility] Evaluation note Diagnosis Malignant 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, estrogen receptor positive, unspecified site of breast (HCC)- Primary documented in this encounter [facility] note* Diagnosis 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 Malignant 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, estrogen receptor positive, unspecified site of breast (HCC) Malignant neoplasm of overlapping sites of left breast in female, estrogen receptor positive (HCC) documented in this encounter [facility] note* Diagnosis Pain- Primary Generalized pain documented in this encounter [facility] note* Diagnosis Pain Generalized pain documented in this encounter [facility] note* Diagnosis Lump of axillary tail of right breast documented in this encounter [facility] note* Diagnosis Total knee replacement status, left- Primary Sprain of lateral collateral ligament of left knee, initial encounter documented in this encounter [facility] note* Diagnosis History of left breast cancer- Primary documented in this encounter [facility] note* Diagnosis Pain due to internal orthopedic prosthetic devices, implants and grafts, initial encounter ([facility])- Primary documented in this encounter [facility] note* Diagnosis Malignant 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, estrogen receptor positive, unspecified site of breast (HCC)- Primary Diarrhea, unspecified type Cancer of breast, intraductal, left documented in this encounter [facility] note* Diagnosis Pain due to internal orthopedic prosthetic devices, implants and grafts, initial encounter ([facility])- Primary documented in this encounter [facility] note* Diagnosis Irritable bowel syndrome with diarrhea- Primary Irritable bowel syndrome Diarrhea, unspecified type documented in this encounter [facility] note* Diagnosis Chronic knee pain after total replacement of left knee joint- Primary documented in this encounter [facility] note* Diagnosis Pain due to total left knee replacement, initial encounter ([facility])- Primary documented in this encounter [facility] note* Diagnosis Chronic knee pain after total replacement of left knee joint documented in this encounter [facility] note* Diagnosis Exocrine pancreatic insufficiency- Primary Other specified disease of pancreas Irritable bowel syndrome with diarrhea Irritable bowel syndrome documented in this encounter [facility] note* Diagnosis Malignant 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, estrogen receptor positive, unspecified site of breast (HCC)- Primary Cancer of breast, intraductal, left Anemia, unspecified type Chemotherapy-induced neuropathy (HCC) Polyneuropathy due to drugs documented in this encounter [facility] note* Diagnosis Pain due to total left knee replacement, initial encounter (HCC)- Primary [facility]* Diagnosis Irritable bowel syndrome with both constipation and diarrhea- Primary Status post total left knee replacement Chronic pain of left knee Pain in joint, lower leg documented [facility]* Diagnosis Pre-op exam- Primary Preoperative examination, unspecified Sick sinus syndrome (HCC) Sinoatrial node dysfunction Cardiac pacemaker in situ 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, unspecified vessel or [...] joint, lower leg documented in this encounter [facility] note* Diagnosis Total knee replacement status, left- Primary Status post revision of total replacement of left knee documented in this encounter [facility] note* Diagnosis Malignant 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, estrogen receptor positive, unspecified site of breast (HCC)- Primary Cancer of breast, intraductal, 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) Major depressive disorder, recurrent episode, mild (HCC) Major depressive disorder, recurrent episode, mild documented [facility]* Diagnosis Iron deficiency anemia secondary to inadequate dietary iron intake documented [facility]* Diagnosis Iron deficiency anemia secondary to inadequate dietary iron intake- Primary documented [facility]* Diagnosis Status post total left knee replacement- Primary Sacroiliitis, not elsewhere classified (HCC) Sacroiliitis, not elsewhere classified documented [facility]* Diagnosis Thunderclap headache- Primary Headache Malignant 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, estrogen receptor positive, unspecified site of breast (HCC) Cancer of breast, intraductal, 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) Major depressive disorder, recurrent episode, mild (HCC) Major depressive disorder, recurrent episode, mild documented in this encounter [facility] note* Diagnosis AD (obstructive sleep apnea)- Primary Obstructive sleep apnea (adult) (pediatric) documented [facility]* Diagnosis Cervicalgia- Primary Difficulty walking Difficulty in walking Vertigo, benign paroxysmal, unspecified laterality documented in this encounter [facility] note* Diagnosis Irritable bowel syndrome with constipation- Primary Irritable bowel syndrome Gastroesophageal reflux disease with esophagitis without hemorrhage History of repair of hiatal hernia documented in this encounter [facility]* Diagnosis Generalized anxiety disorder [facility]* Diagnosis Cancer of breast, intraductal, left- Primary Malignant 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, estrogen receptor positive, unspecified site of breast (HCC) Iron deficiency anemia due to chronic blood loss Iron deficiency anemia secondary to blood loss (chronic) Major depressive disorder, recurrent episode, mild (HCC) Major depressive disorder, recurrent episode, mild documented [facility] this encounter [facility]* Diagnosis Gastroesophageal reflux disease, unspecified whether esophagitis present- Primary Chronic idiopathic constipation Unspecified constipation Hiatal hernia Diaphragmatic hernia without mention of obstruction or gangrene Screening for colorectal cancer Special screening for malignant neoplasms, colon documented [facility] this encounter [facility]* Diagnosis Cancer of breast, intraductal, left- Primary H/O left mastectomy Acquired absence of breast and nipple Lump in chest Swelling, mass, or lump in chest documented in this encounter [facility]* Diagnosis Cancer of breast, intraductal, left- Primary H/O left mastectomy Acquired absence of breast and nipple Malignant 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, estrogen receptor positive, unspecified site of breast (HCC) Iron 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, unspecified vessel or [...] Anemia, unspecified type documented [facility] this encounter [facility]* Diagnosis Preop examination- Primary Preoperative examination, [...] and parasitic disease 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, unspecified vessel or [...] region and thigh documented in this encounter [facility]* Diagnosis Meniere's disease (cochlear hydrops), right- Primary Cervicalgia Balance disorder Meniere disease, right [facility]* Diagnosis Preop examination- Primary Preoperative examination, [...] and parasitic disease 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, unspecified vessel or lesion type Sick sinus syndrome (HCC) Sinoatrial node dysfunction Obstructive sleep apnea Obstructive sleep apnea (adult) (pediatric) Mild intermittent asthma without complication Unspecified asthma Gastroesophageal reflux disease, unspecified whether esophagitis present Unspecified hypothyroidism Anxiety Anxiety state, unspecified Primary hypertension Unspecified essential hypertension Dizziness and giddiness- Primary Other specified hearing loss, unspecified ear Sensorineural hearing loss, bilateral Ear fullness, right Tinnitus, bilateral Unspecified tinnitus Ear pressure, right documented in this encounter [facility]* Diagnosis Preop examination- Primary Preoperative examination, [...] and parasitic disease 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, unspecified vessel or lesion type Sick sinus syndrome (HCC) Sinoatrial node dysfunction Obstructive sleep apnea Obstructive sleep apnea (adult) (pediatric) Mild intermittent asthma without complication Unspecified asthma Gastroesophageal reflux disease, unspecified whether esophagitis present Unspecified hypothyroidism Anxiety Anxiety state, unspecified Primary hypertension Unspecified essential hypertension Irritable bowel syndrome with constipation- Primary Irritable bowel syndrome Gastroesophageal reflux disease without esophagitis Esophageal reflux History of fundoplication Personal history of surgery to other organs documented [facility] this encounter [facility]* Diagnosis Meniere's disease (cochlear hydrops), right- Primary Cervicalgia Balance disorder Meniere disease, right [facility]* Diagnosis Preop examination- Primary Preoperative examination, [...] and parasitic disease 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, unspecified vessel or lesion type Sick sinus syndrome (HCC) Sinoatrial node dysfunction Obstructive sleep apnea Obstructive sleep apnea (adult) (pediatric) Mild intermittent asthma without complication Unspecified asthma Gastroesophageal reflux disease, unspecified whether esophagitis present Unspecified hypothyroidism Anxiety Anxiety state, unspecified Primary hypertension Unspecified essential hypertension Asymmetric SNHL (sensorineural hearing loss)- Primary Sensorineural hearing loss, asymmetrical Dizziness Dizziness and giddiness Subjective tinnitus of both ears Ear pressure, bilateral documented [facility] this [facility]* Diagnosis Preop examination- Primary Preoperative examination, [...] and parasitic disease 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, unspecified vessel or lesion type Sick sinus syndrome (HCC) Sinoatrial node dysfunction Obstructive sleep apnea Obstructive sleep apnea (adult) (pediatric) Mild intermittent asthma without complication Unspecified asthma Gastroesophageal reflux disease, unspecified whether esophagitis present Unspecified hypothyroidism Anxiety Anxiety state, unspecified Primary hypertension Unspecified essential hypertension Imbalance- Primary Abnormality of gait Dizziness and giddiness Vestibular migraine Sensorineural hearing loss (SNHL) of both ears [facility] Diagnosis Spasmodic torticollis- Primary Intractable 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 without status migrainosus (CMS/HCC) documented in this encounter [facility]* Diagnosis Other nonthrombocytopenic purpura (CMS/HCC) Inflamed seborrheic keratosis documented in this encounter [facility]* Diagnosis Meniere's disease (cochlear hydrops), right- Primary Cervicalgia Balance disorder Meniere disease, right documented in this encounter [facility] HealthcareInstructionsNot on filedocumented in this encounterProDun[facility] SystemInstructionsNot on filedocumented in this encounterProDunlap Memorial Hospital SystemReason for referral (narrative)* Diagnostic Procedure Only (Routine) - Pending Review Specialty Diagnoses / Procedures Referred By Melba t Referred To Contact XR IMAGING Diagnoses Pain Procedures XR PELVIS 1V AP RADIOLOGIC EXAMINATION PELVIS 1/2 VIEWS Amada Baltazar PA-C [address] [place] [address] Xr Imaging Referral ID Status Reason Start Date Expiration Date Visits Requested Visits Authorized [id number] Pending Review Auto-Generat ed Referral 02/18/2022 03/19/2023 1 1 * Diagnostic Procedure Only (Routine) - Authorized Specialty Diagnoses / Procedures Referred By Contac t Referred To Contact XR IMAGING Diagnoses Pain Procedures XR KNEE GENERAL 4V AP BOTH/PA BOTH/LAT/MERC LEFT RADIOLOGIC EXAM KNEE COMPLETE 4/MORE VIEWS Amada Baltazar PA-C [address] [place] [address] Xr Imaging Referral ID Status Reason Start Date Expiration Date Visits Requested Visits Authorized [id number] Authorized Auto-Generat ed Referral 02/17/2022 03/19/2023 1 1 [facility] for referral (narrative)* Diagnostic Procedure Only (Routine) - Closed Specialty Diagnoses / Procedures Referred By Contac t Referred To Contact XR IMAGING Diagnoses Pain Procedures XR KNEE GENERAL 4V AP BOTH/PA BOTH/LAT/MERC LEFT RADIOLOGIC EXAM KNEE COMPLETE 4/MORE VIEWS Amada Baltazar PA-C [address] [place] [address] Xr Imaging Referral ID Status Reason Start Date Expiration Date V isits Requested Visits Authorized [id number] Closed Auto-Generate d Referral 02/17/2022 03/19/2023 1 1 [facility] for referral (narrative)* Diagnostic Procedure Only (Routine) - Closed Specialty Diagnoses / Procedures Referred By Contac t Referred To Contact BR IMAGING Diagnoses Lump of axillary tail of right breast Procedures US BREAST LTD RT US BREAST UNI REAL TIME WITH IMAGE LIMITED Winston Wellington PA-C [address] [place] [address] [facility] [address] [place] [address] Referral ID Status Reason Start Date Expiration Date V isits Requested Visits Authorized [id number] Closed Auto-Generate d Referral 09/27/2021 10/27/2022 1 1 [facility] for referral (narrative)* Diagnostic Procedure Only (Routine) - Pending Review Specialty Diagnoses / Procedures Referred By Contac t Referred To Contact XR IMAGING Diagnoses Chronic knee pain after total replacement of left knee joint Procedures XR KNEE POST OP 3V AP/LAT/MERCHANT LEFT RADIOLOGIC EXAMINATION KNEE 3 VIEWS Marlee Salazar [place] [id number] [place] [address] Xr Imaging Referral ID Status Reason Start Date Expiration Date Visits Requested Visits Authorized [id number] Pending Review Auto-Generat ed Referral 09/16/2022 10/15/2023 1 1 [facility] for referral (narrative)* Diagnostic Procedure Only (Routine) - Closed Specialty Diagnoses / Procedures Referred By Contac t Referred To Contact XR IMAGING Diagnoses Chronic knee pain after total replacement of left knee joint Procedures XR KNEE POST OP 3V AP/LAT/MERCHANT LEFT RADIOLOGIC EXAMINATION KNEE 3 [place] [address] [place] [address] Xr Imaging Referral ID Status Reason Start Date Expiration Date V isits Requested Visits Authorized [id number] Closed Auto-Generate d Referral 09/16/2022 10/15/2023 1 1 [facility] for referral (narrative)* Outpatient Procedure (Routine) - Authorized Specialty Diagnoses / Procedures Referred By Contac t Referred To Contact [facility] Diagnoses Screening for colorectal cancer Procedures COLONOSCOPY SCREENING COLONOSCOPY FLX DX W/COLLJ SPEC WHEN PFGabriel Saleem Jr., DO [address] [place] [address] [facility] [address] [place] [address] Referral ID Status Reason Start Date Expiration Date Visits Requested Visits Authorized [id number] Authorized Auto-Generat ed Referral 01/29/2024 01/28/2025 1 1 T [facility] for referral (narrative)* Diagnostic Procedure Only (Routine) - Pending Review Specialty Diagnoses / Procedures Referred By Contac t Referred To Contact [facility] Diagnoses Cancer of breast, intraductal, left H/O left mastectomy Lump in chest Procedures US BREAST LTD LEFT US BREAST UNI REAL TIME WITH IMAGE LIMITED Vaibhav Ovalle MD [address] [place] [address] [address] [place] [address] [facility] [address] [place] [address] Referral ID Status Reason Start Date Expiration Date Visits Requested Visits Authorized [id number] Pending Review Auto-Generat ed Referral 02/09/2024 03/10/2025 1 1 T [facility] for referral (narrative)* Outpatient Procedure (Routine) - Closed Specialty Diagnoses / Procedures Referred By Contac t Referred To Contact [facility] Diagnoses Screening for colorectal cancer Procedures COLONOSCOPY SCREENING COLONOSCOPY FLX DX W/COLLJ SPEC WHEN Gabriel Perrin Jr., [address] [place] [address] [facility] [address] [place] [address] Referral ID Status Reason Start Date Expiration Date V isits Requested Visits Authorized [id number] Closed Auto-Generate d Referral 01/29/2024 01/28/2025 1 1 T [facility] for referral (narrative)* Diagnostic Procedure Only (Routine) - Closed Specialty Diagnoses / Procedures Referred By Contac t Referred To Contact XR IMAGING Diagnoses Pain Procedures XR KNEE GENERAL 4V AP BOTH/PA BOTH/LAT/MERC LEFT RADIOLOGIC EXAM KNEE COMPLETE 4/[place] [address] [place] [address] [place] [address] Referral ID Status Reason Start Date Expiration Date V isits Requested Visits Authorized [id number] Closed Auto-Generate d Referral 03/15/2024 04/14/2025 1 1 [facility] for referral (narrative)* Diagnostic Procedure Only (Routine) - Closed Specialty Diagnoses / Procedures Referred By Contac t Referred To Contact XR IMAGING Diagnoses Status post total left knee replacement Chronic pain of left knee Anemia, unspecified type Procedures XR KNEE POST OP 3V AP/LAT/MERCHANT LEFT RADIOLOGIC EXAMINATION KNEE 3 VIEWS Reddy Michael PA-C [address] [place] [address] [place] [address] Referral ID Status Reason Start Date Expiration Date V isits Requested Visits Authorized [id number] Closed Auto-Generate d Referral 12/01/2022 12/31/2023 1 1 [facility] for referral (narrative)* Diagnostic Procedure Only (Routine) - Closed Specialty Diagnoses / Procedures Referred By Contac t Referred To Contact XR IMAGING Diagnoses Right hip pain Procedures XR HIP GENERAL 3V PELV/AP/LAT RIGHT RADEX HIP UNILATERAL WITH PELVIS 2-3 VIEWS Reddy Michael PA-C [address] [place] [address] [place] [address] Referral ID Status Reason Start Date Expiration Date V isits Requested Visits Authorized [id number] Closed Auto-Generate d Referral 02/13/2023 03/13/2024 1 1 * Diagnostic Procedure Only (Routine) - Closed Specialty Diagnoses / Procedures Referred By Contac t Referred To Contact XR IMAGING Diagnoses Status post total left knee replacement Chronic pain of left knee Anemia, unspecified type Procedures XR KNEE POST OP 3V AP/LAT/MERCHANT LEFT RADIOLOGIC EXAMINATION KNEE 3 VIEWS Reddy Michael PA-C [address] [place] [address] Xr Imaging [place] [address] Referral ID Status Reason Start Date Expiration Date V isits Requested Visits Authorized [id number] Closed Auto-Generate d Referral 12/01/2022 12/31/2023 1 1 [facility] for visit Narrative* Diagnostic Procedure Only (Routine) - Closed Specialty Diagnoses / Procedures Referred By Contac t Referred To Contact [facility] Diagnoses Pain due to internal orthopedic prosthetic devices, implants and grafts, initial encounter ([facility]) Procedures NM BONE 3 PHASE BONE &/JOINT IMAGING 3 PHASE STUDY Amada Baltazar PA-C [address] [place] [place] [id number] [facility] [address] [phone] Referral ID Status Reason Start Date Expiration Date V isits Requested Visits Authorized [id number] Closed Auto-Generate d Referral 05/29/2022 06/28/2023 1 1 [facility] for visit Narrative* Outpatient Procedure (Routine) - Closed Specialty Diagnoses / Procedures Referred By Contac t Referred To Contact [facility] Diagnoses Screening for colorectal cancer Procedures COLONOSCOPY SCREENING COLONOSCOPY FLX DX W/COLLJ SPEC WHEN PFRMD Gabriel Coppola Jr., DO [address] [place] [address] [facility] [address] [phone] Referral ID Status Reason Start Date Expiration Date V isits Requested Visits Authorized [id number] Closed Auto-Generate d Referral 01/29/2024 01/28/2025 1 1 [facility] for visit Narrative* Diagnostic Procedure Only (Routine) - Closed Specialty Diagnoses / Procedures Referred By Contac t Referred To Contact XR IMAGING Diagnoses Pain Procedures XR KNEE GENERAL 4V AP BOTH/PA BOTH/LAT/MERC LEFT RADIOLOGIC EXAM KNEE COMPLETE 4/[place] [address] [place] [address] Xr Imaging [id number] Referral ID Status Reason Start Date Expiration Date V isits Requested Visits Authorized [id number] Closed Auto-Generate d Referral 03/15/2024 04/14/2025 1 1 [facility] for visit Narrative* Diagnostic Procedure Only (Routine) - Closed Specialty Diagnoses / Procedures Referred By Contac t Referred To Contact XR IMAGING Diagnoses Status post total left knee replacement Chronic pain of left knee Anemia, unspecified type Procedures XR KNEE POST OP 3V AP/LAT/MERCHANT LEFT RADIOLOGIC EXAMINATION KNEE 3 VIEWS Reddy Michael PA-C [address] [place] [phone] Xr Imaging [id number] Referral ID Status Reason Start Date Expiration Date V isits Requested Visits Authorized [id number] Closed Auto-Generate d Referral 12/01/2022 12/31/2023 1 1 [facility] for visit Narrative* Diagnostic Procedure Only (Routine) - Closed Specialty Diagnoses / Procedures Referred By Contac t Referred To Contact [facility] Diagnoses Malignant neoplasm of breast in female, estrogen receptor positive, unspecified laterality, unspecified site of breast (HCC) Malignant neoplasm of left female breast, unspecified estrogen receptor status, unspecified site of breast (HCC) Procedures US AXILLA ONLY RT US EXTREMITY NON-VASC REAL-TIME IMG LMTD Trinidad Bruce, VAUGHN.[address] [place] [address] [facility] [address] [place] [address] Referral ID Status Reason Start Date Expiration Date V isits Requested Visits Authorized [id number] Closed Auto-Generate d Referral 07/22/2021 08/21/2022 1 1 [facility] for visit Narrative* Rehabilitation - Outpatient (Routine) - Authorized Specialty Diagnoses / Procedures Referred By Contac t Referred To Contact Physical Therapy Diagnoses Meniere disease, right Procedures LA OFFICE/OUTPATIENT NEW HIGH MDM 60 MINUTES Yajaira Gonzalez MD [address] [place] [address] Phone: tel: fax: Cristian Malcolm, PT [address] [place] [address] Phone: tel: fax: Referral ID Status Reason Start Date Expiration Date Visits Requested Visits Authorized [id number] Authorized Specialty Services Required 04/25/2024 10/22/2024 25 25 [facility] Summary Purpose Family History No Family History [...] Documents on File Type Date Recorded Patient Patient Admitting Clerk Expl anation Advance Directive(s) Advance Directive(s) 04/22/2021 7:54 AM Sc anned in on 04/22/21 Advance Directive(s) 04/22/2021 7:49 AM Advance Directive(s) 04/18/2021 9:09 AM Av on Advance Directive(s) 03/13/2021 8:33 AM Documents on File Type Date Recorded Patient Patient Admitting Clerk Expl anation Advance Directive(s) Advance Directive(s) 04/22/2021 7:54 AM Sc anned in on 04/22/21 Advance Directive(s) 04/22/2021 7:49 AM Advance Directive(s) 04/18/2021 9:09 AM Av on Advance Directive(s) 03/13/2021 8:33 AM Documents on File Type Date Recorded Patient Patient Admitting Clerk Expl anation Advance Directive(s) 04/22/2021 7:49 AM Documents on File Type Date Recorded Patient Patient Admitting Clerk Expl anation Advance Directive(s) 04/22/2021 7:49 AM Documents on File Type Date Recorded Patient Patient Admitting Clerk Expl anation Durable Power of Arch Support Maker 04/17/2020 7:10 AM Healthcare POA Latest Code Status on File Code Status Date Activated Date Inactivated Comments Full Code 04/17/2020 8:08 AM 04/18/2020 6:13 PM Date Activated Date Inactivated Comments 04/17/2020 8:08 AM 04/18/2020 6:13 PM Chief Complaint and Reason for Visit Chief Complaint M25.562 Chief Complaint M25.562 Knee Pain Chief Complaint M25.562 Knee Pain g89.29 m51.36 m25.562 Reason for Referral Specialty Diagnoses / Procedures Referred By Contac t Referred To Contact Diagnoses Chemotherapy-induced neuropathy (HCC) Procedures CONSULT FOR ACUPUNCTURE OFFICE/OUTPATIENT [facility] 60-74 MINUTES Vaibhav Ovalle MD [address] [place] [address] [address] [place] [address] Referral ID Status Reason Start Date Expiration Date Visits Requested Visits Authorized [id number] Pending Review PCP Requested Referral 12/13/2021 12/13/2022 1 1 Specialty Diagnoses / Procedures Referred By Contac t Referred To Contact Gastroenterology Diagnoses Diarrhea, unspecified type Procedures CONSULT TO GASTROENTEROLOGY OFFICE/OUTPATIENT [facility] 60-74 MINUTES Vaibhav Ovalle MD [address] [place] [address] [address] [place] [address] Referral ID Status Reason Start Date Expiration Date Visits Requested Visits Authorized [id number] Authorized PCP Requested Referral 2 07/18/2023 1 1 Specialty Diagnoses / Procedures Referred By Contac t Referred To Contact [facility] Diagnoses Total knee replacement status, left Status post revision of total replacement of left knee Procedures CONSULT TO PHYSICAL THERAPY PHYSICAL THERAPY EVALUATION HIGH COMPLEX 45 MINS Reddy Michael PA-C [address] [place] [address] [facility] [address] [address] Referral ID Status Reason Start Date Expiration Date Visits Requested Visits Authorized [id number] Authorized PCP Requested Referral Auto-Generate d Referral 02/09/2023 02/09/2024 99 99 Specialty Diagnoses / Procedures Referred By Contac t Referred To Contact MR IMAGING Diagnoses Thunderclap headache Procedures MRI BRAIN WO/W IVCON MRI BRAIN BRAIN STEM W/O W/CONTRAST MATERIAL Vaibhav Ovalle MD [address] [place] [address] Mr Imaging [id number] Referral ID Status Reason Start Date Expiration Date Visits Requested Visits Authorized [id number] Pending Review Auto-Generat ed Referral 05/29/2023 06/27/2024 [...] minutes after infusion is complete. EXP: 03/04/231999 Total Volume= EXP: (8 HR) New Bag/Syringe/Bottle 03/04/2023 2:17 PM EDT 1,000 mg Additional Source Comments INFORMATION SOURCE (unrecogn ized section and content) DATE CREATED AUTHOR 10/11/2018 [facility] DATE CREATED AUTHOR AUTHOR'S ORGANIZ ATION 05/16/2021 [facility] DATE CREATED AUTHOR AUTHOR'S ORGANIZ ATION 10/22/2021 [facility] DATE CREATED AUTHOR AUTHOR'S ORGANIZ ATION 05/14/2022 [facility]ical Specialist DATE CREATED AUTHOR AUTHOR'S ORGANIZ ATION 03/10/2023 [facility] DATE CREATED AUTHOR AUTHOR'S ORGANIZ ATION 09/17/2023 [facility] DATE CREATED AUTHOR AUTHOR'S ORGANIZ ATION 04/05/2024 [facility] DATE CREATED AUTHOR AUTHOR'S ORGANIZ ATION 05/25/2024 [facility] DATE CREATED AUTHOR AUTHOR'S ORGANIZ ATION 07/09/2024 [facility] DATE CREATED AUTHOR AUTHOR'S ORGANIZ ATION 07/16/2024 [facility] DATE CREATED AUTHOR AUTHOR'S ORGANIZ ATION 07/17/2024 [facility] DATE CREATED AUTHOR AUTHOR'S ORGANIZ ATION 07/22/2024 [facility] dical Specialists EPIC Goals (unrecognized section and content) Goals may [...] or prosecute any alcohol or drug abuse patient.[facility] HospitalIn the event this information is protected by the Federal Confidentiality of Alcohol and Drug Abuse Patient Records regulations: The Federal rules restrict any use of the information to criminally investigate or prosecute any alcohol or drug abuse patient.[facility] HospitalIn the event this information is protected by the Federal Confidentiality of Alcohol and Drug Abuse Patient Records regulations: The Federal rules restrict any use of the information to criminally investigate or prosecute any alcohol or drug abuse patient.[facility] HospitalIn the event this information is protected by the Federal Confidentiality of Alcohol and Drug Abuse Patient Records regulations: The Federal rules restrict any use of the information to criminally investigate or prosecute any alcohol or drug abuse patient.[facility] HospitalIn the event this information is protected by the Federal Confidentiality of Alcohol and Drug Abuse Patient Records regulations: The Federal rules restrict any use of the information to criminally investigate or prosecute any alcohol or drug abuse patient.[facility] HospitalIn the event this information is protected by the Federal Confidentiality of Alcohol and Drug Abuse Patient Records regulations: The Federal rules restrict any use of the information to criminally investigate or prosecute any alcohol or drug abuse patient.[facility] HospitalIn the event this information is protected by the Federal Confidentiality of Alcohol and Drug Abuse Patient Records regulations: The Federal rules restrict any use of the information to criminally investigate or prosecute any alcohol or drug abuse patient.[facility] HospitalIn the event this information is protected by the Federal Confidentiality of Alcohol and Drug Abuse Patient Records regulations: The Federal rules restrict any use of the information to criminally investigate or prosecute any alcohol or drug abuse patient.[facility] HospitalIn the event this information is protected by the Federal Confidentiality of Alcohol and Drug Abuse Patient Records regulations: The Federal rules restrict any use of the information to criminally investigate or prosecute any alcohol or drug abuse patient.[facility] HospitalIn the event this information is protected by the Federal Confidentiality of Alcohol and Drug Abuse Patient Records regulations: The Federal rules restrict any use of the information to criminally investigate or prosecute any alcohol or drug abuse patient.[facility] HospitalIn the event this information is protected by the Federal Confidentiality of Alcohol and Drug Abuse Patient Records regulations: The Federal rules restrict any use of the information to criminally investigate or prosecute any alcohol or drug abuse patient.[facility] HospitalIn the event this information is protected by the Federal Confidentiality of Alcohol and Drug Abuse Patient Records regulations: The Federal rules restrict any use of the information to criminally investigate or prosecute any alcohol or drug abuse patient.[facility] HospitalIn the event this information is protected by the Federal Confidentiality of Alcohol and Drug Abuse Patient Records regulations: The Federal rules restrict any use of the information to criminally investigate or prosecute any alcohol or drug abuse patient.[facility] HospitalIn the event this information is protected by the Federal Confidentiality of Alcohol and Drug Abuse Patient Records regulations: The Federal rules restrict any use of the information to criminally investigate or prosecute any alcohol or drug abuse patient.[facility] HospitalIn the event this information is protected by the Federal Confidentiality of Alcohol and Drug Abuse Patient Records regulations: The Federal rules restrict any use of the information to criminally investigate or prosecute any alcohol or drug abuse patient.[facility] HospitalIn the event this information is protected by the Federal Confidentiality of Alcohol and Drug Abuse Patient Records regulations: The Federal rules restrict any use of the information to criminally investigate or prosecute any alcohol or drug abuse patient.[facility] HospitalIn the event this information is protected by the Federal Confidentiality of Alcohol and Drug Abuse Patient Records regulations: The Federal rules restrict any use of the information to criminally investigate or prosecute any alcohol or drug abuse patient.[facility] HospitalIn the event this information is protected by the Federal Confidentiality of Alcohol and Drug Abuse Patient Records regulations: The Federal rules restrict any use of the information to criminally investigate or prosecute any alcohol or drug abuse patient.[facility] HospitalIn the event this information is protected by the Federal Confidentiality of Alcohol and Drug Abuse Patient Records regulations: The Federal rules restrict any use of the information to criminally investigate or prosecute any alcohol or drug abuse patient.[facility] HospitalIn the event this information is protected by the Federal Confidentiality of Alcohol and Drug Abuse Patient Records regulations: The Federal rules restrict any use of the information to criminally investigate or prosecute any alcohol or drug abuse patient.[facility] HospitalIn the event this information is protected by the Federal Confidentiality of Alcohol and Drug Abuse Patient Records regulations: The Federal rules restrict any use of the information to criminally investigate or prosecute any alcohol or drug abuse patient.[facility] HospitalIn the event this information is protected by the Federal Confidentiality of Alcohol and Drug Abuse Patient Records regulations: The Federal rules restrict any use of the information to criminally investigate or prosecute any alcohol or drug abuse patient.[facility] HospitalIn the event this information is protected by the Federal Confidentiality of Alcohol and Drug Abuse Patient Records regulations: The Federal rules restrict any use of the information to criminally investigate or prosecute any alcohol or drug abuse patient.[facility] HospitalIn the event this information is protected by the Federal Confidentiality of Alcohol and Drug Abuse Patient Records regulations: The Federal rules restrict any use of the information to criminally investigate or prosecute any alcohol or drug abuse patient.[facility] HospitalIn the event this information is protected by the Federal Confidentiality of Alcohol and Drug Abuse Patient Records regulations: The Federal rules restrict any use of the information to criminally investigate or prosecute any alcohol or drug abuse patient.[facility] HospitalIn the event this information is protected by the Federal Confidentiality of Alcohol and Drug Abuse Patient Records regulations: The Federal rules restrict any use of the information to criminally investigate or prosecute any alcohol or drug abuse patient.[facility] HospitalIn the event this information is protected by the Federal Confidentiality of Alcohol and Drug Abuse Patient Records regulations: The Federal rules restrict any use of the information to criminally investigate or prosecute any alcohol or drug abuse patient.[facility] HospitalIn the event this information is protected by the Federal Confidentiality of Alcohol and Drug Abuse Patient Records regulations: The Federal rules restrict any use of the information to criminally investigate or prosecute any alcohol or drug abuse patient.[facility] HospitalIn the event this information is protected by the Federal Confidentiality of Alcohol and Drug Abuse Patient Records regulations: The Federal rules restrict any use of the information to criminally investigate or prosecute any alcohol or drug abuse patient.[facility] HospitalIn the event this information is protected by the Federal Confidentiality of Alcohol and Drug Abuse Patient Records regulations: The Federal rules restrict any use of the information to criminally investigate or prosecute any alcohol or drug abuse patient.[facility] HospitalIn the event this information is protected by the Federal Confidentiality of Alcohol and Drug Abuse Patient Records regulations: The Federal rules restrict any use of the information to criminally investigate or prosecute any alcohol or drug abuse patient.[facility] HospitalIn the event this information is protected by the Federal Confidentiality of Alcohol and Drug Abuse Patient Records regulations: The Federal rules restrict any use of the information to criminally investigate or prosecute any alcohol or drug abuse patient.[facility] HospitalIn the event this information is protected by the Federal Confidentiality of Alcohol and Drug Abuse Patient Records regulations: The Federal rules restrict any use of the information to criminally investigate or prosecute any alcohol or drug abuse patient.[facility] HospitalIn the event this information is protected by the Federal Confidentiality of Alcohol and Drug Abuse Patient Records regulations: The Federal rules restrict any use of the information to criminally investigate or prosecute any alcohol or drug abuse patient.[facility] HospitalIn the event this information is protected by the Federal Confidentiality of Alcohol and Drug Abuse Patient Records regulations: The Federal rules restrict any use of the information to criminally investigate or prosecute any alcohol or drug abuse patient.[facility] HospitalIn the event this information is protected by the Federal Confidentiality of Alcohol and Drug Abuse Patient Records regulations: The Federal rules restrict any use of the information to criminally investigate or prosecute any alcohol or drug abuse patient.[facility] HospitalIn the event this information is protected by the Federal Confidentiality of Alcohol and Drug Abuse Patient Records regulations: The Federal rules restrict any use of the information to criminally investigate or prosecute any alcohol or drug abuse patient.[facility] HospitalIn the event this information is protected by the Federal Confidentiality of Alcohol and Drug Abuse Patient Records regulations: The Federal rules restrict any use of the information to criminally investigate or prosecute any alcohol or drug abuse patient.[facility] the event this information is protected by the Federal Confidentiality of Alcohol and Drug Abuse Patient Records regulations: The Federal rules restrict any use of the information to criminally investigate or prosecute any alcohol or drug abuse patient.[facility] HospitalIn the event this information is protected by the Federal Confidentiality of Alcohol and Drug Abuse Patient Records regulations: The Federal rules restrict any use of the information to criminally investigate or prosecute any alcohol or drug abuse patient.[facility] HospitalIn the event this information is protected by the Federal Confidentiality of Alcohol and Drug Abuse Patient Records regulations: The Federal rules restrict any use of the information to criminally investigate or prosecute any alcohol or drug abuse patient.[facility] the event this information is protected by the Federal Confidentiality of Alcohol and Drug Abuse Patient Records regulations: The Federal rules restrict any use of the information to criminally investigate or prosecute any alcohol or drug abuse patient.[facility] HospitalIn the event this information is protected by the Federal Confidentiality of Alcohol and Drug Abuse Patient Records regulations: The Federal rules restrict any use of the information to criminally investigate or prosecute any alcohol or drug abuse patient.[facility] HospitalIn the event this information is protected by the Federal Confidentiality of Alcohol and Drug Abuse Patient Records regulations: The Federal rules restrict any use of the information to criminally investigate or prosecute any alcohol or drug abuse patient.[facility] HospitalIn the event this information is protected by the Federal Confidentiality of Alcohol and Drug Abuse Patient Records regulations: The Federal rules restrict any use of the information to criminally investigate or prosecute any alcohol or drug abuse patient.[facility] HospitalIn the event this information is protected by the Federal Confidentiality of Alcohol and Drug Abuse Patient Records regulations: The Federal rules restrict any use of the information to criminally investigate or prosecute any alcohol or drug abuse patient.[facility] HospitalIn the event this information is protected by the Federal Confidentiality of Alcohol and Drug Abuse Patient Records regulations: The Federal rules restrict any use of the information to criminally investigate or prosecute any alcohol or drug abuse patient.[facility] HospitalIn the event this information is protected by the Federal Confidentiality of Alcohol and Drug Abuse Patient Records regulations: The Federal rules restrict any use of the information to criminally investigate or prosecute any alcohol or drug abuse patient.[facility] HospitalIn the event this information is protected by the Federal Confidentiality of Alcohol and Drug Abuse Patient Records regulations: The Federal rules restrict any use of the information to criminally investigate or prosecute any alcohol or drug abuse patient.[facility] HospitalIn the event this information is protected by the Federal Confidentiality of Alcohol and Drug Abuse Patient Records regulations: The Federal rules restrict any use of the information to criminally investigate or prosecute any alcohol or drug abuse patient.[facility] HospitalIn the event this information is protected by the Federal Confidentiality of Alcohol and Drug Abuse Patient Records regulations: The Federal rules restrict any use of the information to criminally investigate or prosecute any alcohol or drug abuse patient.[facility] HospitalIn the event this information is protected by the Federal Confidentiality of Alcohol and Drug Abuse Patient Records regulations: The Federal rules restrict any use of the information to criminally investigate or prosecute any alcohol or drug abuse patient.[facility] HospitalIn the event this information is protected by the Federal Confidentiality of Alcohol and Drug Abuse Patient Records regulations: The Federal rules restrict any use of the information to criminally investigate or prosecute any alcohol or drug abuse patient.[facility] HospitalIn the event this information is protected by the Federal Confidentiality of Alcohol and Drug Abuse Patient Records regulations: The Federal rules restrict any use of the information to criminally investigate or prosecute any alcohol or drug abuse patient.[facility] HospitalIn the event this information is protected by the Federal Confidentiality of Alcohol and Drug Abuse Patient Records regulations: The Federal rules restrict any use of the information to criminally investigate or prosecute any alcohol or drug abuse patient.[facility] HospitalIn the event this information is protected by the Federal Confidentiality of Alcohol and Drug Abuse Patient Records regulations: The Federal rules restrict any use of the information to criminally investigate or prosecute any alcohol or drug abuse patient.[facility] HospitalIn the event this information is protected by the Federal Confidentiality of Alcohol and Drug Abuse Patient Records regulations: The Federal rules restrict any use of the information to criminally investigate or prosecute any alcohol or drug abuse patient.[facility] HospitalIn the event this information is protected by the Federal Confidentiality of Alcohol and Drug Abuse Patient Records regulations: The Federal rules restrict any use of the information to criminally investigate or prosecute any alcohol or drug abuse patient.[facility] Reason for Visit (unrecogniz ed section and [...] KNEE COMPLETE 4/MORE VIEWS Amada Baltazar PA-C [address] [place] [address] Xr Imaging Referral ID Status Reason Start Date Expiration Date V isits Requested Visits Authorized [id number] Closed Auto-Generate d Referral 02/17/2022 03/19/2023 1 1 Reason Comments Radiology US Specialty Diagnoses / Procedures Referred By Contac t Referred To Contact BR IMAGING Diagnoses Lump of axillary tail of right breast Procedures US BREAST LTD RT US BREAST UNI REAL TIME WITH IMAGE LIMITED Winston Wellington PA-C [address] [place] [address] Br Imaging [address] [place] [address] Referral ID Status Reason Start Date Expiration Date V isits Requested Visits Authorized [id number] Closed Auto-Generate d Referral 09/27/2021 10/27/2022 1 [...] HIGH MDM 60-74 MINUTES Vaibhav Ovalle MD [address] [place] [address] Referral ID Status Reason Start Date Expiration Date V isits Requested Visits Authorized [id number] Closed PCP Requested Referral 07/18/2022 07/18/2023 1 [...] EXAMINATION KNEE 3 [place] [address] [place] [address] Xr Imaging Referral ID Status Reason Start Date Expiration Date V isits Requested Visits Authorized [id number] Closed Auto-Generate d Referral 09/16/2022 10/15/2023 1 [...] to inadequate dietary iron intake Trinidad Bruce, [employer] [address] [place] [address] Salazar Treat Desiree [address] [place] [address] Referral ID Status Reason Start Date Expiration Date V isits Requested Visits Authorized [id number] Authorized 02/26/2023 05/27/2023 99 99 Reason Comments Breast Cancer Reason Comments Results Reason Comments Sleep Apnea DME: [facility] not used machine since 05/2023 due to Vertigo Specialty Diagnoses / Procedures Referred By Contac t Referred To Contact Physical Therapy Diagnoses Dizziness and giddiness Procedures LA PHYSICAL THERAPY EVALUATION LOW COMPLEX 20 MINS Esme Oliva NP [address] [place] [address] Amada Bruce, PT [address] [place] [address] Referral ID Status Reason Start Date Expiration Date Visits Requested Visits Authorized [id number] Authorized Consult and Treat 09/18/2023 03/16/2024 23 [...] KNEE COMPLETE 4/[place] [address] [place] [address] [place] [address] Referral ID Status Reason Start Date Expiration Date V isits Requested Visits Authorized [id number] Closed Auto-Generate d Referral 03/15/2024 04/14/2025 1 1 Reason Comments Radio Gen RMP Specialty Diagnoses / Procedures Referred By Contac t Referred To Contact XR IMAGING Diagnoses Status post total left knee replacement Chronic pain of left knee Anemia, unspecified type Procedures XR KNEE POST OP 3V AP/LAT/MERCHANT LEFT RADIOLOGIC EXAMINATION KNEE 3 VIEWS Reddy Michael PA-C [address] [place] [address] [place] [address] Referral ID Status Reason Start Date Expiration Date V isits Requested Visits Authorized [id number] Closed Auto-Generate d Referral 12/01/2022 12/31/2023 1 1 Specialty Diagnoses / Procedures Referred By Contac t Referred To Contact Physical Therapy Diagnoses Meniere disease, right Procedures LA OFFICE/OUTPATIENT NEW HIGH MDM 60 MINUTES Yajaira Gonzalez MD [address] [place] [address] Cristian Malcolm, PT [address] [place] [address] Referral ID Status Reason Start Date Expiration Date Visits Requested Visits Authorized [id number] Authorized Specialty Services Required 04/25/2024 10/22/2024 25 25 Specialty Diagnoses / Procedures Referred By Contac t Referred To Contact Diagnoses Other specified hearing loss, unspecified ear Procedures HEARING TEST/AUDIOGRAM COMPRE AUDIOMETRY THRESHOLD EVAL Albert Hernandez MD [address] [id number] [facility] [address] [place] [address] Referral ID Status Reason Start Date Expiration Date V isits Requested Visits Authorized [id number] Closed Auto-Generate d Referral 05/11/2024 05/12/2025 1 1 Reason Comments F/U 3 Month Diarrhea Reason Comments Ear Problem New consult Elizabeth Gonzalez MD. C/o 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, ear ache in rt ear in April (ear infection), dizziness, loss of balance, ringing, denies drainage. Audio completed 06/22/24, Battery testing 06/22/24 Reason Comments Botulinum Toxin Injection Reason Comments Follow-up Rash Care Teams (unrecognized sec tion and content) Day Care Worker Relationship Specialty Start Date End Date Yajaira Gonzalez MD [address] [place] [address] PCP - General 11/13/06 Mackenzie Garzon(Historical), PA Referring 03/13/20 Suhail, Ramirez Thurston [address] [address] Cardiology 03/19/21 Vilma Sandoval MD [address] [place] [address] Pulmonary Disease 03/19/21 Day Care Worker Relationship Specialty Start Date End Date Yajaira Gonzalez MD [address] [facility] [place] [address] PCP - General 11/13/06 Mackenzie Garzon(Historical), PA Referring 03/13/20 SuhailRamirez mondragon [address] [place] [address] Cardiology 03/19/21 Vilma Sandoval MD [address] [place] [address] Pulmonary Disease 03/19/21 Day Care Worker Relationship Specialty Start Date End Date Yajaira Gonzalez MD [address] [place] [address] PCP - General 11/13/06 Mackenzie Garzon(Historical), PA Referring 03/13/20 SuhailRamirez mondragon [address] [place] [address] Cardiology 03/19/21 Vilma Sandoval MD [address] [place] [address] Pulmonary Disease 03/19/21 Day Care Worker Relationship Specialty Start Date End Date Yajaira Gonzalez MD [address] [place] [address] PCP - General 11/13/06 Mackenzie Garzon(Historical), PA Referring 03/13/20 Suhail, Ramirez Bertrand [address] [place] [address] Cardiology 03/19/21 Vilma Sandoval MD [address] [place] [address] Pulmonary Disease 03/19/21 Day Care Worker Relationship Specialty Start Date End Date Yajaira Gonzalez MD [address] [place] [address] PCP - General 11/13/06 Mackenzie Garzon(Historical), PA Referring 03/13/20 SuhailRamirez mondragon [address] [place] [address] Cardiology 03/19/21 Vilma Sandoval MD [address] [place] [address] Pulmonary Disease 03/19/21 Day Care Worker Relationship Specialty Start Date End Date Yajaira Gonzalez MD [address] [place] [address] PCP - General 11/13/06 Mackenzie Garzon(Historical), PA Referring 03/13/20 SuhailRamirez mondragon [address] [place] [address] Cardiology 03/19/21 Vilma Sandoval MD [address] [place] [address] Pulmonary Disease 03/19/21 Day Care Worker Relationship Specialty Start Date End Date Yajaira Gonzalez MD [address] [place] [address] PCP - General 11/13/06 Mackenzie Garzon(Historical), PA Referring 03/13/20 SuhailRamirez mondragon [address] [place] [address] Cardiology 03/19/21 Vilma Sandoval MD [address] [place] [address] Pulmonary Disease 03/19/21 Day Care Worker Relationship Specialty Start Date End Date Yajaira Gonzalez MD [address] [facility] [place] [address] PCP - General 11/13/06 Mackenzie Garzon(Historical), PA Referring 03/13/20 Suhail, Ramirez Bertrand [address] [place] [address] Cardiology 03/19/21 Vilma Sandoval MD [address] [place] [address] Pulmonary Disease 03/19/21 Day Care Worker Relationship Specialty Start Date End Date Yajaira Gonzalez MD [address] [place] [address] PCP - General 11/13/06 Mackenzie Garzon(Historical), PA Referring 03/13/20 Su[address]ailRamirez [address] [place] [address] Cardiology 03/19/21 Vilma Sandoval MD [address] [place] [address] Pulmonary Disease 03/19/21 Day Care Worker Relationship Specialty Start Date End Date Yajaira Gonzalez MD [address] [place] [address] PCP - General 11/13/06 Mackenzie Garzon(Historical), PA Referring 03/13/20 SuhailRamirez [address] [place] [address] Cardiology 03/19/21 Vilma Sandoval MD [address] [place] [address] Pulmonary Disease 03/19/21 Day Care Worker Relationship Specialty Start Date End Date Yajaira Gonzalez MD [address] [facility] [place] [address] PCP - General 11/13/06 Mackenzie Garzon(Historical), PA [address] [facility] [place] [address] Referring 03/13/20 SuhailRamirez mondragon [address] [place] [address] Cardiology 03/19/21 Vilma Sandoval MD [address] [place] [address] Pulmonary Disease 03/19/21 Day Care Worker Relationship Specialty Start Date End Date Yajaira Gonzalez MD [address] [facility] [place] [address] PCP - General 11/13/06 Mackenzie Garzon(Historical), PA [address] [facility] [place] [address] Referring 03/13/20 Suhail Ramirez Thurston [address] [place] [address] Cardiology 03/19/21 Vlima Sandoval MD [address] [place] [address] Pulmonary Disease 03/19/21 Day Care Worker Relationship Specialty Start Date End Date Yajaira Gonzalez MD [address] [facility] [place] [address] PCP - General 11/13/06 Mackenzie Garzon(Historical), PA [address] [facility] [place] [address] Referring 03/13/20 SuhailRamirez mondragon [address] [place] [address] Cardiology 03/19/21 Vilma Sandoval MD [address] [place] [address] Pulmonary Disease 03/19/21 Day Care Worker Relationship Specialty Start Date End Date Yajaira Gonzalez MD [address] [facility] [place] [address] PCP - General 11/13/06 Mackenzie Garzon(Historical), PA [address] [place] [address] Referring 03/13/20 SuhailRamirez mondragon [address] [place] [address] Cardiology 03/19/21 Vilma Sandoval MD [address] [place] [address] Pulmonary Disease 03/19/21 Day Care Worker Relationship Specialty Start Date End Date Yajaira Gonzalez MD [facility] [place] [address] PCP - General 11/13/06 Mackenzie Garzon(Historical), PA [address] [place] [address] Referring 03/13/20 SuhailRamirez mondragon [address] [place] [address] Cardiology 03/19/21 Vilma Sandoval MD [address] [place] [address] Pulmonary Disease 03/19/21 Day Care Worker Relationship Specialty Start Date End Date Yajaira Gonzalez MD [address] [place] [address] PCP - General 11/13/06 Mackenzie Garzon(Historical), PA [address] [place] [address] Referring 03/13/20 SuhailRamirez mondragon [address] [place] [address] Cardiology 03/19/21 Vilma Sandoval MD [address] [place] [address] Pulmonary Disease 03/19/21 Day Care Worker Relationship Specialty Start Date End Date Yajaira Gonzalez MD [address] [facility] [place] [address] PCP - General 11/13/06 Mackenzie Garzon(Historical), PA [address] [place] [address] Referring 03/13/20 Ramirez Jang [address] [place] [address] Cardiology 03/19/21 Vilma Sandoval MD [address] [place] [address] Pulmonary Disease 03/19/21 Day Care Worker Relationship Specialty Start Date End Date Yajaira Gonzalez MD [address] [facility] [place] [address] PCP - General 11/13/06 Mackenzie Garzon(Historical), PA [address] [place] [address] Referring 03/13/20 Ramirez Jang [address] [place] [address] Cardiology 03/19/21 Vilma Sandoval MD [address] [place] [address] Pulmonary Disease 03/19/21 Day Care Worker Relationship Specialty Start Date End Date Yajaira Gonzalez MD [address] [place] [address] PCP - General 11/13/06 Mackenzie Garzon(Historical), PA [address] [place] [address] Referring 03/13/20 SuhailRamirez mondragon [address] [place] [address] Cardiology 03/19/21 Vilma Sandoval MD [address] [place] [address] Pulmonary Disease 03/19/21 Day Care Worker Relationship Specialty Start Date End Date Yajaira Gonzalez MD [address] [place] [address] PCP - General 11/13/06 Mackenzie Garzon(Historical), PA [address] [place] [address] Referring 03/13/20 Ramirez Jang [address] [place] [address] Cardiology 03/19/21 Vilma Sandoval MD [address] [place] [address] Pulmonary Disease 03/19/21 Day Care Worker Relationship Specialty Start Date End Date Yajaira Gonzalez MD [address] [place] [address] PCP - General 11/13/06 Mackenzie Garzon(Historical), PA [address] [place] [address] Referring 03/13/20 Suhail, Ramirez Thurston [address] [place] [address] Cardiology 03/19/21 Vilma Sandoval MD [address] [place] [address] Pulmonary Disease 03/19/21 Day Care Worker Relationship Specialty Start Date End Date Yajaira Gonzalez MD [address] [place] [address] PCP - General 11/13/06 Mackenzie Garzon(Historical), PA [address] [facility] [address] Referring 03/13/20 SuhailRamirez mondragon [address] [place] [address] Cardiology 03/19/21 Vilma Sandoval MD [address] [place] [address] Pulmonary Disease 03/19/21 Day Care Worker Relationship Specialty Start Date End Date Yajaira Gonzalez MD [address] [place] [address] PCP - General 11/13/06 Mackenzie Garzon(Historical), PA [address] [place] [address] Referring 03/13/20 Ramirez Jang [address] [place] [address] Cardiology 03/19/21 Vilma Sandoval MD [address] [place] [address] Pulmonary Disease 03/19/21 Day Care Worker Relationship Specialty Start Date End Date Yajaira Gonzalez MD [address] [place] [address] PCP - General 11/13/06 Mackenzie Garzon(Historical), PA [address] [place] [address] Referring 03/13/20 Ramirez Jang [address] [place] [address] Cardiology 03/19/21 Vilma Sandoval MD [address] [place] [address] Pulmonary Disease 03/19/21 Day Care Worker Relationship Specialty Start Date End Date Yajaira Gonzalez MD [address] [facility] [place] [address] PCP - General 11/13/06 Mackenzie Garzon(Historical), PA [address] [facility] [place] [address] Referring 03/13/20 Suhail, Ramirez Bertrand [address] [place] [address] Cardiology 03/19/21 Vilma Sandoval MD [address] [place] [address] Pulmonary Disease 03/19/21 Day Care Worker Relationship Specialty Start Date End Date Yajaira Gonzalez MD [address] [facility] [place] [address] PCP - General 11/13/06 Mackenzie Garzon(Historical), PA [address] [facility] [place] [address] Referring 03/13/20 Suhail, Ramirez Bertrand [address] [place] [address] Cardiology 03/19/21 Vilma Sandoval MD [address] [place] [address] Pulmonary Disease 03/19/21 Day Care Worker Relationship Specialty Start Date End Date Yajaira Gonzalez MD [address] [facility] [place] [address] PCP - General 11/13/06 Mackenzie Garzon(Historical), PA [address] [facility] [place] [address] Referring 03/13/20 Suhail, Ramirez Thurston [address] [place] [address] Cardiology 03/19/21 Vilma Sandoval MD [address] [place] [address] Pulmonary Disease 03/19/21 Day Care Worker Relationship Specialty Start Date End Date Yajaira Gonzalez MD [address] [facility] [place] [address] PCP - General 11/13/06 Mackenzie Garzon(Historical), PA [address] [place] [address] Referring 03/13/20 Ramirez Jang [address] [place] [address] Cardiology 03/19/21 Vilma Sandoval MD [address] [place] [address] Pulmonary Disease 03/19/21 Day Care Worker Relationship Specialty Start Date End Date Yajaira Gonzalez MD [facility] [place] [address] PCP - General 11/13/06 Mackenzie Garzon(Historical), PA [address] [facility] [place] [address] Referring 03/13/20 Ramirez Jang [address] [place] [address] Cardiology 03/19/21 Vilma Sandoval MD [address] [place] [address] Pulmonary Disease 03/19/21 Day Care Worker Relationship Specialty Start Date End Date Yajaira Gonzalez MD [address] [facility] [place] [address] PCP - General 11/13/06 Mackenzie Garzon(Historical), PA [address] [facility] [place] [address] Referring 03/13/20 Ramirez Jang [address] [place] [address] Cardiology 03/19/21 Vilma Napoles MD [address] [place] [address] Pulmonary Disease 03/19/21 Day Care Worker Relationship Specialty Start Date End Date Yajaira Gonzalez MD [address] [facility] [place] [address] PCP - General 11/13/06 Mackenzie Garzon(Historical), PA [address] [facility] [place] [address] Referring 03/13/20 Ramirez Jang [address] [facility] [place] [address] Cardiology 03/19/21 Vilma Napoles MD [address] [place] [address] Pulmonary Disease 03/19/21 Day Care Worker Relationship Specialty Start Date End Date Yajaira Gonzalez MD [address] [facility] [place] [address] PCP - General 11/13/06 Mackenzie Garzon(Historical), PA [address] [facility] [place] [address] Referring 03/13/20 Ramirez Jang DO [address] [place] [address] Cardiology 03/19/21 Vilma Napoles MD [address] [place] [address] Pulmonary Disease 03/19/21 Day Care Worker Relationship Specialty Start Date End Date Yajaira Gonzalez MD [address] [facility] [place] [address] PCP - General Family Medicine 11/17/16 Day Care Worker Relationship Specialty Start Date End Date Yajaira Gonzalez MD [address] [facility] [place] [address] PCP - ACO Reach 01/29/23 Yajaira Gonzalez MD [address] [facility] [place] [address] PCP - General Family Medicine 02/06/23 Day Care Worker Relationship Specialty Start Date End Date Yajaira Gonzalez MD [address] [facility] [place] [address] PCP - ACO Reach 01/29/23 Yajaira Gonzalez MD [address] [facility] [place] [address] PCP - General Family Medicine 02/06/23 Day Care Worker Relationship Specialty Start Date End Date Yajaira Gonzalez MD [address] [place] [address] PCP - General 11/13/06 Mackenzie Garzon(Historical), PA [address] [place] [address] Referring 03/13/20 Ramirez Jang DO [address] [place] [address] Cardiology 03/19/21 Vilma Napoles MD [address] [facility] [place] [address] Pulmonary Disease 03/19/21 Day Care Worker Relationship Specialty Start Date End Date Yajaira Gonzalez MD [address] [facility] [place] [address] PCP - General 11/13/06 Mackenzie Garzon(Historical), PA [address] [facility] [place] [address] Referring 03/13/20 Ramirez Jang, DO [address] [place] [address] Cardiology 03/19/21 Vilma Napoles MD [address] [place] [address] Pulmonary Disease 03/19/21 Day Care Worker Relationship Specialty Start Date End Date Yajaira Gonzalez MD [address] [facility] [place] [address] PCP - General 11/13/06 Mackenzie Garzon(Historical), PA [address] [place] [address] Referring 03/13/20 Ramirez Jang, DO [address] [place] [address] Cardiology 03/19/21 Vilma Napoles MD [address] [place] [address] Pulmonary Disease 03/19/21 Day Care Worker Relationship Specialty Start Date End Date Yajaira Gonzalez MD [address] [facility] [place] [address] PCP - General 11/13/06 Mackenzie Garzon(Historical), PA [address] [place] [address] Referring 03/13/20 Ramirez Jang, [address] [place] [address] Cardiology 03/19/21 Vilma Napoles MD [address] [place] [address] Pulmonary Disease 03/19/21 Day Care Worker Relationship Specialty Start Date End Date Yaajira Gonzalez MD [address] [facility] [place] [address] PCP - General Family Medicine 11/17/16 Day Care Worker Relationship Specialty Start Date End Date Yajaira Gonzalez MD [address] [facility] [place] [address] PCP - General 11/13/06 Mackenzie Garzon(Historical), PA [address] [place] [address] Referring 03/13/20 Ramirez Jang, [address] [facility] [place] [address] Cardiology 03/19/21 Vilma Napoles MD [address] [place] [address] Pulmonary Disease 03/19/21 Day Care Worker Relationship Specialty Start Date End Date Yajaira Gonzalez MD [address] [place] [address] PCP - General 11/13/06 Mackenzie Garzon(Historical), PA [address] [place] [address] Referring 03/13/20 Ramirez Jang DO [address] [place] [address] Cardiology 03/19/21 Vilma Napoles MD [address] [place] [address] Pulmonary Disease 03/19/21 Day Care Worker Relationship Specialty Start Date End Date Yajaira Gonzalez MD [address] [place] [address] PCP - General 11/13/06 Mackenzie Garzon(Historical), PA [address] [place] [address] Referring 03/13/20 Ramirez Jang DO [address] [place] [address] Cardiology 03/19/21 Vilma Napoles MD [address] [place] [address] Pulmonary Disease 03/19/21 Day Care Worker Relationship Specialty Start Date End Date Yajaira Gonzalez MD [address] [place] [address] PCP - General 11/13/06 Mackenzie Garzon(Historical), PA [address] [place] [address] Referring 03/13/20 Ramirez Jang, [address] [place] [address] Cardiology 03/19/21 Vilma Napoles MD [address] [place] [address] Pulmonary Disease 03/19/21 Day Care Worker Relationship Specialty Start Date End Date Yajaira Gonzalez MD [address] [place] [address] PCP - General 11/13/06 Mackenzie Garzon(Historical), PA [address] [place] [address] Referring 03/13/20 Ramirez Jang, [address] [place] [address] Cardiology 03/19/21 Vilma Napoles MD [address] [place] [address] Pulmonary Disease 03/19/21 Day Care Worker Relationship Specialty Start Date End Date Yajaira Gonzalez MD [address] [place] [place] [address] PCP - General 11/13/06 Mackenzie Garzon(Historical), PA [address] [place] [address] Referring 03/13/20 Ramirez Jang, [address] [place] [address] Cardiology 03/19/21 Vilma Napoles MD [address] [place] [address] Pulmonary Disease 03/19/21 Day Care Worker Relationship Specialty Start Date End Date Yajaira Gonzalez MD [address] [place] [address] PCP - General 11/13/06 Mackenzie Garzon(Historical), PA [address] [place] [address] Referring 03/13/20 Ramirez Jang DO [address] [place] [address] Cardiology 03/19/21 Vilma Napoles MD [address] [place] [address] Pulmonary Disease 03/19/21 Day Care Worker Relationship Specialty Start Date End Date Yajaira Gonzalez MD [address] [place] [address] PCP - General 11/13/06 Mackenzie Garzon(Historical), PA [address] [facility] [place] [address] Referring 03/13/20 Ramirez Jang, [address] [place] [address] Cardiology 03/19/21 Vilma Napoles MD [address] [place] [address] Pulmonary Disease 03/19/21 Day Care Worker Relationship Specialty Start Date End Date Yajaira Gonzalez MD [address] [place] [address] PCP - General 11/13/06 Mackenzie Garzon(Historical), PA [address] [place] [address] Referring 03/13/20 Ramirez Jang DO [address] [place] [address] Cardiology 03/19/21 Vilma Napoles MD [address] [place] [address] Pulmonary Disease 03/19/21 Day Care Worker Relationship Specialty Start Date End Date Yajaira Gonzalez MD [address] [place] [address] PCP - General 11/13/06 Mackenzie Garzon(Historical), PA [address] [place] [address] Referring 03/13/20 Ramirez Jang DO [address] [place] [address] Cardiology 03/19/21 Vilma Napoles MD [address] [place] [address] Pulmonary Disease 03/19/21 Day Care Worker Relationship Specialty Start Date End Date Yajaira Gonzalez MD PCP - General Family Medicine 11/17/16 Day Care Worker Relationship Specialty Start Date End Date Yajaira Gonzalez MD [address] [place] [address] PCP - ACO Reach 01/29/23 Yajaira Gonzalez MD [address] [place] [address] PCP - General Family Medicine 02/06/23 Day Care Worker Relationship Specialty Start Date End Date Yajaira Gonzalez MD [address] [place] [address] PCP - ACO Reach 01/29/23 Yajaira Gonzalez MD [address] [place] [address] PCP - General Family Medicine 02/06/23 Day Care Worker Relationship Specialty Start Date End Date Yajaira Gonzalez MD [address] [place] [address] PCP - General 11/13/06 Mackenzie Garzon(Historical), PA [address] [place] [address] Referring 03/13/20 Ramirez Jang, [address] [place] [address] Cardiology 03/19/21 Vilma Napoles MD [address] [place] [address] Pulmonary Disease 03/19/21 Day Care Worker Relationship Specialty Start Date End Date Yajaira Gonzalez MD [address] [place] [address] PCP - General 11/13/06 Mackenzie Garzon(Historical), PA [address] [place] [address] Referring 03/13/20 Ramirez Jang, [address] [place] [address] Cardiology 03/19/21 Vilma Napoles MD [address] [place] [address] Pulmonary Disease 03/19/21 Day Care Worker Relationship Specialty Start Date End Date Yajaira Gonzalez MD [address] [place] [address] PCP - ACO Reach 01/29/23 Yajaira Gonzalez MD [address] [place] [address] PCP - General Family Medicine 02/06/23 Day Care Worker Relationship Specialty Start Date End Date Yajaira Gonzalez MD [address] [facility] [place] [address] PCP - ACO Reach 01/29/23 Yajaira Gonzalez MD [address] [facility] [place] [address] PCP - General Family Medicine 02/06/23 Day Care Worker Relationship Specialty Start Date End Date Yajaira Gonzalez MD [address] [facility] [place] [address] PCP - General 11/13/06 Mackenzie Garzon(Historical), PA [address] [place] [address] Referring 03/13/20 Ramirez Jang DO [address] [place] [address] Cardiology 03/19/21 Vilma Napoles MD [address] [place] [address] Pulmonary Disease 03/19/21 Day Care Worker Relationship Specialty Start Date End Date Yajaira Gonzalez MD [address] [facility] [place] [address] PCP - General 11/13/06 Mackenzie Garzon(Historical), PA [address] [place] [address] Referring 03/13/20 Ramirez Jang DO [address] [place] [address] Cardiology 03/19/21 Vilma Napoles MD [address] [address] Pulmonary Disease 03/19/21 Day Care Worker Relationship Specialty Start Date End Date Yajaira Gonzalez MD [address] [facility] [place] [address] PCP - ACO Reach 01/29/23 Yajaira Gonzalez MD [address] [facility] [place] [address] PCP - General Family Medicine 02/06/23 Day Care Worker Relationship Specialty Start Date End Date Yajaira Gonzalez MD [address] [facility] [place] [address] PCP - ACO Reach 01/29/23 Yajaira Gonzalez MD [address] [facility] [place] [address] PCP - General Family Medicine 02/06/23 Jaron Will DO [address] [place] [address] Referring Physician Neurology 07/07/24 Day Care Worker Relationship Specialty Start Date End Date Yajaira Gonzalez MD [address] [facility] [place] [address] PCP - ACO Reach 01/29/23 Yajaira Gonzalez MD [address] [facility] [place] [address] PCP - General Family Medicine 02/06/23 Jaron Will DO [address] [place] [address] Referring Physician Neurology 07/07/24 Day Care Worker Relationship Specialty Start Date End Date Yajaira Gonzalez MD [address] [place] [address] PCP - ACO Reach 01/29/23 Yajaira Gonzalez MD [address] [facility] [place] [address] PCP - General Family Medicine 02/06/23 Jaron Will DO [address] [place] [address] Referring Physician Neurology 07/07/24 Day Care Worker Relationship Specialty Start Date End Date Yajaira Gonzalez MD [address] [facility] [address] PCP - ACO Reach 01/29/23 Yajaira Gonzalez MD [address] [facility] [place] [address] PCP - General Family Medicine 02/06/23 Jaron Will DO [address] [place] [address] Referring Physician Neurology 07/07/24 FOR RECORDS PERTAINING TO PATIENTS WHO ARE [...] BE BASED ON THE PRIMARY CLINICAL RECORDS. [facility]. provides no warranty or guarantee of the accuracy or completeness of information in this document.
[2024-07-25 09:25] VITALS: BP 139/71; PULSE 68; TEMP 36.2; O2SAT 100
[2024-07-25] MEDS: 0.9 % SODIUM CHLORIDE 500 ML IV (09:44)
[2024-07-25] MEDS: BUPIVACAINE HCL 0.25% PF 25 MG/10 ML VIAL 4 ML INJ (10:19)
[2024-07-25] MEDS: TRIAMCINOLONE ACETONIDE 40 MG/ML VIAL 80 MG INJ (10:20)
[2024-07-25] MEDS: LIDOCAINE HCL 2% 400 MG/20 ML MDV 16 ML INJ (10:20)
--- NOTE | 2024-07-25 10:30 | P.ON_ITS ---
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 The site was marked.? Written informed consent was obtained and placed on the chart.? The patient was brought to the medical procedure unit and placed in the prone position.? A timeout was completed verifying correct patient, procedure, positioning, and special requirements.? The skin overlying the target points, the designated medial branch, were prepped and draped in the usual sterile fashion.? The target point was achieved with a 20-gauge 15 cm with a 10 mm curved active tip radiofrequency cannula under direct fluoroscopic visualization.? The needle was inserted at level L4 on the right side. Needle tip position was confirmed with lateral fluoroscopic position.? Motor stimulation was carried out at 2 Hz up to 5 volts with the absence of extremity activity.? This was repeated at level L5, S1 on right side.?? Sensory stimulation was carried out.? Concordant pain was realized at the above- mentioned sites.? Then radiofrequency lesioning was carried out times 90 seconds at 80 degrees times 2 lesions at each level.? The radiofrequency probe was removed prior to cannula removal.? The above-mentioned injectate was placed in 1 mL increments.? The needle was removed. The same procedure, with the same steps, was then completed on the left side at the same levels. Insertion sites were covered.? The patient was taken to the postoperative recovery area and monitored for an appropriate length of time before being found suitable for discharge in the company of a responsible adult. Anesthesia: MAC Surgeon: Nikkie Romero Pathology: none sent Condition: stable Disposition: no change
[2024-07-25 10:33] VITALS: BP 117/56; PULSE 65; TEMP 36.6; O2SAT 99
[2024-07-25 10:43] VITALS: BP 99/61; PULSE 67; TEMP 36.6; O2SAT 99
--- NOTE | 2024-07-25 11:48 | PC.NURSE ---
Pacemaker interrogation unit obtained from [place] [facility]. Pacemaker interrogated and printed from machine, emailed to rep. Pt remains on medical leader awaiting clearance from [employer] rep.
--- NOTE | 2024-07-25 12:41 | PC.NURSE ---
Maryse from [employer] received interrogation and stated that device was working appropriately. Dr Gray updated and patient discharged
== END 2024-07-25 12:15 | disposition home or self-care (01) ==
LOC: SURGOUT 08:56
PROVIDERS: PCP Family Medicine; Visit Provider Anesthesiology
DX: M47.816 Spondylosis without myelopathy or radiculopathy, lumbar region (principal); G47.33 Obstructive sleep apnea (adult) (pediatric); J45.909 Unspecified asthma, uncomplicated; E78.5 Hyperlipidemia, unspecified; I10 Essential (primary) hypertension; Z95.0 Presence of cardiac pacemaker; M79.7 Fibromyalgia; K21.9 Gastro-esophageal reflux disease without esophagitis; K44.9 Diaphragmatic hernia without obstruction or gangrene; E03.9 Hypothyroidism, unspecified; Z85.3 Personal history of malignant neoplasm of breast
CPT/HCPCS: 64635; 64636; J0665; J2704; J3301

== ENCOUNTER 2024-08-25 12:46 | Outpatient (OUT) | payer MEDICARE, BC, SELFPAY ==
--- NOTE | 2024-08-25 12:56 | P.CN_ITS ---
Consult Note: HPI Data of Consult Patient: known to practice within the last 3 years Consult date: 06/16/24 Requesting Physician: Cadence Pastor NP Primary Care Provider: VICKIE STILES Consult Narrative Reason for consult: f/u Narrative: 79yof who presents for assessment. continues to have significant low back pain that is worsened with ambulation. completed 6w of PT in past 3 months, without lasting benefit. continues in a series of provider directed home exercises >6w, without benefit. uses tylenol as needed. lumbar imaging reviewed, significant for multilevel moderate facet arthropathy through lumbar spine. denies adverse med side effects. recently underwent bilateral L4-5 l5-s1 RFA with 60% improvement ongoing. she is noticing increased right low back and hip pain. today pain 7/10 increasing to 10/10 with twisting, standing, walking, activity, ADLS, and in the mornings. pain improved with heat and sitting for short amount of time. KIKE 18%. cc:: CC: Cadence Pastor NP Review of Systems ROS Status of ROS 10 or more systems reviewed and unremark able except as noted in history and below Musculoskeletal Reports: back pain; Denies: extremity pain [facility] Medical History (Updated 08/25/24 @ 13:24 by Cadence Pastor NP) Neck pain ?M54.2 - Cervicalgia (ICD-10) Low back pain ?M54.50 - Low back pain, unspecified (ICD-10) Osteoarthritis ?M19.90 - Unspecified osteoarthritis, unspecified site (ICD-10) Fibromyalgia ?M79.7 - Fibromyalgia (ICD-10) Breast cancer ?C50.919 - Malignant neoplasm of unspecified site of unspecified female breast (ICD-10) Depression ?F32.A - Depression, unspecified (ICD-10) Hearing deficit ?H91.90 - Unspecified hearing loss, unspecified ear (ICD-10) Anxiety ?F41.9 - Anxiety disorder, unspecified (ICD-10) Hiatal hernia ?K44.9 - Diaphragmatic hernia without obstruction or gangrene (ICD-10) Acid reflux ?K21.9 - Gastro-esophageal reflux disease without esophagitis (ICD-10) Hypothyroid ?E03.9 - Hypothyroidism, unspecified (ICD-10) Former smoker ?Z87.891 - Personal history of nicotine dependence (ICD-10) Aspergillus ?B44.9 - Aspergillosis, unspecified (ICD-10) Asthma ?J45.909 - Unspecified asthma, uncomplicated (ICD-10) Sleep apnea ?G47.30 - Sleep apnea, unspecified (ICD-10) Irregular heart beat ?I49.9 - Cardiac arrhythmia, unspecified (ICD-10) Sick sinus syndrome ?I49.5 - Sick sinus syndrome (ICD-10) High cholesterol ?E78.00 - Pure hypercholesterolemia, unspecified (ICD-10) Hypertension ?I10 - Essential (primary) hypertension (ICD-10) Surgical History H/O facial fracture repair ?Z98.890 - Other specified postprocedural states (ICD-10) ?Z87.81 - Personal history of (healed) traumatic fracture (ICD-10) H/O section ?Z98.891 - History of uterine scar from previous surgery (ICD-10) History of tonsillectomy ?Z90.89 - Acquired absence of other organs (ICD-10) History of cholecystectomy ?Z90.49 - Acquired absence of other specified parts of digestive tract (ICD- 10) H/O: hysterectomy ?Z90.710 - Acquired absence of both cervix and uterus (ICD-10) H/O arthroscopic knee surgery ?Z98.890 - Other specified postprocedural states (ICD-10) H/O cataract extraction ?Z98.49 - Cataract extraction status, unspecified eye (ICD-10) History of lobectomy of lung ?Z90.2 - Acquired absence of lung [part of] (ICD-10) H/O hand surgery ?Z98.890 - Other specified postprocedural states (ICD-10) S/P left mastectomy ?Z90.12 - Acquired absence of left breast and nipple (ICD-10) S/P cardiac pacemaker procedure ?Z95.0 - Presence of cardiac pacemaker (ICD-10) H/O cervical spine surgery ?Z98.890 - Other specified postprocedural states (ICD-10) H/O arthroscopy of shoulder ?Z98.890 - Other specified postprocedural states (ICD-10) H/O foot surgery ?Z98.890 - Other specified postprocedural states (ICD-10) H/O mastectomy ?Z90.10 - Acquired absence of unspecified breast and nipple (ICD-10) H/O blepharoplasty ?Z98.890 - Other specified postprocedural states (ICD-10) H/O total knee replacement ?Z96.659 - Presence of unspecified artificial knee joint (ICD-10) Meds Home Medications and Allergies Home Medications ?Medication ?Instructions ?Recorded ?Confirmed ?Type acetaminophen 500 mg tablet 500 mg PO Q6H PRN pain 06/06/24 07/25/24 History (Acetaminophen Extra Strength) albuterol sulfate 90 mcg/actuation 2 puff inhalation 06/06/24 History aerosol inhaler alprazolam 0.5 mg tablet mg 06/06/24 History desvenlafaxine succinate 25 mg 25 mg PO DAILY 06/06/24 07/25/24 History tablet,extended release 24 hr (Pristiq) levothyroxine 88 mcg tablet mcg 06/06/24 History lisinopril 5 mg tablet mg 06/06/24 History magnesium oxide 250 mg PO DAILY 06/06/24 07/25/24 History sennosides 8.6 mg-docusate sodium 1 tab-cap PO DAILY 06/06/24 07/25/24 History 50 mg tablet (Senexon-S) verapamil 180 mg tablet,extended mg PO 06/06/24 History release atogepant 30 mg tablet (Qulipta) 30 mg PO DAILY 07/11/24 07/25/24 History Allergies Allergy/AdvReac Type Severity Reaction Status Date / Time aspirin Allergy Unknown Verified 07/25/24 09:33 ciprofloxacin (From Cipro) Allergy Unknown Verified 07/25/24 09:33 clonidine Allergy Unknown Verified 07/25/24 09:33 codeine Allergy Unknown Verified 07/25/24 09:33 doxycycline Allergy Unknown Verified 07/25/24 09:33 gabapentin Allergy Unknown Verified 07/25/24 09:33 levofloxacin (From Levaquin) Allergy Unknown Verified 07/25/24 09:33 moxifloxacin (From Avelox) Allergy Unknown Verified 07/25/24 09:33 oxycodone Allergy Unknown Verified 07/25/24 09:33 theophylline Allergy Unknown Verified 07/25/24 09:33 tramadol Allergy Unknown Verified 07/25/24 09:33 Exam Constitutional Documenting provider has reviewed patient's vital signs: yes Common normals: no apparent distress, oriented x3, healthy appearing, alert and well nourished General appearance: cooperative HENMT Common normals: normocephalic, hearing grossly normal bilaterally and moist oral mucous membranes Head and scalp: normocephalic Eye Common normals: PERRL Pupil: PERRL Neck & C-Spine Common normals: full ROM General: normal visual inspection Chest Common normals: inspection of chest normal Respiratory Common normals: normal respiratory effort, no retractions and no use of accessory muscles Back & Pelvis Lumbar spine/lower back: ROM limited, pain with ROM and straight leg raise negative bilaterally; no paraspinal muscle tenderness and no paraspinal muscle spasm Sacroiliac joints: SI joint(s) abnormal Other: negative facet loading right sij positive ken(patricks), gaenslens, thigh thrust, compression test negative radiculopathy strength 5/5 in BLE Neuro Common normals: oriented x3, CN's II-XII intact bilaterally, moves all extremities, no focal motor deficits, no sensory deficits noted and deep tendon reflexes 2+ bilaterally Sensorium/orientation: alert Motor exam: strength 5/5 throughout and no movement abnormalities noted Psych Common normals: mental status grossly normal, thought process normal, cooperative, affect normal, speech normal and activity/motor behavior normal Speech: normal speech Thought process: normal thought process Results Additional Findings Additional findings: If on a controlled substance or opioids, I have checked an [place] report on this patient and there are no aberrancies noted in the prescribing history.??If on a controlled substance or opioid a drug screen was completed and reviewed within the last year, and if there has not been a drug screen completed we ordered one today to monitor higher risk, state monitored pain medication use. As part of providing excellent, safe, comprehensive care, the following was completed at our patient's visit: 1. A medication reconciliation and review to ensure accurate knowledge of current/active medications, including asking our patients to inform us about any [id number] medications or herbal remedies/nutritional supplements/alternative remedies. 2. A review to specifically ensure our patients have had annual screening for screening for depression, screening for tobacco use, and screening for unhealthy alcohol use. For concerning screenings had a discussion with the patient, provided patient education, and recommended follow-up with primary care provider when appropriate. If patient noted with a risk of falling, they received education on strength, gait, and balance training to prevent future risk of falling. Assessment and Plan Assessment and Plan (1) Lumbar spondylosis: (2) Sacroiliitis: Plan right SIJ injection under fluoroscopy, risks vs benefits reviewed continue HEP as tolerated f/u 1-2 weeks after injection
== END 2024-08-25 12:47 | disposition home or self-care (01) ==
LOC: PM 12:46
PROVIDERS: PCP Family Medicine; Visit Provider Nurse Practitioner
DX: M47.816 Spondylosis without myelopathy or radiculopathy, lumbar region (principal); M46.1 Sacroiliitis, not elsewhere classified
CPT/HCPCS: G0463